=== PATIENT | female | born 1975 | race Two or more races ===

== ENCOUNTER 2021-06-20 15:06 | Inpatient (IN) ==
[2021-06-20] MEDS ORDERED: PANTOprazole 80 MG in DEXTROSE 5% 100 ML IV ONE (15:10)
[2021-06-20] MEDS ORDERED: ONDANSETRON INJ 2 MG/ML 2 ML VIAL IV STA (15:10)
[2021-06-20] MEDS ORDERED: PANTOPRAZOLE BOLUS/DRIP 1 EA IV STA (15:10)
[2021-06-20] MEDS ORDERED: SODIUM CHLORIDE 0.9% 1000ML 1,000 ML IV SCH (15:15)
[2021-06-20] MEDS: SODIUM CHLORIDE 0.9% 1000ML 1,000 ML IV ONE ×2 (15:23→15:55)
[2021-06-20 15:26] LABS: Hematocrit (blood only) 35.1 % (37-47); Hemoglobin 12.2 g/dL (12.0-16.0); Mean Corpuscular Hemoglobin 30.6 pg (25-34); Mean Corpuscular Hgb Conc 34.8 g/dL (32-36); RDW Coefficient of Variation 13.9 % (11.5-14.5); RDW Standard Deviation 44.9 fL (36.4-46.3); Red Blood Count 3.99 M/uL (4.2-5.4); White Blood Count 5.82 K/uL (4.8-10.8)
[2021-06-20 15:33] LABS: INR 1.1 (0.9-1.1); Partial Thromboplastin Time 26.1 Seconds (21.0-31.0); Prothrombin Time 11.4 Seconds (9.0-12.0)
--- NOTE | 2021-06-20 15:34 | XRay Report ---
XR chest 1V portable CLINICAL HISTORY: vomiting COMPARISON STUDY: Chest radiograph and chest CT March 31, 2021 FINDINGS: Lung volumes are normal. Mild right lower lung opacity has developed since prior CT and [address] radiograph March 31, 2021. There is no pneumothorax or pleural effusion. Cardiac size is normal. Me diastinal contours are normal. There is no evidence for pulmonary edema. IMPRESSION: Interval development of mild right lower lung airspace opacity. Although nonspecific, an infectious process is favored. ACT 112: Negative or not required by law. Electronically signed by: Robb Hurtado M.D. 06/20/2021 3:33 PM
[2021-06-20 15:41] LABS: Alanine Aminotransferase 62 U/L (12-78); Albumin Level 3.3 gm/dl (3.4-5.0); Aspartate Aminotransferase 42 U/L (15-37); BUN Creatinine Ratio 20.4 (10-20); Blood Urea Nitrogen 19 mg/dl (7-18); Calcium 8.1 mg/dl (8.5-10.1); Carbon Dioxide 24 mmol/L (21-32); Chloride 110 mmol/L (98-107); Est GFR (African American) 87.2 ml/min; Est GFR (Non-African American) 75.2 ml/min; Glucose 130 mg/dl (70-99); Potassium 4.1 mmol/L (3.5-5.1); Sodium 141 mmol/L (136-145)
[2021-06-20 15:44] LABS: Albumin Globulin Ratio 1.1 (0.9-2); Alkaline Phosphatase 91 U/L (45-117); Bilirubin,Total 1.6 mg/dl (0.2-1); Total Protein 6.3 gm/dl (6.4-8.2)
[2021-06-20] MEDS ORDERED: OPTIRAY 320 100ml IV ONE (15:44)
[2021-06-20 15:46] LABS: Basophils # (auto) 0.01 K/uL (0-0.2); Basophils % (auto) 0.2 %; Eosinophils # (auto) 0.07 K/uL (0-0.5); Eosinophils % (auto) 1.2 %; Immature Granulocytes # (auto) 0.01 K/uL (0.00-0.02); Immature Granulocytes % (auto) 0.2 %; Lymphocytes # (auto) 1.11 K/uL (1.2-3.4); Lymphocytes % (auto) 19.1 %; Mean Platelet Volume 10.9 fL (7.4-10.4); Monocytes # (auto) 0.58 K/uL (0.11-0.59); Neutrophils # (auto) 4.04 K/uL (1.4-6.5); Neutrophils % (auto) 69.3 %; Platelet Count 69 K/uL (130-400); Platelet Estimate Decreased (Normal)
[2021-06-20] MEDS: PANTOprazole 40 MG in DEXTROSE 5% 100 ML IV SCH ×2 (15:55→21:26)
--- NOTE | 2021-06-20 16:11 | CT Scan Report ---
CT OF THE CHEST WITH IV CONTRAST CLINICAL HISTORY: GIB, liver CA with mets COMPARISON STUDY: Chest CT March 31, 2021. TECHNIQUE: Following IV administration of 90 mL of Optiray, helical axial images of the chest were o btained. Sagittal and coronal reconstructions were viewed as well as maximal intensity projections o n an independent 3-D workstation. Automated exposure control was utilized for the study. A dose low ering technique was utilized adhering to the principles of ALARA. CT DOSE: 161.19 mGy.cm FINDINGS: No enlarged axillary, mediastinal or hilar lymph nodes are present. There is no pericardia l effusion. No pneumothorax or pleural fusion is present. There is no consolidation to suggest pneumo mitra. A few small pulmonary nodules are noted. The largest is a 4 mm subpleural nodule 198 of 241. The se are unchanged since PET/CT of March 31, 2020. There has been interval development of a 4.8 x 3.6 cm enhancing destructive lesion involving the anterior right fifth rib since prior CT. No additional os seous lesions are noted. The abdomen and pelvis will be reported separately. A small amount perihepat ic fluid is noted. IMPRESSION: 1. Interval development of a 4.8 x 3.6 cm enhancing destructive lesion of the anterior right fifth ri b since CT of March 31, 2021. This is highly suggestive of skeletal metastatic disease. 2. No thoracic lymphadenopathy. 3. No consolidation to suggest pneumonia. 4. No change in several small pulmonary nodules since chest CT of March 31, 2021. ACT 112: Negative or not required by law. Electronically signed by: Robb Hurtado M.D. 06/20/2021 4:10 PM
[2021-06-20] MEDS ORDERED: SODIUM CHLORIDE 0.9% 250 ML IV PRN (16:14)
--- NOTE | 2021-06-20 16:18 | CT Scan Report ---
ABDOMEN AND PELVIS CT WITH IV CONTRAST CT DOSE: 305.39 mGy.cm HISTORY: vomiting blood, liver CA TECHNIQUE: Multiaxial CT images of the abdomen and pelvis were performed following the use of intrave nous contrast. A dose lowering technique was utilized adhering to the principles of ALARA. COMPARISON STUDY: Abdomen and pelvis CT 03/31/2021. FINDINGS: There is a 4.6 cm metastatic focus within the right anterior fifth rib. No pneumoperitoneum . No pneumatosis. A 1.6 cm sclerotic focus within the right posterior iliac bone. This remains unchan ged. Embolization coil noted within the right hepatic lobe, unchanged. There is a 5 mm hypodense lesi on within the right hepatic dome on image 43. This is technically too small to characterize. Mild cir rhosis with portal hypertension demonstrated by splenomegaly and a dilated portal and splenic veins. The gallbladder, adrenal glands, kidneys, and pancreas are unremarkable. No retroperitoneal lymphaden opathy. Normal caliber abdominal aorta. There is suggestion of mild thickening of the distal gastric antrum/duodenal bulb. This raises the possibility of a gastritis/peptic ulcer disease. There is a mod erately distended and debris filled stomach. Therefore, this could represent a partial gastric outlet obstruction from the thickened gastric antrum/duodenal bulb. Persistent heterogeneity within the lef t side of the uterine fundus. The bladder is unremarkable. There is trace ascites. Colonic diverticul osis. No evidence for acute diverticulitis. Normal appendix. IMPRESSION: 1. A 4.6 cm destructive metastatic focus within the right anterior fifth rib. This is better apprecia andres on the same day chest CT. 2. A stable 1.6 cm sclerotic focus within the right posterior iliac bone. This is nonspecific but cou ld also represent metastatic disease. 3. There is suggestion of mild thickening of the distal gastric antrum/duodenal bulb. This raises the possibility of a gastritis/peptic ulcer disease. 4. There is a moderately distended and debris filled stomach. Therefore, this could represent a parti al gastric outlet obstruction from the thickened gastric antrum/duodenal bulb. 5. Persistent heterogeneity within the left side of the uterine fundus. This is indeterminate but cou ld represent a uterine fibroid. A follow-up pelvic ultrasound could be used for confirmation. ACT 112: Negative or not required by law. Electronically signed by: Ashkan Aldana M.D. 06/20/2021 4:17 PM
[2021-06-20] MEDS ORDERED: BENZOCAINE/TETRACAIN/BUTAM CAN 200 APPLN/20 GM CAN EXT STA (16:47)
[2021-06-20 16:50] LABS: iSTAT Creatinine 0.9 mg/dl (0.6-1.3); iSTAT Hemoglobin 11.2 g/dl (12.0-16.0); iSTAT Ionized Calcium 1.12 mmol/l (1.12-1.32); iSTAT Potassium 4.1 mmol/L (3.3-5.0)
[2021-06-20] MEDS ORDERED: BENZOCAIN/TETRACA/BUTAM SPRAY 200 APPLN/20 GM SPRY EXT STA (16:56)
--- NOTE | 2021-06-20 17:13 | History & Physical Report ---
Date of Service June 20, 2021 Assessment & Plan (1) Hematemesis: Plan: Will admit patient to a PCU bed. Currently hemodynamically stable with hemoglobin of 12.2 Was given Protonix in the ER, I can continue drip started in the emergency room Strict n.p.o. I did ask ER staff to place an NG tube considering CT results Consult GI stat for further acute management 2 units of packed red blood cells were ordered, transfusion held as patient's hemoglobin is stable. 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 Pablo bertrand who has since retired. ER physician did speak to GI. I did offer transfer to [facility], is comfortable keeping the patient here for now while we start work-up Will await GI evaluation and further recommendations I did also mention to the patient's that as she does have very advanced cancer with metastasis, not a transplant candidate. He does understand that she likely does not have time left. He may be interested in the near future and palliative care/hospice but not at the moment. I will need to follow-up on this. History of Present Illness Chief Complaint: Leland hematemesis Primary Care Provider: Jasmyne Diane This is a 45-year-old female with past medical history of hepatitis B, cirrhosis, hepatocellular carcinoma with bony metastasis that presents today with hematemesis. She is accompanied by her gives a good history. Patient has a recent diagnosis of hepatocellular carcinoma, was being evaluated by the transplant team at [facility]. Unfortunately, earlier this month, it was noted that the patient had a bony metastasis and therefore was not a candidate for transplant. She was following with the oncology team there and was recently started on a new chemotherapy agent. Per the , patient has been complaining of some abdominal pain throughout the course of last week into the weekend. Earlier today, he was out of the hospital contacted by the patient's daughter that the patient had a small amount of bloody vomit. He came home and with the patient in his car. In route to the hospital, she had a large volume bloody emesis. He describes as dark blood with clots. There was no coffee-ground element to it. Patient was evaluated emergency room. Per the ER physician, she has not had another episode of vomiting since being roomed. Allergies Allergy/AdvReac Type Severity Reaction Status Date / Time No Known Allergies Allergy Verified 06/20/21 15:45 Home Medications Medication Instructions Recorded Confirmed Type prochlorperazine maleate 5 mg 5 mg PO UD PRN 03/31/21 06/20/21 History tablet sumatriptan succinate 50 mg tablet 50 mg PO UD PRN 03/31/21 06/20/21 History lenvatinib 12 mg/day (4 mg x 3) 12 mg PO DAILY 06/20/21 06/20/21 History capsule (Lenvima) Past Med/Surg History Medical History (Updated 06/20/21 @ 17:10 by Homero Rios DO) Abdominal discomfort Fibroid uterus Hepatitis B chronic History of abnormal [facility] [place], bleeding was managed with Aygestin (recurrence when Aygestin discontinued). Per [facility] discharge summary, received 2U PRBC's 01/20. Received IR uterine artery embolization during admission. Liver cancer DX 12/2019 Surgical History History of arteriography History of History of endometrial ablation Family History Other No family history of adverse response to anesthesia No pertinent family history Social History Smoking Status: Never smoker Second Hand Exposure: No; Hx Alcohol Use: No Hx Substance Use: No Preferred Language: Mandarin Azeri Communication Ability: Effective Communication Tools: IPad Yolk Spray Drier Required: Yes Beliefs That Will Affect Care: None Current Living Situation: Spouse Feels Safe at Home: Yes Review of Systems Review of Systems: as noted above from . patient drowsy, poor understanding of taiwanese so this is otherwise deferred Physical Exam Constitutional: cooperative; no acute distress Neck: trachea midline, no thyromegaly Respiratory: normal respiratory effort Auscultation: lungs clear to auscultation bilaterally; no crackles, no rales, no rhonchi and no wheezes Cardiovascular: Rate/Rhythm: regular rate and regular rhythm Heart Sounds: normal S1 and normal S2 Gastrointestinal (Abdomen): Inspection/Auscultation: abdomen normal to inspection Percussion/Palpation: + abdomen firm; abdomen nontender, no guarding, abdomen not rigid and no hepatosplenomegaly Skin: no rashes, warm and dry Results & Data Results & Data ([facility]) Vital Signs (Past 12 Hours) Vital Signs Temp Pulse Resp BP Pulse Ox 06/20/21 16:07 77 18 127/77 99 06/20/21 15:08 36.9 C 93 H 20 118/87 98 Laboratory Results Laboratory Results WBC 5.82 K/uL (4.8-10.8) 06/20/21 15:15 RBC 3.99 M/uL (4.2-5.4) L 06/20/21 15:15 Hgb 12.2 g/dL (12.0-16.0) 06/20/21 15:15 POC Hgb 11.2 g/dl (12.0-16.0) L 06/20/21 15:25 Hct 35.1 % (37-47) L 06/20/21 15:15 POC Hct 33 % (37-47) L 06/20/21 15:25 MCV 88.0 fL (80-100) 06/20/21 15:15 MCH 30.6 pg (25-34) 06/20/21 15:15 MCHC 34.8 g/dL (32-36) 06/20/21 15:15 RDW Std Deviation 44.9 fL (36.4-46.3) 06/20/21 15:15 RDW Coeff of Domonique 13.9 % (11.5-14.5) 06/20/21 15:15 Plt Count 69 K/uL (130-400) L 06/20/21 15:15 MPV 10.9 fL (7.4-10.4) H 06/20/21 15:15 Immature Gran % (Auto) 0.2 % 06/20/21 15:15 Neut % (Auto) 69.3 % 06/20/21 15:15 Lymph % (Auto) 19.1 % 06/20/21 15:15 [place] % (Auto) 10.0 % 06/20/21 15:15 Eos % (Auto) 1.2 % 06/20/21 15:15 Baso % (Auto) 0.2 % 06/20/21 15:15 Neut # (Auto) 4.04 K/uL (1.4-6.5) 06/20/21 15:15 Lymph # (Auto) 1.11 K/uL (1.2-3.4) L 06/20/21 15:15 [place] # (Auto) 0.58 K/uL (0.11-0.59) 06/20/21 15:15 Eos # (Auto) 0.07 K/uL (0-0.5) 06/20/21 15:15 Baso # (Auto) 0.01 K/uL (0-0.2) 06/20/21 15:15 Immature Gran # (Auto) 0.01 K/uL (0.00-0.02) 06/20/21 15:15 Platelet Estimate Decreased (Normal) L 06/20/21 15:15 PT 11.4 Seconds (9.0-12.0) 06/20/21 15:15 INR 1.1 (0.9-1.1) 06/20/21 15:15 APTT 26.1 Seconds (21.0-31.0) 06/20/21 15:15 PTT Ratio 1.0 06/20/21 15:15 POC Sodium 140 mmol/L (135-144) 06/20/21 15:25 Sodium 141 mmol/L (136-145) 06/20/21 15:15 POC Potassium 4.1 mmol/L (3.3-5.0) 06/20/21 15:25 Potassium 4.1 mmol/L (3.5-5.1) 06/20/21 15:15 POC Chloride 104 mmol/L (101-112) 06/20/21 15:25 Chloride 110 mmol/L (98-107) H 06/20/21 15:15 Carbon Dioxide 24 mmol/L (21-32) 06/20/21 15:15 POC Total CO2 21 mmol/L (24-31) L 06/20/21 15:25 Anion Gap 7.0 (3-11) 06/20/21 15:15 POC Anion Gap 20.0 mmol/L (16-25) 06/20/21 15:25 POC BUN 20 mg/dl (7-18) H 06/20/21 15:25 BUN 19 mg/dl (7-18) H 06/20/21 15:15 Creatinine 0.92 mg/dl (0.6-1.2) 06/20/21 15:15 POC Creatinine 0.9 mg/dl (0.6-1.3) 06/20/21 15:25 Est Cr Clr Drug Dosing Not Reportable 06/20/21 15:15 Est GFR ( Amer) 87.2 ml/min 06/20/21 15:15 Est GFR (Non-Af Amer) 75.2 ml/min 06/20/21 15:15 BUN/Creatinine Ratio 20.4 (10-20) H 06/20/21 15:15 Glucose 130 mg/dl (70-99) H 06/20/21 15:15 POC Glucose (other) 135 mg/dl (70-99) H 06/20/21 15:25 Calcium 8.1 mg/dl (8.5-10.1) L 06/20/21 15:15 POC Ioniz Calcium Leena 1.12 mmol/l (1.12-1.32) 06/20/21 15:25 Total Bilirubin 1.6 mg/dl (0.2-1) H 06/20/21 15:15 AST 42 U/L (15-37) H 06/20/21 15:15 ALT 62 U/L (12-78) 06/20/21 15:15 Alkaline Phosphatase 91 U/L (45-117) 06/20/21 15:15 Total Protein 6.3 gm/dl (6.4-8.2) L 06/20/21 15:15 Albumin 3.3 gm/dl (3.4-5.0) L 06/20/21 15:15 Globulin 3.0 gm/dl (2.5-4.0) 06/20/21 15:15 Albumin/Globulin Ratio 1.1 (0.9-2) 06/20/21 15:15 COVID-19 Eval Order Covid19 at [facility] 06/20/21 15:58 SARS-CoV-2 (PCR) NEGATIVE (Negative) 06/20/21 15:58 Blood Type O Positive 06/20/21 15:15 Antibody Screen NEGATIVE 06/20/21 15:15 Crossmatch See Detail 06/20/21 15:15 Impressions Abdomen/Pelvis CT 06/20/21 15:[address] WITH IV CONTRAST CT DOSE: 305.39 mGy.cm HISTORY: vomiting blood, liver CA TECHNIQUE: Multiaxial CT images of the abdomen and pelvis were performed following the use of intravenous contrast. A dose lowering technique was utilized adhering to the principles of ALARA. COMPARISON STUDY: Abdomen and pelvis CT 03/31/2021. FINDINGS: There is a 4.6 cm metastatic focus within the right anterior fifth rib. No pneumoperitoneum. No pneumatosis. A 1.6 cm sclerotic focus within the right posterior iliac bone. This remains unchanged. Embolization coil noted within the right hepatic lobe, unchanged. There is a 5 mm hypodense lesion within the right hepatic dome on image 43. This is technically too small to characterize. Mild cirrhosis with portal hypertension demonstrated by splenomegaly and a dilated portal and splenic veins. The gallbladder, adrenal glands, kidneys, and pancreas are unremarkable. No retroperitoneal lymphadenopathy. Normal caliber abdominal aorta. There is suggestion of mild thickening of the distal gastric antrum/duodenal bulb. This raises the possibility of a gastritis/peptic ulcer disease. There is a moderately distended and debris filled stomach. Therefore, this could represent a partial gastric outlet obstruction from the thickened gastric antrum/duodenal bulb. Persistent heterogeneity within the left side of the uterine fundus. The bladder is unremarkable. There is trace ascites. Colonic diverticulosis. No evidence for acute diverticulitis. Normal appendix. IMPRESSION: 1. A 4.6 cm destructive metastatic focus within the right anterior fifth rib. This is better appreciated on the same day chest CT. 2. A stable 1.6 cm sclerotic focus within the right posterior iliac bone. This is nonspecific but could also represent metastatic disease. 3. There is suggestion of mild thickening of the distal gastric antrum/duodenal bulb. This raises the possibility of a gastritis/peptic ulcer disease. 4. There is a moderately distended and debris filled stomach. Therefore, this could represent a partial gastric outlet obstruction from the thickened gastric antrum/duodenal bulb. 5. Persistent heterogeneity within the left side of the uterine fundus. This is indeterminate but could represent a uterine fibroid. A follow-up pelvic ultrasound could be used for confirmation. ACT 112: Negative or not required by law. Electronically signed by: Ashkan Aldana M.D. 06/20/2021 4:17 PM Chest X-Ray 06/20/21 15:10 XR chest 1V portable CLINICAL HISTORY: vomiting COMPARISON STUDY: Chest radiograph and chest CT March 31, 2021 FINDINGS: Lung volumes are normal. Mild right lower lung opacity has developed since prior CT and chest radiograph March 31, 2021. There is no pneumothorax or pleural effusion. Cardiac size is normal. Mediastinal contours are normal. There is no evidence for pulmonary edema. IMPRESSION: Interval development of mild right lower lung airspace opacity. Although nonspecific, an infectious process is favored. ACT 112: Negative or not required by law. Electronically signed by: Robb Hurtado M.D. 06/20/2021 3:[address] 06/20/21 15:43 CT OF THE CHEST WITH IV CONTRAST CLINICAL HISTORY: GIB, liver CA with mets COMPARISON STUDY: Chest CT March 31, 2021. TECHNIQUE: Following IV administration of 90 mL of Optiray, helical axial images of the chest were obtained. Sagittal and coronal reconstructions were viewed as well as maximal intensity projections on an independent 3-D workstation. Automated exposure control was utilized for the study. A dose lowering technique was utilized adhering to the principles of ALARA. CT DOSE: 161.19 mGy.cm FINDINGS: No enlarged axillary, mediastinal or hilar lymph nodes are present. There is no pericardial effusion. No pneumothorax or pleural fusion is present. There is no consolidation to suggest pneumonia. A few small pulmonary nodules are noted. The largest is a 4 mm subpleural nodule 198 of 241. These are unchanged since PET/CT of March 31, 2020. There has been interval development of a 4.8 x 3.6 cm enhancing destructive lesion involving the anterior right fifth rib since prior CT. No additional osseous lesions are noted. The abdomen and pelvis will be reported separately. A small amount perihepatic fluid is noted. IMPRESSION: 1. Interval development of a 4.8 x 3.6 cm enhancing destructive lesion of the anterior right fifth rib since CT of March 31, 2021. This is highly suggestive of skeletal metastatic disease. 2. No thoracic lymphadenopathy. 3. No consolidation to suggest pneumonia. 4. No change in several small pulmonary nodules since chest CT of March 31, 2021. ACT 112: Negative or not required by law. Electronically signed by: Robb Hurtado M.D. 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
[2021-06-20] MEDS ORDERED: LORazepam 0.5 MG/1 ML VIAL IV STA (17:37)
[2021-06-20] MEDS ORDERED: PROPOFOL IV EMULSION 10 MG/ML 20 ML VIAL IV ONE (18:33)
[2021-06-20] MEDS ORDERED: SUCCINYLCHOLINE CHLORIDE 20 MG/ML 10 ML VIAL IV ONE (18:33)
--- NOTE | 2021-06-20 18:35 | Gastrointestinal Consultation ---
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 If the bleeding could be variceal, early endoscopy is indicated for application of bands. Resuscitation and general support, and empiric treatment with IV PPI infusion. The patient is currently hemodynamically stable for early endoscopy, This was discussed in detail with the patient and spouse, with the support of a mandarin health care technician. Indications for examination, and potential benefits, risks, and alternatives were discussed, all questions were answered, and verbal consent was obtained. Endoscopy for control of bleeding arranged. Further recommendations to follow the results of the endoscopy History of Present Illness Reason for Consultation: Hematemesis, upper GI bleeding Requesting Physician: Krishna History of Present Illness 45 yo green[place]ic woman with known chronic hepatitis B complicated by early hepatic cirrhosis with portal hypertension and metastatic stage 4 HCC with bone metastases, s/p embolization for small hepatic mass and 3 doses of oral chemotherapy. . She had an episode of hematemesis with fresh red blood and clots this afternoon. Denies any previous episodes of GI bleeding. In the ED, NG passed with dark red bloody drainage. Hemodynamically stable. CT in the ED revealed signs of portal hypertension with splenomegaly and dilated splenic and portal veins, thickening of the wall of the antrum and gastric debris, likely blood and clots. Her last solid food ingestion was breakfast early this morning, she had clear broth for lunch at noon.. Denied use of aspirin or NSAIDs. Allergies Allergy/AdvReac Type Severity Reaction Status Date / Time No Known Allergies Allergy Verified 06/20/21 15:45 Home Medications Medication Instructions Recorded Confirmed Type prochlorperazine maleate 5 mg 5 mg PO UD PRN 03/31/21 06/20/21 History tablet sumatriptan succinate 50 mg tablet 50 mg PO UD PRN 03/31/21 06/20/21 History lenvatinib 12 mg/day (4 mg x 3) 12 mg PO DAILY 06/20/21 06/20/21 History capsule (Lenvima) Patient History Medical History (Updated 06/20/21 @ 18:28 by Jose Enrique Shelton MD) Abdominal discomfort Fibroid uterus Hepatitis B chronic History of abnormal uterine hemorrhage [place]2019 [place] [facility] [place] managed with Aygestin (recurrence when Aygestin discontinued). Per [facility] [place] received 2U PRBC's 01/20. Received IR uterine artery embolization during admission. Liver cancer DX 12/2019 Surgical History History of arteriography History of History of endometrial ablation Family History Other No family history of adverse response to anesthesia No pertinent family history Social History Smoking Status: Never smoker Second Hand Exposure: No; Hx Alcohol Use: No Hx Substance Use: No Preferred Language: Mandarin Citizen Of [place] Communication Ability: Effective Communication Tools: IPad Assembler Final Required: Yes Beliefs That Will Affect Care: None Current Living Situation: Spouse Feels Safe at Home: Yes Review of Systems Review of Systems: Review of systems positive for nausea, vomiting, fatigue, malaise, negative for cough, shortness of breath, chest pain, abdominal pain, rectal bleeding, melena Physical Exam Physical Exam: At time of my exam, patient awake but sedated with ativan. Oriented and responding appropriately to questions Eyes: No scleral icterus ENMT: No oral or pharyngeal lesions, neck masses, normal neck ROM. Respiratory: Lungs clear to auscultation Cardiovascular: No carotid bruits, normal rate and rhythm without gallops or murmurs Gastrointestinal (Abdomen): Soft nontender abdomen without detectable organ omegaly or ascites Musculoskeletal: No deformity, cyanosis, edema Skin: Not jaundiced Neurologic: No focal neurologic signs Results & Data ([facility]) Vital Signs (Past 12 Hours) Vital Signs Temp Pulse Pulse Resp BP BP Pulse Ox 06/20/21 17:46 88 20 93/75 L 97 06/20/21 17:30 84 19 93/75 L 99 06/20/21 17:00 91 H 17 117/80 06/20/21 16:30 81 18 113/82 100 06/20/21 16:07 77 18 127/77 99 06/20/21 15:08 36.9 C 93 H 20 118/87 98 Laboratory Results 0806/20/21 06/20/21 15:15 15:15 15:15 WBC 5.82 RBC 3.99 L Hgb 12.2 POC Hgb Hct 35.1 L POC Hct MCV 88.0 MCH 30.6 MCHC 34.8 RDW Std Deviation 44.9 RDW Coeff of Domonique 13.9 Plt Count 69 L MPV 10.9 H Immature Gran % (Auto) 0.2 Neut % (Auto) 69.3 Lymph % (Auto) 19.1 [place] % (Auto) 10.0 Eos % (Auto) 1.2 Baso % (Auto) 0.2 Neut # (Auto) 4.04 Lymph # (Auto) 1.11 L [place] # (Auto) 0.58 Eos # (Auto) 0.07 Baso # (Auto) 0.01 Immature Gran # (Auto) 0.01 Platelet Estimate Decreased L PT 11.4 INR 1.1 APTT 26.1 PTT Ratio 1.0 POC Sodium Sodium POC Potassium Potassium POC Chloride Chloride Carbon Dioxide POC Total CO2 Anion Gap POC Anion Gap POC BUN BUN Creatinine POC Creatinine Est Cr Clr Drug Dosing Est GFR ( Amer) Est GFR (Non-Af Amer) BUN/Creatinine Ratio Glucose POC Glucose (other) Calcium POC Ioniz Calcium Elena Total Bilirubin AST ALT Alkaline Phosphatase Total Protein Albumin Globulin Albumin/Globulin Ratio COVID-19 Eval Order SARS-CoV-2 (PCR) Blood Type O Positive Antibody Screen NEGATIVE Crossmatch See Detail 06/20/21 06/20/21 06/20/21 15:15 15:25 15:58 WBC RBC Hgb POC Hgb 11.2 L Hct POC Hct 33 L MCV MCH MCHC RDW Std Deviation RDW Coeff of Domonique Plt Count MPV Immature Gran % (Auto) Neut % (Auto) Lymph % (Auto) [place] % (Auto) Eos % (Auto) Baso % (Auto) Neut # (Auto) Lymph # (Auto) [place] # (Auto) Eos # (Auto) Baso # (Auto) Immature Gran # (Auto) Platelet Estimate PT INR APTT PTT Ratio POC Sodium 140 Sodium 141 POC Potassium 4.1 Potassium 4.1 POC Chloride 104 Chloride 110 H Carbon Dioxide 24 POC Total CO2 21 L Anion Gap 7.0 POC Anion Gap 20.0 POC BUN 20 H BUN 19 H Creatinine 0.92 POC Creatinine 0.9 Est Cr Clr Drug Dosing Not Reportable Est GFR ( Amer) 87.2 Est GFR (Non-Af Amer) 75.2 BUN/Creatinine Ratio 20.4 H Glucose 130 H POC Glucose (other) 135 H Calcium 8.1 L POC Ioniz Calcium Elena 1.12 Total Bilirubin 1.6 H AST 42 H ALT 62 Alkaline Phosphatase 91 Total Protein 6.3 L Albumin 3.3 L Globulin 3.0 Albumin/Globulin Ratio 1.1 COVID-19 Eval Order Covid19 at [facility] SARS-CoV-2 (PCR) Blood Type Antibody Screen Crossmatch 06/20/21 15:58 WBC RBC Hgb POC Hgb Hct POC Hct MCV MCH MCHC RDW Std Deviation RDW Coeff of Domonique Plt Count MPV Immature Gran % (Auto) Neut % (Auto) Lymph % (Auto) [place] % (Auto) Eos % (Auto) Baso % (Auto) Neut # (Auto) Lymph # (Auto) [place] # (Auto) Eos # (Auto) Baso # (Auto) Immature Gran # (Auto) Platelet Estimate PT INR APTT PTT Ratio POC Sodium Sodium POC Potassium Potassium POC Chloride Chloride Carbon Dioxide POC Total CO2 Anion Gap POC Anion Gap POC BUN BUN Creatinine POC Creatinine Est Cr Clr Drug Dosing Est GFR ( Amer) Est GFR (Non-Af Amer) BUN/Creatinine Ratio Glucose POC Glucose (other) Calcium POC Ioniz Calcium Elena Total Bilirubin AST ALT Alkaline Phosphatase Total Protein Albumin Globulin Albumin/Globulin Ratio COVID-19 Eval Order SARS-CoV-2 (PCR) NEGATIVE Blood Type Antibody Screen Crossmatch Diagnostic Findings Laboratory Results WBC 5.82 K/uL (4.8-10.8) 06/20/21 15:15 RBC 3.99 M/uL (4.2-5.4) L 06/20/21 15:15 Hgb 12.2 g/dL (12.0-16.0) 06/20/21 15:15 POC Hgb 11.2 g/dl (12.0-16.0) L 06/20/21 15:25 Hct 35.1 % (37-47) L 06/20/21 15:15 POC Hct 33 % (37-47) L 06/20/21 15:25 MCV 88.0 fL (80-100) 06/20/21 15:15 MCH 30.6 pg (25-34) 06/20/21 15:15 MCHC 34.8 g/dL (32-36) 06/20/21 15:15 RDW Std Deviation 44.9 fL (36.4-46.3) 06/20/21 15:15 RDW Coeff of Domonique 13.9 % (11.5-14.5) 06/20/21 15:15 Plt Count 69 K/uL (130-400) L 06/20/21 15:15 MPV 10.9 fL (7.4-10.4) H 06/20/21 15:15 Immature Gran % (Auto) 0.2 % 06/20/21 15:15 Neut % (Auto) 69.3 % 06/20/21 15:15 Lymph % (Auto) 19.1 % 06/20/21 15:15 [place] % (Auto) 10.0 % 06/20/21 15:15 Eos % (Auto) 1.2 % 06/20/21 15:15 Baso % (Auto) 0.2 % 06/20/21 15:15 Neut # (Auto) 4.04 K/uL (1.4-6.5) 06/20/21 15:15 Lymph # (Auto) 1.11 K/uL (1.2-3.4) L 06/20/21 15:15 [place] # (Auto) 0.58 K/uL (0.11-0.59) 06/20/21 15:15 Eos # (Auto) 0.07 K/uL (0-0.5) 06/20/21 15:15 Baso # (Auto) 0.01 K/uL (0-0.2) 06/20/21 15:15 Immature Gran # (Auto) 0.01 K/uL (0.00-0.02) 06/20/21 15:15 Platelet Estimate Decreased (Normal) L 06/20/21 15:15 PT 11.4 Seconds (9.0-12.0) 06/20/21 15:15 INR 1.1 (0.9-1.1) 06/20/21 15:15 APTT 26.1 Seconds (21.0-31.0) 06/20/21 15:15 PTT Ratio 1.0 06/20/21 15:15 POC Sodium 140 mmol/L (135-144) 06/20/21 15:25 Sodium 141 mmol/L (136-145) 06/20/21 15:15 POC Potassium 4.1 mmol/L (3.3-5.0) 06/20/21 15:25 Potassium 4.1 mmol/L (3.5-5.1) 06/20/21 15:15 POC Chloride 104 mmol/L (101-112) 06/20/21 15:25 Chloride 110 mmol/L (98-107) H 06/20/21 15:15 Carbon Dioxide 24 mmol/L (21-32) 06/20/21 15:15 POC Total CO2 21 mmol/L (24-31) L 06/20/21 15:25 Anion Gap 7.0 (3-11) 06/20/21 15:15 POC Anion Gap 20.0 mmol/L (16-25) 06/20/21 15:25 POC BUN 20 mg/dl (7-18) H 06/20/21 15:25 BUN 19 mg/dl (7-18) H 06/20/21 15:15 Creatinine 0.92 mg/dl (0.6-1.2) 06/20/21 15:15 POC Creatinine 0.9 mg/dl (0.6-1.3) 06/20/21 15:25 Est Cr Clr Drug Dosing Not Reportable 06/20/21 15:15 Est GFR ( Amer) 87.2 ml/min 06/20/21 15:15 Est GFR (Non-Af Amer) 75.2 ml/min 06/20/21 15:15 BUN/Creatinine Ratio 20.4 (10-20) H 06/20/21 15:15 Glucose 130 mg/dl (70-99) H 06/20/21 15:15 POC Glucose (other) 135 mg/dl (70-99) H 06/20/21 15:25 Calcium 8.1 mg/dl (8.5-10.1) L 06/20/21 15:15 POC Ioniz Calcium Elena 1.12 mmol/l (1.12-1.32) 06/20/21 15:25 Total Bilirubin 1.6 mg/dl (0.2-1) H 06/20/21 15:15 AST 42 U/L (15-37) H 06/20/21 15:15 ALT 62 U/L (12-78) 06/20/21 15:15 Alkaline Phosphatase 91 U/L (45-117) 06/20/21 15:15 Total Protein 6.3 gm/dl (6.4-8.2) L 06/20/21 15:15 Albumin 3.3 gm/dl (3.4-5.0) L 06/20/21 15:15 Globulin 3.0 gm/dl (2.5-4.0) 06/20/21 15:15 Albumin/Globulin Ratio 1.1 (0.9-2) 06/20/21 15:15 COVID-19 Eval Order Covid19 at [facility] 06/20/21 15:58 SARS-CoV-2 (PCR) NEGATIVE (Negative) 06/20/21 15:58 Blood Type O Positive 06/20/21 15:15 Antibody Screen NEGATIVE 06/20/21 15:15 Crossmatch See Detail 06/20/21 15:15 Impressions Abdomen/Pelvis CT 06/20/21 15:[address] WITH IV CONTRAST CT DOSE: 305.39 mGy.cm HISTORY: vomiting blood, liver CA TECHNIQUE: Multiaxial CT images of the abdomen and pelvis were performed following the use of intravenous contrast. A dose lowering technique was utilized adhering to the principles of ALARA. COMPARISON STUDY: Abdomen and pelvis CT 03/31/2021. FINDINGS: There is a 4.6 cm metastatic focus within the right anterior fifth rib. No pneumoperitoneum. No pneumatosis. A 1.6 cm sclerotic focus within the right posterior iliac bone. This remains unchanged. Embolization coil noted within the right hepatic lobe, unchanged. There is a 5 mm hypodense lesion within the right hepatic dome on image 43. This is technically too small to characterize. Mild cirrhosis with portal hypertension demonstrated by splenomegaly and a dilated portal and splenic veins. The gallbladder, adrenal glands, kidneys, and pancreas are unremarkable. No retroperitoneal lymphadenopathy. Normal caliber abdominal aorta. There is suggestion of mild thickening of the distal gastric antrum/duodenal bulb. This raises the possibility of a gastritis/peptic ulcer disease. There is a moderately distended and debris filled stomach. Therefore, this could represent a partial gastric outlet obstruction from the thickened gastric antrum/duodenal bulb. Persistent heterogeneity within the left side of the uterine fundus. The bladder is unremarkable. There is trace ascites. Colonic diverticulosis. No evidence for acute diverticulitis. Normal appendix. IMPRESSION: 1. A 4.6 cm destructive metastatic focus within the right anterior fifth rib. This is better appreciated on the same day chest CT. 2. A stable 1.6 cm sclerotic focus within the right posterior iliac bone. This is nonspecific but could also represent metastatic disease. 3. There is suggestion of mild thickening of the distal gastric antrum/duodenal bulb. This raises the possibility of a gastritis/peptic ulcer disease. 4. There is a moderately distended and debris filled stomach. Therefore, this could represent a partial gastric outlet obstruction from the thickened gastric antrum/duodenal bulb. 5. Persistent heterogeneity within the left side of the uterine fundus. This is indeterminate but could represent a uterine fibroid. A follow-up pelvic ultrasound could be used for confirmation. ACT 112: Negative or not required by law. Electronically signed by: Ashkan Aldana M.D. 06/20/2021 4:17 PM Chest X-Ray 06/20/21 15:10 XR chest 1V portable CLINICAL HISTORY: vomiting COMPARISON STUDY: Chest radiograph and chest CT March 31, 2021 FINDINGS: Lung volumes are normal. Mild right lower lung opacity has developed since prior CT and chest radiograph March 31, 2021. There is no pneumothorax or pleural effusion. Cardiac size is normal. Mediastinal contours are normal. There is no evidence for pulmonary edema. IMPRESSION: Interval development of mild right lower lung airspace opacity. Although nonspecific, an infectious process is favored. ACT 112: Negative or not required by law. Electronically signed by: Robb Hurtado M.D. 06/20/2021 3:[address] 06/20/21 15:43 CT OF THE CHEST WITH IV CONTRAST CLINICAL HISTORY: GIB, liver CA with mets COMPARISON STUDY: Chest CT March 31, 2021. TECHNIQUE: Following IV administration of 90 mL of Optiray, helical axial images of the chest were obtained. Sagittal and coronal reconstructions were viewed as well as maximal intensity projections on an independent 3-D workstation. Automated exposure control was utilized for the study. A dose lowering technique was utilized adhering to the principles of ALARA. CT DOSE: 161.19 mGy.cm FINDINGS: No enlarged axillary, mediastinal or hilar lymph nodes are present. There is no pericardial effusion. No pneumothorax or pleural fusion is present. There is no consolidation to suggest pneumonia. A few small pulmonary nodules are noted. The largest is a 4 mm subpleural nodule 198 of 241. These are unchanged since PET/CT of March 31, 2020. There has been interval development of a 4.8 x 3.6 cm enhancing destructive lesion involving the anterior right fifth rib since prior CT. No additional osseous lesions are noted. The abdomen and pelvis will be reported separately. A small amount perihepatic fluid is noted. IMPRESSION: 1. Interval development of a 4.8 x 3.6 cm enhancing destructive lesion of the anterior right fifth rib since CT of March 31, 2021. This is highly suggestive of skeletal metastatic disease. 2. No thoracic lymphadenopathy. 3. No consolidation to suggest pneumonia. 4. No change in several small pulmonary nodules since chest CT of March 31, 2021. ACT 112: Negative or not required by law. Electronically signed by: Robb Hurtado M.D. 06/20/2021 4:10 PM Medications Administered Current Inpatient Medications Pantoprazole Sodium 40 mg/ (Dextrose) 100 mls @ 20 mls/hr IV Q5H MARKOS Stop: 07/20/21 15:29 Last Admin: 06/20/21 15:55 Dose: 8 mg/hr, 20 mls/hr Documented by: Sodium Chloride (Nss) 250 mls @ 15 mls/hr IV .[id number] PRN PRN Reason: For Transfusion Stop: 06/21/21 02:14 Home Medications Medication Instructions Recorded Confirmed Last Taken prochlorperazine maleate 5 mg 5 mg PO UD PRN 03/31/21 06/20/21 Unknown tablet sumatriptan succinate 50 mg tablet 50 mg PO UD PRN 03/31/21 06/20/21 Unknown lenvatinib 12 mg/day (4 mg x 3) 12 mg PO DAILY 06/20/21 06/20/21 Unknown capsule (Lenvima) Active Medications Generic Name Dose Route Start Last Admin Trade Name Freq PRN Reason Stop Dose Admin Pantoprazole Sodium 40 mg/ 100 mls @ 20 mls/hr 06/20/21 15:30 06/20/21 15:55 Dextrose IV 07/20/21 15:29 8 mg/hr Q5H MARKOS 20 mls/hr Administration 8 MG/HR
--- NOTE | 2021-06-20 18:58 | Anesthesiology Consultation ---
Date of Service June 20, 2021 Assessment & Plan ASA [id number] Proposed Anesthesia Anesthesia Type: General Risk / Benefits Reviewed With: PT / POA / Parent / Guardian, Accepts Plan and Informed Consent Obtained History Surgery Operation Date: 06/20/21 19:00 Proposed Procedures p Upper Esophagogastroduodenoscopy(Not Applicable) - Jose Enrique Shelton MD Height/Weight Height: 5 ft 2 in Weight: 54 kg Allergies Allergy/AdvReac Type Severity Reaction Status Date / Time No Known Allergies Allergy Verified 06/20/21 15:45 Medications Home Medications Medication Instructions Recorded Confirmed Last Taken prochlorperazine maleate 5 mg 5 mg PO UD PRN 03/31/21 06/20/21 Unknown tablet sumatriptan succinate 50 mg tablet 50 mg PO UD PRN 03/31/21 06/20/21 Unknown lenvatinib 12 mg/day (4 mg x 3) 12 mg PO DAILY 06/20/21 06/20/21 Unknown capsule (Lenvima) Active Medications Generic Name Dose Route Start Last Admin Trade Name Freq PRN Reason Stop Dose Admin Pantoprazole Sodium 40 mg/ 100 mls @ 20 mls/hr 06/20/21 15:30 06/20/21 15:55 Dextrose IV 07/20/21 15:29 8 mg/hr Q5H MARKOS 20 mls/hr Administration 8 MG/HR Past Medical History Medical History (Updated 06/20/21 @ 18:28 by Jose Enrique Shelton MD) Abdominal discomfort Fibroid uterus Hepatitis B chronic History of abnormal uterine hemorrhage 12[place]2019 [place] [facility] [place] was managed with Aygestin (recurrence when Aygestin discontinued). Per [facility] [place], received 2U PRBC's 01/20. Received IR uterine artery embolization during admission. Liver cancer DX 12/2019 Exercise / Class Metabolic Activity II 4-5 Yardwork/Stairs/Walk up hill Past Family History Family History Other No family history of adverse response to anesthesia No pertinent family history Past Surgical History Surgical History History of arteriography History of History of endometrial ablation Past Anesthesia History No Hx of Anesthesia Complications and No Family Hx of Anesthesia Complications History of PONV No Hx of PONV and No Hx of Motion Sickness Social History Smoking Status: Never smoker Hx Alcohol Use: No Hx Substance Use: No substance use type: does not use Review of Systems denies fever/cough/ colds/ chest pain/ SOB/ ULYSSES denies ULYSSES Physical Exam Vital Signs Last Vital Signs Temp 36.9 C 06/20/21 15:08 Pulse 88 06/20/21 17:46 Resp 20 06/20/21 17:46 BP 93/75 L 06/20/21 17:46 Pulse Ox 97 06/20/21 17:46 ENMT Mouth: no TMJ abnormality and no dentition abnormality Thyromental Distance: > or= 3.5 Finger Breadths Mallampati Class: IV ng tube Neck neck extension not limited Respiratory normal respiratory effort; no respiratory distress Auscultation: lungs clear to auscultation bilaterally Cardiovascular Rate/Rhythm: regular rate and regular rhythm Neurologic moves all extremities Psychiatric Orientation: alert and oriented x 3 Testing Laboratory Results 06/20/21 15:15 06/20/21 15:15 PT 11.4 Seconds (9.0-12.0) 06/20/21 15:15 INR 1.1 (0.9-1.1) 06/20/21 15:15 APTT 26.1 Seconds (21.0-31.0) 06/20/21 15:15 Blood Type O Positive 06/20/21 15:15 Antibody Screen NEGATIVE 06/20/21 15:15 06/20/21 15:25 POC Glucose (other) 135 H
[2021-06-20] MEDS ORDERED: HYDROmorphone INJ 2 MG/ML SYR/VIAL IV PRN (18:59)
[2021-06-20] MEDS ORDERED: ONDANSETRON INJ 2 MG/ML 2 ML VIAL IV PRN ×2 (18:59→20:53)
[2021-06-20] MEDS ORDERED: fentaNYL citrate 100 MCG/2 ML VIAL IV PRN (18:59)
[2021-06-20] MEDS ORDERED: ePHEDrine sulfate 50 MG/ML AMP IV PRN (18:59)
[2021-06-20] MEDS ORDERED: ATROPINE SULFATE 0.1 MG/ML 10ML SYR IV PRN (18:59)
[2021-06-20] MEDS ORDERED: ALBUMIN HUMAN 5% 12.5 GM/250 ML VIAL IV ONE (19:04)
[2021-06-20] MEDS ORDERED: ONDANSETRON INJ 2 MG/ML 2 ML VIAL ONE (19:23)
[2021-06-20] MEDS ORDERED: DEXAMETHASONE SOD INJ 4 MG/ML VIAL ONE (19:23)
--- NOTE | 2021-06-20 20:01 | Post Operative Brief Note ---
Immediate Post Op Note v1 Date of Surgery June 20, 2021 Pre & Post Diagnosis Operation Date: 06/20/21 19:00 Pre-Op Diagnosis: Hematemesis, Upper gastrointestinal bleeding Post-Op Diagnosis: Hematemesis, Upper gastrointestinal bleeding I identified the patient and participated in the time-out.: Yes Procedure Operation Date: 06/20/21 19:00 Actual Procedures p Esophagogastroduodenoscopy, Epinephrine Injection for Control of Bleeding(Not Applicable) - Jose Enrique Shelton MD Surgeon Jose Enrique Shelton MD Medical Writer none Estimated Blood Loss 0 Findings See Below Esophagus: 4 columns of small esophageal varices present in the distal esophagus, without distension or bulging into the lumen, and without visible active bleeding or stigmata of recent bleeding. No esophagitis. Z line identified Stomach: Just beyond the Z line in the cardia of the stomach, fresh red clot identified with oozing of fresh blood at the margins. Old clot also present, the mucosa could not be examined. Retroflexed view of this area was limited by clot. This was the only area where fresh blood and clot could be identified. No varices visible. 2 cc of 1/10,000 epinephrine injected under the fresh clot. There was old blood and two large bezoars of old blood and food debris present in the fundus and antrum of the stomach Duodenum: No abnormalities detected in the bulb and descending duodenum Impression: Bleeding from the cardia, just beyond the GE junction, etiology undetermined. Small esophageal varices without bleeding. Complications No immediate complications Disposition Disposition: Surgical ICU (I recommend transfer to the ICU for observation and management)
--- NOTE | 2021-06-20 20:08 | Anesthesiology Progress Note ---
Date of Service June 20, 2021 Anesthesia Post Procedure Vital Signs Vital Signs: Temp Pulse Pulse Pulse Resp BP BP 06/20/21 20:05 82 22 114/74 06/20/21 19:55 36.3 C L 87 19 123/71 06/20/21 19:03 36.7 C 2 L 16 98/64 L 06/20/21 17:46 88 20 93/75 L 06/20/21 17:30 84 19 93/75 L 06/20/21 17:00 91 H 17 117/80 06/20/21 16:30 81 18 113/82 06/20/21 16:07 77 18 127/77 06/20/21 15:08 36.9 C 93 H 20 118/87 Pulse Ox 06/20/21 20:05 100 06/20/21 19:55 100 06/20/21 19:03 93 06/20/21 17:46 97 06/20/21 17:30 99 06/20/21 17:00 06/20/21 16:30 100 06/20/21 16:07 99 06/20/21 15:08 98 Transfer of Care Handoff Completed per policy Notes Mental Status: alert / awake / arousable and participated in evaluation Patient Amnestic to Procedure: Yes Nausea / Vomiting: adequately controlled Pain: adequately controlled Airway Patency, RR, SpO2: stable & adequate BP & HR: stable & adequate Hydration State: stable & adequate Anesthetic Complications: no major complications apparent and Pt Satisfied with anesthetic care
--- NOTE | 2021-06-20 20:18 | Emergency Department Note ---
History of Present Illness General Chief complaint: Hematuria Stated complaint: THOWING UP BLOOD Time Seen by Provider: 06/20/21 15:10 Source: patient and RN notes reviewed Mode of arrival: ambulatory Limitations: no limitations History of Present Illness Provider complaint: Vomiting blood This patient is a 45-year-old female who presents to the emergency department by private vehicle after an episode of hematemesis that developed after eating at approximately 2 PM. 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 Per she began a new chemotherapy regimen with Lenvima and was told "this could put a hole in her stomach." Patient has not had any vomiting until this point. Per nursing staff the car had bright red blood with clots all through the front seat. They were called to the car to help assist in getting the patient out. Patient denies any significant pain at this time. Home Medications Medication Instructions Recorded Confirmed Type prochlorperazine maleate 5 mg 5 mg PO UD PRN 03/31/21 06/20/21 History tablet sumatriptan succinate 50 mg tablet 50 mg PO UD PRN 03/31/21 06/20/21 History lenvatinib 12 mg/day (4 mg x 3) 12 mg PO DAILY 06/20/21 06/20/21 History capsule (Lenvima) Allergies Allergy/AdvReac Type Severity Reaction Status Date / Time No Known Allergies Allergy Verified 06/20/21 15:45 Past Med/Surg History Medical History (Updated 06/21/21 @ 09:41 by Veronika Keller MD) Abdominal discomfort Fibroid uterus Hepatitis B chronic History of abnormal uterine hemorrhage 12/2019 - [place] --> [facility] [place], bleeding was managed with Aygestin (recurrence when Aygestin discontinued). Per [facility] [place] discharge summary, received 2U PRBC's 01/20. Received IR uterine artery embolization during admission. Liver cancer DX 12/2019 Surgical History History of arteriography History of History of endometrial ablation Family History Other No family history of adverse response to anesthesia No pertinent family history Social History Smoking Status: Never smoker Second Hand Exposure: No; Hx Alcohol Use: No Hx Substance Use: No Preferred Language: Mandarin Cymraes Communication Ability: Effective Communication Tools: IPad, Language Line City Director, Facial Expression and Physical Gestures City Director Required: Video Beliefs That Will Affect Care: None Current Living Situation: Spouse Other Information That Helps Us Care for You: No Feels Safe at Home: Yes Assistive Devices: None Review of Systems See HPI for pertinent positives & negatives. and A total of 10 systems reviewed and were otherwise negative Physical Exam Vital Signs Vital Signs - 24 hr 06/20/21 15:08 06/20/21 15:29 06/20/21 16:07 Temperature 36.9 C Temperature Source Temporal Artery Scan Pulse Rate 93 H 77 Pulse Rate from SpO2 Sensor 78 Respiratory Rate 20 18 Respiratory Effort / Characteristics Non-Labored Spontaneous Respiratory Depth Normal Blood Pressure 118/87 127/77 Blood Pressure Mean 97 93 Pulse Oximetry 98 99 Oxygen Delivery Method Room Air Room Air Sepsis Recent Fever Within 48 Hours No Sepsis New/Unexplained Change in Mental Status N/A Sepsis Action Taken by Nursing No Action Required 06/20/21 16:30 06/20/21 17:00 06/20/21 17:30 Temperature Temperature Source Pulse Rate 81 91 H 84 Pulse Rate from SpO2 Sensor 81 84 Respiratory Rate 18 17 19 Respiratory Effort / Characteristics Respiratory Depth Blood Pressure 113/82 117/80 93/75 L Blood Pressure Mean 92 92 81 Pulse Oximetry 100 99 Oxygen Delivery Method Sepsis Recent Fever Within 48 Hours Sepsis New/Unexplained Change in Mental Status Sepsis Action Taken by Nursing Vital signs reviewed and fairly stable. General: Well-appearing 45-year-old female, in no significant distress. Some dried blood to the face and clothing. HEENT: Mild scleral icterus, PERRLA, neck supple. Atraumatic. Cardiovascular: Regular rate and rhythm, no extra sounds. Pulmonary: Clear to auscultation bilaterally, normal work of breathing. Abdomen: Soft, mild epigastric discomfort to palpation, no rebound, no guarding, nondistended, positive bowel sounds. Musculoskeletal: Atraumatic, no peripheral edema. Neurologic: Patient awake alert and oriented x 3, mild language barrier however follows commands appropriately and answers questions Skin: Warm, dry, no rash Course Administered Medications Pantoprazole Sodium 40 mg/ (Dextrose) 100 mls @ 20 mls/hr IV Q5H MARKOS Stop: 07/20/21 15:29 Last Admin: 06/21/21 08:00 Dose: 8 mg/hr, 20 mls/hr Documented by: [id number] Infusion: 06/21/21 08:00 Dose: 8 mg/hr, 20 mls/hr Documented by: [id number] Admin: 06/21/21 03:13 Dose: 8 mg/hr, 20 mls/hr Documented by: [id number] Infusion: 06/21/21 02:26 Dose: 8 mg/hr, 20 mls/hr Documented by: [id number] Admin: 06/20/21 21:26 Dose: 8 mg/hr, 20 mls/hr Documented by: [id number] Infusion: 06/20/21 20:55 Dose: 8 mg/hr, 20 mls/hr Documented by: [id number] Admin: 06/20/21 15:55 Dose: 8 mg/hr, 20 mls/hr Documented by: [id number] Sodium Chloride (Nss 1000ml) 1,000 mls @ 100 mls/hr IV .Q10H MARKOS Stop: 07/20/21 20:52 Last Admin: 06/21/21 08:00 Dose: 100 mls/hr Documented by: [id number] Infusion: 06/21/21 07:26 Dose: 100 mls/hr Documented by: [id number] Admin: 06/20/21 21:26 Dose: 100 mls/hr Documented by: [id number] Ceftriaxone Sodium 1,000 mg/ (Dextrose) 50 mls @ 100 mls/hr IV Q24H MARKOS; Protocol Stop: 06/30/21 22:59 Last Infusion: 06/21/21 00:25 Dose: 0 mls/hr Documented by: [id number] Admin: 06/20/21 23:54 Dose: 100 mls/hr Documented by: [id number] Octreotide Acetate 500 mcg/ (Sodium Chloride) 105 mls @ 10.5 mls/hr IV .Q10H MARKOS Stop: 07/20/21 23:44 Last Admin: 06/21/21 08:00 Dose: 50 mcg/hr, 10.5 mls/hr Documented by: [id number] Infusion: 06/21/21 08:00 Dose: 50 mcg/hr, 10.5 mls/hr Documented by: [id number] Admin: 06/20/21 23:55 Dose: 50 mcg/hr, 10.5 mls/hr Documented by: [id number] Discontinued Medications Benzocaine/Butamben/Tetracaine HCl (Benzocain/Tetraca/Butam [place] 200 Appln/20 Gm [place]) 1 appln EXT NOW STA Stop: 06/20/21 16:57 Last Admin: 06/20/21 17:17 Dose: Not Given Documented by: [id number] Epinephrine HCl (Epinephrine 1.5" Ndl 0.1 Mg/Ml Syr) Confirm Administered Dose 1 mg IV .STK-MED ONE Stop: 06/20/21 20:25 Last Admin: 06/20/21 21:25 Dose: Not Given Documented by: [id number] Sodium Chloride (Nss 1000ml) 1,000 mls @ 999 mls/hr IV .Q1H1M MARKOS Stop: 06/20/21 16:15 Last Infusion: 06/20/21 21:27 Dose: 0 mls/hr Documented by: [id number] Admin: 06/20/21 16:03 Dose: 999 mls/hr Documented by: [id number] Pantoprazole Sodium (Protonix Bolus/Drip) 0 mls @ 1 mls/hr IV ONE STA Stop: 06/20/21 15:11 Last Admin: 06/20/21 16:26 Dose: Not Given Documented by: [id number] Pantoprazole Sodium 80 mg/ (Dextrose) 120 mls @ 400 mls/hr IV NOW ONE Stop: 06/20/21 15:27 Last Infusion: 06/20/21 16:15 Dose: 0 mls/hr Documented by: [id number] Admin: 06/20/21 15:55 Dose: 400 mls/hr Documented by: [id number] Sodium Chloride (Nss 1000ml) 1,000 mls @ 999 mls/hr IV .Q1H1M ONE Stop: 06/20/21 16:15 Last Infusion: 06/20/21 16:03 Dose: 0 mls/hr Documented by: [id number] Admin: 06/20/21 15:55 Dose: 999 mls/hr Documented by: [id number] Infusion: 06/20/21 15:55 Dose: 999 mls/hr Documented by: [id number] Admin: 06/20/21 15:23 Dose: 999 mls/hr Documented by: [id number] Lorazepam (Ativan) 0.5 mg in 1 mls @ 1 mls/min IV NOW STA Stop: 06/20/21 17:38 Last Admin: 06/20/21 17:45 Dose: 1 mls/min Documented by: [id number] Octreotide Acetate 50 mcg/ (Syringe) 10 mls @ 3 mls/min IV NOW STA Stop: 06/20/21 23:16 Last Admin: 06/20/21 23:55 Dose: 3 mls/min Documented by: [id number] Ioversol (Optiray 320 100ml) 90 ml IV ONCE ONE Stop: 06/20/21 15:45 Last Admin: 06/20/21 15:44 Dose: 90 ml Documented by: [id number] Ondansetron HCl (Ondansetron Inj 2 Mg/Ml 2 Ml Vial) 4 mg IV ONE STA Stop: 06/20/21 15:11 Last Admin: 06/20/21 15:25 Dose: 4 mg Documented by: [id number] Medical Decision Making Differential Diagnosis Diverticulosis, AVM, coagulopathy, colitis, inflammatory bowel disease, malignancy, Estelita-Lynn tear, esophagitis, peptic ulcer disease, variceal bleed, gastritis, epistaxis, fissure, hemorrhoids, as well as other pathologies. Medical Records Attestation: I reviewed the patient's medical records. Home Medications Current Medication List: was personally reviewed by me Laboratory Data Attestation: I reviewed the patient's lab results. Result diagrams: 06/21/21 04:16 06/21/21 04:16 Lab Results 06/20/21 06/20/21 06/20/21 Range/Units 15:15 15:15 15:15 WBC 5.82 (4.8-10.8) K/uL RBC 3.99 L (4.2-5.4) M/uL Hgb 12.2 (12.0-16.0) g/dL POC Hgb (12.0-16.0) g/dl Hct 35.1 L (37-47) % POC Hct (37-47) % MCV 88.0 (80-100) fL MCH 30.6 (25-34) pg MCHC 34.8 (32-36) g/dL RDW Std Deviation 44.9 (36.4-46.3) fL RDW Coeff of Domonique 13.9 (11.5-14.5) % Plt Count 69 L (130-400) K/uL MPV 10.9 H (7.4-10.4) fL Immature Gran % (Auto) 0.2 % Neut % (Auto) 69.3 % Lymph % (Auto) 19.1 % [place] % (Auto) 10.0 % Eos % (Auto) 1.2 % Baso % (Auto) 0.2 % Neut # (Auto) 4.04 (1.4-6.5) K/uL Lymph # (Auto) 1.11 L (1.2-3.4) K/uL [place] # (Auto) 0.58 (0.11-0.59) K/uL Eos # (Auto) 0.07 (0-0.5) K/uL Baso # (Auto) 0.01 (0-0.2) K/uL Immature Gran # (Auto) 0.01 (0.00-0.02) K/uL Platelet Estimate Decreased L (Normal) PT 11.4 (9.0-12.0) Seconds INR 1.1 (0.9-1.1) APTT 26.1 (21.0-31.0) Seconds PTT Ratio 1.0 POC Sodium (135-144) mmol/L Sodium (136-145) mmol/L POC Potassium (3.3-5.0) mmol/L Potassium (3.5-5.1) mmol/L POC Chloride (101-112) mmol/L Chloride (98-107) mmol/L Carbon Dioxide (21-32) mmol/L POC Total CO2 (24-31) mmol/L Anion Gap (3-11) POC Anion Gap (16-25) mmol/L POC BUN (7-18) mg/dl BUN (7-18) mg/dl Creatinine (0.6-1.2) mg/dl POC Creatinine (0.6-1.3) mg/dl Est Cr Clr Drug Dosing Est GFR ( Amer) ml/min Est GFR (Non-Af Amer) ml/min BUN/Creatinine Ratio (10-20) Glucose (70-99) mg/dl POC Glucose (other) (70-99) mg/dl Calcium (8.5-10.1) mg/dl POC Ioniz Calcium Elena (1.12-1.32) mmol/l Total Bilirubin (0.2-1) mg/dl AST (15-37) U/L ALT (12-78) U/L Alkaline Phosphatase (45-117) U/L Total Protein (6.4-8.2) gm/dl Albumin (3.4-5.0) gm/dl Globulin (2.5-4.0) gm/dl Albumin/Globulin Ratio (0.9-2) COVID-19 Eval Order SARS-CoV-2 (PCR) (Negative) Blood Type O Positive Antibody Screen NEGATIVE Crossmatch See Detail 06/20/21 06/20/21 06/20/21 Range/Units 15:15 15:25 15:58 WBC (4.8-10.8) K/uL RBC (4.2-5.4) M/uL Hgb (12.0-16.0) g/dL POC Hgb 11.2 L (12.0-16.0) g/dl Hct (37-47) % POC Hct 33 L (37-47) % MCV (80-100) fL MCH (25-34) pg MCHC (32-36) g/dL RDW Std Deviation (36.4-46.3) fL RDW Coeff of Domonique (11.5-14.5) % Plt Count (130-400) K/uL MPV (7.4-10.4) fL Immature Gran % (Auto) % Neut % (Auto) % Lymph % (Auto) % [place] % (Auto) % Eos % (Auto) % Baso % (Auto) % Neut # (Auto) (1.4-6.5) K/uL Lymph # (Auto) (1.2-3.4) K/uL [place] # (Auto) (0.11-0.59) K/uL Eos # (Auto) (0-0.5) K/uL Baso # (Auto) (0-0.2) K/uL Immature Gran # (Auto) (0.00-0.02) K/uL Platelet Estimate (Normal) PT (9.0-12.0) Seconds INR (0.9-1.1) APTT (21.0-31.0) Seconds PTT Ratio POC Sodium 140 (135-144) mmol/L Sodium 141 (136-145) mmol/L POC Potassium 4.1 (3.3-5.0) mmol/L Potassium 4.1 (3.5-5.1) mmol/L POC Chloride 104 (101-112) mmol/L Chloride 110 H (98-107) mmol/L Carbon Dioxide 24 (21-32) mmol/L POC Total CO2 21 L (24-31) mmol/L Anion Gap 7.0 (3-11) POC Anion Gap 20.0 (16-25) mmol/L POC BUN 20 H (7-18) mg/dl BUN 19 H (7-18) mg/dl Creatinine 0.92 (0.6-1.2) mg/dl POC Creatinine 0.9 (0.6-1.3) mg/dl Est Cr Clr Drug Dosing Not Reportable Est GFR ( Amer) 87.2 ml/min Est GFR (Non-Af Amer) 75.2 ml/min BUN/Creatinine Ratio 20.4 H (10-20) Glucose 130 H (70-99) mg/dl POC Glucose (other) 135 H (70-99) mg/dl Calcium 8.1 L (8.5-10.1) mg/dl POC Ioniz Calcium Elena 1.12 (1.12-1.32) mmol/l Total Bilirubin 1.6 H (0.2-1) mg/dl AST 42 H (15-37) U/L ALT 62 (12-78) U/L Alkaline Phosphatase 91 (45-117) U/L Total Protein 6.3 L (6.4-8.2) gm/dl Albumin 3.3 L (3.4-5.0) gm/dl Globulin 3.0 (2.5-4.0) gm/dl Albumin/Globulin Ratio 1.1 (0.9-2) COVID-19 Eval Order Covid19 at [facility] SARS-CoV-2 (PCR) (Negative) Blood Type Antibody Screen Crossmatch 06/20/21 Range/Units 15:58 WBC (4.8-10.8) K/uL RBC (4.2-5.4) M/uL Hgb (12.0-16.0) g/dL POC Hgb (12.0-16.0) g/dl Hct (37-47) % POC Hct (37-47) % MCV (80-100) fL MCH (25-34) pg MCHC (32-36) g/dL RDW Std Deviation (36.4-46.3) fL RDW Coeff of Domonique (11.5-14.5) % Plt Count (130-400) K/uL MPV (7.4-10.4) fL Immature Gran % (Auto) % Neut % (Auto) % Lymph % (Auto) % [place] % (Auto) % Eos % (Auto) % Baso % (Auto) % Neut # (Auto) (1.4-6.5) K/uL Lymph # (Auto) (1.2-3.4) K/uL [place] # (Auto) (0.11-0.59) K/uL Eos # (Auto) (0-0.5) K/uL Baso # (Auto) (0-0.2) K/uL Immature Gran # (Auto) (0.00-0.02) K/uL Platelet Estimate (Normal) PT (9.0-12.0) Seconds INR (0.9-1.1) APTT (21.0-31.0) Seconds PTT Ratio POC Sodium (135-144) mmol/L Sodium (136-145) mmol/L POC Potassium (3.3-5.0) mmol/L Potassium (3.5-5.1) mmol/L POC Chloride (101-112) mmol/L Chloride (98-107) mmol/L Carbon Dioxide (21-32) mmol/L POC Total CO2 (24-31) mmol/L Anion Gap (3-11) POC Anion Gap (16-25) mmol/L POC BUN (7-18) mg/dl BUN (7-18) mg/dl Creatinine (0.6-1.2) mg/dl POC Creatinine (0.6-1.3) mg/dl Est Cr Clr Drug Dosing Est GFR ( Amer) ml/min Est GFR (Non-Af Amer) ml/min BUN/Creatinine Ratio (10-20) Glucose (70-99) mg/dl POC Glucose (other) (70-99) mg/dl Calcium (8.5-10.1) mg/dl POC Ioniz Calcium Elena (1.12-1.32) mmol/l Total Bilirubin (0.2-1) mg/dl AST (15-37) U/L ALT (12-78) U/L Alkaline Phosphatase (45-117) U/L Total Protein (6.4-8.2) gm/dl Albumin (3.4-5.0) gm/dl Globulin (2.5-4.0) gm/dl Albumin/Globulin Ratio (0.9-2) COVID-19 Eval Order SARS-CoV-2 (PCR) NEGATIVE (Negative) Blood Type Antibody Screen Crossmatch Imaging Data Radiologist's Impression: Abdomen/Pelvis CT 06/20/21 15:[address] WITH IV CONTRAST CT DOSE: 305.39 mGy.cm HISTORY: vomiting blood, liver CA TECHNIQUE: Multiaxial CT images of the abdomen and pelvis were performed following the use of intravenous contrast. A dose lowering technique was utilized adhering to the principles of ALARA. COMPARISON STUDY: Abdomen and pelvis CT 03/31/2021. FINDINGS: There is a 4.6 cm metastatic focus within the right anterior fifth rib. No pneumoperitoneum. No pneumatosis. A 1.6 cm sclerotic focus within the right posterior iliac bone. This remains unchanged. Embolization coil noted within the right hepatic lobe, unchanged. There is a 5 mm hypodense lesion within the right hepatic dome on image 43. This is technically too small to characterize. Mild cirrhosis with portal hypertension demonstrated by splenomegaly and a dilated portal and splenic veins. The gallbladder, adrenal glands, kidneys, and pancreas are unremarkable. No retroperitoneal lymphaden opathy. Normal caliber abdominal aorta. There is suggestion of mild thickening of the distal gastric antrum/duodenal bulb. This raises the possibility of a gastritis/peptic ulcer disease. There is a moderately distended and debris filled stomach. Therefore, this could represent a partial gastric outlet obstruction from the thickened gastric antrum/duodenal bulb. Persistent heterogeneity within the left side of the uterine fundus. The bladder is unremarkable. There is trace ascites. Colonic diverticulosis. No evidence for acute diverticulitis. Normal appendix. IMPRESSION: 1. A 4.6 cm destructive metastatic focus within the right anterior fifth rib. This is better appreciated on the same day chest CT. 2. A stable 1.6 cm sclerotic focus within the right posterior iliac bone. This is nonspecific but could also represent metastatic disease. 3. There is suggestion of mild thickening of the distal gastric antrum/duodenal bulb. This raises the possibility of a gastritis/peptic ulcer disease. 4. There is a moderately distended and debris filled stomach. Therefore, this could represent a partial gastric outlet obstruction from the thickened gastric antrum/duodenal bulb. 5. Persistent heterogeneity within the left side of the uterine fundus. This is indeterminate but could represent a uterine fibroid. A follow-up pelvic ultrasound could be used for confirmation. ACT 112: Negative or not required by law. Electronically signed by: Ashkan Aldana M.D. 06/20/2021 4:17 PM Chest X-Ray 06/20/21 15:10 XR chest 1V portable CLINICAL HISTORY: vomiting COMPARISON STUDY: Chest radiograph and chest CT March 31, 2021 FINDINGS: Lung volumes are normal. Mild right lower lung opacity has developed since prior CT and chest radiograph March 31, 2021. There is no pneumothorax or pleural effusion. Cardiac size is normal. Mediastinal contours are normal. There is no evidence for pulmonary edema. IMPRESSION: Interval development of mild right lower lung airspace opacity. Although nonspecific, an infectious process is favored. ACT 112: Negative or not required by law. Electronically signed by: Robb Hurtado M.D. 06/20/2021 3:[address] 06/20/21 15:43 CT OF THE CHEST WITH IV CONTRAST CLINICAL HISTORY: GIB, liver CA with mets COMPARISON STUDY: Chest CT March 31, 2021. TECHNIQUE: Following IV administration of 90 mL of Optiray, helical axial images of the chest were obtained. Sagittal and coronal reconstructions were viewed as well as maximal intensity projections on an independent 3-D workstation. Automated exposure control was utilized for the study. A dose lowering technique was utilized adhering to the principles of ALARA. CT DOSE: 161.19 mGy.cm FINDINGS: No enlarged axillary, mediastinal or hilar lymph nodes are present. There is no pericardial effusion. No pneumothorax or pleural fusion is present. There is no consolidation to suggest pneumonia. A few small pulmonary nodules are noted. The largest is a 4 mm subpleural nodule 198 of 241. These are unchanged since PET/CT of March 31, 2020. There has been interval development of a 4.8 x 3.6 cm enhancing destructive lesion involving the anterior right fifth rib since prior CT. No additional osseous lesions are noted. The abdomen and pelvis will be reported separately. A small amount perihepatic fluid is noted. IMPRESSION: 1. Interval development of a 4.8 x 3.6 cm enhancing destructive lesion of the anterior right fifth rib since CT of March 31, 2021. This is highly suggestive of skeletal metastatic disease. 2. No thoracic lymphadenopathy. 3. No consolidation to suggest pneumonia. 4. No change in several small pulmonary nodules since chest CT of March 31, 2021. ACT 112: Negative or not required by law. Electronically signed by: Robb Hurtado M.D. 06/20/2021 4:10 PM ECG Data Indication: + other (Hematemesis) Rate (beats per minute): 75 Rhythm: + normal sinus ECG Intervals/blocks: + Incomplete right bundle branch block and + Normal QT-c ECG [place]: + Normal ECG ST segments: + Normal ST segments ECG Findings: no PACs or no PVCs Blood Pressure Blood Pressure Findings: Normal blood pressure Blood Pressure Disposition: further management by hospitalist MDM Narrative This patient was evaluated and appeared to be in no significant distress. The gross hematemesis was not witnessed by myself however nursing staff reported cl ots and bright red blood "all over." IV access was obtained with 2 large-bore peripheral catheters. An order for cardiac monitoring was placed and IV normal saline solution was initiated. Patient was placed on a Protonix bolus with drip. Hemoglobin is noted to be 12. Blood pressure and heart rate are stable. Given the patient's history of HCC with metastasis, CT imaging of the chest and abdomen was performed and is read as above. The patient and were informed of the findings. This is likely bleeding peptic ulcer or malignant focus. Gastroenterology, Dr. Perez of the [facility] service was consulted. Case was discussed with Dr. Rios of the hospitalist service. He has requested an NG tube which was placed. Patient and were updated to the findings and the patient was consented for transfusion which was on hold at this time. She has been typed and crossed for 2 units of PRBCs. Patient will be evaluated for admission and further management. 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
--- NOTE | 2021-06-20 20:19 | GI REPORT ---
Patient Name: Rad Leroy Procedure Date: 06/20/2021 7:06 PM Date of : 1975 Admit Type: Emergency Department Age: 45 Gender: Female Attending MD: Jose Enrique Shelton MD Procedure: Upper GI endoscopy Providers: Jose Enrique Shelton MD Referring MD: Homero Rios Do Indications: Hematemesis, Active gastrointestinal bleeding Medicines: Monitored Anesthesia Care Complications: No immediate complications. Estimated Blood Loss: Estimated blood loss: none. Procedure: Pre-Anesthesia Assessment: - Prior to the procedure, a History and Physical was performed, and patient medications and allergies were reviewed. The patient is competent. The risks and benefits of the procedure and the sedation options and risks were discussed with the patient. All questions were answered and informed consent was obtained. Patient identification and proposed procedure were verified by the physician, the nurse and the anesthesiologist in the pre-procedure area. Mental Status Examination: sedated. Airway Examination: normal oropharyngeal airway and neck mobility. Respiratory Examination: clear to auscultation. CV Examination: normal. ASA Grade Assessment: IV - A patient with severe systemic disease that is a constant threat to life. After reviewing the risks and benefits, the patient was deemed in satisfactory condition to undergo the procedure. The anesthesia plan was to use monitored anesthesia care (MAC). Immediately prior to administration of medications, the patient was re-assessed for adequacy to receive sedatives. The heart rate, respiratory rate, oxygen saturations, blood pressure, adequacy of pulmonary ventilation, and response to care were monitored throughout the procedure. The physical status of the patient was re-assessed after the procedure. After obtaining informed consent, the endoscope was passed under direct vision. Throughout the procedure, the patient's blood pressure, pulse, and oxygen saturations were monitored continuously. The Endoscope was introduced through the mouth, and advanced to the second part of duodenum. The upper GI endoscopy was accomplished without difficulty. The patient tolerated the procedure well. Findings: Grade I varices were found in the lower third of the esophagus. They were small in size. The Z-line was regular. Clotted blood was found at the gastroesophageal junction. Area was unsuccessfully injected with 2 mL of a 1:10,000 solution of epinephrine for hemostasis. A large amount of a phytobezoar was found in the gastric fundus. A large amount of a phytobezoar was found in the gastric antrum. Clotted blood was found in the gastric fundus. Clotted blood was found in the gastric antrum. No gross lesions were noted in the entire examined duodenum. Impression: - Grade I esophageal varices. - Z-line regular. - Clotted blood in the gastroesophageal junction. Treatment not successful. - A large amount of a phytobezoar in the stomach. - A large amount of a phytobezoar in the stomach. - Clotted blood in the gastric fundus. - Clotted blood in the gastric antrum. - No gross lesions in the entire examined duodenum. - No specimens collected. Recommendation: - Return patient to ICU for ongoing care. - NPO. - Continue present medications. MD Jose Enrique Cifuentes MD 06/20/2021 8:19:18 PM This report has been signed electronically. Note Initiated On: 06/20/2021 7:06 PM Number of Addenda: 0 I attest to the content of the Intraoperative Record and orders documented therein, exceptions below {[id number]}
[2021-06-20] MEDS ORDERED: LORazepam 0.25 MG/0.5 ML VIAL IV PRN (20:53)
[2021-06-20] MEDS: SODIUM CHLORIDE 0.9% 1000ML 1,000 ML IV SCH (21:26)
[2021-06-20 22:00] LABS: Hematocrit (blood only) 23.4 % (37-47)
--- NOTE | 2021-06-20 23:11 | Communication Note ---
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 In addition large amounts of phytobezoar were noted in the gastric fundus and antrum. GI recommended transfer to ICU for closer monitoring. S/P Suspected esophageal variceal bleeding with cirrhosis and hepatocellular carcinoma -Patient transferred to ICU for closer monitoring -Started on CTX for prophylaxis with GI bleed and cirrhosis -Octreotide bolus followed by gtt started -Continued Protonix gtt -Repeat H/H now Resident Activity Tracking Resident Involvement: Resident Care Provided and Air Boatswain Coverage Note Care Provided: Adult Hospital Medicine
[2021-06-20] MEDS ORDERED: OCTREOTIDE ACETATE 50 MCG in SYRINGE 9.5 ML IV STA (23:13)
[2021-06-20 23:21] LABS: Hematocrit (blood only) 22.5 % (37-47); Mean Corpuscular Hemoglobin 31.5 pg (25-34); Mean Corpuscular Volume 88.6 fL (80-100); RDW Standard Deviation 45.1 fL (36.4-46.3); Red Blood Count 2.54 M/uL (4.2-5.4); White Blood Count 4.29 K/uL (4.8-10.8)
[2021-06-20 23:25] LABS: Mean Corpuscular Hgb Conc 35.6 g/dL (32-36); Platelet Count 43 K/uL (130-400)
--- NOTE | 2021-06-20 23:49 | Critical Care Consultation ---
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 Hemoglobin decreased from 12-8.0. She was transferred to ICU for closer monitoring. She is currently on Protonix and octreotide drips. Neuro - [facility] ICU: Negative Cardiac - Currently hemodynamically stable and NSR on monitor Monitor vitals every hour in ICU Continuous monitor on telemetry Respiratory - Currently maintaining oxygen saturation on room air, no history of pulmonary disease Continuous monitoring on pulse ox GI - Upper GI bleedunderwent EGD where she was found to have grade 1 varices, unsuccessful attempt to inject epinephrine -GI following, will follow recommendations -Continue Protonix drip -Continue octreotide drip -Ceftriaxone -Trend H&H and transfuse as indicated Cirrhosis/hepatocellular carcinomapatient has history of chronic hepatitis B with cirrhosis and was diagnosed with hepatocellular carcinoma with metastasis to the bones in December 2019 -She underwent evaluation for liver transplant at [facility], but was not a candidate -She is concurrently undergoing treatment with lenvatinib 12 mg p.o. daily -Bilirubin 1.6, mild elevation of AST with other liver enzymes unremarkable RENAL/LYTES - Creatinine within normal limits NSS at 100 mL/h Monitor routine BMPs and replete electrolytes as necessary - Strict I's and O's ENDO - No history of diabetes or thyroid disease ICU hyperglycemic protocol HEME - Acute blood loss anemiainitial hemoglobin of 12 in the emergency department dropped to 8.0 and she was transferred to ICU for further monitoring -Repeat hemoglobin 8.0 after 2 hours, patient currently hemodynamically stable. No coagulation abnormality. Will hold on transfusion at this time -Trend H&H every 4 hours, repeat coags in a.m. -Type and screen performed, 2 units RBCs on hold if needed -Platelets 43,000, will transfuse 1 unit platelets to keep above 50,000 - No indication for FFP at this time. -Follow-up fibrinogen ID - Continue ceftriaxone LINES/IV ACCESS - Peripheral IVs DVT PROPHYLAXIS - SCDs, hold anticoagulation in the setting of acute bleed I have personally spent 40 minutes of critical care time in the direct management of this patient. This is a life/limb threatening event. This includes time spent evaluating patient, direct bedside care, chart review, placing orders, interpretation of diagnostic studies, discussion with consultants, patient, and family members, as well as other required patient management activities. This time is exclusive of all separately billable procedures, and teaching time and separate from and in addition to any other critical care service time. Thank you for allowing us to participate in the care of this patient. Please refer to my attending physician's documentation for any further recommendations. 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 She was diagnosed and December 2019, not candidate for liver transplant, on levatinib.she presented to the emergency department earlier this evening with co mplaints of hematemesis x1 day. She underwent emergent EGD where she was found to have grade 1 varices and epinephrine injection was unsuccessful per GI note. Patient was admitted to PCU initially and was hemodynamically stable, however her hemoglobin dropped from 12 in the ER to 8.0 post EGD. Patient transferred to ICU for closer monitoring. She is currently on Protonix and octreotide drips and was started on ceftriaxone. In electronic headwaiter/headwaitress was used to translate during interview. Patient states that she was currently in her usual state of health prior to this event. Starting earlier today she began to vomit large amounts of hematemesis. She states that she currently feels generalized weakness which is new as of today. She has been taking her lenvatib as prescribed. She denies recent illness, headaches, dizziness, fevers, chest pain, shortness of breath, abdominal pain. Patient to remain in ICU for further monitoring at this time and frequent labs. Allergies Allergy/AdvReac Type Severity Reaction Status Date / Time No Known Allergies Allergy Verified 06/20/21 15:45 Home Medications Medication Instructions Recorded Confirmed Type prochlorperazine maleate 5 mg 5 mg PO UD PRN 03/31/21 06/20/21 History tablet sumatriptan succinate 50 mg tablet 50 mg PO UD PRN 03/31/21 06/20/21 History lenvatinib 12 mg/day (4 mg x 3) 12 mg PO DAILY 06/20/21 06/20/21 History capsule (Lenvima) Patient History Medical History (Updated 06/21/21 @ 00:24 by CHRISTY Smith) Abdominal discomfort Fibroid uterus Hepatitis B chronic History of abnormal [place] [facility] [place] managed with Aygest[place] (recurrence when Aygestin discontinued). [place] [facility] [place] received 2U PRBC's 01/20. Received IR uterine artery embolization during admission. Liver cancer DX 12/2019 Surgical History History of arteriography History of History of endometrial ablation Family History Other No family history of adverse response to anesthesia No pertinent family history Social History Smoking Status: Never smoker Second Hand Exposure: No; Hx Alcohol Use: No Hx Substance Use: No Preferred Language: Mandarin Vietnamese Communication Ability: Effective Communication Tools: IPad, Language Line Automotive Instructor, Facial Expression and Physical Gestures Automotive Instructor Required: Video Beliefs That Will Affect Care: None Current Living Situation: Spouse Other Information That Helps Us Care for You: No Feels Safe at Home: Yes Assistive Devices: None Review of Systems Review of Systems: All systems reviewed & are unremarkable except as noted in HPI & below Physical Exam Constitutional: WD/WN, vitals as above Eyes: PERRL, conjunctivae normal, anicteric sclerae ENMT: external ear and nose normal, oropharynx normal Neck: trachea midline, no thyromegaly Respiratory: normal respiratory effort, lungs clear to auscultation Cardiovascular: RRR, no murmur, no edema Heart Sounds: normal S1 and normal S2 Gastrointestinal (Abdomen): normal bowel sounds, soft, nontender, no hepatosplenomegaly Musculoskeletal: no cyanosis or clubbing, extremities motor strength 5/5 Skin: no rashes, warm and dry Neurologic: PERRL, EOMI, accommodation nl, no face palsy, no dysarthria Psychiatric: A+Ox3, euthymic affect Results & Data Results & Data ([facility]) Vital Signs (Past 12 Hours) Vital Signs Temp Pulse Pulse Pulse Resp BP BP 06/20/21 21:00 36.2 C L 81 79 13 102/69 06/20/21 20:25 36.1 C L 89 18 100/67 06/20/21 20:15 80 19 97/64 L 06/20/21 20:05 82 22 114/74 06/20/21 19:55 36.3 C L 87 19 123/71 06/20/21 19:03 36.7 C 2 L 16 98/64 L 06/20/21 18:59 36.2 C L 78 13 102/69 06/20/21 17:46 88 20 93/75 L 06/20/21 17:30 84 19 93/75 L 06/20/21 17:00 91 H 17 117/80 06/20/21 16:30 81 18 113/82 06/20/21 16:07 77 18 127/77 06/20/21 15:08 36.9 C 93 H 20 118/87 Pulse Ox 06/20/21 21:00 99 06/20/21 20:25 98 06/20/21 20:15 96 06/20/21 20:05 100 06/20/21 19:55 100 06/20/21 19:03 93 06/20/21 18:59 99 06/20/21 17:46 97 06/20/21 17:30 99 06/20/21 17:00 06/20/21 16:30 100 06/20/21 16:07 99 06/20/21 15:08 98 Coding Level of Care Code Critical Care 1st 30-74 mins Diagnoses Upper gastrointestinal bleeding K92.2 Hematemesis K92.0 Chronic hepatitis B with cirrhosis B18.1; K74.60 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
[2021-06-20] MEDS: cefTRIAXone SODIUM 1,000 MG in DEXTROSE 5% 50 ML IV SCH (23:54)
[2021-06-20] MEDS: OCTREOTIDE ACETATE 500 MCG in 0.9 % SODIUM CHLORIDE 100 ML IV SCH (23:55)
[2021-06-21 00:04] LABS: Immature Granulocytes # (auto) 0.02 K/uL (0.00-0.02); Immature Granulocytes % (auto) 0.5 %; Lymphocytes # (auto) 0.29 K/uL (1.2-3.4); Lymphocytes % (auto) 6.8 %; Monocytes # (auto) 0.12 K/uL (0.11-0.59); Monocytes % (auto) 2.8 %; Neutrophils # (auto) 3.86 K/uL (1.4-6.5); Neutrophils % (auto) 89.9 %
[2021-06-21] MEDS: PANTOprazole 40 MG in DEXTROSE 5% 100 ML IV SCH ×4 (03:13→18:12)
[2021-06-21 04:44] LABS: Hemoglobin 7.6 g/dL (12.0-16.0)
[2021-06-21 04:51] LABS: Immature Granulocytes # (auto) 0.01 K/uL (0.00-0.02); Immature Granulocytes % (auto) 0.2 %; Lymphocytes # (auto) 0.35 K/uL (1.2-3.4); Lymphocytes % (auto) 7.7 %; Mean Platelet Volume 9.7 fL (7.4-10.4); Monocytes # (auto) 0.12 K/uL (0.11-0.59); Monocytes % (auto) 2.6 %; Neutrophils # (auto) 4.07 K/uL (1.4-6.5); Neutrophils % (auto) 89.5 %; Platelet Count 52 K/uL (130-400); RDW Coefficient of Variation 14.2 % (11.5-14.5); RDW Standard Deviation 45.2 fL (36.4-46.3); Red Blood Count 2.45 M/uL (4.2-5.4); White Blood Count 4.55 K/uL (4.8-10.8)
[2021-06-21 05:03] LABS: Albumin Globulin Ratio 1.2 (0.9-2); BUN Creatinine Ratio 36.4 (10-20); Bilirubin,Total 0.5 mg/dl (0.2-1); Calcium 7.3 mg/dl (8.5-10.1); Creatinine Clr Calc Pharmacy 108.2 ml/min; Est GFR (African American) 129.8 ml/min; Globulin 2.4 gm/dl (2.5-4.0); Magnesium 1.9 mg/dl (1.8-2.4); Potassium 4.1 mmol/L (3.5-5.1); Total Protein 5.4 gm/dl (6.4-8.2)
[2021-06-21 05:27] LABS: Basophilic Stippling Occasional; Polychromasia 1+
[2021-06-21 05:28] LABS: Fibrinogen 172 mg/dl (184-400); INR 1.1 (0.9-1.1); Partial Thromboplastin Ratio 0.9; Partial Thromboplastin Time 23.6 Seconds (21.0-31.0); Prothrombin Time 11.5 Seconds (9.0-12.0)
[2021-06-21 06:09] LABS: Mean Corpuscular Hgb Conc 34.5 g/dL (32-36); Mean Corpuscular Volume 90.2 fL (80-100)
[2021-06-21] MEDS: OCTREOTIDE ACETATE 500 MCG in 0.9 % SODIUM CHLORIDE 100 ML IV SCH ×2 (08:00→18:12)
[2021-06-21] MEDS: SODIUM CHLORIDE 0.9% 1000ML 1,000 ML IV SCH ×3 (08:00→18:13)
--- NOTE | 2021-06-21 08:03 | Critical Care Progress Note ---
Date of Service June 21, 2021 Assessment & Plan (1) Upper gastrointestinal bleeding: Plan: Impression: Mrs. 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 She is currently on Protonix and octreotide drips. Undergoing close hemodynamic monitoring in ICU Neuro - CAM ICU: Negative Cardiac - Currently hemodynamically stable and NSR on monitor Continuous monitor on telemetry Respiratory - No acute issues. Maintaining O2 saturation on room air. Continue with continuous monitoring on pulse ox. GI - Upper GI bleedunderwent EGD on 06/20 where she was found to have grade 1 varices, unsuccessful attempt to inject epinephrine - Continue Protonix drip and Octreotide drip - Continue ceftriaxone - Will await further GI recommendation - Continue to trend H&H q4h and transfuse if Hgb < 7 Cirrhosis/hepatocellular carcinomapatient has history of chronic hepatitis B with cirrhosis and was diagnosed with hepatocellular carcinoma with metastasis to the bones in December 2019; patient aware of diagnosis - Has previously undergone evaluation for liver transplant at [facility], but was not a candidate - Concurrently undergoing treatment with lenvatinib 12 mg p.o. daily; states that she has been compliant with this medication; continue as ordered - Ammonia elevated today at 131. Will hold on lactulose pending intervention plans with GI/repeat EGD? RENAL/LYTES - Creatinine within normal limits NSS at 100 mL/h Monitor routine BMPs and replete electrolytes as necessary - No acute issues. Continue to monitor strict I's and O's ENDO - No history of diabetes or thyroid disease ICU hyperglycemic protocol HEME - Acute blood loss anemiainitial hemoglobin of 12 in the emergency department dropped to 8.0 and she was transferred to ICU for further monitoring on 06/20. - Remains hemodynamically stable. - Repeat Hgb this AM was 7.6. Will continue to trend H&H q4h. Will hold on transfusion at this time. - Type and screen has been performed with 2 units of PRBCs on hold if needed - S/p 1 unit platelets. Platelets increased from 43,000 to 52,000 - S/p cryoprecipitate for fibrinogen of 172. Will f/u on repeat fibrinogen. ID - Continue ceftriaxone LINES/IV ACCESS - Peripheral IVs DVT PROPHYLAXIS - SCDs, hold anticoagulation in the setting of acute bleed I/O Summary: I: 4475.47 mL O: 502 mL Net: +3973.47 mL (2) Acute blood loss anemia: (3) Hepatocellular carcinoma metastatic to bone: (4) Chronic hepatitis B with cirrhosis: Admission and Anticipated Discharge Date Admission Date: June 20, 2021 Supervising Physician Co-Signing Physician Notes Dr Uribe was the resident-physician during care of patient. I separately evaluated patient for vaughn portions of the history and the exam. I was present during the critical portion of medical decision making, and I discussed the case with the resident. I generally agree with the findings and plan except for any additions/exceptions noted. Patient seen and examined at bedside. No acute distress, no adverse events overnight. Patient denies any chest pain, no shortness of breath, no headache, no nausea, no vomiting. Patient came in with hematemesis was found to have low hemoglobin. She had an EGD done yesterday which showed grade 1 variceal bleed. She is currently on Protonix drip as well as octreotide. She got total of 1 unit of cryo, [address] chest also showed metastasis to the right lower part of the chest. Constitutional: No acute distress HEENT: EOMI, PERRLA Respiratory system: Good air entry bilaterally, no wheeze, rhonchi, no crackles CVS: S1-S2 positive, no murmurs or gallops Abdomen: Soft, nontender, nondistended, positive bowel sounds x4 Extremities: +2 pulses bilaterally radialis/ dorsalis pedis, no cyanosis, no edema Neuro: Awake alert oriented x3 Psych: Normal mood and affect G/U: No Norman --Prophylaxis VTE: IPC GI: Protonix drip Lines: Peripheral Diet: N.p.o. Plan: In/out: +[id number]. Urine output 502 Plan discussed with CHRISTY GUSMAN. Plan will be to repeat EGD today. GI recommends patient to be transferred to [facility] given that she has been fol lowing up there Monitor H&H if it is trending down transfuse PRBC. Continue with Protonix and octreotide. Continue with Rocephin for prophylaxis Patient does have elevated ammonia level. This could be secondary to liver cirrhosis as well as upper GI bleed. We will start lactulose once the patient has EGD completed. Patient does not seem to be encephalopathic. Please note the above document was generated using voice recognition software. It may contain grammatical, syntax or spelling errors.Any formal questions or concerns about the content, text or information contained within the body of this dictation should be directly addressed to the provider for clarification. Subjective Patient seen and evaluated at bedside in room 107 with railroad wheels and axle inspector, Dr. Kenney. Patient able to communicate short phrases in Congolese. States that she "is good." Denies abdominal pain, nausea, vomiting, hematemesis, headache, or dizziness. Notes that she is aware of cancer diagnosis with metastasis to bone. Review of Systems Constitutional: no fever Respiratory: no cough and no dyspnea Cardiovascular: no chest pain Gastrointestinal: no abdominal pain, no nausea and no vomiting Neurologic: no headache(s) Physical Exam Constitutional: WD/WN, vitals as above no acute distress Eyes: EOM intact bilaterally ENMT: Ears: no hearing impairment Nose: no external nose abnormality Mouth: no lip abnormality Respiratory: normal respiratory effort, lungs clear to auscultation Auscultation: no wheezes good air entry bilaterally Cardiovascular: RRR, no murmur, no edema Heart Sounds: normal S1 and normal S2 Chest (Breasts): Additional Comments: no palpable masses on right lateral chest wall Gastrointestinal (Abdomen): normal bowel sounds, soft, nontender, no hepatosplenomegaly No icterus Skin: no rashes, warm and dry Psychiatric: Orientation: alert Apperance: appropriately groomed and appeared stated age Eye Contact: good eye contact Speech: normal rate/rhythm/volume of speech Affect: euthymic affect Results & Data Results & Data ([facility]) Vital Signs (Past 12 Hours) Vital Signs Temp Pulse Pulse Resp BP BP Pulse Ox 06/21/21 07:17 37.0 C 74 16 106/67 100 06/21/21 07:12 36.6 C 75 17 108/67 99 06/21/21 06:57 36.6 C 80 14 114/73 99 06/21/21 06:47 100 06/21/21 06:28 36.6 C 70 17 106/70 97 06/21/21 06:27 67 106/70 97 06/21/21 06:12 68 104/64 97 06/21/21 05:57 72 111/72 97 06/21/21 05:42 69 112/73 97 06/21/21 05:27 68 100/68 97 06/21/21 05:12 70 107/68 98 06/21/21 04:57 67 107/69 98 06/21/21 04:42 68 110/69 97 06/21/21 04:27 69 107/67 97 06/21/21 04:12 70 108/70 97 06/21/21 03:57 67 110/69 96 06/21/21 03:42 68 112/75 97 06/21/21 03:18 85 06/21/21 02:57 79 119/69 98 06/21/21 02:42 76 102/69 97 06/21/21 02:17 79 111/75 98 06/21/21 02:16 37.0 C 81 21 111/75 97 06/21/21 02:09 72 116/74 97 06/21/21 02:08 36.9 C 75 17 116/74 97 06/21/21 01:53 75 114/71 95 06/21/21 01:52 37.1 C 72 18 114/71 96 06/21/21 01:42 72 111/71 97 06/21/21 01:36 37.0 C 06/21/21 01:27 72 17 109/68 95 06/21/21 01:12 77 19 112/73 96 06/21/21 00:57 74 20 111/70 97 06/21/21 00:42 74 16 114/69 97 06/21/21 00:27 75 18 113/74 95 06/21/21 00:12 77 19 122/69 95 06/20/21 23:34 84 20 98 06/20/21 21:00 36.2 C L 81 79 13 102/69 99 06/20/21 20:25 36.1 C L 89 18 100/67 98 06/20/21 20:15 80 19 97/64 L 96 06/20/21 20:05 82 22 114/74 100 Laboratory Results 06/21/21 06/21/21 06/21/21 Range/Units Unknown 04:29 04:16 WBC (4.8-10.8) K/uL RBC (4.2-5.4) M/uL Hgb (12.0-16.0) g/dL POC Hgb (12.0-16.0) g/dl Hct (37-47) % POC Hct (37-47) % MCV (80-100) fL MCH (25-34) pg MCHC (32-36) g/dL RDW Std Deviation (36.4-46.3) fL RDW Coeff of Domonique (11.5-14.5) % Plt Count (130-400) K/uL MPV (7.4-10.4) fL Immature Gran % (Auto) % Neut % (Auto) % Lymph % (Auto) % Sawyer % (Auto) % Eos % (Auto) % Baso % (Auto) % Neut # (Auto) (1.4-6.5) K/uL Lymph # (Auto) (1.2-3.4) K/uL Sawyer # (Auto) (0.11-0.59) K/uL Eos # (Auto) (0-0.5) K/uL Baso # (Auto) (0-0.2) K/uL Immature Gran # (Auto) (0.00-0.02) K/uL Absolute Nucleated RBC Nucleated RBC % (auto) Neutrophils % (Manual) Band Neutrophils % Lymphocytes % (Manual) Prolymphocyte % Reactive Lymphs % (Man) Monocytes % (Manual) Eosinophils % (Manual) Basophils % (Manual) Metamyelocytes % (Man) Myelocytes % (Man) Promyelocytes % (Man) Blast Cells % (Manual) Plasma Cell % (Manual) Other Cells % Nucleated RBC % Neutrophils # (Manual) Band Neutrophils # Total Absolute Neuts Lymphocytes # (Manual) Prolymphocyte # Reactive Lymphs # Total Abs Lymphocytes Monocytes # (Manual) Eosinophils # (Manual) Basophils # (Manual) Metamyelocytes # (Man) Myelocytes # (Manual) Promyelocytes # (Man) Blast Cells # (Man) Plasma Cell # (Manual) Other Cells # Nucleated RBCs # (Man) Hypersegmented Neuts Hyposegmented Neuts Hypogranular Neuts Large Granular Lymphs # Lrg Granular Lymphs Hairy Cells Smudge Cells Toxic Granulation Toxic Vacuolation Dohle Bodies Radha Rods Platelet Estimate (Normal) Hypogranular Platelets Clumped Platelets Giant Platelets Platelet Satelliting RBC Morphology Polychromasia Hypochromasia Poikilocytosis Basophilic Stippling Anisocytosis Microcytosis Macrocytosis Spherocytes Pappenheimer Bodies Sickle Cells Target Cells Tear Drop Cells Ovalocytes Stomatocytes Akers-Peggs Bodies Echinocytes Acanthocytes (Spur) Rouleaux RBC Agglutinates Schistocytes RBC Morph Comment Sezary Cell PT (9.0-12.0) Seconds INR (0.9-1.1) APTT (21.0-31.0) Seconds PTT Ratio Fibrinogen (184-400) mg/dl POC Sodium (135-144) mmol/L Sodium (136-145) mmol/L POC Potassium (3.3-5.0) mmol/L Potassium (3.5-5.1) mmol/L POC Chloride (101-112) mmol/L Chloride (98-107) mmol/L Carbon Dioxide (21-32) mmol/L POC Total CO2 (24-31) mmol/L Anion Gap (3-11) POC Anion Gap (16-25) mmol/L POC BUN (7-18) mg/dl BUN (7-18) mg/dl Creatinine (0.6-1.2) mg/dl POC Creatinine (0.6-1.3) mg/dl Est Cr Clr Drug Dosing Est GFR ( Amer) ml/min Est GFR (Non-Af Amer) ml/min BUN/Creatinine Ratio (10-20) Glucose (70-99) mg/dl POC Glucose (70-99) mg/dl POC Glucose (other) (70-99) mg/dl Calcium (8.5-10.1) mg/dl POC Ioniz Calcium Elena (1.12-1.32) mmol/l Phosphorus 2.9 (2.5-4.9) mg/dl Magnesium (1.8-2.4) mg/dl Total Bilirubin (0.2-1) mg/dl AST (15-37) U/L ALT (12-78) U/L Alkaline Phosphatase (45-117) U/L Ammonia 131.0 H (11-32) umol/L Total Protein (6.4-8.2) gm/dl Albumin (3.4-5.0) gm/dl Globulin (2.5-4.0) gm/dl Albumin/Globulin Ratio (0.9-2) Nasal Screen MRSA (PCR) Negative (Negative) COVID-19 Eval Order SARS-CoV-2 (PCR) (Negative) Blood Type Antibody Screen Crossmatch 06/21/21 06/21/21 06/21/21 Range/Units 04:16 04:16 04:16 WBC Cancelled 4.55 L (4.8-10.8) K/uL RBC Cancelled 2.45 L (4.2-5.4) M/uL Hgb Cancelled 7.6 L (12.0-16.0) g/dL POC Hgb (12.0-16.0) g/dl Hct Cancelled 22.0 L (37-47) % POC Hct (37-47) % MCV Cancelled 90.2 (80-100) fL MCH Cancelled 31.0 (25-34) pg MCHC Cancelled 34.5 (32-36) g/dL RDW Std Deviation Cancelled 45.2 (36.4-46.3) fL RDW Coeff of Domonique Cancelled 14.2 (11.5-14.5) % Plt Count Cancelled 52 L (130-400) K/uL MPV Cancelled 9.7 (7.4-10.4) fL Immature Gran % (Auto) Cancelled 0.2 % Neut % (Auto) Cancelled 89.5 % Lymph % (Auto) Cancelled 7.7 % Sawyer % (Auto) Cancelled 2.6 % Eos % (Auto) Cancelled 0.0 % Baso % (Auto) Cancelled 0.0 % Neut # (Auto) Cancelled 4.07 (1.4-6.5) K/uL Lymph # (Auto) Cancelled 0.35 L (1.2-3.4) K/uL Sawyer # (Auto) Cancelled 0.12 (0.11-0.59) K/uL Eos # (Auto) Cancelled 0.00 (0-0.5) K/uL Baso # (Auto) Cancelled 0.00 (0-0.2) K/uL Immature Gran # (Auto) Cancelled 0.01 (0.00-0.02) K/uL Absolute Nucleated RBC Cancelled Nucleated RBC % (auto) Cancelled Neutrophils % (Manual) Cancelled Band Neutrophils % Cancelled Lymphocytes % (Manual) Cancelled Prolymphocyte % Cancelled Reactive Lymphs % (Man) Cancelled Monocytes % (Manual) Cancelled Eosinophils % (Manual) Cancelled Basophils % (Manual) Cancelled Metamyelocytes % (Man) Cancelled Myelocytes % (Man) Cancelled Promyelocytes % (Man) Cancelled Blast Cells % (Manual) Cancelled Plasma Cell % (Manual) Cancelled Other Cells % Cancelled Nucleated RBC % Cancelled Neutrophils # (Manual) Cancelled Band Neutrophils # Cancelled Total Absolute Neuts Cancelled Lymphocytes # (Manual) Cancelled Prolymphocyte # Cancelled Reactive Lymphs # Cancelled Total Abs Lymphocytes Cancelled Monocytes # (Manual) Cancelled Eosinophils # (Manual) Cancelled Basophils # (Manual) Cancelled Metamyelocytes # (Man) Cancelled Myelocytes # (Manual) Cancelled Promyelocytes # (Man) Cancelled Blast Cells # (Man) Cancelled Plasma Cell # (Manual) Cancelled Other Cells # Cancelled Nucleated RBCs # (Man) Cancelled Hypersegmented Neuts Cancelled Hyposegmented Neuts Cancelled Hypogranular Neuts Cancelled Large Granular Lymphs Cancelled # Lrg Granular Lymphs Cancelled Hairy Cells Cancelled Smudge Cells Cancelled Toxic Granulation Cancelled Toxic Vacuolation Cancelled Dohle Bodies Cancelled Radha Rods Cancelled Platelet Estimate Cancelled (Normal) Hypogranular Platelets Cancelled Clumped Platelets Cancelled Giant Platelets Cancelled Platelet Satelliting Cancelled RBC Morphology Cancelled Polychromasia Cancelled 1+ Hypochromasia Cancelled Poikilocytosis Cancelled Basophilic Stippling Cancelled Occasional Anisocytosis Cancelled Microcytosis Cancelled Macrocytosis Cancelled Spherocytes Cancelled Pappenheimer Bodies Cancelled Sickle Cells Cancelled Target Cells Cancelled Tear Drop Cells Cancelled Ovalocytes Cancelled Stomatocytes Cancelled Akers-Peggs Bodies Cancelled Echinocytes Cancelled Acanthocytes (Spur) Cancelled Rouleaux Cancelled RBC Agglutinates Cancelled Schistocytes Cancelled RBC Morph Comment Cancelled Sezary Cell Cancelled PT Cancelled (9.0-12.0) Seconds INR Cancelled (0.9-1.1) APTT Cancelled (21.0-31.0) Seconds PTT Ratio Cancelled Fibrinogen (184-400) mg/dl POC Sodium (135-144) mmol/L Sodium (136-145) mmol/L POC Potassium (3.3-5.0) mmol/L Potassium (3.5-5.1) mmol/L POC Chloride (101-112) mmol/L Chloride (98-107) mmol/L Carbon Dioxide (21-32) mmol/L POC Total CO2 (24-31) mmol/L Anion Gap (3-11) POC Anion Gap (16-25) mmol/L POC BUN (7-18) mg/dl BUN (7-18) mg/dl Creatinine (0.6-1.2) mg/dl POC Creatinine (0.6-1.3) mg/dl Est Cr Clr Drug Dosing Est GFR ( Amer) ml/min Est GFR (Non-Af Amer) ml/min BUN/Creatinine Ratio (10-20) Glucose (70-99) mg/dl POC Glucose (70-99) mg/dl POC Glucose (other) (70-99) mg/dl Calcium (8.5-10.1) mg/dl POC Ioniz Calcium Elena (1.12-1.32) mmol/l Phosphorus (2.5-4.9) mg/dl Magnesium (1.8-2.4) mg/dl Total Bilirubin (0.2-1) mg/dl AST (15-37) U/L ALT (12-78) U/L Alkaline Phosphatase (45-117) U/L Ammonia (11-32) umol/L Total Protein (6.4-8.2) gm/dl Albumin (3.4-5.0) gm/dl Globulin (2.5-4.0) gm/dl Albumin/Globulin Ratio (0.9-2) Nasal Screen MRSA (PCR) (Negative) COVID-19 Eval Order SARS-CoV-2 (PCR) (Negative) Blood Type Antibody Screen Crossmatch 06/21/21 06/21/21 06/21/21 Range/Units 04:16 04:16 01:33 WBC (4.8-10.8) K/uL RBC (4.2-5.4) M/uL Hgb (12.0-16.0) g/dL POC Hgb (12.0-16.0) g/dl Hct (37-47) % POC Hct (37-47) % MCV (80-100) fL MCH (25-34) pg MCHC (32-36) g/dL RDW Std Deviation (36.4-46.3) fL RDW Coeff of Domonique (11.5-14.5) % Plt Count (130-400) K/uL MPV (7.4-10.4) fL Immature Gran % (Auto) % Neut % (Auto) % Lymph % (Auto) % Sawyer % (Auto) % Eos % (Auto) % Baso % (Auto) % Neut # (Auto) (1.4-6.5) K/uL Lymph # (Auto) (1.2-3.4) K/uL Sawyer # (Auto) (0.11-0.59) K/uL Eos # (Auto) (0-0.5) K/uL Baso # (Auto) (0-0.2) K/uL Immature Gran # (Auto) (0.00-0.02) K/uL Absolute Nucleated RBC Nucleated RBC % (auto) Neutrophils % (Manual) Band Neutrophils % Lymphocytes % (Manual) Prolymphocyte % Reactive Lymphs % (Man) Monocytes % (Manual) Eosinophils % (Manual) Basophils % (Manual) Metamyelocytes % (Man) Myelocytes % (Man) Promyelocytes % (Man) Blast Cells % (Manual) Plasma Cell % (Manual) Other Cells % Nucleated RBC % Neutrophils # (Manual) Band Neutrophils # Total Absolute Neuts Lymphocytes # (Manual) Prolymphocyte # Reactive Lymphs # Total Abs Lymphocytes Monocytes # (Manual) Eosinophils # (Manual) Basophils # (Manual) Metamyelocytes # (Man) Myelocytes # (Manual) Promyelocytes # (Man) Blast Cells # (Man) Plasma Cell # (Manual) Other Cells # Nucleated RBCs # (Man) Hypersegmented Neuts Hyposegmented Neuts Hypogranular Neuts Large Granular Lymphs # Lrg Granular Lymphs Hairy Cells Smudge Cells Toxic Granulation Toxic Vacuolation Dohle Bodies Radha Rods Platelet Estimate (Normal) Hypogranular Platelets Clumped Platelets Giant Platelets Platelet Satelliting RBC Morphology Polychromasia Hypochromasia Poikilocytosis Basophilic Stippling Anisocytosis Microcytosis Macrocytosis Spherocytes Pappenheimer Bodies Sickle Cells Target Cells Tear Drop Cells Ovalocytes Stomatocytes Akers-Peggs Bodies Echinocytes Acanthocytes (Spur) Rouleaux RBC Agglutinates Schistocytes RBC Morph Comment Sezary Cell PT 11.5 (9.0-12.0) Seconds INR 1.1 (0.9-1.1) APTT 23.6 (21.0-31.0) Seconds PTT Ratio 0.9 Fibrinogen 172 L (184-400) mg/dl POC Sodium (135-144) mmol/L Sodium 142 (136-145) mmol/L POC Potassium (3.3-5.0) mmol/L Potassium 4.1 (3.5-5.1) mmol/L POC Chloride (101-112) mmol/L Chloride 115 H (98-107) mmol/L Carbon Dioxide 24 (21-32) mmol/L POC Total CO2 (24-31) mmol/L Anion Gap 3.0 (3-11) POC Anion Gap (16-25) mmol/L POC BUN (7-18) mg/dl BUN 21 H (7-18) mg/dl Creatinine 0.57 L D (0.6-1.2) mg/dl POC Creatinine (0.6-1.3) mg/dl Est Cr Clr Drug Dosing 108.2 Est GFR ( Amer) 129.8 ml/min Est GFR (Non-Af Amer) 112.0 ml/min BUN/Creatinine Ratio 36.4 H (10-20) Glucose 139 H (70-99) mg/dl POC Glucose 156 H (70-99) mg/dl POC Glucose (other) (70-99) mg/dl Calcium 7.3 L (8.5-10.1) mg/dl POC Ioniz Calcium Elena (1.12-1.32) mmol/l Phosphorus (2.5-4.9) mg/dl Magnesium 1.9 (1.8-2.4) mg/dl Total Bilirubin 0.5 D (0.2-1) mg/dl AST 54 H (15-37) U/L ALT 52 (12-78) U/L Alkaline Phosphatase 62 (45-117) U/L Ammonia (11-32) umol/L Total Protein 5.4 L (6.4-8.2) gm/dl Albumin 3.0 L (3.4-5.0) gm/dl Globulin 2.4 L (2.5-4.0) gm/dl Albumin/Globulin Ratio 1.2 (0.9-2) Nasal Screen MRSA (PCR) (Negative) COVID-19 Eval Order SARS-CoV-2 (PCR) (Negative) Blood Type Antibody Screen Crossmatch 06/20/21 06/20/21 06/20/21 Range/Units 23:12 21:14 15:58 WBC 4.29 L (4.8-10.8) K/uL RBC 2.54 L (4.2-5.4) M/uL Hgb 8.0 L 8.0 L D (12.0-16.0) g/dL POC Hgb (12.0-16.0) g/dl Hct 22.5 L 23.4 L (37-47) % POC Hct (37-47) % MCV 88.6 (80-100) fL MCH 31.5 (25-34) pg MCHC 35.6 (32-36) g/dL RDW Std Deviation 45.1 (36.4-46.3) fL RDW Coeff of Domonique 14.0 (11.5-14.5) % Plt Count 43 L (130-400) K/uL MPV 9.0 (7.4-10.4) fL Immature Gran % (Auto) 0.5 % Neut % (Auto) 89.9 % Lymph % (Auto) 6.8 % Sawyer % (Auto) 2.8 % Eos % (Auto) 0.0 % Baso % (Auto) 0.0 % Neut # (Auto) 3.86 (1.4-6.5) K/uL Lymph # (Auto) 0.29 L (1.2-3.4) K/uL Sawyer # (Auto) 0.12 (0.11-0.59) K/uL Eos # (Auto) 0.00 (0-0.5) K/uL Baso # (Auto) 0.00 (0-0.2) K/uL Immature Gran # (Auto) 0.02 (0.00-0.02) K/uL Absolute Nucleated RBC Nucleated RBC % (auto) Neutrophils % (Manual) Band Neutrophils % Lymphocytes % (Manual) Prolymphocyte % Reactive Lymphs % (Man) Monocytes % (Manual) Eosinophils % (Manual) Basophils % (Manual) Metamyelocytes % (Man) Myelocytes % (Man) Promyelocytes % (Man) Blast Cells % (Manual) Plasma Cell % (Manual) Other Cells % Nucleated RBC % Neutrophils # (Manual) Band Neutrophils # Total Absolute Neuts Lymphocytes # (Manual) Prolymphocyte # Reactive Lymphs # Total Abs Lymphocytes Monocytes # (Manual) Eosinophils # (Manual) Basophils # (Manual) Metamyelocytes # (Man) Myelocytes # (Manual) Promyelocytes # (Man) Blast Cells # (Man) Plasma Cell # (Manual) Other Cells # Nucleated RBCs # (Man) Hypersegmented Neuts Hyposegmented Neuts Hypogranular Neuts Large Granular Lymphs # Lrg Granular Lymphs Hairy Cells Smudge Cells Toxic Granulation Toxic Vacuolation Dohle Bodies Radha Rods Platelet Estimate (Normal) Hypogranular Platelets Clumped Platelets Giant Platelets Platelet Satelliting RBC Morphology Polychromasia Hypochromasia Poikilocytosis Basophilic Stippling Anisocytosis Microcytosis Macrocytosis Spherocytes Pappenheimer Bodies Sickle Cells Target Cells Tear Drop Cells Ovalocytes Stomatocytes Akers-Peggs Bodies Echinocytes Acanthocytes (Spur) Rouleaux RBC Agglutinates Schistocytes RBC Morph Comment Sezary Cell PT (9.0-12.0) Seconds INR (0.9-1.1) APTT (21.0-31.0) Seconds PTT Ratio Fibrinogen (184-400) mg/dl POC Sodium (135-144) mmol/L Sodium (136-145) mmol/L POC Potassium (3.3-5.0) mmol/L Potassium (3.5-5.1) mmol/L POC Chloride (101-112) mmol/L Chloride (98-107) mmol/L Carbon Dioxide (21-32) mmol/L POC Total CO2 (24-31) mmol/L Anion Gap (3-11) POC Anion Gap (16-25) mmol/L POC BUN (7-18) mg/dl BUN (7-18) mg/dl Creatinine (0.6-1.2) mg/dl POC Creatinine (0.6-1.3) mg/dl Est Cr Clr Drug Dosing Est GFR ( Amer) ml/min Est GFR (Non-Af Amer) ml/min BUN/Creatinine Ratio (10-20) Glucose (70-99) mg/dl POC Glucose (70-99) mg/dl POC Glucose (other) (70-99) mg/dl Calcium (8.5-10.1) mg/dl POC Ioniz Calcium Elena (1.12-1.32) mmol/l Phosphorus (2.5-4.9) mg/dl Magnesium (1.8-2.4) mg/dl Total Bilirubin (0.2-1) mg/dl AST (15-37) U/L ALT (12-78) U/L Alkaline Phosphatase (45-117) U/L Ammonia (11-32) umol/L Total Protein (6.4-8.2) gm/dl Albumin (3.4-5.0) gm/dl Globulin (2.5-4.0) gm/dl Albumin/Globulin Ratio (0.9-2) Nasal Screen MRSA (PCR) (Negative) COVID-19 Eval Order SARS-CoV-2 (PCR) NEGATIVE (Negative) Blood Type Antibody Screen Crossmatch 06/20/21 06/20/21 06/20/21 Range/Units 15:58 15:25 15:15 WBC (4.8-10.8) K/uL RBC (4.2-5.4) M/uL Hgb (12.0-16.0) g/dL POC Hgb 11.2 L (12.0-16.0) g/dl Hct (37-47) % POC Hct 33 L (37-47) % MCV (80-100) fL MCH (25-34) pg MCHC (32-36) g/dL RDW Std Deviation (36.4-46.3) fL RDW Coeff of Domonique (11.5-14.5) % Plt Count (130-400) K/uL MPV (7.4-10.4) fL Immature Gran % (Auto) % Neut % (Auto) % Lymph % (Auto) % Sawyer % (Auto) % Eos % (Auto) % Baso % (Auto) % Neut # (Auto) (1.4-6.5) K/uL Lymph # (Auto) (1.2-3.4) K/uL Sawyer # (Auto) (0.11-0.59) K/uL Eos # (Auto) (0-0.5) K/uL Baso # (Auto) (0-0.2) K/uL Immature Gran # (Auto) (0.00-0.02) K/uL Absolute Nucleated RBC Nucleated RBC % (auto) Neutrophils % (Manual) Band Neutrophils % Lymphocytes % (Manual) Prolymphocyte % Reactive Lymphs % (Man) Monocytes % (Manual) Eosinophils % (Manual) Basophils % (Manual) Metamyelocytes % (Man) Myelocytes % (Man) Promyelocytes % (Man) Blast Cells % (Manual) Plasma Cell % (Manual) Other Cells % Nucleated RBC % Neutrophils # (Manual) Band Neutrophils # Total Absolute Neuts Lymphocytes # (Manual) Prolymphocyte # Reactive Lymphs # Total Abs Lymphocytes Monocytes # (Manual) Eosinophils # (Manual) Basophils # (Manual) Metamyelocytes # (Man) Myelocytes # (Manual) Promyelocytes # (Man) Blast Cells # (Man) Plasma Cell # (Manual) Other Cells # Nucleated RBCs # (Man) Hypersegmented Neuts Hyposegmented Neuts Hypogranular Neuts Large Granular Lymphs # Lrg Granular Lymphs Hairy Cells Smudge Cells Toxic Granulation Toxic Vacuolation Dohle Bodies Radha Rods Platelet Estimate (Normal) Hypogranular Platelets Clumped Platelets Giant Platelets Platelet Satelliting RBC Morphology Polychromasia Hypochromasia Poikilocytosis Basophilic Stippling Anisocytosis Microcytosis Macrocytosis Spherocytes Pappenheimer Bodies Sickle Cells Target Cells Tear Drop Cells Ovalocytes Stomatocytes Akers-Peggs Bodies Echinocytes Acanthocytes (Spur) Rouleaux RBC Agglutinates Schistocytes RBC Morph Comment Sezary Cell PT (9.0-12.0) Seconds INR (0.9-1.1) APTT (21.0-31.0) Seconds PTT Ratio Fibrinogen (184-400) mg/dl POC Sodium 140 (135-144) mmol/L Sodium 141 (136-145) mmol/L POC Potassium 4.1 (3.3-5.0) mmol/L Potassium 4.1 (3.5-5.1) mmol/L POC Chloride 104 (101-112) mmol/L Chloride 110 H (98-107) mmol/L Carbon Dioxide 24 (21-32) mmol/L POC Total CO2 21 L (24-31) mmol/L Anion Gap 7.0 (3-11) POC Anion Gap 20.0 (16-25) mmol/L POC BUN 20 H (7-18) mg/dl BUN 19 H (7-18) mg/dl Creatinine 0.92 (0.6-1.2) mg/dl POC Creatinine 0.9 (0.6-1.3) mg/dl Est Cr Clr Drug Dosing Not Reportable Est GFR ( Amer) 87.2 ml/min Est GFR (Non-Af Amer) 75.2 ml/min BUN/Creatinine Ratio 20.4 H (10-20) Glucose 130 H (70-99) mg/dl POC Glucose (70-99) mg/dl POC Glucose (other) 135 H (70-99) mg/dl Calcium 8.1 L (8.5-10.1) mg/dl POC Ioniz Calcium Elena 1.12 (1.12-1.32) mmol/l Phosphorus (2.5-4.9) mg/dl Magnesium (1.8-2.4) mg/dl Total Bilirubin 1.6 H (0.2-1) mg/dl AST 42 H (15-37) U/L ALT 62 (12-78) U/L Alkaline Phosphatase 91 (45-117) U/L Ammonia (11-32) umol/L Total Protein 6.3 L (6.4-8.2) gm/dl Albumin 3.3 L (3.4-5.0) gm/dl Globulin 3.0 (2.5-4.0) gm/dl Albumin/Globulin Ratio 1.1 (0.9-2) Nasal Screen MRSA (PCR) (Negative) COVID-19 Eval Order Covid19 at [facility] SARS-CoV-2 (PCR) (Negative) Blood Type Antibody Screen Crossmatch 06/20/21 06/20/21 06/20/21 Range/Units 15:15 15:15 15:15 WBC 5.82 (4.8-10.8) K/uL RBC 3.99 L (4.2-5.4) M/uL Hgb 12.2 (12.0-16.0) g/dL POC Hgb (12.0-16.0) g/dl Hct 35.1 L (37-47) % POC Hct (37-47) % MCV 88.0 (80-100) fL MCH 30.6 (25-34) pg MCHC 34.8 (32-36) g/dL RDW Std Deviation 44.9 (36.4-46.3) fL RDW Coeff of Domonique 13.9 (11.5-14.5) % Plt Count 69 L (130-400) K/uL MPV 10.9 H (7.4-10.4) fL Immature Gran % (Auto) 0.2 % Neut % (Auto) 69.3 % Lymph % (Auto) 19.1 % Sawyer % (Auto) 10.0 % Eos % (Auto) 1.2 % Baso % (Auto) 0.2 % Neut # (Auto) 4.04 (1.4-6.5) K/uL Lymph # (Auto) 1.11 L (1.2-3.4) K/uL Sawyer # (Auto) 0.58 (0.11-0.59) K/uL Eos # (Auto) 0.07 (0-0.5) K/uL Baso # (Auto) 0.01 (0-0.2) K/uL Immature Gran # (Auto) 0.01 (0.00-0.02) K/uL Absolute Nucleated RBC Nucleated RBC % (auto) Neutrophils % (Manual) Band Neutrophils % Lymphocytes % (Manual) Prolymphocyte % Reactive Lymphs % (Man) Monocytes % (Manual) Eosinophils % (Manual) Basophils % (Manual) Metamyelocytes % (Man) Myelocytes % (Man) Promyelocytes % (Man) Blast Cells % (Manual) Plasma Cell % (Manual) Other Cells % Nucleated RBC % Neutrophils # (Manual) Band Neutrophils # Total Absolute Neuts Lymphocytes # (Manual) Prolymphocyte # Reactive Lymphs # Total Abs Lymphocytes Monocytes # (Manual) Eosinophils # (Manual) Basophils # (Manual) Metamyelocytes # (Man) Myelocytes # (Manual) Promyelocytes # (Man) Blast Cells # (Man) Plasma Cell # (Manual) Other Cells # Nucleated RBCs # (Man) Hypersegmented Neuts Hyposegmented Neuts Hypogranular Neuts Large Granular Lymphs # Lrg Granular Lymphs Hairy Cells Smudge Cells Toxic Granulation Toxic Vacuolation Dohle Bodies Radha Rods Platelet Estimate Decreased L (Normal) Hypogranular Platelets Clumped Platelets Giant Platelets Platelet Satelliting RBC Morphology Polychromasia Hypochromasia Poikilocytosis Basophilic Stippling Anisocytosis Microcytosis Macrocytosis Spherocytes Pappenheimer Bodies Sickle Cells Target Cells Tear Drop Cells Ovalocytes Stomatocytes Akers-Peggs Bodies Echinocytes Acanthocytes (Spur) Rouleaux RBC Agglutinates Schistocytes RBC Morph Comment Sezary Cell PT 11.4 (9.0-12.0) Seconds INR 1.1 (0.9-1.1) APTT 26.1 (21.0-31.0) Seconds PTT Ratio 1.0 Fibrinogen (184-400) mg/dl POC Sodium (135-144) mmol/L Sodium (136-145) mmol/L POC Potassium (3.3-5.0) mmol/L Potassium (3.5-5.1) mmol/L POC Chloride (101-112) mmol/L Chloride (98-107) mmol/L Carbon Dioxide (21-32) mmol/L POC Total CO2 (24-31) mmol/L Anion Gap (3-11) POC Anion Gap (16-25) mmol/L POC BUN (7-18) mg/dl BUN (7-18) mg/dl Creatinine (0.6-1.2) mg/dl POC Creatinine (0.6-1.3) mg/dl Est Cr Clr Drug Dosing Est GFR ( Amer) ml/min Est GFR (Non-Af Amer) ml/min BUN/Creatinine Ratio (10-20) Glucose (70-99) mg/dl POC Glucose (70-99) mg/dl POC Glucose (other) (70-99) mg/dl Calcium (8.5-10.1) mg/dl POC Ioniz Calcium Elena (1.12-1.32) mmol/l Phosphorus (2.5-4.9) mg/dl Magnesium (1.8-2.4) mg/dl Total Bilirubin (0.2-1) mg/dl AST (15-37) U/L ALT (12-78) U/L Alkaline Phosphatase (45-117) U/L Ammonia (11-32) umol/L Total Protein (6.4-8.2) gm/dl Albumin (3.4-5.0) gm/dl Globulin (2.5-4.0) gm/dl Albumin/Globulin Ratio (0.9-2) Nasal Screen MRSA (PCR) (Negative) COVID-19 Eval Order SARS-CoV-2 (PCR) (Negative) Blood Type O Positive Antibody Screen NEGATIVE Crossmatch See Detail Resident Activity Tracking Resident Involvement: Resident Care Provided Care Provided: Adult [facility]
--- NOTE | 2021-06-21 08:27 | Gastroenterology Progress Note ---
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 EGD 06/20/2021 demonstrated grade 1 esophageal varices and bleeding at the gastroesophageal junction with large amounts of phytobezoar noted at the gastric fundus and antrum. Patient is currently in ICU with Protonix and octreotide drips. N.p.o. Hemoglobin 7.6/hematocrit 22.0 this morning. Ammonia level is 131 although patient is currently completely alert and oriented this morning. She has received a unit of platelets and a unit of cryoprecipitate. Plan this today is to continue current plan of care. Repeat EGD this afternoon by Dr. Shelton. He recommends transfer to [facility] after endoscopy as all of patient's care team is located in [facility]. Please refer to supervising physician addendum for further recommendations. Admission and Anticipated Discharge Date Admission Date: June 20, 2021 Supervising Physician Co-Signing Physician Notes I interviewed and examined the patient and reviewed the medical record, with the following observations: Subjective: Significant improvement, with no further vomiting, hematemesis, abdominal pain since endoscopy yesterday Physical Examination: Awake and alert, clear lungs, normal heart tones and rhythm, benign abdominal examination Chart Review: Significant blood loss with drop in H/H This case was reviewed with the advanced practice provider I agree with the assessment as outlined in this consultation, with the following observations: I agree with the plan of care as outlined in this consultation, with the following changes and/or additions: Recommend second look endoscopy today to try to identify a bleeding site and provide therapy if needed. Discussed with the patient, all questions answered, and consent obtained. Subjective The patient is a pleasant 45-year-old [place] female who is lying in bed and position of comfort awake alert and oriented this morning. We did use the line controller language device this morning to assist with our conversation. She reports this morning she is feeling good. She reports she was able to get some sleep last night. She denies any further bleeding specifically hematemesis. She does note some continued blood in stool with bowel movements through the night. Denies any abdominal pain. Denies nausea or vomiting. She is thirsty this morning and would like something to drink. Nursing supports the patient has had a good night. No further hematemesis per the report. There was black stools with blood streaking in bowel movements through the night. Patient denies pain or nausea per nursing. EGD was performed yesterday by Dr. Shelton which demonstrated grade 1 varices in the lower third of the esophagus which were small in size, regular Z-line, clotted blood at the gastroesophageal junction. Unhooked successfully injected with epinephrine for hemostasis. Large amount of phytobezoar in the gastric fundus and antrum with clotted blood found in the gastric fundus and antrum. No gross lesions were identified in the entire examined duodenum. Review of Systems Review of Systems: All systems reviewed & are unremarkable except as noted in HPI & below Physical Exam Physical Exam: awake, alert, and oriented Eyes: No scleral icterus Respiratory: Lungs clear to auscultation Cardiovascular: No carotid bruits, normal rate and rhythm without gallops or murmurs Gastrointestinal (Abdomen): Soft nontender abdomen without detectable organomegaly or ascites Musculoskeletal: No deformity, cyanosis, edema Skin: Not jaundiced Neurologic: No focal neurologic signs Results & Data ([facility]) Vital Signs (Past 12 Hours) Vital Signs Temp Pulse Pulse Resp BP BP Pulse Ox 06/21/21 07:17 37.0 C 74 16 106/67 100 06/21/21 07:12 36.6 C 75 17 108/67 99 06/21/21 06:57 36.6 C 80 14 114/73 99 06/21/21 06:47 100 06/21/21 06:28 36.6 C 70 17 106/70 97 06/21/21 06:27 67 106/70 97 06/21/21 06:12 68 104/64 97 06/21/21 05:57 72 111/72 97 06/21/21 05:42 69 112/73 97 06/21/21 05:27 68 100/68 97 06/21/21 05:12 70 107/68 98 06/21/21 04:57 67 107/69 98 06/21/21 04:42 68 110/69 97 06/21/21 04:27 69 107/67 97 06/21/21 04:12 70 108/70 97 06/21/21 03:57 67 110/69 96 06/21/21 03:42 68 112/75 97 06/21/21 03:18 85 06/21/21 02:57 79 119/69 98 06/21/21 02:42 76 102/69 97 06/21/21 02:17 79 111/75 98 06/21/21 02:16 37.0 C 81 21 111/75 97 06/21/21 02:09 72 116/74 97 06/21/21 02:08 36.9 C 75 17 116/74 97 06/21/21 01:53 75 114/71 95 06/21/21 01:52 37.1 C 72 18 114/71 96 06/21/21 01:42 72 111/71 97 06/21/21 01:36 37.0 C 06/21/21 01:27 72 17 109/68 95 06/21/21 01:12 77 19 112/73 96 06/21/21 00:57 74 20 111/70 97 06/21/21 00:42 74 16 114/69 97 06/21/21 00:27 75 18 113/74 95 06/21/21 00:12 77 19 122/69 95 06/20/21 23:34 84 20 98 06/20/21 21:00 36.2 C L 81 79 13 102/69 99 Laboratory Results Laboratory Results - last 24 hr 06/20/21 06/20/21 06/20/21 15:15 15:15 15:15 WBC 5.82 RBC 3.99 L Hgb 12.2 POC Hgb Hct 35.1 L POC Hct MCV 88.0 MCH 30.6 MCHC 34.8 RDW Std Deviation 44.9 RDW Coeff of Domonique 13.9 Plt Count 69 L MPV 10.9 H Immature Gran % (Auto) 0.2 Neut % (Auto) 69.3 Lymph % (Auto) 19.1 [place] % (Auto) 10.0 Eos % (Auto) 1.2 Baso % (Auto) 0.2 Neut # (Auto) 4.04 Lymph # (Auto) 1.11 L [place] # (Auto) 0.58 Eos # (Auto) 0.07 Baso # (Auto) 0.01 Immature Gran # (Auto) 0.01 Absolute Nucleated RBC Nucleated RBC % (auto) Neutrophils % (Manual) Band Neutrophils % Lymphocytes % (Manual) Prolymphocyte % Reactive Lymphs % (Man) Monocytes % (Manual) Eosinophils % (Manual) Basophils % (Manual) Metamyelocytes % (Man) Myelocytes % (Man) Promyelocytes % (Man) Blast Cells % (Manual) Plasma Cell % (Manual) Other Cells % Nucleated RBC % Neutrophils # (Manual) Band Neutrophils # Total Absolute Neuts Lymphocytes # (Manual) Prolymphocyte # Reactive Lymphs # Total Abs Lymphocytes Monocytes # (Manual) Eosinophils # (Manual) Basophils # (Manual) Metamyelocytes # (Man) Myelocytes # (Manual) Promyelocytes # (Man) Blast Cells # (Man) Plasma Cell # (Manual) Other Cells # Nucleated RBCs # (Man) Hypersegmented Neuts Hyposegmented Neuts Hypogranular Neuts Large Granular Lymphs # Lrg Granular Lymphs Hairy Cells Smudge Cells Toxic Granulation Toxic Vacuolation Dohle Bodies Radha Rods Platelet Estimate Decreased L Hypogranular Platelets Clumped Platelets Giant Platelets Platelet Satelliting RBC Morphology Polychromasia Hypochromasia Poikilocytosis Basophilic Stippling Anisocytosis Microcytosis Macrocytosis Spherocytes Pappenheimer Bodies Sickle Cells Target Cells Tear Drop Cells Ovalocytes Stomatocytes [place] Bodies Echinocytes Acanthocytes (Spur) Rouleaux RBC Agglutinates Schistocytes RBC Morph Comment Sezary Cell PT 11.4 INR 1.1 APTT 26.1 PTT Ratio 1.0 Fibrinogen POC Sodium Sodium POC Potassium Potassium POC Chloride Chloride Carbon Dioxide POC Total CO2 Anion Gap POC Anion Gap POC BUN BUN Creatinine POC Creatinine Est Cr Clr Drug Dosing Est GFR ( Amer) Est GFR (Non-Af Amer) BUN/Creatinine Ratio Glucose POC Glucose POC Glucose (other) Calcium POC Ioniz Calcium Elena Phosphorus Magnesium Total Bilirubin AST ALT Alkaline Phosphatase Ammonia Total Protein Albumin Globulin Albumin/Globulin Ratio Nasal Screen MRSA (PCR) COVID-19 Eval Order SARS-CoV-2 (PCR) Blood Type O Positive Antibody Screen NEGATIVE Crossmatch See Detail 06/20/21 06/20/21 06/20/21 15:15 15:25 15:58 WBC RBC Hgb POC Hgb 11.2 L Hct POC Hct 33 L MCV MCH MCHC RDW Std Deviation RDW Coeff of Domonique Plt Count MPV Immature Gran % (Auto) Neut % (Auto) Lymph % (Auto) [place] % (Auto) Eos % (Auto) Baso % (Auto) Neut # (Auto) Lymph # (Auto) [place] # (Auto) Eos # (Auto) Baso # (Auto) Immature Gran # (Auto) Absolute Nucleated RBC Nucleated RBC % (auto) Neutrophils % (Manual) Band Neutrophils % Lymphocytes % (Manual) Prolymphocyte % Reactive Lymphs % (Man) Monocytes % (Manual) Eosinophils % (Manual) Basophils % (Manual) Metamyelocytes % (Man) Myelocytes % (Man) Promyelocytes % (Man) Blast Cells % (Manual) Plasma Cell % (Manual) Other Cells % Nucleated RBC % Neutrophils # (Manual) Band Neutrophils # Total Absolute Neuts Lymphocytes # (Manual) Prolymphocyte # Reactive Lymphs # Total Abs Lymphocytes Monocytes # (Manual) Eosinophils # (Manual) Basophils # (Manual) Metamyelocytes # (Man) Myelocytes # (Manual) Promyelocytes # (Man) Blast Cells # (Man) Plasma Cell # (Manual) Other Cells # Nucleated RBCs # (Man) Hypersegmented Neuts Hyposegmented Neuts Hypogranular Neuts Large Granular Lymphs # Lrg Granular Lymphs Hairy Cells Smudge Cells Toxic Granulation Toxic Vacuolation Dohle Bodies Radha Rods Platelet Estimate Hypogranular Platelets Clumped Platelets Giant Platelets Platelet Satelliting RBC Morphology Polychromasia Hypochromasia Poikilocytosis Basophilic Stippling Anisocytosis Microcytosis Macrocytosis Spherocytes Pappenheimer Bodies Sickle Cells Target Cells Tear Drop Cells Ovalocytes Stomatocytes [place] Bodies Echinocytes Acanthocytes (Spur) Rouleaux RBC Agglutinates Schistocytes RBC Morph Comment Sezary Cell PT INR APTT PTT Ratio Fibrinogen POC Sodium 140 Sodium 141 POC Potassium 4.1 Potassium 4.1 POC Chloride 104 Chloride 110 H Carbon Dioxide 24 POC Total CO2 21 L Anion Gap 7.0 POC Anion Gap 20.0 POC BUN 20 H BUN 19 H Creatinine 0.92 POC Creatinine 0.9 Est Cr Clr Drug Dosing Not Reportable Est GFR ( Amer) 87.2 Est GFR (Non-Af Amer) 75.2 BUN/Creatinine Ratio 20.4 H Glucose 130 H POC Glucose POC Glucose (other) 135 H Calcium 8.1 L POC Ioniz Calcium Elena 1.12 Phosphorus Magnesium Total Bilirubin 1.6 H AST 42 H ALT 62 Alkaline Phosphatase 91 Ammonia Total Protein 6.3 L Albumin 3.3 L Globulin 3.0 Albumin/Globulin Ratio 1.1 Nasal Screen MRSA (PCR) COVID-19 Eval Order Covid19 at [facility] SARS-CoV-2 (PCR) Blood Type Antibody Screen Crossmatch 06/20/21 06/20/21 06/20/21 15:58 21:14 23:12 WBC 4.29 L RBC 2.54 L Hgb 8.0 L D 8.0 L POC Hgb Hct 23.4 L 22.5 L POC Hct MCV 88.6 MCH 31.5 MCHC 35.6 RDW Std Deviation 45.1 RDW Coeff of Domonique 14.0 Plt Count 43 L MPV 9.0 Immature Gran % (Auto) 0.5 Neut % (Auto) 89.9 Lymph % (Auto) 6.8 [place] % (Auto) 2.8 Eos % (Auto) 0.0 Baso % (Auto) 0.0 Neut # (Auto) 3.86 Lymph # (Auto) 0.29 L [place] # (Auto) 0.12 Eos # (Auto) 0.00 Baso # (Auto) 0.00 Immature Gran # (Auto) 0.02 Absolute Nucleated RBC Nucleated RBC % (auto) Neutrophils % (Manual) Band Neutrophils % Lymphocytes % (Manual) Prolymphocyte % Reactive Lymphs % (Man) Monocytes % (Manual) Eosinophils % (Manual) Basophils % (Manual) Metamyelocytes % (Man) Myelocytes % (Man) Promyelocytes % (Man) Blast Cells % (Manual) Plasma Cell % (Manual) Other Cells % Nucleated RBC % Neutrophils # (Manual) Band Neutrophils # Total Absolute Neuts Lymphocytes # (Manual) Prolymphocyte # Reactive Lymphs # Total Abs Lymphocytes Monocytes # (Manual) Eosinophils # (Manual) Basophils # (Manual) Metamyelocytes # (Man) Myelocytes # (Manual) Promyelocytes # (Man) Blast Cells # (Man) Plasma Cell # (Manual) Other Cells # Nucleated RBCs # (Man) Hypersegmented Neuts Hyposegmented Neuts Hypogranular Neuts Large Granular Lymphs # Lrg Granular Lymphs Hairy Cells Smudge Cells Toxic Granulation Toxic Vacuolation Dohle Bodies Radha Rods Platelet Estimate Hypogranular Platelets Clumped Platelets Giant Platelets Platelet Satelliting RBC Morphology Polychromasia Hypochromasia Poikilocytosis Basophilic Stippling Anisocytosis Microcytosis Macrocytosis Spherocytes Pappenheimer Bodies Sickle Cells Target Cells Tear Drop Cells Ovalocytes Stomatocytes [place] Bodies Echinocytes Acanthocytes (Spur) Rouleaux RBC Agglutinates Schistocytes RBC Morph Comment Sezary Cell PT INR APTT PTT Ratio Fibrinogen POC Sodium Sodium POC Potassium Potassium POC Chloride Chloride Carbon Dioxide POC Total CO2 Anion Gap POC Anion Gap POC BUN BUN Creatinine POC Creatinine Est Cr Clr Drug Dosing Est GFR ( Amer) Est GFR (Non-Af Amer) BUN/Creatinine Ratio Glucose POC Glucose POC Glucose (other) Calcium POC Ioniz Calcium Elena Phosphorus Magnesium Total Bilirubin AST ALT Alkaline Phosphatase Ammonia Total Protein Albumin Globulin Albumin/Globulin Ratio Nasal Screen MRSA (PCR) COVID-19 Eval Order SARS-CoV-2 (PCR) NEGATIVE Blood Type Antibody Screen Crossmatch 06/21/21 06/21/21 06/21/21 01:33 04:16 04:16 WBC RBC Hgb POC Hgb Hct POC Hct MCV MCH MCHC RDW Std Deviation RDW Coeff of Domonique Plt Count MPV Immature Gran % (Auto) Neut % (Auto) Lymph % (Auto) [place] % (Auto) Eos % (Auto) Baso % (Auto) Neut # (Auto) Lymph # (Auto) [place] # (Auto) Eos # (Auto) Baso # (Auto) Immature Gran # (Auto) Absolute Nucleated RBC Nucleated RBC % (auto) Neutrophils % (Manual) Band Neutrophils % Lymphocytes % (Manual) Prolymphocyte % Reactive Lymphs % (Man) Monocytes % (Manual) Eosinophils % (Manual) Basophils % (Manual) Metamyelocytes % (Man) Myelocytes % (Man) Promyelocytes % (Man) Blast Cells % (Manual) Plasma Cell % (Manual) Other Cells % Nucleated RBC % Neutrophils # (Manual) Band Neutrophils # Total Absolute Neuts Lymphocytes # (Manual) Prolymphocyte # Reactive Lymphs # Total Abs Lymphocytes Monocytes # (Manual) Eosinophils # (Manual) Basophils # (Manual) Metamyelocytes # (Man) Myelocytes # (Manual) Promyelocytes # (Man) Blast Cells # (Man) Plasma Cell # (Manual) Other Cells # Nucleated RBCs # (Man) Hypersegmented Neuts Hyposegmented Neuts Hypogranular Neuts Large Granular Lymphs # Lrg Granular Lymphs Hairy Cells Smudge Cells Toxic Granulation Toxic Vacuolation Dohle Bodies Radha Rods Platelet Estimate Hypogranular Platelets Clumped Platelets Giant Platelets Platelet Satelliting RBC Morphology Polychromasia Hypochromasia Poikilocytosis Basophilic Stippling Anisocytosis Microcytosis Macrocytosis Spherocytes Pappenheimer Bodies Sickle Cells Target Cells Tear Drop Cells Ovalocytes Stomatocytes [place] Bodies Echinocytes Acanthocytes (Spur) Rouleaux RBC Agglutinates Schistocytes RBC Morph Comment Sezary Cell PT 11.5 INR 1.1 APTT 23.6 PTT Ratio 0.9 Fibrinogen 172 L POC Sodium Sodium 142 POC Potassium Potassium 4.1 POC Chloride Chloride 115 H Carbon Dioxide 24 POC Total CO2 Anion Gap 3.0 POC Anion Gap POC BUN BUN 21 H Creatinine 0.57 L D POC Creatinine Est Cr Clr Drug Dosing 108.2 Est GFR ( Amer) 129.8 Est GFR (Non-Af Amer) 112.0 BUN/Creatinine Ratio 36.4 H Glucose 139 H POC Glucose 156 H POC Glucose (other) Calcium 7.3 L POC Ioniz Calcium Elena Phosphorus Magnesium 1.9 Total Bilirubin 0.5 D AST 54 H ALT 52 Alkaline Phosphatase 62 Ammonia Total Protein 5.4 L Albumin 3.0 L Globulin 2.4 L Albumin/Globulin Ratio 1.2 Nasal Screen MRSA (PCR) COVID-19 Eval Order SARS-CoV-2 (PCR) Blood Type Antibody Screen Crossmatch 06/21/21 06/21/21 06/21/21 04:16 04:16 04:16 WBC 4.55 L Cancelled RBC 2.45 L Cancelled Hgb 7.6 L Cancelled POC Hgb Hct 22.0 L Cancelled POC Hct MCV 90.2 Cancelled MCH 31.0 Cancelled MCHC 34.5 Cancelled RDW Std Deviation 45.2 Cancelled RDW Coeff of Domonique 14.2 Cancelled Plt Count 52 L Cancelled MPV 9.7 Cancelled Immature Gran % (Auto) 0.2 Cancelled Neut % (Auto) 89.5 Cancelled Lymph % (Auto) 7.7 Cancelled [place] % (Auto) 2.6 Cancelled Eos % (Auto) 0.0 Cancelled Baso % (Auto) 0.0 Cancelled Neut # (Auto) 4.07 Cancelled Lymph # (Auto) 0.35 L Cancelled [place] # (Auto) 0.12 Cancelled Eos # (Auto) 0.00 Cancelled Baso # (Auto) 0.00 Cancelled Immature Gran # (Auto) 0.01 Cancelled Absolute Nucleated RBC Cancelled Nucleated RBC % (auto) Cancelled Neutrophils % (Manual) Cancelled Band Neutrophils % Cancelled Lymphocytes % (Manual) Cancelled Prolymphocyte % Cancelled Reactive Lymphs % (Man) Cancelled Monocytes % (Manual) Cancelled Eosinophils % (Manual) Cancelled Basophils % (Manual) Cancelled Metamyelocytes % (Man) Cancelled Myelocytes % (Man) Cancelled Promyelocytes % (Man) Cancelled Blast Cells % (Manual) Cancelled Plasma Cell % (Manual) Cancelled Other Cells % Cancelled Nucleated RBC % Cancelled Neutrophils # (Manual) Cancelled Band Neutrophils # Cancelled Total Absolute Neuts Cancelled Lymphocytes # (Manual) Cancelled Prolymphocyte # Cancelled Reactive Lymphs # Cancelled Total Abs Lymphocytes Cancelled Monocytes # (Manual) Cancelled Eosinophils # (Manual) Cancelled Basophils # (Manual) Cancelled Metamyelocytes # (Man) Cancelled Myelocytes # (Manual) Cancelled Promyelocytes # (Man) Cancelled Blast Cells # (Man) Cancelled Plasma Cell # (Manual) Cancelled Other Cells # Cancelled Nucleated RBCs # (Man) Cancelled Hypersegmented Neuts Cancelled Hyposegmented Neuts Cancelled Hypogranular Neuts Cancelled Large Granular Lymphs Cancelled # Lrg Granular Lymphs Cancelled Hairy Cells Cancelled Smudge Cells Cancelled Toxic Granulation Cancelled Toxic Vacuolation Cancelled Dohle Bodies Cancelled Radha Rods Cancelled Platelet Estimate Cancelled Hypogranular Platelets Cancelled Clumped Platelets Cancelled Giant Platelets Cancelled Platelet Satelliting Cancelled RBC Morphology Cancelled Polychromasia 1+ Cancelled Hypochromasia Cancelled Poikilocytosis Cancelled Basophilic Stippling Occasional Cancelled Anisocytosis Cancelled Microcytosis Cancelled Macrocytosis Cancelled Spherocytes Cancelled Pappenheimer Bodies Cancelled Sickle Cells Cancelled Target Cells Cancelled Tear Drop Cells Cancelled Ovalocytes Cancelled Stomatocytes Cancelled [place] Bodies Cancelled Echinocytes Cancelled Acanthocytes (Spur) Cancelled Rouleaux Cancelled RBC Agglutinates Cancelled Schistocytes Cancelled RBC Morph Comment Cancelled Sezary Cell Cancelled PT Cancelled INR Cancelled APTT Cancelled PTT Ratio Cancelled Fibrinogen POC Sodium Sodium POC Potassium Potassium POC Chloride Chloride Carbon Dioxide POC Total CO2 Anion Gap POC Anion Gap POC BUN BUN Creatinine POC Creatinine Est Cr Clr Drug Dosing Est GFR ( Amer) Est GFR (Non-Af Amer) BUN/Creatinine Ratio Glucose POC Glucose POC Glucose (other) Calcium POC Ioniz Calcium Elena Phosphorus Magnesium Total Bilirubin AST ALT Alkaline Phosphatase Ammonia Total Protein Albumin Globulin Albumin/Globulin Ratio Nasal Screen MRSA (PCR) COVID-19 Eval Order SARS-CoV-2 (PCR) Blood Type Antibody Screen Crossmatch 06/21/21 06/21/21 06/21/21 04:16 04:29 Unknown WBC RBC Hgb POC Hgb Hct POC Hct MCV MCH MCHC RDW Std Deviation RDW Coeff of Domonique Plt Count MPV Immature Gran % (Auto) Neut % (Auto) Lymph % (Auto) [place] % (Auto) Eos % (Auto) Baso % (Auto) Neut # (Auto) Lymph # (Auto) [place] # (Auto) Eos # (Auto) Baso # (Auto) Immature Gran # (Auto) Absolute Nucleated RBC Nucleated RBC % (auto) Neutrophils % (Manual) Band Neutrophils % Lymphocytes % (Manual) Prolymphocyte % Reactive Lymphs % (Man) Monocytes % (Manual) Eosinophils % (Manual) Basophils % (Manual) Metamyelocytes % (Man) Myelocytes % (Man) Promyelocytes % (Man) Blast Cells % (Manual) Plasma Cell % (Manual) Other Cells % Nucleated RBC % Neutrophils # (Manual) Band Neutrophils # Total Absolute Neuts Lymphocytes # (Manual) Prolymphocyte # Reactive Lymphs # Total Abs Lymphocytes Monocytes # (Manual) Eosinophils # (Manual) Basophils # (Manual) Metamyelocytes # (Man) Myelocytes # (Manual) Promyelocytes # (Man) Blast Cells # (Man) Plasma Cell # (Manual) Other Cells # Nucleated RBCs # (Man) Hypersegmented Neuts Hyposegmented Neuts Hypogranular Neuts Large Granular Lymphs # Lrg Granular Lymphs Hairy Cells Smudge Cells Toxic Granulation Toxic Vacuolation Dohle Bodies Radha Rods Platelet Estimate Hypogranular Platelets Clumped Platelets Giant Platelets Platelet Satelliting RBC Morphology Polychromasia Hypochromasia Poikilocytosis Basophilic Stippling Anisocytosis Microcytosis Macrocytosis Spherocytes Pappenheimer Bodies Sickle Cells Target Cells Tear Drop Cells Ovalocytes Stomatocytes [place] Bodies Echinocytes Acanthocytes (Spur) Rouleaux RBC Agglutinates Schistocytes RBC Morph Comment Sezary Cell PT INR APTT PTT Ratio Fibrinogen POC Sodium Sodium POC Potassium Potassium POC Chloride Chloride Carbon Dioxide POC Total CO2 Anion Gap POC Anion Gap POC BUN BUN Creatinine POC Creatinine Est Cr Clr Drug Dosing Est GFR ( Amer) Est GFR (Non-Af Amer) BUN/Creatinine Ratio Glucose POC Glucose POC Glucose (other) Calcium POC Ioniz Calcium Elena Phosphorus 2.9 Magnesium Total Bilirubin AST ALT Alkaline Phosphatase Ammonia 131.0 H Total Protein Albumin Globulin Albumin/Globulin Ratio Nasal Screen MRSA (PCR) Negative COVID-19 Eval Order SARS-CoV-2 (PCR) Blood Type Antibody Screen Crossmatch
[2021-06-21 10:28] LABS: Hematocrit (blood only) 20.5 % (37-47); Hemoglobin 7.1 g/dL (12.0-16.0)
[2021-06-21] MEDS ORDERED: ACETAMINOPHEN 1,000 MG/100 ML VIAL IV STA (10:57)
[2021-06-21] MEDS ORDERED: SODIUM CHLORIDE 0.9% 250 ML IV PRN (10:57)
--- NOTE | 2021-06-21 14:10 | Anesthesiology Consultation ---
Date of Service June 21, 2021 Assessment & Plan (1) Encounter for pre-operative examination: Chart Review Chart Review: Acceptable Risk for Surgery and Patient NOT seen in Pre Admission Testing Consults Requested none History Surgery Operation Date: 06/20/21 19:00 Proposed Procedures p Upper Esophagogastroduodenoscopy(Not Applicable) - Jose Enrique Shelton MD Operation Date: 06/21/21 16:30 Proposed Procedures p Esophagogastroduodenoscopy Dr Shelton - Jose Enrique Shelton MD Height/Weight Height: 5 ft 2 in Weight: 60.8 kg Allergies Allergy/AdvReac Type Severity Reaction Status Date / Time No Known Allergies Allergy Verified 06/20/21 15:45 Medications Home Medications Medication Instructions Recorded Confirmed Last Taken prochlorperazine maleate 5 mg 5 mg PO UD PRN 03/31/21 06/20/21 Unknown tablet sumatriptan succinate 50 mg tablet 50 mg PO UD PRN 03/31/21 06/20/21 Unknown lenvatinib 12 mg/day (4 mg x 3) 12 mg PO DAILY 06/20/21 06/20/21 Unknown capsule (Lenvima) Active Medications Generic Name Dose Route Start Last Admin Trade Name Freq PRN Reason Stop Dose Admin Pantoprazole Sodium 40 mg/ 100 mls @ 20 mls/hr 06/20/21 15:30 06/21/21 13:27 Dextrose IV 07/20/21 15:29 8 mg/hr Q5H MARKOS 20 mls/hr Administration 8 MG/HR Sodium Chloride 1,000 mls @ 100 mls/hr 06/20/21 20:53 06/21/21 13:40 Nss 1000ml IV 07/20/21 20:52 Not Given .Q10H MARKOS Ceftriaxone Sodium 1,000 mg/ 50 mls @ 100 mls/hr 06/20/21 23:00 06/21/21 00:25 Dextrose IV 06/30/21 22:59 Infused Q24H MARKOS Infusion Protocol Octreotide Acetate 500 mcg/ 105 mls @ 10.5 mls/hr 06/20/21 23:45 06/21/21 08:00 Sodium Chloride IV 07/20/21 23:44 50 mcg/hr .Q10H MARKOS 10.5 mls/hr Administration 50 MCG/HR NPO Date Last Intake of Fluids: 06/19/21 Time Last Intake of Fluids: 23:55 Last Intake of Fluids Comment: swabbing mouth with water today (06/21/21) but no PO intake. 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 Per [facility] [place] discharge summary, received 2U PRBC's 01/20. Received IR uterine artery embolization during admission. Liver cancer DX 12/2019 Upper gastrointestinal bleeding Past Family History Family History Other No family history of adverse response to anesthesia No pertinent family history Past Surgical History Surgical History History of arteriography History of History of endometrial ablation Social History Smoking Status: Never smoker Do You Dip or Chew Tobacco: No Hx Alcohol Use: No Hx Substance Use: No substance use type: does not use Physical Exam Vital Signs Last Vital Signs Temp 36.8 C 06/21/21 13:38 Pulse 64 06/21/21 13:38 Resp 15 06/21/21 13:38 BP 108/69 06/21/21 13:38 Pulse Ox 100 06/21/21 13:38 Testing Laboratory Results 06/21/21 10:04 06/21/21 04:16 PT 11.5 Seconds (9.0-12.0) 06/21/21 04:16 PT Cancelled 06/21/21 04:16 INR 1.1 (0.9-1.1) 06/21/21 04:16 INR Cancelled 06/21/21 04:16 APTT 23.6 Seconds (21.0-31.0) 06/21/21 04:16 APTT Cancelled 06/21/21 04:16 Blood Type O Positive 06/20/21 15:15 Antibody Screen NEGATIVE 06/20/21 15:15 Laboratory Tests 06/21/21 04:16 Sodium 142 Potassium 4.1 Chloride 115 H Carbon Dioxide 24 BUN 21 H Creatinine 0.57 L D Glucose 139 H Electrocardiogram Date: 06/20/21 Findings: + NSR @ (75) 20-JUN-2021 16:00:31 [facility]-EDSTAT ROUTINE RETRIEVAL Normal sinus rhythm Incomplete right bundle branch block Borderline ECG When compared with ECG of 31-MAR-2021 18:06, No significant change was found Chest X-Ray Date: 06/20/21 XR chest 1V portable CLINICAL HISTORY: vomiting COMPARISON STUDY: Chest radiograph and chest CT March 31, 2021 FINDINGS: Lung volumes are normal. Mild right lower lung opacity has developed since prior CT and chest radiograph March 31, 2021. There is no pneumothorax or pleural effusion. Cardiac size is normal. Mediastinal contours are normal. There is no evidence for pulmonary edema. IMPRESSION: Interval development of mild right lower lung airspace opacity. Although nonspecific, an infectious process is favored.
[2021-06-21] MEDS ORDERED: MIDAZOLAM HCL 1 MG/ML 2ML VIAL ONE (16:01)
[2021-06-21] MEDS ORDERED: fentaNYL citrate 100 MCG/2 ML VIAL ONE (16:01)
[2021-06-21 16:31] LABS: Pregnancy Test, Serum Negative (Negative)
--- NOTE | 2021-06-21 16:41 | History & Physical Report ---
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 EGD 06/20/2021 demonstrated grade 1 esophageal varices and bleeding at the gastroesophageal junction with large amounts of phytobezoar noted at the gastric fundus and antrum. Patient is currently in ICU with Protonix and octreotide drips. N.p.o. Hemoglobin 7.6/hematocrit 22.0 this morning. Ammonia level is 131 although patient is currently completely alert and oriented this morning. She has received a unit of platelets and a unit of cryoprecipitate. Plan this today is to continue current plan of care. Repeat EGD this afternoon by Dr. Shelton. He recommends transfer to [facility] after endoscopy as all of patient's care team is located in [facility]. Please refer to supervising physician addendum for further recommendations. Admission and Anticipated Discharge Date Admission Date: June 20, 2021 History of Present Illness Chief Complaint: Hematemesis Primary Care Provider: Jasmyne Diane Hematemesis yesterday, stable today without vomiting. Significant blood loss. EGD yesterday was inconclusive for bleeding site. Stomach obscured by retained blood, clot, and food debris. Allergies Allergy/AdvReac Type Severity Reaction Status Date / Time No Known Allergies Allergy Verified 06/20/21 15:45 Home Medications Medication Instructions Recorded Confirmed Type prochlorperazine maleate 5 mg 5 mg PO UD PRN 03/31/21 06/20/21 History tablet sumatriptan succinate 50 mg tablet 50 mg PO UD PRN 03/31/21 06/20/21 History lenvatinib 12 mg/day (4 mg x 3) 12 mg PO DAILY 06/20/21 06/20/21 History capsule (Lenvima) Past Med/Surg History Medical History (Updated 06/21/21 @ 14:09 by Gold Harrison MD) Abdominal discomfort Acute blood loss anemia Chronic hepatitis B with cirrhosis Fibroid uterus Hematemesis Hepatitis B chronic 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 Per [facility] discharge summary, received 2U PRBC's 01/20. Received IR uterine artery embolization during admission. Liver cancer DX 12/2019 Upper gastrointestinal bleeding Surgical History History of arteriography History of History of endometrial ablation Family History Other No family history of adverse response to anesthesia No pertinent family history Social History Smoking Status: Never smoker Second Hand Exposure: No; Do You Dip or Chew Tobacco: No; Hx Alcohol Use: No Hx Substance Use: No Preferred Language: Mandarin Amharic Communication Ability: Effective Communication Tools: IPad and Language Line Tack Maker Tack Maker Required: Video Beliefs That Will Affect Care: None Current Living Situation: Spouse Other Information That Helps Us Care for You: No Feels Safe at Home: Yes Assistive Devices: None Review of Systems Review of systems positive for nausea, vomiting, fatigue, malaise, negative for cough, shortness of breath, chest pain, abdominal pain, rectal bleeding, melena Physical Exam Constitutional: Without fever chills Eyes: No scleral icterus Respiratory: normal respiratory effort, lungs clear to auscultation Gastrointestinal (Abdomen): No masses or tenderness, no distension or guarding Neurologic: No focal neurologic signs ASA Classification ASA ASA3 Results & Data ([facility]) Vital Signs (Past 12 Hours) Vital Signs Temp Pulse Pulse Resp BP BP Pulse Ox 06/21/21 16:04 36.7 C 79 23 110/70 100 06/21/21 15:05 36.8 C 63 14 109/69 100 06/21/21 14:05 63 16 104/65 100 06/21/21 13:38 36.8 C 64 15 108/69 100 06/21/21 12:40 36.9 C 68 17 106/68 98 06/21/21 12:10 36.8 C 71 16 98/64 L 99 06/21/21 11:55 36.9 C 71 17 99/59 L 100 06/21/21 11:32 37.0 C 75 16 112/71 100 06/21/21 10:12 75 17 105/65 99 06/21/21 09:12 73 16 107/66 98 06/21/21 08:12 77 17 112/73 97 06/21/21 07:17 37.0 C 74 16 106/67 100 06/21/21 07:12 36.6 C 75 17 108/67 99 06/21/21 06:57 36.6 C 80 14 114/73 99 06/21/21 06:47 100 06/21/21 06:28 36.6 C 70 17 106/70 97 06/21/21 06:27 67 106/70 97 06/21/21 06:12 68 104/64 97 06/21/21 05:57 72 111/72 97 06/21/21 05:42 69 112/73 97 06/21/21 05:27 68 100/68 97 06/21/21 05:12 70 107/68 98 06/21/21 04:57 67 107/69 98 06/21/21 04:42 68 110/69 97 Code Status & VTE Plan VTE Prophylaxis Plan VTE Prophylaxis will be ordered: Yes
--- NOTE | 2021-06-21 17:38 | Post Operative Brief Note ---
Immediate Post Op Note v1 Date of Surgery June 21, 2021 Pre & Post Diagnosis Operation Date: 06/20/21 19:00 Pre-Op Diagnosis: Hematemesis, Upper gastrointestinal bleeding Post-Op Diagnosis: Hematemesis, Upper gastrointestinal bleeding Operation Date: 06/21/21 07:55 Pre-Op Diagnosis: Upper gastrointestinal bleeding Post-Op Diagnosis: Upper gastrointestinal bleeding, gastritis with gastric antral ulcers Operation Date: 06/21/21 16:30 <No data on this case meets the specified criteria> I identified the patient and participated in the time-out.: Yes Procedure Operation Date: 06/20/21 19:00 Actual Procedures p Esophagogastroduodenoscopy, Epinephrine Injection for Control of Bleeding(Not Applicable) - Jose Enrique Shelton MD Operation Date: 06/21/21 07:55 Actual Procedures p Esophagogastroduodenoscopy(Not Applicable) - Jose Enrique Shelton MD Operation Date: 06/21/21 16:30 <No data on this case meets the specified criteria> Surgeon Jose Enrique Shelton MD Special Agent none Estimated Blood Loss 0 Findings Consistent with Post-Op Diagnosis No fresh blood or active bleeding identified in the upper GI tract through the descending duodenum. 4 columns of small grade 1 esophageal varices again identified in the distal esohagus, without any evidence of stigmata of recent bleeding. The stomach was clear, no fresh blood and scant old blood stained mucus present, no clot or food debris. No detectable gastric varices at the cardia, no lesions at the cardia. There was antral gastritis with a few superficial ulcers with no stigmata of recent bleeding, probably related to recent chemotherapy. Normal duodenum. Complications No immediate complications Disposition Disposition: Recovery Room
--- NOTE | 2021-06-21 17:55 | Anesthesiology Progress Note ---
Date of Service June 21, 2021 Anesthesia Post Procedure Vital Signs Vital Signs: Temp Pulse Pulse Pulse Resp BP BP 06/21/21 16:04 36.7 C 79 23 110/70 06/21/21 15:05 36.8 C 63 14 109/69 06/21/21 14:05 63 16 104/65 06/21/21 13:38 36.8 C 64 15 108/69 06/21/21 12:40 36.9 C 68 17 106/68 06/21/21 12:10 36.8 C 71 16 98/64 L 06/21/21 11:55 36.9 C 71 17 99/59 L 06/21/21 11:32 37.0 C 75 16 112/71 06/21/21 10:12 75 17 105/65 06/21/21 09:12 73 16 107/66 06/21/21 08:12 77 17 112/73 06/21/21 07:17 37.0 C 74 16 106/67 06/21/21 07:12 36.6 C 75 17 108/67 06/21/21 06:57 36.6 C 80 14 114/73 06/21/21 06:47 06/21/21 06:28 36.6 C 70 17 106/70 06/21/21 06:27 67 106/70 06/21/21 06:12 68 104/64 06/21/21 05:57 72 111/72 06/21/21 05:42 69 112/73 06/21/21 05:27 68 100/68 06/21/21 05:12 70 107/68 06/21/21 04:57 67 107/69 06/21/21 04:42 68 110/69 06/21/21 04:27 69 107/67 06/21/21 04:12 70 108/70 06/21/21 03:57 67 110/69 06/21/21 03:42 68 112/75 06/21/21 03:18 85 06/21/21 02:57 79 119/69 06/21/21 02:42 76 102/69 06/21/21 02:17 79 111/75 06/21/21 02:16 37.0 C 81 21 111/75 06/21/21 02:09 72 116/74 06/21/21 02:08 36.9 C 75 17 116/74 06/21/21 01:53 75 114/71 06/21/21 01:52 37.1 C 72 18 114/71 06/21/21 01:42 72 111/71 06/21/21 01:36 37.0 C 06/21/21 01:27 72 17 109/68 06/21/21 01:12 77 19 112/73 06/21/21 00:57 74 20 111/70 06/21/21 00:42 74 16 114/69 06/21/21 00:27 75 18 113/74 06/21/21 00:12 77 19 122/69 06/20/21 23:34 84 20 06/20/21 21:00 36.2 C L 81 79 13 102/69 06/20/21 20:25 36.1 C L 89 18 100/67 06/20/21 20:15 80 19 97/64 L 06/20/21 20:05 82 22 114/74 06/20/21 19:55 36.3 C L 87 19 123/71 06/20/21 19:03 36.7 C 2 L 16 98/64 L 06/20/21 18:59 36.2 C L 78 13 102/69 Pulse Ox 06/21/21 16:04 100 06/21/21 15:05 100 06/21/21 14:05 100 06/21/21 13:38 100 06/21/21 12:40 98 06/21/21 12:10 99 06/21/21 11:55 100 06/21/21 11:32 100 06/21/21 10:12 99 06/21/21 09:12 98 06/21/21 08:12 97 06/21/21 07:17 100 06/21/21 07:12 99 06/21/21 06:57 99 06/21/21 06:47 100 06/21/21 06:28 97 06/21/21 06:27 97 06/21/21 06:12 97 06/21/21 05:57 97 06/21/21 05:42 97 06/21/21 05:27 97 06/21/21 05:12 98 06/21/21 04:57 98 06/21/21 04:42 97 06/21/21 04:27 97 06/21/21 04:12 97 06/21/21 03:57 96 06/21/21 03:42 97 06/21/21 03:18 06/21/21 02:57 98 06/21/21 02:42 97 06/21/21 02:17 98 06/21/21 02:16 97 06/21/21 02:09 97 06/21/21 02:08 97 06/21/21 01:53 95 06/21/21 01:52 96 06/21/21 01:42 97 06/21/21 01:36 06/21/21 01:27 95 06/21/21 01:12 96 06/21/21 00:57 97 06/21/21 00:42 97 06/21/21 00:27 95 06/21/21 00:12 95 06/20/21 23:34 98 06/20/21 21:00 99 06/20/21 20:25 98 06/20/21 20:15 96 06/20/21 20:05 100 06/20/21 19:55 100 06/20/21 19:03 93 06/20/21 18:59 99 Transfer of Care Handoff Completed per policy Notes Mental Status: alert / awake / arousable Patient Amnestic to Procedure: Yes Nausea / Vomiting: adequately controlled Pain: adequately controlled Airway Patency, RR, SpO2: stable & adequate BP & HR: stable & adequate Hydration State: stable & adequate Anesthetic Complications: no major complications apparent and Pt Satisfied with anesthetic care Notes: The patient is awake and comfortable. Her vital signs are stable. She is back in her ICU room.
--- NOTE | 2021-06-21 17:57 | GI REPORT ---
Patient Name: Rad Leroy Procedure Date: 06/21/2021 3:35 PM Date of : 1975 Admit Type: Inpatient Age: 45 Gender: Female Attending MD: Jose Enrique Shelton MD Procedure: Upper GI endoscopy Providers: Jose Enrique Shelton MD Referring MD: Zeferino Kennedy Md Indications: Hematemesis, Melena, Recent gastrointestinal bleeding, Gastrointestinal bleeding of unknown origin Medicines: Monitored Anesthesia Care Complications: No immediate complications. Estimated Blood Loss: Estimated blood loss: none. Procedure: Pre-Anesthesia Assessment: - Prior to the procedure, a History and Physical was performed, and patient medications and allergies were reviewed. The patient is competent. The risks and benefits of the procedure and the sedation options and risks were discussed with the patient. All questions were answered and informed consent was obtained. Patient identification and proposed procedure were verified by the physician and the nurse in the pre-procedure area. Mental Status Examination: alert and oriented. Airway Examination: normal oropharyngeal airway and neck mobility. Respiratory Examination: clear to auscultation. CV Examination: normal. ASA Grade Assessment: IV - A patient with severe systemic disease that is a constant threat to life. After reviewing the risks and benefits, the patient was deemed in satisfactory condition to undergo the procedure. The anesthesia plan was to use monitored anesthesia care (MAC). Immediately prior to administration of medications, the patient was re-assessed for adequacy to receive sedatives. The heart rate, respiratory rate, oxygen saturations, blood pressure, adequacy of pulmonary ventilation, and response to care were monitored throughout the procedure. The physical status of the patient was re-assessed after the procedure. After obtaining informed consent, the endoscope was passed under direct vision. Throughout the procedure, the patient's blood pressure, pulse, and oxygen saturations were monitored continuously. The Endoscope was introduced through the mouth, and advanced to the second part of duodenum. The upper GI endoscopy was accomplished without difficulty. The patient tolerated the procedure well. Findings: Grade I varices were found in the lower third of the esophagus. No active bleeding and no stigmata of recent bleeding noted The Z-line was regular and was found 40 cm from the incisors. Localized moderate inflammation no hemorrhage or stigmata of hemorrhage noted, characterized by congestion (edema), erosions, erythema and shallow ulcerations was found in the gastric antrum. There is no endoscopic evidence of varices, angioectasia or Dieulafoy lesions in the gastroesophageal junction. Scant dark brown blood stained mucus was found in the entire examined stomach. The examined duodenum was normal. Impression: - Grade I esophageal varices. - Z-line regular, 40 cm from the incisors. - Gastritis no hemorrhage or stigmata of hemorrhage noted,. - Scant dark brown blood stained mucus in the entire stomach. - Normal examined duodenum. - No specimens collected. Recommendation: - Return patient to [facility] for ongoing care. - Clear liquid diet. - Continue present medications. MD Jose Enrique Cifuentes MD 06/21/2021 5:56:38 PM This report has been signed electronically. Note Initiated On: 06/21/2021 3:35 PM Number of Addenda: 0 I attest to the content of the Intraoperative Record and orders documented therein, exceptions below {[id number]}
--- NOTE | 2021-06-21 19:17 | Communication Note ---
Date of Service: June 21, 2021 Case reviewed and discussed with Dr. Shelton, GI, after patient returned to ICU from EGD procedure. Patient hemodynamically stable. No bleeding identified on EGD. Per recommendations from Dr. Shelton, orders placed as follows: 1. Start clear liquid diet. 2. Discontinue octreotide. 3. Discontinue protonix drip. 4. Order protonix bolus. Convert to po protonix 40mg BID starting tomorrow morning/ once she is tolerating po intake.
[2021-06-21] MEDS ORDERED: PANTOprazole 80 MG in DEXTROSE 5% 100 ML IV ONE (19:30)
[2021-06-21 19:50] LABS: Hematocrit (blood only) 24.1 % (37-47); Hemoglobin 8.3 g/dL (12.0-16.0)
--- NOTE | 2021-06-21 20:39 | Hospitalist Progress Note ---
Date of Service June 21, 2021 Assessment & Plan (1) Hematemesis: Plan: Continue in ICU (transferred after EGD yesterday). Currently hemodynamically stable with hemoglobin of 9.0 after blood transfusion. Continue pantoprazole IV drip. Ceftriaxone 1g IV daily for prophylaxis. Diet per GI and ICU team s/p cryoprecipitate, platelet and 1 unit packed RBC transfusion. Appreciate GI management. 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 (3) Chronic hepatitis B with cirrhosis: Admission and Anticipated Discharge Date Admission Date: June 20, 2021 Subjective Patient seen without translator interpreter. She denies any chest pain, shortness of breath or dizziness. No further hematemesis after EGD. Review of Systems Review of Systems: All systems reviewed & are unremarkable except as noted in HPI & below Physical Exam Constitutional: WD/WN, vitals as above Eyes: + anicteric sclerae; normal pupil size Respiratory: normal respiratory effort, lungs clear to auscultation Cardiovascular: RRR, no murmur, no edema Gastrointestinal (Abdomen): Inspection/Auscultation: normal bowel sounds Percussion/Palpation: abdomen soft; abdomen nontender Psychiatric: A+Ox3, euthymic affect Results & Data Results & Data ([facility]) Vital Signs (Past 12 Hours) Vital Signs Temp Pulse Pulse Resp BP BP Pulse Ox 06/21/21 18:05 61 14 98/57 L 100 06/21/21 17:59 61 14 101/61 100 06/21/21 17:54 63 12 98/63 L 100 06/21/21 17:49 65 14 105/64 100 06/21/21 17:42 68 16 90/57 L 100 06/21/21 16:04 36.7 C 79 23 110/70 100 06/21/21 15:05 36.8 C 63 14 109/69 100 06/21/21 14:05 63 16 104/65 100 06/21/21 13:38 36.8 C 64 15 108/69 100 06/21/21 12:40 36.9 C 68 17 106/68 98 06/21/21 12:10 36.8 C 71 16 98/64 L 99 06/21/21 11:55 36.9 C 71 17 99/59 L 100 06/21/21 11:32 37.0 C 75 16 112/71 100 06/21/21 10:12 75 17 105/65 99 06/21/21 09:12 73 16 107/66 98 PG Care Time/CCT Total # of Minutes Spent Total Time Spent with Patient: Total time spent is greater than 50% in coordination of care (as documented) at patient's floor/unit and/or counseling patient: Coding Level of Care Code 94276 Subseq Hosp Care Lvl 2 Diagnoses Hematemesis K92.0 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
[2021-06-21] MEDS ORDERED: LACTULOSE SYRUP 30 GM/45 ML UDP PO SCH ×2 (21:00)
--- NOTE | 2021-06-21 23:17 | Electrocardiogram Report ---
Test Reason : Blood Pressure : / mmHG Vent. Rate : 075 BPM Atrial Rate : 075 BPM P-R Int : 178 ms QRS Dur : 092 ms QT Int : 422 ms P-R-T Axes : 000 074 037 degrees QTc Int : 471 ms Normal sinus rhythm Incomplete right bundle branch block Borderline ECG When compared with ECG of 31-MAR-2021 18:06, No significant change was found Confirmed by Bryant Galeano ([id number]) on 06/21/2021 11:16:54 PM Referred By: REFERRED SELF Confirmed By:Bryant Galeano
[2021-06-21] MEDS: cefTRIAXone SODIUM 1,000 MG in DEXTROSE 5% 50 ML IV SCH (23:19)
[2021-06-22] MEDS: SODIUM CHLORIDE 0.9% 1000ML 1,000 ML IV SCH (02:01)
[2021-06-22 05:20] LABS: Hematocrit (blood only) 22.8 % (37-47); Hemoglobin 7.9 g/dL (12.0-16.0); Mean Corpuscular Hemoglobin 31.3 pg (25-34); Mean Corpuscular Hgb Conc 34.6 g/dL (32-36); Mean Corpuscular Volume 90.5 fL (80-100); RDW Coefficient of Variation 14.8 % (11.5-14.5); RDW Standard Deviation 47.9 fL (36.4-46.3); Red Blood Count 2.52 M/uL (4.2-5.4); White Blood Count 2.64 K/uL (4.8-10.8)
[2021-06-22 05:37] LABS: INR 1.1 (0.9-1.1); Partial Thromboplastin Ratio 0.9; Partial Thromboplastin Time 24.3 Seconds (21.0-31.0); Prothrombin Time 11.2 Seconds (9.0-12.0)
[2021-06-22 05:38] LABS: Albumin Level 2.8 gm/dl (3.4-5.0); BUN Creatinine Ratio 30.5 (10-20); Calcium 7.2 mg/dl (8.5-10.1); Creatinine Clr Calc Pharmacy 101.6 ml/min; Est GFR (African American) 127.6 ml/min; Est GFR (Non-African American) 110.1 ml/min; Potassium 3.9 mmol/L (3.5-5.1)
[2021-06-22 05:40] LABS: Albumin Globulin Ratio 1.1 (0.9-2); Bilirubin,Total 0.5 mg/dl (0.2-1); Globulin 2.5 gm/dl (2.5-4.0); Total Protein 5.3 gm/dl (6.4-8.2)
[2021-06-22 06:25] LABS: Mean Platelet Volume 9.4 fL (7.4-10.4); Platelet Count 54 K/uL (130-400)
[2021-06-22 06:26] LABS: Giant Platelets 1+; Lymphocytes % (auto) 18.9 %; Monocytes % (auto) 3.8 %; Neutrophils # (auto) 2.04 K/uL (1.4-6.5); Neutrophils % (auto) 77.3 %
[2021-06-22] MEDS: LACTULOSE SYRUP 10 GM/15 ML BTL 960 ML PO SCH ×3 (08:10→20:06)
[2021-06-22] MEDS: PANTOprazole 40 MG TAB PO SCH ×2 (08:10→20:06)
--- NOTE | 2021-06-22 09:31 | Gastroenterology Progress Note ---
Date of Service June 22, 2021 Assessment & Plan (1) Anemia: Plan: Patient is doing well today. Hgb 7.9/Hct 22.8. Received 1 unit PRBC yesterday evening. Continue current plan of care including IVFs, clear liquids, transfuse prn. Please refer to supervising physician addendum for further recommendations. Admission and Anticipated Discharge Date Admission Date: June 20, 2021 Supervising Physician Co-Signing Physician Notes I interviewed and examined the patient and reviewed the medical record, with the following observations: Subjective: Denies nausea, vomiting, abdominal pain. She is hungry and wants solid food Physical Examination: Awake, alert, oriented, no scleral icterus, clear lungs, normal cardiac tones, the abdomen is not distended, it is soft without tenderness, guarding, massesm rebound Chart Review: appropriate increase in H/H after 1 unit of packed RBCs This case was reviewed with the advanced practice provider I agree with the assessment as outlined in this consultation, with the following observations: No evidence of any active bleeding over past 36 hours I agree with the plan of care as outlined in this consultation, with the following changes and/or additions: Recommend advance to full liquid diet this evening, and if tolerated, mechanical soft diet tomorrow morning, then consider hospital discharge with outpatient follow up with her oncologist and compliance tester for management of cirrhosis with portal hypertension and consideration of further treatment of metastatic hepatocellular carcinoma. Subjective Patient reports she is doing well this morning. Food Scientist service used at patient request for translation. She reports she is doing well this morning. Denies abdominal pain, nausea, and vomiting. No hematemesis. Reports blood continues in bowel movements. Wondering how long the blood in stools will last. Tolerating clear liquids. Received 1 unit PRBC yesterday evening. Review of Systems Review of Systems: All systems reviewed & are unremarkable except as noted in Subjective Physical Exam Constitutional: Without fever chills Eyes: No scleral icterus Respiratory: normal respiratory effort, lungs clear to auscultation Gastrointestinal (Abdomen): No masses or tenderness, no distension or guarding Neurologic: No focal neurologic signs Results & Data ([facility]) Vital Signs (Past 12 Hours) Vital Signs Temp Pulse Resp BP Pulse Ox 06/22/21 07:46 65 15 122/67 98 06/22/21 07:15 36.8 C 60 18 97/67 L 98 06/22/21 04:15 55 L 15 97/61 L 98 06/22/21 03:45 55 L 15 98/62 L 98 06/22/21 03:15 54 L 14 101/62 98 06/22/21 02:45 53 L 13 92/61 L 98 06/22/21 02:15 54 L 14 100/60 97 06/22/21 02:02 36.6 C 06/22/21 01:45 56 L 15 98/65 L 97 06/22/21 01:15 59 L 14 93/63 L 97 06/22/21 00:45 57 L 14 99/61 L 96 06/22/21 00:15 57 L 14 87/58 L 97 06/21/21 23:45 63 16 90/58 L 91 06/21/21 23:21 36.8 C 06/21/21 23:15 60 16 94/56 L 93 06/21/21 22:45 59 L 16 104/64 97 06/21/21 22:15 62 15 110/81 99 06/21/21 21:45 58 L 14 101/73 97 Laboratory Results Laboratory Results - last 24 hr 06/20/21 06/21/21 06/21/21 15:15 10:04 15:56 WBC RBC Hgb 7.1 L 9.0 L Hct 20.5 L* 26.0 L MCV MCH MCHC RDW Std Deviation RDW Coeff of Domonique Plt Count MPV Immature Gran % (Auto) Neut % (Auto) Lymph % (Auto) [place] % (Auto) Eos % (Auto) Baso % (Auto) Neut # (Auto) Lymph # (Auto) [place] # (Auto) Eos # (Auto) Baso # (Auto) Immature Gran # (Auto) Giant Platelets PT INR APTT PTT Ratio Sodium Potassium Chloride Carbon Dioxide Anion Gap BUN Creatinine Est Cr Clr Drug Dosing Est GFR ( Amer) Est GFR (Non-Af Amer) BUN/Creatinine Ratio Glucose POC Glucose Calcium Total Bilirubin AST ALT Alkaline Phosphatase Ammonia Total Protein Albumin Globulin Albumin/Globulin Ratio HCG, Qual Blood Type O Positive Antibody Screen NEGATIVE Crossmatch See Detail 06/21/21 06/21/21 06/21/21 15:56 19:27 19:32 WBC RBC Hgb 8.3 L Hct 24.1 L MCV MCH MCHC RDW Std Deviation RDW Coeff of Domonique Plt Count MPV Immature Gran % (Auto) Neut % (Auto) Lymph % (Auto) [place] % (Auto) Eos % (Auto) Baso % (Auto) Neut # (Auto) Lymph # (Auto) [place] # (Auto) Eos # (Auto) Baso # (Auto) Immature Gran # (Auto) Giant Platelets PT INR APTT PTT Ratio Sodium Potassium Chloride Carbon Dioxide Anion Gap BUN Creatinine Est Cr Clr Drug Dosing Est GFR ( Amer) Est GFR (Non-Af Amer) BUN/Creatinine Ratio Glucose POC Glucose 135 H Calcium Total Bilirubin AST ALT Alkaline Phosphatase Ammonia Total Protein Albumin Globulin Albumin/Globulin Ratio HCG, Qual Negative Blood Type Antibody Screen Crossmatch 06/22/21 06/22/21 06/22/21 05:05 05:05 05:05 WBC 2.64 L RBC 2.52 L Hgb 7.9 L Hct 22.8 L MCV 90.5 MCH 31.3 MCHC 34.6 RDW Std Deviation 47.9 H RDW Coeff of Domonique 14.8 H Plt Count 54 L MPV 9.4 Immature Gran % (Auto) 0.0 Neut % (Auto) 77.3 Lymph % (Auto) 18.9 [place] % (Auto) 3.8 Eos % (Auto) 0.0 Baso % (Auto) 0.0 Neut # (Auto) 2.04 Lymph # (Auto) 0.50 L [place] # (Auto) 0.10 L Eos # (Auto) 0.00 Baso # (Auto) 0.00 Immature Gran # (Auto) 0.00 Giant Platelets 1+ PT 11.2 INR 1.1 APTT 24.3 PTT Ratio 0.9 Sodium 144 Potassium 3.9 Chloride 118 H Carbon Dioxide 23 Anion Gap 3.0 BUN 18 Creatinine 0.60 Est Cr Clr Drug Dosing 101.6 Est GFR ( Amer) 127.6 Est GFR (Non-Af Amer) 110.1 BUN/Creatinine Ratio 30.5 H Glucose 110 H POC Glucose Calcium 7.2 L Total Bilirubin 0.5 AST 60 H ALT 48 Alkaline Phosphatase 54 Ammonia Total Protein 5.3 L Albumin 2.8 L Globulin 2.5 Albumin/Globulin Ratio 1.1 HCG, Qual Blood Type Antibody Screen Crossmatch 06/22/21 05:05 WBC RBC Hgb Hct MCV MCH MCHC RDW Std Deviation RDW Coeff of Domonique Plt Count MPV Immature Gran % (Auto) Neut % (Auto) Lymph % (Auto) [place] % (Auto) Eos % (Auto) Baso % (Auto) Neut # (Auto) Lymph # (Auto) [place] # (Auto) Eos # (Auto) Baso # (Auto) Immature Gran # (Auto) Giant Platelets PT INR APTT PTT Ratio Sodium Potassium Chloride Carbon Dioxide Anion Gap BUN Creatinine Est Cr Clr Drug Dosing Est GFR ( Amer) Est GFR (Non-Af Amer) BUN/Creatinine Ratio Glucose POC Glucose Calcium Total Bilirubin AST ALT Alkaline Phosphatase Ammonia 91.0 H Total Protein Albumin Globulin Albumin/Globulin Ratio HCG, Qual Blood Type Antibody Screen Crossmatch
[2021-06-22] MEDS: D5W AND 1/2NSS + 20MEQ KCL 20 MEQ/1,000 ML BAG IV SCH ×2 (11:03→21:07)
--- NOTE | 2021-06-22 13:53 | Palliative Care Consultation ---
Date of Consultation June 22, 2021 Assessment & Plan (1) Palliative care encounter: In discussion with Rad, via flight test mechanic, she tells me that both her mother and brother of gastric cancer. Her also told me that both of GI bleeding which was very traumatic for her. When I asked her how she was coping with her illness she told me that she was doing well. She denies any fears or worries. I asked her how she felt when she was diagnosed with cancer and she told me that she doesn't let herself think about the bad things, "only happy". She denies any difficulties with her care at home and feels that she has good support. When I spoke with her on the phone, he was initially very concerned about palliative care being involved in her care "do you know something that I don't know". I explained the role of palliative care to provide support and symptom management and help Rad and her family navigate her illness. Her confirms that she does not talk about the possibility of not getting better and doesn't think that she understands that her prognosis is poor. He asked me how much time she had and we discussed that with stage IV HCC, her prognosis is likely months. While she has not talked about end of life wishes, he believes that she would want to consider palliative cancer treatment but would likely not want CPR if indicated. We discussed the statistical likelihood of successful resuscitation for her being very low. He would like to talk with her about this some more and is agreeable to palliative care following during her hospital stay. He expressed concern that Rad's 20 yo daughter and other family members have been encouraging her to seek a second opinion and pursue any available therapy at other medical centers. She has submitted her chart to [facility] for evaluation. He is less enthusiastic about this and tells me that Rad does not want to have a second opinion. Palliative care will follow to build relationship and continue goals of care discussion. 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 Kennedy Attending Physician: Zeferino Kennedy MD History of Present Illness 45 yo lady who has a history of hepatitis B and was diagnosed with hepatocellular carcinoma in December of 2019. She has been receiving care at [facility] under Dr. Mcgraw. She had initial treatment and was being considered for liver transplant but unfortunately, bone scan in May showed a lytic lesion of the right 5th rib that with malignant pathology. Given metastatic disease, she is not a candidate for transplant. She also has a history of uterine fibroids and has been referred to [facility] in [place] to evaluate for possible leiomyosarcoma. She was admitted to the hospital after complaining of abdominal pain. On the way to the hospital she had large volume bloody emesis. Emergent EGD showed varices in the distal esophagus with clotted blood in the GE junction, antrum and fundus. She did have a 4g drop in her hemoglobin and was transfused. Subsequent EGD did not show any active bleeding. I talked with her via flight test mechanic and she denies abdominal pain, nausea, dyspnea or any discomfort at this time. Allergies Allergy/AdvReac Type Severity Reaction Status Date / Time No Known Allergies Allergy Verified 06/20/21 15:45 Home Medications Medication Instructions Recorded Confirmed Type prochlorperazine maleate 5 mg 5 mg PO UD PRN 03/31/21 06/20/21 History tablet sumatriptan succinate 50 mg tablet 50 mg PO UD PRN 03/31/21 06/20/21 History lenvatinib 12 mg/day (4 mg x 3) 12 mg PO DAILY 06/20/21 06/20/21 History capsule (Lenvima) Patient History Medical History (Updated 06/22/21 @ 13:54 by Jillian Medel MD) Abdominal discomfort Acute blood loss anemia Chronic hepatitis B with cirrhosis Fibroid uterus Hematemesis Hepatitis B chronic 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 Per [facility] discharge summary, received 2U PRBC's 01/20. Received IR uterine artery embolization during admission. Liver cancer DX 12/2019 Upper gastrointestinal bleeding Surgical History History of arteriography History of History of endometrial ablation Family History Other No family history of adverse response to anesthesia No pertinent family history Social History Smoking Status: Never smoker Second Hand Exposure: No; Do You Dip or Chew Tobacco: No; Hx Alcohol Use: No Hx Substance Use: No Preferred Language: Mandarin Nauruan Communication Ability: Effective Communication Tools: IPad, Language Line [employer] Combat Skills and Physical Gestures [employer] Skills Required: Video Beliefs That Will Affect Care: None Current Living Situation: Spouse Other Information That Helps Us Care for You: No Feels Safe at Home: Yes Assistive Devices: None Review of Systems Review of Systems: [place] Symptom Assessment Scale Pain 0/3 Dyspnea 0/3 Nausea 0/3 Anxiety 0/3 Palliative Performance Score 50% Physical Exam Constitutional: well groomed; no acute distress Respiratory: normal respiratory effort; no labored breathing Cardiovascular: Rate/Rhythm: regular rate and regular rhythm Musculoskeletal: Extremities: extremities normal to inspection Neurologic: awake; not confused Psychiatric: Affect: euthymic affect Results & Data ([facility]) Vital Signs (Past 12 Hours) Vital Signs Temp Pulse Resp BP Pulse Ox 06/22/21 11:05 98.1 F 66 14 111/75 99 06/22/21 07:46 65 15 122/67 98 06/22/21 07:15 98.2 F 60 18 97/67 L 98 06/22/21 04:15 55 L 15 97/61 L 98 06/22/21 03:45 55 L 15 98/62 L 98 06/22/21 03:15 54 L 14 101/62 98 06/22/21 02:45 53 L 13 92/61 L 98 06/22/21 02:15 54 L 14 100/60 97 06/22/21 02:02 97.9 F 06/22/21 01:45 56 L 15 98/65 L 97 PG Care Time/CCT Total # of Minutes Spent Total Time Spent: 75 Total Time Spent with Patient: Total time spent is greater than 50% in coordination of care (as documented) at patient's floor/unit and/or counseling patient: goals of care, family education and support, code status Coding Level of Care Code 93521 Initial Inpt Care Lvl 3 Diagnoses Palliative care encounter Z51.5 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
--- NOTE | 2021-06-22 15:27 | Hospitalist Progress Note ---
Date of Service June 22, 2021 Assessment & Plan (1) Hematemesis: Plan: Continue on PCU Currently hemodynamically stable with hemoglobin of 7.9 after blood transfusion. Continue pantoprazole 40mg PO BID per GI recommendations Discontinue ceftriaxone as bleeding not from esophageal varices. Diet per GI - clear liquids for now, will continue on IV fluids. s/p cryoprecipitate, platelet and 1 unit packed RBC transfusion. Appreciate GI management. 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 (3) Chronic hepatitis B with cirrhosis: Admission and Anticipated Discharge Date Admission Date: June 20, 2021 Subjective Assistant Director service used for translation. No chest pain, shortness of breath, dizziness with current anemia. Melena vastly improved, no hematemesis, nausea or vomiting. Tolerating clear liquid diet. Review of Systems Review of Systems: All systems reviewed & are unremarkable except as noted in HPI & below Physical Exam Constitutional: WD/WN, vitals as above Eyes: + anicteric sclerae; normal pupil size Respiratory: normal respiratory effort, lungs clear to auscultation Cardiovascular: RRR, no murmur, no edema Gastrointestinal (Abdomen): Inspection/Auscultation: normal bowel sounds Percussion/Palpation: abdomen soft; abdomen nontender Psychiatric: A+Ox3, euthymic affect Results & Data Results & Data ([facility]) Vital Signs (Past 12 Hours) Vital Signs Temp Pulse Resp BP Pulse Ox 06/22/21 11:05 36.7 C 66 14 111/75 99 06/22/21 07:46 65 15 122/67 98 06/22/21 07:15 36.8 C 60 18 97/67 L 98 06/22/21 04:15 55 L 15 97/61 L 98 06/22/21 03:45 55 L 15 98/62 L 98 PG Care Time/CCT Total # of Minutes Spent Total Time Spent with Patient: Total time spent is greater than 50% in coordination of care (as documented) at patient's floor/unit and/or counseling patient: Coding Level of Care Code 63651 Subseq Hosp Care Lvl 2 Diagnoses Hematemesis K92.0 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
[2021-06-22 17:15] LABS: Hematocrit (blood only) 25.1 % (37-47); Hemoglobin 8.4 g/dL (12.0-16.0)
[2021-06-23 05:21] LABS: Hematocrit (blood only) 22.2 % (37-47); Hemoglobin 7.6 g/dL (12.0-16.0); Mean Corpuscular Hemoglobin 31.1 pg (25-34); Mean Corpuscular Hgb Conc 34.2 g/dL (32-36); Mean Platelet Volume 8.9 fL (7.4-10.4); Platelet Count 54 K/uL (130-400); RDW Coefficient of Variation 15.4 % (11.5-14.5); RDW Standard Deviation 49.5 fL (36.4-46.3); Red Blood Count 2.44 M/uL (4.2-5.4); White Blood Count 2.69 K/uL (4.8-10.8)
[2021-06-23 05:33] LABS: INR 1.1 (0.9-1.1); Partial Thromboplastin Ratio 0.9; Partial Thromboplastin Time 24.8 Seconds (21.0-31.0); Prothrombin Time 11.3 Seconds (9.0-12.0)
[2021-06-23 05:41] LABS: Eosinophils # (auto) 0.03 K/uL (0-0.5); Eosinophils % (auto) 1.1 %; Lymphocytes # (auto) 0.88 K/uL (1.2-3.4); Lymphocytes % (auto) 32.7 %; Monocytes # (auto) 0.22 K/uL (0.11-0.59); Monocytes % (auto) 8.2 %; Neutrophils # (auto) 1.56 K/uL (1.4-6.5); RBC Morphology Unremarkable
[2021-06-23] MEDS: D5W AND 1/2NSS + 20MEQ KCL 20 MEQ/1,000 ML BAG IV SCH (07:02)
[2021-06-23] MEDS: LACTULOSE SYRUP 10 GM/15 ML BTL 960 ML PO SCH (08:45)
[2021-06-23] MEDS: PANTOprazole 40 MG TAB PO SCH (08:45)
--- NOTE | 2021-06-23 08:59 | Gastroenterology Progress Note ---
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 Hgb 7.6/Hct 22.2. Tolerating clear liquids, hospitalist plans to advance diet. Would recommend soft foods initially. Patient would like to go home today. Agree with plan to discharge today. Will ensure patient has appropriate follow-up with oncology and hepatology at [facility]. Please refer to supervising physician addendum for further recommendations. (2) Anemia: Admission and Anticipated Discharge Date Admission Date: June 20, 2021 Supervising Physician Co-Signing Physician Notes Pt discharged prior to my rounding at the hospital. Subjective Patient reports she is doing well this morning. Building Performance Consultant service used at patient request for translation. She reports she is doing well this morning. Denies abdominal pain, nausea, and vomiting. No hematemesis. Reports blood continues in bowel movements. Would like to go home today. Tolerating clear liquids. Review of Systems Review of Systems: All systems reviewed & are unremarkable except as noted in Subjective Physical Exam Physical Exam: awake, alert, and oriented Respiratory: normal respiratory effort, lungs clear to auscultation Gastrointestinal (Abdomen): normal bowel sounds, soft, nontender, no hepatosplenomegaly Results & Data ([facility]) Vital Signs (Past 12 Hours) Vital Signs Temp Pulse Resp BP Pulse Ox 06/23/21 08:00 36.8 C 54 L 06/23/21 07:53 66 40 H 109/71 98 06/23/21 04:04 36.6 C 60 12 92/60 L 97 06/23/21 00:04 36.6 C 70 18 92/57 L 06/23/21 00:00 61 Laboratory Results Laboratory Results - last 24 hr 06/22/21 06/23/21 06/23/21 17:09 04:49 04:49 WBC 2.69 L RBC 2.44 L Hgb 8.4 L 7.6 L Hct 25.1 L 22.2 L MCV 91.0 MCH 31.1 MCHC 34.2 RDW Std Deviation 49.5 H RDW Coeff of Domonique 15.4 H Plt Count 54 L MPV 8.9 Immature Gran % (Auto) 0.0 Neut % (Auto) 58.0 Lymph % (Auto) 32.7 [place] % (Auto) 8.2 Eos % (Auto) 1.1 Baso % (Auto) 0.0 Neut # (Auto) 1.56 Lymph # (Auto) 0.88 L [place] # (Auto) 0.22 Eos # (Auto) 0.03 Baso # (Auto) 0.00 Immature Gran # (Auto) 0.00 RBC Morphology Unremarkable PT 11.3 INR 1.1 APTT 24.8 PTT Ratio 0.9
[2021-06-23] MEDS ORDERED: IRON SUCROSE 300 MG in SODIUM CHLORIDE 0.9% 250 ML IV ONE (09:45)
--- NOTE | 2021-06-23 09:54 | Palliative Care Progress Note ---
Date of Service June 23, 2021 Assessment & Plan (1) Palliative care encounter: Plan: She is doing well from a symptom management standpoint and is anxious to go home later today. We discussed role of palliative care for support and help with decision making moving forward with her illness. She is agreeable to ongoing outpatient palliative care. I spoke with her by phone and he would also be interested in outpatient f/u. She is scheduled for f/u in my office on 06/30 at 1400. 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 Reports feeling good. Denies pain or nausea. Tolerating yogurt and orange juice this morning. Hemoglobin stable. No emesis. Review of Systems Review of Systems: [place] Symptom Assessment Scale Pain 0/3 Nausea 0/3 Anxiety 0/3 Drowsiness 0/3 Palliative Performance Score 50% Physical Exam Constitutional: no acute distress Respiratory: normal respiratory effort; no labored breathing Cardiovascular: Rate/Rhythm: regular rate and regular rhythm Musculoskeletal: Extremities: extremities normal to inspection Neurologic: awake; not confused Psychiatric: Orientation: oriented x 3 Affect: euthymic affect Results & Data ([facility]) Vital Signs (Past 12 Hours) Vital Signs Temp Pulse Resp BP Pulse Ox 06/23/21 08:00 98.2 F 54 L 06/23/21 07:53 66 40 H 109/71 98 06/23/21 04:04 97.9 F 60 12 92/60 L 97 06/23/21 00:04 97.9 F 70 18 92/57 L 06/23/21 00:00 61 PG Care Time/CCT Total # of Minutes Spent Total Time Spent with Patient: Total time spent is greater than 50% in coordination of care (as documented) at patient's floor/unit and/or counseling patient: Coding Level of Care Code 55365 Subseq Hosp Care Lvl 2 Diagnoses Palliative care encounter Z51.5 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
--- NOTE | 2021-06-23 16:26 | Discharge Summary ---
Date of Service June 23, 2021 Admission HPI Per Admitting Provider Hematemesis yesterday, stable today without vomiting. Significant blood loss. EGD yesterday was inconclusive for bleeding site. Stomach obscured by retained blood, clot, and food debris. Principal Diagnosis Hematemesis Discharge Exam Constitutional WD/WN, vitals as above Eyes EOM intact bilaterally; no conjunctival abnormality ENMT external ear and nose normal, oropharynx normal Neck trachea midline, no thyromegaly normal visual inspection Respiratory normal respiratory effort, lungs clear to auscultation no respiratory distress Cardiovascular RRR, no murmur, no edema Gastrointestinal (Abdomen) Inspection/Auscultation: abdomen normal to inspection; abdomen not distended Musculoskeletal no cyanosis or clubbing, extremities motor strength 5/5 Skin no rashes, warm and dry Neurologic moves all extremities and awake Psychiatric Orientation: alert, oriented to person and cooperative Discharge Data Allergies Allergy/AdvReac Type Severity Reaction Status Date / Time No Known Allergies Allergy Verified 06/20/21 15:45 Consultations 06/20/21 15:58 Consult Gastroenterology Stat 06/20/21 16:12 ED Decision to Admit Stat 06/21/21 01:46 Consult Fashion Director Party Plan Sales Routine 06/21/21 20:46 Consult Palliative Care Routine Procedures Performed Operation Date: 06/20/21 19:00 Actual Procedures p Esophagogastroduodenoscopy, Epinephrine Injection for Control of Bleeding(Not Applicable) - Jose Enrique Shelton MD Operation Date: 06/21/21 07:55 Actual Procedures p Esophagogastroduodenoscopy(Not Applicable) - Jose Enrique Shelton MD Operation Date: 06/21/21 16:30 <No data on this case meets the specified criteria> Ordered Studies 06/20/21 15:10 CT abd pelvis IV con only Stat 06/20/21 15:43 CT chest diagnostic w con Stat Hospital Course (1) Hematemesis: EGD on 06/21 showed Grade 1 varices, gastritis without notable hemorrhage. Scant dark brown blood. S/p cryoprecipitate, platelet, and 1 unit packed RBC transfusion. - Hgb stable at 7.6 on discharge. - Continue pantoprazole 40mg PO BID per GI recommendations - Follow up with her [facility] oncology and hepatology teams. - Tolerated diet. Cleared for d/c by GI. 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 Will follow up with them outpatient. (3) Chronic hepatitis B with cirrhosis: Total Time Total Time Spent Total Time Spent (In Minutes): 35 Discharge Plan Discharge Items Patient Disposition: Home - Self-Care Reason For Visit: HEMETEMESIS Discharge Diagnosis: Hematemesis (throwing up blood) Activity: Resume your previous activity Non-emergency contact: Primary Care Provider Call non-emergency contact if: your symptoms worsen Follow-up/Referrals: Jillian Medel MD [Physician] - 06/30/21 2:00 pm (Scheduled for 06/30 at 1400 as outpatient.) Jasmyne Diane [Primary Care Provider] - 06/24/21 1:30 pm Diet: Regular and Other - See Diet Comment Diet Texture: Mechanical soft (ground) Diet Comment: Moderate/low protein to avoid liver issues Addtl Attending Provider Instructions: Ms Leroy, You were admitted with GI bleeding. Your stomach had some old blood in it, but the GI team did not see any active source of bleeding. You have some small varices (dilated blood vessels) in the esophagus as a result of your liver cancer. Please return to eating by starting with soft, easily chewable foods. Please follow up with your liver and cancer doctors at [facility]. Please take a small dose (1/3 cap) of the lactulose. This medication helps keep your ammonia down to avoid confusion. It does cause diarrhea, so you may have to adjust the amount you take. Please take the pantoprazole two times per day for at least one month. This helps heal your stomach and prevent further bleeding. Pending Studies at Discharge: No Stand-Alone Forms: My [facility], Smoking Cessation Medications and DC Order Prescriptions: New lactulose 20 gram/30 mL Solution 10 ml PO TID Qty: 1200 RF: 0 pantoprazole 40 mg Tablet,Delayed Release (Dr/Ec) 40 mg PO BID Qty: 60 RF: 0 ondansetron 4 mg tablet,disintegrating 4 mg PO Q6H PRN (Reason: nausea and vomiting) Qty: 30 RF: 0 Continued sumatriptan succinate 50 mg tablet 50 mg PO UD PRN (Reason: Migraine Headache) RF: 0 prochlorperazine maleate 5 mg tablet 5 mg PO UD PRN (Reason: Nausea) RF: 0 Lenvima 12 mg/day (4 mg x 3) capsule 12 mg PO DAILY RF: 0 Discharge Orders: Discharge Order (Routine); Ordered 06/23/21 Ordered By: Greyson Cristobal Admission Data Admit Date/Time: 06/20/21 17:43 Attending Provider: Greyson Cristobal Admit Provider: Homero Rios Primary Care Provider: Jasmyne Diane Other Providers: Jose Enrique Shelton ; Maulik Kenney ; Jillian Medel ; Greyson Cristobal Other Interventions: Discharge Summary Assessment (RN) Last Done: 06/23/21 11:59 Coding Level of Care Code D/C DAY MANAGEMENT >30 MINS Diagnoses Hematemesis K92.0 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
== END 2021-06-23 12:52 | disposition home or self-care (01) | DRG 432 ==
LOC: ED 15:06 → SUATTDRO 17:43 → OR 18:30 → 2S 18:31 → 1E 23:21

== ENCOUNTER 2022-02-06 17:40 | Inpatient (IN) ==
--- NOTE | 2022-02-06 19:59 | Emergency Department Note ---
History of Present Illness General Chief complaint: Cough Stated complaint: FEVER, COUGHING UP BLOOD, HAS LUNG/BONE CANCER Time Seen by Provider: 02/06/22 19:20 Source: patient and family ( at bedside) History of Present Illness Provider complaint: Fever cough hemoptysis Onset (ago): month(s) 1 Location: chest Radiation: non-radiation Severity: moderate Maximum Pain Intensity: 5 Current Pain Intensity: 5 Quality: + stabbing, + aching and + sharp Relieved By: + none Exacerbated By: + none Associated symptoms: + chest pain, + cough and + fever/chills; no headaches, no nausea/vomiting or no shortness of breath 46-year-old female presents emergency department for cough hemoptysis and fever over the last month. Patient has a history of hepatocellular carcinoma. states she was recently on Levaquin for pneumonia prescribed by her oncologist Dr. Ray. No hematemesis coffee-ground emesis or bilious vomiting. No melena or hematochezia. Home Medications Medication Instructions Recorded Confirmed Type prochlorperazine maleate 5 mg 5 mg PO UD PRN 03/31/21 01/27/22 History tablet entecavir 1 mg tablet 1 mg PO QAM 07/19/21 01/27/22 History lactulose 20 gram/30 mL oral 5 ml PO BID ml 07/19/21 01/27/22 History solution ondansetron 4 mg disintegrating 4 mg PO QID PRN 01/27/22 01/27/22 History tablet benzonatate 100 mg capsule 100 mg PO TID PRN 02/06/22 02/06/22 History levofloxacin 500 mg tablet 500 mg PO DAILY 02/06/22 02/06/22 History Allergies Allergy/AdvReac Type Severity Reaction Status Date / Time latex Allergy Intermediate Rash Verified 01/27/22 17:51 Past Med/Surg History Medical History Abdominal discomfort Abdominal pain Abnormal uterine bleeding (AUB) Acute blood loss anemia Allergic reaction to food [place] Anemia Chronic hepatitis B with cirrhosis Fibroid uterus Hematemesis Hepatitis B chronic 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 Per [facility] discharge summary, received 2U PRBC's 01/20. Received IR uterine artery embolization during admission. Liver cancer DX 12/2019 Palliative care encounter Upper gastrointestinal bleeding Surgical History History of arteriography History of biopsy (12/28/20) Right [place] Dr. Decker History of History of endometrial ablation History of esophagogastroduodenoscopy (EGD) (06/21/21) Family History Father No problems noted. Mother , Passed Age 49 Colorectal cancer Daughter No problems noted. Brother , Passed Age 32 Colorectal cancer Social History Smoking Status: Never smoker Second Hand Exposure: No; Hx Alcohol Use: No Hx Substance Use: No Preferred Language: Guatemalan Communication Ability: Effective Communication Tools: IPad, Language Line Construction Quality Control Manager and Physical Gestures Visual Impairment: No Limitations Hearing Ability: Normal Construction Quality Control Manager Required: Video Beliefs That Will Affect Care: None marital status: Current Living Situation: Spouse current occupational status: employed current occupation: Senior Analyst of own business How many Children do You have: 1 Feels Safe at Home: Yes Childhood Exposure to Second-Hand Smoke: No caffeine: Yes (coffee and tea daily) during the past year weight has: remained stable Dental Care, Regularly: Yes Assistive Devices: None Review of Systems A total of 10 systems reviewed and were otherwise negative Physical Exam Vital Signs Vital Signs - 24 hr 02/06/22 17:41 02/06/22 18:16 02/06/22 19:41 Temperature 37.7 C H Temperature Source Temporal Artery Scan Pulse Rate 94 H Pulse Rate [Left Finger] 74 Pulse Rate from SpO2 Sensor Respiratory Rate 18 19 18 Respiratory Effort / Characteristics Non-Labored Non-Labored Spontaneous Non-Labored Respiratory Depth Normal Normal Normal Respiratory Pattern Regular Blood Pressure 102/66 Blood Pressure [Left Arm] 113/75 Blood Pressure Mean 78 Blood Pressure Mean [Left Arm] 87 Blood Pressure Position Sitting Blood Pressure Position [Left Arm] Sitting Pulse Oximetry 97 97 97 Oxygen Delivery Method Room Air Room Air Room Air Sepsis Recent Fever Within 48 Hours Yes Sepsis New/Unexplained Change in Mental Status N/A Sepsis Action Taken by Nursing No Action Required 02/06/22 20:38 02/06/22 21:00 02/06/22 21:21 Temperature Temperature Source Pulse Rate 82 82 79 Pulse Rate [Left Finger] Pulse Rate from SpO2 Sensor 79 Respiratory Rate 23 22 Respiratory Effort / Characteristics Respiratory Depth Respiratory Pattern Blood Pressure 113/75 108/68 Blood Pressure [Left Arm] Blood Pressure Mean 87 81 Blood Pressure Mean [Left Arm] Blood Pressure Position Blood Pressure Position [Left Arm] Pulse Oximetry 97 Oxygen Delivery Method Sepsis Recent Fever Within 48 Hours Sepsis New/Unexplained Change in Mental Status Sepsis Action Taken by Nursing 02/06/22 23:11 Temperature Temperature Source Pulse Rate Pulse Rate [Left Finger] 83 Pulse Rate from SpO2 Sensor Respiratory Rate 16 Respiratory Effort / Characteristics Respiratory Depth Respiratory Pattern Blood Pressure Blood Pressure [Left Arm] 118/78 Blood Pressure Mean Blood Pressure Mean [Left Arm] 91 Blood Pressure Position Blood Pressure Position [Left Arm] Sitting Pulse Oximetry 96 Oxygen Delivery Method Room Air Sepsis Recent Fever Within 48 Hours Sepsis New/Unexplained Change in Mental Status Sepsis Action Taken by Nursing Physical Exam GENERAL: She is oriented to person, place, and time. She appears well-developed and well-nourished. She does not appear distressed. HENT: Exam performed. -Head: Normocephalic and atraumatic. -Right Ear: External ear normal. No mastoid tenderness. -Left Ear: External ear normal. No mastoid tenderness. -Mouth/Throat: The oropharynx is clear and moist. No trismus in the jaw. No dental abscesses or uvula swelling. No oropharyngeal exudate or tonsillar absc esses. EYES: Conjunctivae and EOM are normal. Pupils are equal, round, and reactive to light. Right eye exhibits no discharge. Left eye exhibits no discharge. No scleral icterus. NECK: Normal range of motion. Neck supple. No JVD present. No spinous process tenderness present. No carotid bruit present. No rigidity. No tracheal deviation and normal range of motion present. No Brudzinski's sign and no Kernig's sign noted. CV: Normal rate, regular rhythm, normal heart sounds and intact distal pulses. There is no peripheral edema. Palpable radial pulses bue. PULM/CHEST: Effort normal and breath sounds normal. No respiratory distress. No stridor. She has no wheezes. She has no rales. -Chest Wall: Tenderness over the right lateral chest. No crepitus bilaterally ABD: The abdomen is soft. Bowel sounds are normal. She has no distension. No mass is present. There is no tenderness. There is no rebound, no guarding, no Mauricio's sign and no tenderness at McBurney's point. Rovsig negative MUSC/SKEL: Normal range of motion. There is no peripheral edema, tenderness or deformity. LYMPH: No cervical adenopathy. NEURO: She is alert and oriented to person, place, and time. She has normal strength. No cranial nerve deficit or sensory deficit. Coordination and gait normal. GCS eye subscore is 4. GCS verbal subscore is 5. GCS motor subscore is 6. Cerebellar tests wnl. SKIN: Skin is warm and dry. She is not diaphoretic. PSYCH: She has a normal mood and affect. Behavior is normal. Judgment and th ought content normal. Course Course 1919: The patient was evaluated in room . A complete history and physical exam was performed Cardiac monitoring: An order was placed for continuous cardiac monitoring. The monitor shows a rate of sinus with 80 rhythm 2330: Vital signs stable. Labs within normal limits. Imaging shows worsening of her metastatic disease and me shows that the pathological fracture of her rib. No additional pathological fractures. Patient symptoms have been going on for almost a month of the recurrent fevers and hemoptysis. It is thought that the patient would benefit from a bronchoscopy. Discussed with the patient and her over the phone and the 3 of us all agree that it would probably be in the patient's best interest to be admitted for evaluation by pulmonology for possible bronchoscopy as this is been unable to be secured in the outpatient setting. Discussed the case with Dr. Hernandez who graciously agreed to accept the patient to her service for admission. Administered Medications Sodium Chloride (Nss 1000ml) 1,000 mls @ 125 mls/hr IV .Q8H MARKOS Stop: 03/08/22 19:44 Last Admin: 02/06/22 20:23 Dose: 125 mls/hr Documented by: [id number] Discontinued Medications Ioversol (Optiray 320 125ml) 120 ml IV ONCE ONE Stop: 02/06/22 21:34 Last Admin: 02/06/22 21:33 Dose: 120 ml Documented by: [id number] Medical Decision Making Laboratory Data Result diagrams: 02/06/22 20:00 02/06/22 20:00 Lab Results 02/06/22 02/06/2222 Range/Units 20:00 20:00 20:00 WBC 4.10 L (4.8-10.8) K/uL RBC 3.84 L (4.2-5.4) M/uL Hgb 11.7 L (12.0-16.0) g/dL Hct 35.7 L (37-47) % MCV 93.0 (80-100) fL MCH 30.5 (25-34) pg MCHC 32.8 (32-36) g/dL RDW Std Deviation 58.5 H (36.4-46.3) fL RDW Coeff of Domonique 17.0 H (11.5-14.5) % Plt Count 111 L (130-400) K/uL MPV 10.2 (7.4-10.4) fL Immature Gran % (Auto) 0.0 % Neut % (Auto) 69.3 % Lymph % (Auto) 15.9 % [place] % (Auto) 12.2 % Eos % (Auto) 2.4 % Baso % (Auto) 0.2 % Neut # (Auto) 2.84 (1.4-6.5) K/uL Lymph # (Auto) 0.65 L (1.2-3.4) K/uL [place] # (Auto) 0.50 (0.11-0.59) K/uL Eos # (Auto) 0.10 (0-0.5) K/uL Baso # (Auto) 0.01 (0-0.2) K/uL Immature Gran # (Auto) 0.00 (0.00-0.02) K/uL RBC Morphology Unremarkable Sodium 133 L (136-145) mmol/L Potassium 4.3 (3.5-5.1) mmol/L Chloride 101 (98-107) mmol/L Carbon Dioxide 25 (21-32) mmol/L Anion Gap 7 (3-11) BUN 12 (6-23) mg/dl Creatinine 0.65 (0.6-1.2) mg/dl Est Cr Clr Drug Dosing 89.5 ml/min Est GFR ( Amer) 123.4 ml/min Est GFR (Non-Af Amer) 106.5 ml/min BUN/Creatinine Ratio 18.5 (10-20) Glucose 114 H (70-99(Fasting)) mg/dl Lactate (0.4-2.0) mmol/L Calcium 9.1 (8.5-10.1) mg/dl Total Bilirubin 1.0 (0.2-1.0) mg/dl AST 47 H (13-39) U/L ALT 41 (7-52) U/L Alkaline Phosphatase 251 H (34-104) U/L Ammonia 21.0 (18-72) umol/L Total Protein 8.0 (6.0-8.3) gm/dl Albumin 4.1 (3.4-5.0) gm/dl Globulin 3.9 (2.5-4.0) gm/dl Albumin/Globulin Ratio 1.1 (0.9-2) Urine Color Urine Appearance (Clear) Urine pH (4.5-7.5) Ur Specific [place] (1.000-1.030) Urine Protein (Negative) Urine Glucose (UA) (Negative) Urine Ketones (Negative) Urine Blood (Negative) Urine Nitrite (Negative) Urine Bilirubin (Negative) Urine Urobilinogen (Negative) Ur Leukocyte Esterase (Negative) Salicylates (3.0-30) mg/dl Acetaminophen (10-30) ug/ml Adenovirus (PCR) (NotDetected) B. pertussis DNA (PCR) (NotDetected) B.parapertussis DNA PCR (NotDetected) C. pneumoniae DNA (PCR) (NotDetected) Coronavirus OC43 (PCR) (NotDetected) Coronavirus HKU1 (PCR) (NotDetected) Coronavirus 229E (PCR) (NotDetected) SARS-CoV-2 (PCR) (NotDetected) Coronavirus NL63 (PCR) (NotDetected) Human Metapneumovir PCR (NotDetected) Influenza Type A (PCR) (NotDetected) Influenza Type B (PCR) (NotDetected) M. pneumoniae (PCR) (NotDetected) Parainfluenza 1 (PCR) (NotDetected) Parainfluenza 2 (PCR) (NotDetected) Parainfluenza 3 (PCR) (NotDetected) Parainfluenza 4 (PCR) (NotDetected) RSV (PCR) (NotDetected) Entero/Rhino (PCR) (NotDetected) 02/06/22 02/06/22 02/06/22 Range/Units 20:00 20:00 21:15 WBC (4.8-10.8) K/uL RBC (4.2-5.4) M/uL Hgb (12.0-16.0) g/dL Hct (37-47) % MCV (80-100) fL MCH (25-34) pg MCHC (32-36) g/dL RDW Std Deviation (36.4-46.3) fL RDW Coeff of Domonique (11.5-14.5) % Plt Count (130-400) K/uL MPV (7.4-10.4) fL Immature Gran % (Auto) % Neut % (Auto) % Lymph % (Auto) % [place] % (Auto) % Eos % (Auto) % Baso % (Auto) % Neut # (Auto) (1.4-6.5) K/uL Lymph # (Auto) (1.2-3.4) K/uL [place] # (Auto) (0.11-0.59) K/uL Eos # (Auto) (0-0.5) K/uL Baso # (Auto) (0-0.2) K/uL Immature Gran # (Auto) (0.00-0.02) K/uL RBC Morphology Sodium (136-145) mmol/L Potassium (3.5-5.1) mmol/L Chloride (98-107) mmol/L Carbon Dioxide (21-32) mmol/L Anion Gap (3-11) BUN (6-23) mg/dl Creatinine (0.6-1.2) mg/dl Est Cr Clr Drug Dosing ml/min Est GFR ( Amer) ml/min Est GFR (Non-Af Amer) ml/min BUN/Creatinine Ratio (10-20) Glucose (70-99(Fasting)) mg/dl Lactate 1.2 (0.4-2.0) mmol/L Calcium (8.5-10.1) mg/dl Total Bilirubin (0.2-1.0) mg/dl AST (13-39) U/L ALT (7-52) U/L Alkaline Phosphatase (34-104) U/L Ammonia (18-72) umol/L Total Protein (6.0-8.3) gm/dl Albumin (3.4-5.0) gm/dl Globulin (2.5-4.0) gm/dl Albumin/Globulin Ratio (0.9-2) Urine Color Yellow Urine Appearance Clear (Clear) Urine pH 6.5 (4.5-7.5) Ur Specific [place] 1.006 (1.000-1.030) Urine Protein Negative (Negative) Urine Glucose (UA) Negative (Negative) Urine Ketones Negative (Negative) Urine Blood Negative (Negative) Urine Nitrite Negative (Negative) Urine Bilirubin Negative (Negative) Urine Urobilinogen Negative (Negative) Ur Leukocyte Esterase Negative (Negative) Salicylates < 3.0 L (3.0-30) mg/dl Acetaminophen < 3 L (10-30) ug/ml Adenovirus (PCR) (NotDetected) B. pertussis DNA (PCR) (NotDetected) B.parapertussis DNA PCR (NotDetected) C. pneumoniae DNA (PCR) (NotDetected) Coronavirus OC43 (PCR) (NotDetected) Coronavirus HKU1 (PCR) (NotDetected) Coronavirus 229E (PCR) (NotDetected) SARS-CoV-2 (PCR) (NotDetected) Coronavirus NL63 (PCR) (NotDetected) Human Metapneumovir PCR (NotDetected) Influenza Type A (PCR) (NotDetected) Influenza Type B (PCR) (NotDetected) M. pneumoniae (PCR) (NotDetected) Parainfluenza 1 (PCR) (NotDetected) Parainfluenza 2 (PCR) (NotDetected) Parainfluenza 3 (PCR) (NotDetected) Parainfluenza 4 (PCR) (NotDetected) RSV (PCR) (NotDetected) Entero/Rhino (PCR) (NotDetected) 02/06/22 Range/Units 21:25 WBC (4.8-10.8) K/uL RBC (4.2-5.4) M/uL Hgb (12.0-16.0) g/dL Hct (37-47) % MCV (80-100) fL MCH (25-34) pg MCHC (32-36) g/dL RDW Std Deviation (36.4-46.3) fL RDW Coeff of Domonique (11.5-14.5) % Plt Count (130-400) K/uL MPV (7.4-10.4) fL Immature Gran % (Auto) % Neut % (Auto) % Lymph % (Auto) % [place] % (Auto) % Eos % (Auto) % Baso % (Auto) % Neut # (Auto) (1.4-6.5) K/uL Lymph # (Auto) (1.2-3.4) K/uL [place] # (Auto) (0.11-0.59) K/uL Eos # (Auto) (0-0.5) K/uL Baso # (Auto) (0-0.2) K/uL Immature Gran # (Auto) (0.00-0.02) K/uL RBC Morphology Sodium (136-145) mmol/L Potassium (3.5-5.1) mmol/L Chloride (98-107) mmol/L Carbon Dioxide (21-32) mmol/L Anion Gap (3-11) BUN (6-23) mg/dl Creatinine (0.6-1.2) mg/dl Est Cr Clr Drug Dosing ml/min Est GFR ( Amer) ml/min Est GFR (Non-Af Amer) ml/min BUN/Creatinine Ratio (10-20) Glucose (70-99(Fasting)) mg/dl Lactate (0.4-2.0) mmol/L Calcium (8.5-10.1) mg/dl Total Bilirubin (0.2-1.0) mg/dl AST (13-39) U/L ALT (7-52) U/L Alkaline Phosphatase (34-104) U/L Ammonia (18-72) umol/L Total Protein (6.0-8.3) gm/dl Albumin (3.4-5.0) gm/dl Globulin (2.5-4.0) gm/dl Albumin/Globulin Ratio (0.9-2) Urine Color Urine Appearance (Clear) Urine pH (4.5-7.5) Ur Specific [place] (1.000-1.030) Urine Protein (Negative) Urine Glucose (UA) (Negative) Urine Ketones (Negative) Urine Blood (Negative) Urine Nitrite (Negative) Urine Bilirubin (Negative) Urine Urobilinogen (Negative) Ur Leukocyte Esterase (Negative) Salicylates (3.0-30) mg/dl Acetaminophen (10-30) ug/ml Adenovirus (PCR) Not Detected (NotDetected) B. pertussis DNA (PCR) Not Detected (NotDetected) B.parapertussis DNA PCR Not Detected (NotDetected) C. pneumoniae DNA (PCR) Not Detected (NotDetected) Coronavirus OC43 (PCR) Not Detected (NotDetected) Coronavirus HKU1 (PCR) Not Detected (NotDetected) Coronavirus 229E (PCR) Not Detected (NotDetected) SARS-CoV-2 (PCR) Not Detected (NotDetected) Coronavirus NL63 (PCR) Not Detected (NotDetected) Human Metapneumovir PCR Not Detected (NotDetected) Influenza Type A (PCR) Not Detected (NotDetected) Influenza Type B (PCR) Not Detected (NotDetected) M. pneumoniae (PCR) Not Detected (NotDetected) Parainfluenza 1 (PCR) Not Detected (NotDetected) Parainfluenza 2 (PCR) Not Detected (NotDetected) Parainfluenza 3 (PCR) Not Detected (NotDetected) Parainfluenza 4 (PCR) Not Detected (NotDetected) RSV (PCR) Not Detected (NotDetected) Entero/Rhino (PCR) Not Detected (NotDetected) Imaging Data Radiologist's Impression: Chest X-Ray 02/06/22 19:59 XR chest 1V portable HISTORY: 46 years-old Female cough acute cough patient with extensive pulmonary metastatic disease COMPARISON: CTA chest 01/27/2022 TECHNIQUE: Portable AP view of the chest FINDINGS: Cardiac silhouette is upper limits of normal in size. Hilar enlargement compatible with adenopathy redemonstrated. Extensive pulmonary metastatic disease is again noted. No pneumothorax, large pleural effusion or overt pulmonary edema. Destructive bone lesion of the lateral right fifth rib with pathologic fracture again noted. IMPRESSION: 1. Extensive pulmonary metastatic disease redemonstrated. 2. Destructive bone lesion of the lateral right fifth rib with pathologic fracture again noted. 3. Hilar enlargement compatible with metastatic adenopathy. ACT 112: Negative or not required by law. The above report was generated using voice recognition software. It may contain grammatical, syntax or spelling errors. Electronically signed by: Neil Guerrero M.D. 02/06/2022 8:17 PM PreliminaryFindingsOnly See Final Report For Complete Findings CTACHEST: Comparison to 2021. The pulmonaryarterial tree iswell opacified with contrast. No pulmonaryemboli are identified. The thoracic aorta is nondilated. There is no aneurysmor dissection. Numerous pulmonarynodules throughout both lungs consistent with metastasis. These are significantlylarger than previous nowaveraging roughly2-2.5 cmin diameter each compared to roughly1 cmpreviously. There is also extensive mediastinal lymphadenopathywith lymph nodes measuring up to 2.8 cmthick in the AP window. These surround slightlyindent the pulmonary vasculature without severe stenosis. Expansile lytic bone lesions involving the right fifth rib newsince previous. No other bone lesions are identified. Limited images of the upper abdomen are unremarkable. Radiologist: Nabil Hernandez MD Study ready at 21:53 and initial results transmitted at 22:35 PreliminaryFindingsOnly See Final Report For Complete Findings CT ABDOMEN & PELVIS With Contrast: Numerous pulmonarymetastases are present, increased since previous. Please see chest CT appeared There is signs of portal hypertension including a portal vein dilated to 1.7 cmand recanalization of the paraumbilical vein. There is an approximately1.3 cmlow-densitylesion in the right liver lobe which is nonspecific in appearance. The gallbladder, pancreas, spleen, adrenal glands, and kidneys appear within normal limits. Bowel loops are nondilated. The appendix is normal. No pneumoperitoneum, free fluid, or acute inflammatorychanges are seen involving the bowel. There is heterogenous enhancements of a mildlyenlarged uterus suggesting possible 5.5 cmfibroid or adenomyosis. No free fluid is seen in the pelvis. Mild degenerative changes in the lumbar spine. No acute fracture. There is a 1.4 cmsclerotic density in the posterior right iliac bone. Radiologist: Nabil Hernandez MD Study ready at 21:48 and initial results transmitted at 22:39 ECG Data Indication: + other (arrythmia) Rate (beats per minute): 78 Rhythm: + normal sinus ECG Intervals/blocks: + Normal QRS, + Normal MS and + Normal QT-c ECG ST segments: + Normal ST segments MDM Narrative Vital signs stable. Labs within normal limits. Imaging shows worsening of her metastatic disease and me shows that the pathological fracture of her rib. No additional pathological fractures. Patient symptoms have been going on for almost a month of the recurrent fevers and hemoptysis. It is thought that the p atient would benefit from a bronchoscopy. Discussed with the patient and her over the phone and the 3 of us all agree that it would probably be in the patient's best interest to be admitted for evaluation by pulmonology for possible bronchoscopy as this is been unable to be secured in the outpatient setting. Discussed the case with Dr. Hernandez who graciously agreed to accept the patient to her service for admission. 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
--- NOTE | 2022-02-06 20:20 | XRay Report ---
XR chest 1V portable HISTORY: 46 years-old Female cough acute cough patient with extensive pulmonary metastatic disease COMPARISON: CTA chest 01/27/2022 TECHNIQUE: Portable AP view of the chest FINDINGS: Cardiac silhouette is upper limits of normal in size. Hilar enlargement compatible with adenopathy re demonstrated. Extensive pulmonary metastatic disease is again noted. No pneumothorax, large pleural e ffusion or overt pulmonary edema. Destructive bone lesion of the lateral right fifth rib with patholo gic fracture again noted. IMPRESSION: 1. Extensive pulmonary metastatic disease redemonstrated. 2. Destructive bone lesion of the lateral right fifth rib with pathologic fracture again noted. 3. Hilar enlargement compatible with metastatic adenopathy. ACT 112: Negative or not required by law. The above report was generated using voice recognition software. It may contain grammatical, syntax o r spelling errors. Electronically signed by: Neil Guerrero M.D. 02/06/2022 8:17 PM
[2022-02-06] MEDS: SODIUM CHLORIDE 0.9% 1000ML 1,000 ML IV SCH (20:23)
[2022-02-06 20:26] LABS: Basophils # (auto) 0.01 K/uL (0-0.2); Basophils % (auto) 0.2 %; Eosinophils % (auto) 2.4 %; Hematocrit (blood only) 35.7 % (37-47); Hemoglobin 11.7 g/dL (12.0-16.0); Lymphocytes # (auto) 0.65 K/uL (1.2-3.4); Lymphocytes % (auto) 15.9 %; Mean Corpuscular Hemoglobin 30.5 pg (25-34); Mean Corpuscular Hgb Conc 32.8 g/dL (32-36); Mean Platelet Volume 10.2 fL (7.4-10.4); Monocytes % (auto) 12.2 %; Neutrophils # (auto) 2.84 K/uL (1.4-6.5); Neutrophils % (auto) 69.3 %; Platelet Count 111 K/uL (130-400); RDW Standard Deviation 58.5 fL (36.4-46.3); Red Blood Count 3.84 M/uL (4.2-5.4)
[2022-02-06 20:37] LABS: Acetaminophen < 3 ug/ml (10-30); Albumin Globulin Ratio 1.1 (0.9-2); Albumin Level 4.1 gm/dl (3.4-5.0); BUN Creatinine Ratio 18.5 (10-20); Calcium 9.1 mg/dl (8.5-10.1); Creatinine Clr Calc Pharmacy 89.5 ml/min; Est GFR (African American) 123.4 ml/min; Est GFR (Non-African American) 106.5 ml/min; Globulin 3.9 gm/dl (2.5-4.0); Potassium 4.3 mmol/L (3.5-5.1); Salicylate < 3.0 mg/dl (3.0-30)
[2022-02-06 20:50] LABS: RBC Morphology Unremarkable
[2022-02-06 21:27] LABS: Appearance Urine Clear (Clear); Bilirubin Urine Negative (Negative); Blood Urine Negative (Negative); Color Urine Yellow; Glucose Urine UA Negative (Negative); Ketones Urine Negative (Negative); Leukocyte Esterase Urine Negative (Negative); Nitrite Urine Negative (Negative); Protein Urine Negative (Negative); Specific Gravity Urine 1.006 (1.000-1.030); Urobilinogen Urine Negative (Negative); pH Urine 6.5 (4.5-7.5)
[2022-02-06] MEDS ORDERED: OPTIRAY 320 125ml IV ONE (21:33)
[2022-02-06 22:17] LABS: Adenovirus PCR Not Detected (NotDetected); Bordetella parapertussis PCR Not Detected (NotDetected); Bordetella pertussis PCR Not Detected (NotDetected); Chlamydia pneumoniae PCR Not Detected (NotDetected); Coronavirus 229E PCR Not Detected (NotDetected); Coronavirus CoV-2 (COVID19)PCR Not Detected (NotDetected); Coronavirus HKU1 PCR Not Detected (NotDetected); Coronavirus NL63 PCR Not Detected (NotDetected); Coronavirus OC43PCR Not Detected (NotDetected); Human Metapneumovirus PCR Not Detected (NotDetected); Influenza A PCR Not Detected (NotDetected); Influenza B PCR Not Detected (NotDetected); Mycoplasma pneumoniae PCR Not Detected (NotDetected); Parainfluenza Virus 1 PCR Not Detected (NotDetected); Parainfluenza Virus 2 PCR Not Detected (NotDetected); Parainfluenza Virus 3 PCR Not Detected (NotDetected); Parainfluenza Virus 4 PCR Not Detected (NotDetected); Respiratory Syncytial VirusPCR Not Detected (NotDetected); Rhinovirus/Enterovirus PCR Not Detected (NotDetected)
--- NOTE | 2022-02-07 00:20 | History & Physical Report ---
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 - ~2 weeks of intermittent fever noted. may be from advanced cancer, but also considered pulmonary infection - cta redemonstrates extensive lung mets as well as bone mets. no obvious pneumonia noted " Numerous pulmonary nodules throughout both lungs consistent with metastasis. There are significantly larger than previous now averaging roughly 2-2.5 cm in diameter each compared to roughly 1 cm previously. There is also extensive mediastinal lymphadenopathy with lymph nodes measuring up to 2.8 cm thick in the AP window." - check procal in AM - empiric Rocephin and IV azithro, awaiting sputum and blood cultures - may benefit from possible bronchoscopy, consulted pulm - continue IV fluids for now. Recommend use of chef passenger vessel. (2) Pleuritic chest pain: Plan: - likely 2/2 lung mets - CTA neg for PE - continue home PO tramadol for this, but at reduced dose 25mg PO q6h prn (3) Hyponatremia: Plan: - mild. 133, appears new - continue NSS 125/hr for now - follow bmp (4) Lung metastases: Plan: - follows Dr. Fili eaton[facility]. On Keytruda (5) HCC (hepatocellular carcinoma): Plan: - diagnosed 12/2019. + family hx in grandmother. never smoker - chronic hep B - continue home entecavir qhs (6) Bone metastases: Plan: - redemonstrated on imaging. hx of pathological fracture (7) Anemia: Plan: - normocytic. 11.7 Hb, stable. follow cbc (8) Enlarged uterus: Plan: - 5.5 cm fibroid vs adenomyosis noted on CT abd. incidental finding. outpatient f/u if symptomatic (9) Elevated alkaline phosphatase level: Plan: - most likely 2/2 bone mets Plan: FEN/GI: regular diet. NSS 125/hr. ppx: SCDs only, hemoptysis code: full dispo: med tele. 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 Recent fevers have been 99s, low 100s deg F. Productive cough of mostly clear sputum. Severity same. Did not notice improvement w/ 7 days of oral levo (01/31/22-02/07/22) prescribed by her oncologist. Last chemo injection 01/31/22. Mild chest discomfort 2/2 cough. none currently. She has some R rib pain when coughing. Since today, she has had some thoracic back pain, pleuritic. No urinary symptoms, dizziness, wright, blurry vision. She denies symptoms of anemia. Family hx of liver cancer in [facility]. Patient was seen in the ED on 01/27/22 for similar symptoms. She has seen her oncologist and her PCP for these symptoms, but symptoms are persisting. Hx obtained from patient and sister. Patient speaks Burmese and Chadian. No hx mi or vte or stroke. No sick contact. She is a never smoker and does not consume etoh. She has had the [facility] [employer] booster. ED course: NSS 125mL/hr. CTA neg for PT, but redemonstrates lung and bone mets. Allergies Allergy/AdvReac Type Severity Reaction Status Date / Time latex Allergy Intermediate Rash Verified 02/06/22 23:41 Home Medications Medication Instructions Recorded Confirmed Type entecavir 1 mg tablet 1 mg PO QPM 07/19/21 02/07/22 History benzonatate 100 mg capsule 100 mg PO TID PRN 02/06/22 02/06/22 History tramadol 50 mg tablet 50 mg PO Q6 PRN 02/06/22 02/06/22 History Past Med/Surg History Medical History Abdominal discomfort Abdominal pain Abnormal uterine bleeding (AUB) Acute blood loss anemia Allergic reaction to food Okra Anemia Chronic hepatitis B with cirrhosis Fibroid uterus Hematemesis Hepatitis B chronic Hepatocellular carcinoma metastatic to bone History of abnormal uterine hemorrhage 12/2019 - [place] ER --> [facility], bleeding was managed with Aygestin (recurrence when Aygestin discontinued). Per [facility] discharge summary, received 2U PRBC's 01/20. Received IR uterine artery embolization during admission. Liver cancer DX 12/2019 Palliative care encounter Upper gastrointestinal bleeding Surgical History History of arteriography History of biopsy (12/28/20) Right [place] Dr. Decker History of History of endometrial ablation History of esophagogastroduodenoscopy (EGD) (06/21/21) Family History (Updated 02/07/22 @ 00:20 by Raffy Pendleton MD) Father No problems noted. Mother , Passed Age 49 Colorectal cancer Daughter No problems noted. Brother , Passed Age 32 Colorectal cancer Grandmother (Maternal) Liver cancer Social History Smoking Status: Never smoker Second Hand Exposure: No; Hx Alcohol Use: No Hx Substance Use: No Preferred Language: Moore Chadian Communication Ability: Effective Communication Tools: IPad, Language Line Assisted Living Nursing Director and Physical Gestures Visual Impairment: No Limitations Hearing Ability: Normal Assisted Living Nursing Director Required: No Beliefs That Will Affect Care: None marital status: Current Living Situation: Spouse Current Living Situation Comment: and daughter current occupational status: employed current occupation: Mandarin Chinese Teacher of own business How many Children do You have: 1 Feels Safe at Home: Yes Childhood Exposure to Second-Hand Smoke: No caffeine: Yes (coffee and tea daily) during the past year weight has: remained stable Dental Care, Regularly: Yes Assistive Devices: None Immunizations: no etoh. Review of Systems Review of Systems: All systems reviewed & are unremarkable except as noted in HPI & below Physical Exam Physical Exam: General: Grossly A&O. NAD. Cooperative. Conversational. HEENT: Atraumatic, normocephalic. EOMI. Oropharynx Pulm: CTAB. -wheezes, -rales, -rhonchi. No respiratory distress. Cardiac: RRR, -mrg. Radial pulses intact and symmetrical. No LE edema. Abdominal: Nontender, nondistended, soft. Msk: Moving all extremities. Neuro: Strength and sensation of upper and lower extremities intact. Results & Data Results & Data ([facility]) Vital Signs (Past 12 Hours) Vital Signs Temp Pulse Pulse Resp BP BP Pulse Ox 02/06/22 23:11 83 16 118/78 96 02/06/22 21:21 79 22 108/68 97 02/06/22 21:00 82 23 113/75 02/06/22 20:38 82 23 02/06/22 19:41 74 18 97 02/06/22 18:16 37.7 C H 94 H 19 102/66 97 02/06/22 17:41 18 113/75 97 Laboratory Results wbc 41, stable. Hb 11.7 stable. Na 133. AST 47. alk phos 251, stable. utox salicylates and acetaminophen neg. resp biofire neg. 02/06/22 20:00 02/06/22 20:00 Cardiac Enzymes 02/06/22 Range/Units 20:00 AST 47 H (13-39) U/L CBC 02/06/22 Range/Units 20:00 WBC 4.10 L (4.8-10.8) K/uL RBC 3.84 L (4.2-5.4) M/uL Hgb 11.7 L (12.0-16.0) g/dL Hct 35.7 L (37-47) % Plt Count 111 L (130-400) K/uL Neut # (Auto) 2.84 (1.4-6.5) K/uL Lymph # (Auto) 0.65 L (1.2-3.4) K/uL Blaine # (Auto) 0.50 (0.11-0.59) K/uL Eos # (Auto) 0.10 (0-0.5) K/uL Baso # (Auto) 0.01 (0-0.2) K/uL Comprehensive Metabolic Panel 02/06/22 Range/Units 20:00 Sodium 133 L (136-145) mmol/L Potassium 4.3 (3.5-5.1) mmol/L Chloride 101 (98-107) mmol/L Carbon Dioxide 25 (21-32) mmol/L BUN 12 (6-23) mg/dl Creatinine 0.65 (0.6-1.2) mg/dl Glucose 114 H (70-99(Fasting)) mg/dl Calcium 9.1 (8.5-10.1) mg/dl AST 47 H (13-39) U/L ALT 41 (7-52) U/L Alkaline Phosphatase 251 H (34-104) U/L Total Protein 8.0 (6.0-8.3) gm/dl Albumin 4.1 (3.4-5.0) gm/dl Intake and Output 04/02/06/22 02/07/22 14:59 22:59 06:59 Intake Total 868.75 / 868.75 Balance 868.75 / 868.75 Intake: IV 868.75 / 868.75 Sodium Chloride 0.9% 1000ML 1, 818.75 / 818.75 000 ml @ 125 mls/hr IV .Q8H MARKOS Rx#:[id number] cefTRIAXone SODIUM 2,000 mg In 50 / 50 Dextrose 5% 50 ml @ 100 mls/hr IV Q24H MARKOS Rx#:[id number] Other: Weight 54.2 kg 58.6 kg Weight Measurement Method Chair Scale Built in [facility] Patient Weight 02/07/22 06:59 Weight 58.6 kg Diagnostic Findings Chest X-Ray 02/06/22 19:59 XR chest 1V portable HISTORY: 46 years-old Female cough acute cough patient with extensive pulmonary metastatic disease COMPARISON: CTA chest 01/27/2022 TECHNIQUE: Portable AP view of the chest FINDINGS: Cardiac silhouette is upper limits of normal in size. Hilar enlargement compatible with adenopathy redemonstrated. Extensive pulmonary metastatic disease is again noted. No pneumothorax, large pleural effusion or overt pulmonary edema. Destructive bone lesion of the lateral right fifth rib with pathologic fracture again noted. IMPRESSION: 1. Extensive pulmonary metastatic disease redemonstrated. 2. Destructive bone lesion of the lateral right fifth rib with pathologic fracture again noted. 3. Hilar enlargement compatible with metastatic adenopathy. ACT 112: Negative or not required by law. The above report was generated using voice recognition software. It may contain grammatical, syntax or spelling errors. Electronically signed by: Neil Guerrero M.D. 02/06/2022 8:17 PM statrad Preliminary Findigs Only - See Final Report For Complete Findings CTA CHEST: Comparison to November 23, 2021. The pulmonary arterial tree is well opacified with contrast. No pulmonary emboli are identified. The thoracic aorta is nondilated. There is no aneurysm or dissection. Numerous pulmonary nodules throughout both lungs consistent with metastasis. There are significantly larger than previous now averaging roughly 2-2.5 cm in diameter each compared to roughly 1 cm previously. There is also extensive mediastinal lymphadenopathy with lymph nodes measuring up to 2.8 cm thick in the AP window. These surround slightly indent the pulmonary vasculature without severe stenosis. Expansile lytic bone lesions involving the right fifth rib new since previous. No other bone lesions are identified. Limited images of the abdomen are unremarkable. Radiologist Nabil Hernandez MD Study ready at 21:53 and initial results transmitted at 22:35 CT ABDOMEN & PELVIS With Contrast: Numberous pulmonary metastases are present, increased since previous. Please see chest CT appeared. There is signs of portal hypertension including a portal vein dilated to 1.7 cm and recanalization of the paraumbilical vein. There is an approximately 1.3 cm low-density lesion in the right liver lobe which is nonspecific in appearance. The gallbladder, pancreas, spleen, adrenal glands, and kidneys appear within normal limits. Bowel loops are nondilated. The appendix is normal. No pneumoperitoneum, free fluid, or acute inflammatory changes are seen involving the bowel. There is heterogenous enhancements of a mildly enlarged uterus suggesting possible 5.5 cm fibroid or adenomyosis. No free fluid in seen in the pelvis. Mild degenerative changes in the lumbar spine. No acute fracture. There is a 1. cm sclerotic density in the posterior right iliac bone. Radiologist Nabil Hernandez MD Study ready at 21:48 and initial results transmitted at 22:39 ECG Additional Comments: ecg per my read: NSR 78. Normal axis and intervals. No ST-T changes. Code Status & VTE Plan Code Status full VTE Prophylaxis Plan VTE Prophylaxis will be ordered: Yes Reason for no VTE drug order: Contraindicated (hemoptysis) Supervising Physician Co-Signing Physician Notes Patient seen and examined, chart reviewed, case discussed with Dr. Pendleton and I agree with the plan as documented above. In brief, patient is a 46-year-old Chadian female with history of chronic hepatitis B with cirrhosis hepatocellular carcinoma with metastasis to bone, lung and uterus Patient follows locally with Dr. Ray as well as with Hepatology at [facility]. Patient reports cough with hemoptysis which started 01/22/2022. Also with persistent fever. She was prescribed a course of Levaquin x7 days which she completed. Continues to have low-grade fever as well as blood-tinged sputum. Patient was referred to pulmonary and is to see them this week. Presents to the ER with ongoing symptoms On exam she is afebrile, hemodynamically stable, no acute distress. Breathing comfortably and saturating well on room air HEENTnormocephalic/atraumatic, pupils equal round and reactive to light, moist mucous membranes, neck supple Heart+ S1, S2, regular, no murmurs/rubs/gallops Lungsscant crackles in right lower lobe otherwise clear to auscultation bilaterally Abdomenpositive bowel sounds, soft, nontender/nondistended Extremitieswarm, well-perfused, no clubbing/cyanosis/edema Labs and images reviewed. Significant for leukopenia with WBC = 4.1, normochromic/normocytic anemia with Hgb = 11.7, HCT = 35.7 (stable from prior) Platelets of 111 (improved from prior) Sodium = 133 AST = 47 Alk phos = 251 (stable from prior) X-ray revealed extensive pulmonary metastatic disease, destructive bone lesion of the lateral right fifth rib and hilar enlargement compatible with metastatic adenopathy CTA of the chest with no pulmonary emboli. Numerous pulmonary nodules throughout both lungs consistent with metastasis which are significantly larger than previous imaging. No obvious pneumonia or obstruction CT of the abdomen with signs of portal hypertension liver lesion measuring 1.3 cm in the right lobe Assessment/plan: 46-year-old Chadian female with history of chronic hepatitis B with cirrhosis, metastatic hepatocellular carcinoma presenting with 2 weeks of intermittent fevers as well as cough with blood-tinged sputum. Status post course of Levaquin. Question ongoing infection/pneumonia versus fever secondary to malignancy Follow cultures Empiric antibiotic therapy Pulmonary consultation regarding possible bronchoscopy Remainder of plan as above
[2022-02-07] MEDS ORDERED: cefTRIAXone SODIUM 2,000 MG in DEXTROSE 5% 50 ML IV SCH (01:00)
[2022-02-07] MEDS ORDERED: AZITHROMYCIN 500 MG in DEXTROSE 5% 250 ML IV ONE (02:00)
--- NOTE | 2022-02-07 02:09 | Billing Data ---
Date of Service February 06, 2022 Coding Level of Care Code INT OBSERVATION CARE 50M LVL 2
[2022-02-07] MEDS: SODIUM CHLORIDE 0.9% 1000ML 1,000 ML IV SCH ×3 (02:56→20:39)
[2022-02-07] MEDS ORDERED: traMADol HCL 50 MG TABLET PO PRN ×2 (03:09→10:45)
[2022-02-07] MEDS ORDERED: ONDANSETRON INJ 2 MG/ML 2 ML VIAL IV PRN (03:09)
--- NOTE | 2022-02-07 07:07 | CT Scan Report ---
CT angio chest PE protocol CLINICAL HISTORY: hemoptysis abd pain fever liver ca TECHNIQUE: Multidetector row helical CT of the chest was performed with angiographic protocol. Goodson l and sagittal reformations were obtained. Coronal and sagittal MIPS were obtained from the axial wili a set and were submitted for review. Automated dose lowering techniques and/or adjustment according to patient size were utilized for this exam. CT DOSE: 504.60 mGy.cm Comparison: Comparison is made to CTA chest for a 20 FINDINGS: Lungs and pleura: Innumerable nodules are seen, stable to slightly increased in size from prior exam. For example, a 23 mm nodule in the right lower lobe previously measured 21 mm. (Series 4 image 120). Heart and pericardium: Heart size is normal. No pericardial effusion. Vessels: No evidence of pulmonary embolism. Mediastinum and leidy: Bulky mediastinal and hilar lymphadenopathy, unchanged from prior exam. Chest wall and lower neck: Unremarkable. Abdomen: For findings below the diaphragm, please refer to CT of the abdomen dated the same. Bones: Expansile soft tissue lesion is seen about the right fifth rib, unchanged from prior exam. IMPRESSION: 1. No evidence of pulmonary embolism. 2. No pulmonary nodules, stable to minimally increased from prior exam. 3. Redemonstration of bulky mediastinal and hilar lymphadenopathy and osseous metastasis in the righ t fifth rib. ACT 112: Negative or not required by law. Electronically signed by: Jairon Leroy M.D. 02/07/2022 7:06 AM
--- NOTE | 2022-02-07 08:16 | CT Scan Report ---
CT abd pelvis IV con only CLINICAL HISTORY: abd pain fever liver ca TECHNIQUE: Helical axial images of the abdomen and pelvis were obtained and displayed. Automated dose lowering techniques and/or adjustment according to patient size were utilized for this exam. This e xam was performed with intravenous contrast. COMPARISON: None available at the time of this dictation. FINDINGS: Lower chest: For findings above the diaphragm, please see CT chest performed same day. Liver: A 15 mm hypodensity is seen in the right lobe liver, similar in appearance to prior exam. Gallbladder and biliary tree: No calcified gallstones. Normal caliber wall. No intra- or extrahepatic biliary ductal dilation. Pancreas: Unremarkable, no focal lesions. Spleen: Splenomegaly is noted, the spleen measures 15 cm. Adrenals: Unremarkable. Kidneys and ureters: Unremarkable. Bladder: Unremarkable. Reproductive organs: Prominence of the uterus is again seen. Bowel: Unremarkable appearance of the bowel. The appendix is normal. A small hiatal hernia is seen. Lymph nodes Retroperitoneal: Subcentimeter lymph nodes are noted. Mesenteric: Unremarkable. Pelvic: Unremarkable. Peritoneum: Normal. Vessels: Unremarkable. Abdominal wall: A fat-containing umbilical hernia is seen. Bones: Sclerotic focus in the right iliac bone is noted adjacent to the sacroiliac joint. IMPRESSION: 1. Redemonstration of multiple hepatic hypodensities. These remain concerning for metastatic disease . 2. Prominence of the uterus is again seen, unchanged from 202. If not previously characterized, tra nsvaginal ultrasound can be performed. 3. Cirrhosis. 4. Sclerotic focus in the right iliac bone is unchanged from 202 and may represent a bone island, a lthough bony metastasis cannot be entirely excluded. 5. Additional findings as above. ACT 112: Negative or not required by law. Electronically signed by: Jairon Leroy M.D. 02/07/2022 8:14 AM
[2022-02-07 08:34] LABS: Hematocrit (blood only) 30.4 % (37-47); Mean Corpuscular Hemoglobin 30.4 pg (25-34); Mean Corpuscular Hgb Conc 32.9 g/dL (32-36); Mean Corpuscular Volume 92.4 fL (80-100); RDW Coefficient of Variation 16.9 % (11.5-14.5); RDW Standard Deviation 57.4 fL (36.4-46.3); Red Blood Count 3.29 M/uL (4.2-5.4); White Blood Count 2.64 K/uL (4.8-10.8)
[2022-02-07 08:55] LABS: Albumin Globulin Ratio 1.1 (0.9-2); Albumin Level 3.3 gm/dl (3.4-5.0); BUN Creatinine Ratio 15.4 (10-20); Bilirubin,Total 0.8 mg/dl (0.2-1.0); Creatinine Clr Calc Pharmacy 111.8 ml/min; Est GFR (African American) 132.8 ml/min; Est GFR (Non-African American) 114.6 ml/min; Globulin 3.1 gm/dl (2.5-4.0); Magnesium 1.9 mg/dl (1.7-2.4); Potassium 3.9 mmol/L (3.5-5.1); Total Protein 6.4 gm/dl (6.0-8.3)
[2022-02-07 09:09] LABS: Mean Platelet Volume 10.8 fL (7.4-10.4); Platelet Count 89 K/uL (130-400)
[2022-02-07 09:10] LABS: Basophils # (auto) 0.01 K/uL (0-0.2); Basophils % (auto) 0.4 %; Eosinophils # (auto) 0.08 K/uL (0-0.5); Lymphocytes # (auto) 0.41 K/uL (1.2-3.4); Lymphocytes % (auto) 15.5 %; Monocytes # (auto) 0.41 K/uL (0.11-0.59); Monocytes % (auto) 15.5 %; Neutrophils # (auto) 1.73 K/uL (1.4-6.5); Neutrophils % (auto) 65.6 %; Platelet Estimate Decreased (Normal)
--- NOTE | 2022-02-07 09:30 | Pulmonary Consultation ---
Date of Consultation February 07, 2022 Assessment & Plan (1) Hemoptysis: I highly suspect that this is coming from the malignancy itself. I do not see discrete endobronchial lesion, but the bleeding could be coming from the impingement of one of the nodules/masses on a pulmonary artery or bronchial artery. If the hemoptysis becomes brisk or more significant, I would recommend a CTA to evaluate for any area of possible embolization and transfer to tertiary care center. At this time, she appears stable. I recommend follow-up with an interventional food supervisor in [facility] to consider bronchoscopy and evaluation for endobronchial lesion which could be intervened upon with argon plasma coagulation and cryoablation. I informed her oncologist, Dr. Ray who will reach out to [facility]. (2) Lung metastases: Currently receiving Keytruda therapy. I do not see any signs of focal pneumonitis or pneumonia at this time. Please call with any further questions. Should her hemoptysis worsen, she can be transferred to the ICU and monitored until a bed becomes available at a tertiary care facility. History of Present Illness Reason for Consultation: Hemoptysis Attending Physician: Wilner Fishman DO History of Present Illness 46-year-old female with a past medical history of metastatic hepatocellular carcinoma presenting to the hospital due to ongoing hemoptysis. Patient is accompanied by her . She has had a history of fever and cough for the past 3 weeks. She notes streaky hemoptysis occasionally admixed with sputum. She also has chronic chest pain. She does have a history of a lytic rib lesion status post radiation. She is currently on Keytruda therapy. She feels that her cough has improved some with antibiotic therapy over the past day. She underwent a chest CTA 02/06/2022 which revealed bulky mediastinal and hilar lymphadenopathy with innumerable nodules which have increased in size compared to prior. The left hilar region particular appears to be impinging the left pulmonary artery to a mild degree. There are also numerous nodules impinging segmental and subsegmental pulmonary arteries. I do not see any discrete endobronchial lesions on the CT of her chest. Allergies Allergy/AdvReac Type Severity Reaction Status Date / Time latex Allergy Intermediate Rash Verified 02/06/22 23:41 Home Medications Medication Instructions Recorded Confirmed Type entecavir 1 mg tablet 1 mg PO QPM 07/19/21 02/07/22 History benzonatate 100 mg capsule 100 mg PO TID PRN 02/06/22 02/06/22 History tramadol 50 mg tablet 50 mg PO Q6 PRN 02/06/22 02/06/22 History Patient History Medical History Abdominal discomfort Abdominal pain Abnormal uterine bleeding (AUB) Acute blood loss anemia Allergic reaction to food Okra Anemia Chronic hepatitis B with cirrhosis Fibroid uterus Hematemesis Hepatitis B chronic Hepatocellular carcinoma metastatic to bone History of abnormal uterine hemorrhage 12/2019 - [place] ER --> [facility], bleeding was managed with Aygestin (recurrence when Aygestin discontinued). Per [facility] discharge summary, received 2U PRBC's 01/20. Received IR uterine artery embolization during admission. Liver cancer DX 12/2019 Palliative care encounter Upper gastrointestinal bleeding Surgical History History of arteriography History of biopsy (12/28/20) Right [place] Dr. Decker History of History of endometrial ablation History of esophagogastroduodenoscopy (EGD) (06/21/21) Family History (Updated 02/07/22 @ 00:20 by Raffy Pendleton MD) Father No problems noted. Mother , Passed Age 49 Colorectal cancer Daughter No problems noted. Brother , Passed Age 32 Colorectal cancer Grandmother (Maternal) Liver cancer Social History Smoking Status: Never smoker Second Hand Exposure: No; Hx Alcohol Use: No Hx Substance Use: No Preferred Language: Moore Syriac Communication Ability: Effective Communication Tools: IPad, Language Line Metal Washing Machine Operator and Physical Gestures Visual Impairment: No Limitations Hearing Ability: Normal Metal Washing Machine Operator Required: No Beliefs That Will Affect Care: None marital status: Current Living Situation: Spouse Current Living Situation Comment: and daughter current occupational status: employed current occupation: Optometrist of own business How many Children do You have: 1 Feels Safe at Home: Yes Childhood Exposure to Second-Hand Smoke: No caffeine: Yes (coffee and tea daily) during the past year weight has: remained stable Dental Care, Regularly: Yes Assistive Devices: None Review of Systems Review of Systems: All systems reviewed & are unremarkable except as noted in HPI & below Physical Exam Physical Exam: Constitutional: Patient appears to be of their stated age. Patient is in no apparent distress. Patient is well-developed. Eyes: Pupils are equal round and reactive to light. Conjunctivae are normal. Anicteric sclera. Ears nose, mouth and throat: No significant abnormalities. Neck: Trachea is midline. Visual inspection is normal. Respiratory: Clear to auscultation bilaterally. No use of accessory muscles. No significant clubbing noted. Cardiovascular: Regular rate and rhythm. No murmurs. No edema. Gastrointestinal: Normal bowel sounds, soft, nontender and nondistended. No hepatosplenomegaly noted. Musculoskeletal: No cyanosis. Patient is able to move all extremities. Strength is 5 out of 5 in the upper and lower extremities. Skin: No rashes, warm dry and intact. Neurologic: No obvious focal neurological deficits seen. Psychiatric: Alert and oriented x3 with a euthymic affect. Results & Data Results & Data ([facility]) Vital Signs (Past 12 Hours) Vital Signs Temp Pulse Pulse Resp BP BP Pulse Ox 02/07/22 08:00 36.9 C 78 18 95/58 L 94 02/07/22 07:07 75 02/07/22 03:19 60 02/07/22 02:31 36.8 C 78 18 100/64 96 02/07/22 02:10 60 16 110/68 98 02/07/22 00:59 78 16 112/69 96 02/06/22 23:11 83 16 118/78 96 PG Care Time/CCT Total # of Minutes Spent Total Time Spent with Patient: Total time spent is greater than 50% in coordination of care (as documented) at patient's floor/unit and/or counseling patient: Coding Level of Care Code 37862 Inpt Consult Level 5 Diagnoses Hemoptysis R04.2 Lung metastases C78.00
--- NOTE | 2022-02-07 09:36 | Medical Student Progress Note ---
Date of Service February 07, 2022 Assessment & Plan (1) Hemoptysis: Plan: Hemoptysis 46 year old female with chronic hepatitis B and hepatocellular carcinoma with lung and bone mets who presents with hemoptysis, fever, and cough for 2-3 weeks. - 2.5 weeks of intermittent fever noted. may be from advanced cancer, but also considered pulmonary infection - 02/06: cta shows extensive lung mets, increased to approximately 2-2.5 cm in diameter from 1cm previously as well as bone mets and mediastinal lymphadenopathy. no pneumonia noted - 02/07: procal 0.07 - IGRA ordered to workup for TB, pending - 02/07: not currently bleeding, can discontinue cardiac monitoring - no plan for bronchoscopy because argon laser treatment not available, can consider if bleeding persists to identify the source or transfer to a tertiary care center for management - continue IV fluids for now. Fever - no evidence of pneumonia on CXR - awaiting sputum and blood cultures - 01/27: positive RSV - 02/06 biofire negative - 02/07: empiric Vancomycin and Zoysn Pleuritic chest pain - 02/07: CXR shows pathologic 5th right lateral rib fracture - etiology of pain possibly from lung mets vs. rib fracture - CTA neg for PE - continue home PO tramadol for this, dose 50mg PO q6h prn - Lidocaine patch PRN Hyponatremia - 02/06: mild. 133, appears new - 02/07 134 - continue NSS 125/hr for now - follow bmp Lung metastases - follows Dr. Fili eaton/ [facility]. On Keytruda, last dose 02/03 Hepatocellular carcinoma - diagnosed 12/2019. + family hx in grandmother. never smoker - chronic hep B - continue home entecavir 1 mg PO qpm - AFP at 91K, up from 49K on 01/13 Bone metastases - shown on imaging. hx of pathological fracture - Right 5th lateral rib pathologic fracture Anemia -02/06: normocytic. 11.7 Hb, stable. follow cbc -02/07: Hgb rechecked at 10.0 - recommend outpatient following of Hgb Enlarged uterus - 5.5 cm fibroid vs adenomyosis noted on CT abd. incidental finding. outpatient f/u if symptomatic Elevated alkaline phosphatase level - most likely 2/2 bone mets Plan: FEN/GI: regular diet. NSS 125/hr. ppx: SCDs only, hemoptysis code: full dispo: med. low risk pleuritic chest pain Admission and Anticipated Discharge Date Admission Date: February 06, 2022 Supervising Attestation Patient seen and examined with medical student Brynn Okeefe and PGY-2 Dr. Jack. Agree with history, exam findings, assessment and plan of care as outlined. In brief, Ms Leroy is a 46 year old female with metastatic HCC (bone and lung) admitted with scant hemoptysis. Had streaks of bright red blood in the sputum with fevers prior to admission. This morning, she is reporting chest pain in the anterior right chest when she coughs. Has not had any more blood in the sputum since admission. VS and nursing notes reviewed. Ill appearing, but non-toxic. Chest is tender to palpation over the area of the known rib fracture. Heart with regular rate and rhythm. Lungs are clear to auscultation, no increased work of breathing. Labs and imaging reviewed. 1. Hemoptysis. Has not recurred since admission. Suspect this is secondary to the lung lesions from her cancer. Appreciate pulmonology recommendationssin ce she is stable at this time, diagnostic bronch is of minimal utility. However, if recurrence of bleeding, can re-consider, but would ultimately need transfer to a tertiary care center for intervention by an interventional regional account director. Her oncologist is aware and coordinating for care with [facility]. Low suspicion that this is re-activation of latent TB, but checking quanitferon 2. Fevers. Unclear infectious source, but likely this is may be inflammatory reaction from her cancer. Covering with empiric vanc and zosyn until we are sure cultures are negative. Blood culture x 2 are pending. 3. Pancytopenia, secondary to recent chemotherapy. Monitor. 4. Rib fracture, pathologic. Bracing with extra pillow when she coughs. Pain medication: tramadol, lidocaine patch. 5. Hyponatremia. New. Possibly secondary to lung process vs dehydration. I mproving. Continue with IVFs for now. 6. Metastatic HCC. AFP recently increased from 49K to 91K. Last dose of Keytruda on 02/03. 7. Chronic hepatitis B. Continue home entecavir 1mg daily. Monitor liver function, including INR. 8. Elevated AlkP. Secondary to bony mets. Dispo: Pending clinical improvement Subjective Rad Leroy is a 46 year old female with chronic hepatitis B and hepatocellular carcinoma with metastasis to the lungs and bone. She has had 2.5 weeks of cough, fever, and hemoptyses. She has right sided chest pain with coughing and deep breaths and her cough was productive with streaks of blood. She has had less coughing today and is not bringing anything up with it. She was in the ED on 01/27 for productive cough with hemoptysis for 5 days and at that time her daughter also had a cough. She tested RSV positive in the ED. Prior to this hospitalization she completed 7 days of levofloxacin prescribed by Dr. Ray. Dr. Ray is managing her cancer treatment with the [facility] and her last dose of the Keytruda was on 02/03. Physical Exam Physical Exam: General: Alert and oriented x 3. No acute distress Pulm: clear to auscultation, no wheezes/rales/rhonchi, no clubbing Cardiac: regular rate/rhythm, no murmurs/rubs/gallops, pulses strong and equal, no LE edema Abdominal: Nontender, nondistended, soft. MSK: no tenderness to palpation of the chest wall Results & Data ([facility]) Vital Signs (Past 12 Hours) Vital Signs Temp Pulse Pulse Resp BP BP Pulse Ox 02/07/22 08:00 36.9 C 78 18 95/58 L 94 02/07/22 07:07 75 02/07/22 03:19 60 02/07/22 02:31 36.8 C 78 18 100/64 96 02/07/22 02:10 60 16 110/68 98 02/07/22 00:59 78 16 112/69 96 02/06/22 23:11 83 16 118/78 96
[2022-02-07] MEDS ORDERED: PIPERACILL/TAZOBAC CONSULT ACTIVE PRN (10:55)
[2022-02-07] MEDS ORDERED: VANCOMYCIN CONSULT ACTIVE PRN (10:55)
[2022-02-07] MEDS ORDERED: VANCOMYCIN HCL 1,000 MG in SODIUM CHLORIDE 0.9% 250 ML IV SCH (11:00)
[2022-02-07] MEDS ORDERED: PIPERACILLIN/TAZOBACTAM 3.375 GM in DEXTROSE 5% 100 ML IV ONE (11:15)
[2022-02-07] MEDS ORDERED: VANCOMYCIN HCL 1,250 MG in SODIUM CHLORIDE 0.9% 250 ML IV ONE (11:15)
[2022-02-07] MEDS: LIDOCAINE 5% 1 PATCH TD SCH (11:53)
--- NOTE | 2022-02-07 12:55 | Pharmacy Report ---
Pharmacy Vanc AUC Short Note - Date of Service February 07, 2022 - Assessment & Plan Assessment 46 year old F with heptaocellular carcinoma admitted with hemoptysis, fever and cough for 2-3 weeks. CXR revealed extensive pulmonary metastatic disease and no pneumothorax, large pleural effusion, or overt edema Patient initially started on ceftriaxone + azithromycin, escalated to vancomycin + pip-tazo today Ordered MRSA nasal swab to guide appropriate use of vancomycin Plan Vancomycin * Start 1250 mg (21 mg/kg) IV every 12 hours * This dose is predicted to achieve target AUC/MARY of 400-600 mg/L.hr and may be associated with a 10 % risk of nephrotoxicity * Trough level will be ordered if vanco is continued > 48 hours * Recommend prompt discontinuation of vanco if MRSA nasal swab is negative Pharmacy will continue to follow and will adjust dose/frequency as necessary. Thank you. *Pharmacy recently transitioned from trough to AUC/MARY monitoring. AUC/MARY is the preferred PK/PD target for vancomycin. AUC guided dosing is effective and associated with decreased risk of nephrotoxicity compared to traditional trough targets
--- NOTE | 2022-02-07 14:16 | Electrocardiogram Report ---
Test Reason : Blood Pressure : / mmHG Vent. Rate : 078 BPM Atrial Rate : 078 BPM P-R Int : 174 ms QRS Dur : 090 ms QT Int : 402 ms P-R-T Axes : 065 065 032 degrees QTc Int : 458 ms Normal sinus rhythm Possible Left atrial enlargement Borderline ECG When compared with ECG of 27-JAN-2022 15:39, No significant change was found Confirmed by Augie Lacey ([id number]) on 02/07/2022 2:16:31 PM Referred By: Kailyn Ray Confirmed By:Gonzalo Lacey
[2022-02-07] MEDS: PIPERACILLIN/TAZOBACTAM 3.375 GM in DEXTROSE 5% 100 ML IV SCH (17:59)
[2022-02-07] MEDS: VANCOMYCIN HCL 1,250 MG in SODIUM CHLORIDE 0.9% 250 ML IV SCH (20:38)
[2022-02-07] MEDS: ENTECAVIR 1 MG PO SCH (20:39)
[2022-02-07] MEDS ORDERED: ENTECAVIR 1 MG PO SCH (21:00)
[2022-02-08] MEDS ORDERED: cefTRIAXone SODIUM 2,000 MG in DEXTROSE 5% 50 ML IV SCH (02:00)
[2022-02-08] MEDS: PIPERACILLIN/TAZOBACTAM 3.375 GM in DEXTROSE 5% 100 ML IV SCH ×3 (02:13→17:37)
[2022-02-08] MEDS ORDERED: AZITHROMYCIN 250 MG in DEXTROSE 5% 250 ML IV SCH (03:00)
[2022-02-08 06:57] LABS: Hematocrit (blood only) 29.6 % (37-47); Hemoglobin 9.7 g/dL (12.0-16.0); Mean Corpuscular Hemoglobin 30.6 pg (25-34); Mean Corpuscular Hgb Conc 32.8 g/dL (32-36); Mean Corpuscular Volume 93.4 fL (80-100); RDW Coefficient of Variation 16.8 % (11.5-14.5); Red Blood Count 3.17 M/uL (4.2-5.4); White Blood Count 2.48 K/uL (4.8-10.8)
[2022-02-08 07:14] LABS: INR 1.1 (0.9-1.1); Prothrombin Time 11.4 Seconds (9.0-12.0)
[2022-02-08 07:20] LABS: Albumin Globulin Ratio 1.1 (0.9-2); Albumin Level 3.3 gm/dl (3.4-5.0); BUN Creatinine Ratio 9.8 (10-20); Bilirubin,Total 0.9 mg/dl (0.2-1.0); Est GFR (African American) 133.7 ml/min; Est GFR (Non-African American) 115.3 ml/min; Globulin 2.9 gm/dl (2.5-4.0); Potassium 3.7 mmol/L (3.5-5.1); Total Protein 6.2 gm/dl (6.0-8.3)
[2022-02-08 07:32] LABS: Basophils # (auto) 0.01 K/uL (0-0.2); Basophils % (auto) 0.4 %; Lymphocytes # (auto) 0.45 K/uL (1.2-3.4); Lymphocytes % (auto) 18.1 %; Mean Platelet Volume 11.1 fL (7.4-10.4); Monocytes # (auto) 0.29 K/uL (0.11-0.59); Monocytes % (auto) 11.7 %; Neutrophils # (auto) 1.63 K/uL (1.4-6.5); Neutrophils % (auto) 65.8 %; Platelet Count 90 K/uL (130-400); Platelet Estimate Decreased (Normal); RBC Morphology Unremarkable
[2022-02-08] MEDS: VANCOMYCIN HCL 1,250 MG in SODIUM CHLORIDE 0.9% 250 ML IV SCH (08:16)
[2022-02-08] MEDS: LIDOCAINE 5% 1 PATCH TD SCH (08:18)
[2022-02-08] MEDS: SODIUM CHLORIDE 0.9% 1000ML 1,000 ML IV SCH ×3 (09:42→17:36)
[2022-02-08] MEDS ORDERED: traMADol HCL 50 MG TABLET PO PRN (13:56)
--- NOTE | 2022-02-08 17:22 | Medical Student Progress Note ---
Date of Service February 08, 2022 Assessment & Plan (1) Hemoptysis: Plan: 46 year old female with chronic hepatitis B and hepatocellular carcinoma with lung and bone mets who presents with hemoptysis, fever, and cough for 2-3 weeks. She has had little hemoptysis since admission and is improving. Hemoptysis - etiology: likely due to lung metastasis, hemoglobin is stable so active bleeding is unlikely - 2.5 weeks of intermittent fever noted. may be from advanced cancer, but also considered pulmonary infection - 02/06: cta shows extensive lung mets, increased to approximately 2-2.5 cm in diameter from 1cm previously as well as bone mets and mediastinal lymphadenopathy. no pneumonia noted - 02/07: procal 0.07 - IGRA ordered to workup for TB, pending - 02/07: not currently bleeding, can discontinue cardiac monitoring - no plan for bronchoscopy because argon laser treatment not available, can consider if bleeding persists to identify the source or transfer to a tertiary care center for management - continue IV fluids for now Fever - no evidence of pneumonia on CXR - awaiting sputum and blood cultures - 01/27: positive RSV - 02/06 biofire negative - 02/07: empiric Vancomycin and Zoysn - 02/08: negative MRSA swab so stopped the vancomycin; 48 hour blood cultures showed no growth Pleuritic chest pain - 02/07: CXR shows pathologic 5th right lateral rib fracture - etiology of pain possibly from lung mets vs. pathologic rib fracture - CTA neg for PE - continue home PO tramadol for this, dose 50mg PO q6h prn - Lidocaine patch PRN Hyponatremia - etiology: dehydration vs mild SIADH from lung metastasis - 02/06: mild. 133, appears new - 02/07 134 - 02/08: 135 - continue NSS 125/hr for now - follow bmp Lung metastases - follows Dr. Fili eaton/ [facility]. On Keytruda, last dose 02/03 - Hem/onc referral with [facility] Hepatocellular carcinoma - diagnosed 12/2019. + family hx in grandmother. never smoker - chronic hep B - AFP at 91K, up from 49K on 01/13 Hepatitis B - continue home entecavir 1 mg PO qpm Bone metastases - shown on imaging. hx of pathological fracture - Right 5th lateral rib pathologic fracture Anemia -02/06: normocytic. 11.7 Hb, stable. follow cbc -02/07: Hgb rechecked at 10.0 -02/08: 9.7 - recommend outpatient following of Hgb Pancytopenia - secondary to recent chemotherapy - expect that this will recover as her bone marrow recovers post-chemotherapy Enlarged uterus - 5.5 cm fibroid vs adenomyosis noted on CT abd. incidental finding. outpatient f/u if symptomatic Elevated alkaline phosphatase level - most likely 2/2 bone mets Plan: FEN/GI: regular diet. NSS 125/hr. ppx: SCDs only, hemoptysis code: full dispo: med Admission and Anticipated Discharge Date Admission Date: February 06, 2022 Supervising Attestation Patient seen and examined with medical student Brynn Okeefe. Agree with history, exam findings, assessment and plan of care as outlined. In brief, Ms Leroy is a 46 year old female with metastatic HCC (bone and lung) admitted with scant hemoptysis. Had streaks of bright red blood in the sputum with fevers prior to admission. at the bedside this afternoon. Continues to have chest pain with cough. Does not feel that the lidocaine patch has done much for pain relief. Did have some small streaks of bright red blood in the sputum. No clots. VS and nursing notes reviewed. Non-toxic appearing. Heart with regular rate and rhythm. Lungs are clear to auscultation, no increased work of breathing. Labs and imaging reviewed. 1. Hemoptysis. Minimal streaks for blood in the sputum. Suspect this is secondary to the lung lesions from her cancer. Appreciate pulmonology recommendationssince she is stable at this time, diagnostic bronch is of minimal utility. However, if recurrence of bleeding, can re-consider, but would ultimately need transfer to a tertiary care center for intervention by an interventional extrusion die repair manager. Her oncologist is aware and coordinating for care with [facility]. Low suspicion that this is re-activation of latent TB, but checking quanitferon 2. Fevers. Unclear infectious source, but likely this is may be inflammatory reaction from her cancer. MRSA swab negativevanc discontinued. Continue zosyn for now. Blood culture x 2 without growth x 24 hours. 3. Cough. Possibly secondary to recent RSV infection (ie post-viral cough) vs lung metastasis. Will try Tessalon for some cough suppression. 4. Pancytopenia, secondary to recent chemotherapy. Monitor. 5. Rib fracture, pathologic. Bracing with extra pillow when she coughs. Pain medication: tramadol, lidocaine patch. 6. Hyponatremia. New.. Improving. Possibly secondary to lung process vs dehydration. Improving. Continue with IVFs for now. 7. Metastatic HCC. AFP recently increased from 49K to 91K. Last dose of Keytruda on 02/03. 8. Chronic hepatitis B. Continue home entecavir 1mg daily. Monitor liver function, including INR. 9. Elevated AlkP. Secondary to bony mets. Dispo: Possible discharge tomorrow if cultures are negative x 48 hours and no further major bleeding. Kat Leroy is a 46 year old female on hospital day 2 with chronic hepatitis B and hepatocellular carcinoma with metastasis to the lungs and bone. Today she has had some cough with minimal blood, no clots or large streaks. She continues to have chest pain and has no relief from the lidocaine patch. She has not asked for the tramadol but says it does help. She feels her shortness of breath has improved. She has not had any fevers since admission. Review of Systems Review of Systems: All systems reviewed & are unremarkable except as noted in HPI & below Physical Exam Physical Exam: General: Alert and oriented x 3. No acute distress Pulm: clear to auscultation, no wheezes/rales/rhonchi, no clubbing Cardiac: regular rate/rhythm, no murmurs/rubs/gallops, pulses strong and equal, no LE edema Abdominal: Nontender, nondistended, soft. MSK: tenderness to palpation of the anterior chest wall Results & Data ([facility]) Vital Signs (Past 12 Hours) Vital Signs Temp Pulse Resp BP Pulse Ox 02/08/22 15:34 37.4 C 68 16 95/62 L 96 02/08/22 07:03 37.1 C 70 16 104/66 95
[2022-02-08] MEDS: ENTECAVIR 1 MG PO SCH (20:29)
[2022-02-08] MEDS: guaiFENesin 600 MG TABCR PO SCH (20:36)
[2022-02-08] MEDS: BENZONATATE 100 MG CAPSULE PO SCH (20:36)
[2022-02-09] MEDS: PIPERACILLIN/TAZOBACTAM 3.375 GM in DEXTROSE 5% 100 ML IV SCH ×2 (01:29→09:24)
[2022-02-09] MEDS: SODIUM CHLORIDE 0.9% 1000ML 1,000 ML IV SCH ×2 (01:29→09:24)
[2022-02-09 06:54] LABS: Hematocrit (blood only) 30.8 % (37-47); Mean Corpuscular Hemoglobin 30.2 pg (25-34); Mean Corpuscular Hgb Conc 32.5 g/dL (32-36); Mean Corpuscular Volume 93.1 fL (80-100); RDW Coefficient of Variation 16.6 % (11.5-14.5); RDW Standard Deviation 57.2 fL (36.4-46.3); Red Blood Count 3.31 M/uL (4.2-5.4); White Blood Count 2.61 K/uL (4.8-10.8)
[2022-02-09 07:09] LABS: Mean Platelet Volume 10.1 fL (7.4-10.4); Platelet Count 93 K/uL (130-400)
[2022-02-09 07:24] LABS: Albumin Level 3.3 gm/dl (3.4-5.0); BUN Creatinine Ratio 9.5 (10-20); Bilirubin,Total 0.8 mg/dl (0.2-1.0); Calcium 8.2 mg/dl (8.5-10.1); Creatinine Clr Calc Pharmacy 92.3 ml/min; Est GFR (African American) 124.7 ml/min; Est GFR (Non-African American) 107.6 ml/min; Globulin 3.4 gm/dl (2.5-4.0); Potassium 3.7 mmol/L (3.5-5.1); Total Protein 6.7 gm/dl (6.0-8.3)
[2022-02-09 07:26] LABS: Basophils # (auto) 0.01 K/uL (0-0.2); Basophils % (auto) 0.4 %; Eosinophils % (auto) 3.8 %; Lymphocytes % (auto) 19.2 %; Monocytes # (auto) 0.33 K/uL (0.11-0.59); Monocytes % (auto) 12.6 %; Neutrophils # (auto) 1.67 K/uL (1.4-6.5)
[2022-02-09 07:56] LABS: INR 1.1 (0.9-1.1); Prothrombin Time 11.2 Seconds (9.0-12.0)
[2022-02-09] MEDS: BENZONATATE 100 MG CAPSULE PO SCH (09:27)
[2022-02-09] MEDS: guaiFENesin 600 MG TABCR PO SCH (09:27)
--- NOTE | 2022-02-09 12:10 | Med Student Discharge Summary ---
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 Recent fevers have been 99s, low 100s deg F. Productive cough of mostly clear sputum. Severity same. Did not notice improvement w/ 7 days of oral levo (01/31/22-02/07/22) prescribed by her oncologist. Last chemo injection 01/31/22. Mild chest discomfort 2/2 cough. none currently. She has some R rib pain when coughing. Since today, she has had some thoracic back pain, pleuritic. No urinary symptoms, dizziness, wright, blurry vision. She denies symptoms of anemia. Family hx of liver cancer in [facility] [place]. Patient was seen in the ED on 01/27/22 for similar symptoms. She has seen her oncologist and her PCP for these symptoms, but symptoms are persisting. Hx obtained from patient and sister. Patient speaks German and English. No hx mi or vte or stroke. No sick contact. She is a never smoker and does not consume etoh. She has had the covid booster. ED course: NSS 125mL/hr. CTA neg for PT, but redemonstrates lung and bone mets. Admission Exam (Per Admitting) Constitutional General: Grossly A&O. NAD. Cooperative. Conversational. HEENT: Atraumatic, normocephalic. EOMI. Oropharynx Pulm: CTAB. -wheezes, -rales, -rhonchi. No respiratory distress. Cardiac: RRR, -mrg. Radial pulses intact and symmetrical. No LE edema. Abdominal: Nontender, nondistended, soft. Msk: Moving all extremities. Neuro: Strength and sensation of upper and lower extremities intact. Discharge Exam General: Alert and oriented x 3. No acute distress Pulm: clear to auscultation, no wheezes/rales/rhonchi, no clubbing Cardiac: regular rate/rhythm, no murmurs/rubs/gallops, pulses strong and equal, no LE edema Abdominal: Nontender, nondistended, soft. MSK: tenderness to palpation of the anterior chest wall Discharge Data Consultations 02/06/22 23:12 ED Decision to Admit Stat 02/07/22 03:09 Consult Pulmonology Routine Hospital Course (1) Hemoptysis: Hemoptysis, hepatocellular carcinoma with mets to lung and bone - etiology: likely due to lung metastasis, with cough from recent +RSV possibly exacerbating symptoms - hemoglobin is stable, so active bleeding is unlikely - 02/06: cta shows extensive lung mets, increased to approximately 2-2.5 cm in diameter from 1cm previously as well as bone mets and mediastinal lymphadenopathy. no pneumonia noted - 02/07: procal 0.07 - IGRA ordered to workup for TB, negative - pulmonology consulted; considered performing bronchoscopy, but this was deferred as patient might require argon beam therapy for intervention - Dr. Ray will assist in referring patient to interventional pulmonology in [place] - follows Dr. Fili eaton/ [facility]. On Keytruda, last dose 02/03 - Follow-up with Dr. Ray in 1 week Fever - 2.5 weeks of intermittent fever reported on admission; suspect secondary to malignancy itself, low suspicion for infection after the following workup: - no evidence of pneumonia on CXR - 01/27: positive RSV prior to admission, felt to be noncontributory - 02/06 biofire negative, procal negative - 02/07: patient started on empiric Vancomycin and Zoysn for possible pneumonia given immunocompromised state, but this was discontinued prior to discharge - 02/09: no growth on 48 hour blood cultures, stop empiric antibiotic treatment Pleuritic chest pain - 02/07: CXR shows pathologic 5th right lateral rib fracture - etiology of pain possibly from lung mets vs. pathologic rib fracture - CTA neg for PE - continue home PO tramadol for this, dose 50mg PO q6h prn - Lidocaine patch PRN Hyponatremia - patient with mild hyponatremia to 133 upon admission - suspected secondary to dehydration; paraneoplastic SIADH considered less likely as patient's hyponatremia corrected quickly with IVF - resolved prior to discharge Hepatitis B - continue home entecavir 1 mg PO qpm Anemia - Patient noted with chronic normocytic anemia on admission - Hgb remained relatively stable throughout this admission - outpatient follow-up recommended Pancytopenia - likely due to recent Keytruda vs malignancy - 02/09: WBC 2.61, platlets 93K, Hgb 10 - following throughout hospital course, has been stable Enlarged uterus - 5.5 cm fibroid vs adenomyosis noted on CT abd. incidental finding - outpatient f/u recommended Discharge Plan Discharge Items Patient Disposition: Home - Self-Care Reason For Visit: HEMOPTYSIS Discharge Diagnosis: Hemoptysis, metastatic hepatocellular carcinoma Activity: Resume your previous activity Non-emergency contact: Primary Care Provider and Oncologist Call non-emergency contact if: you have any medication questions, your symptoms worsen and you have a fever Follow-up/Referrals: Jasmyne Diane [Primary Care Provider] - 02/15/22 4:10 pm Kailyn Ray MD [Physician] - (We have requested a follow-up appointment with Dr. Ray (hematology/oncology) within the next 1-2 weeks. If you do not hear from their schedulers by Sunday, call their clinic at [phone].) Diet: Regular Addtl Attending Provider Instructions: You were admitted to the hospital for hemoptysis (coughing up blood). You were treated with antibiotics and IV fluids. Your blood levels have remained stable, which suggests your bleeding was minor and not life-threatening. We feel it is safe for you to return home. A discharge summary will be sent to your primary care physician to ensure continuity of care. Please bring this discharge summary with you to your next office appointment so that your provider can review it at that time. Follow-up appointments: Make a follow-up appointment with your PCP within the next week. It is very important that you follow up with them shortly after discharge from the hospital. We have requested a follow-up appointment with Dr. Ray (hematology/oncology) within the next 1-2 weeks. If you do not hear from their schedulers by Sunday, call their clinic at [phone]. Dr. Ray has placed a request for you to be seen by an interventional solar energy system installer in [place]. The interventional solar energy system installer's office should call you within the next few days to schedule an appointment. If you do not hear from them by Sunday, give Dr. Ray a call, as she will assist further with care coordination. Keep all your follow-up appointments as already scheduled. If you cannot make an appointment, notify your provider. Medications: Your medication list has been reviewed and reconciled upon discharge to ensure accuracy and continuity of care. An updated list of all your medications is included with your hospital discharge paperwork. Please review this list closely, and make note of any changes. Take your medications as instructed; do not skip a dose of your medicines. Make sure all of your doctors know every medicine you are taking (including tcci-ysa-pbtogmr medicines, vitamins, and supplements). Call your primary care provider before taking any new medicines (including hwce-zgd-vbkeiow medicines, vitamins, and supplements), because some of these may interact with your current medications, or may make your symptoms worse. Tell your primary care provider if you cannot afford your medications. CONTACT YOUR PRIMARY CARE PROVIDER if you experience any of the following: Coughing up blood Fever Difficulty following your treatment plan, or difficulty taking medications CALL 911 OR GO TO THE EMERGENCY DEPARTMENT if you experience any of the following: Sudden, severe abdominal pain or nausea/vomiting Severe chest pain, or chest pain that radiates (moves) to your jaw or arm Sudden, severe shortness of breath or difficulty breathing Thank you for allowing us to participate in your care. Pending Studies at Discharge: No (Quantiferon TB test) Stand-Alone Forms: My [facility] Medications and DC Order Prescriptions: Continued entecavir 1 mg tablet 1 mg PO QPM RF: 0 benzonatate 100 mg capsule 100 mg PO TID PRN (Reason: Cough) RF: 0 tramadol 50 mg tablet 50 mg PO Q6 PRN (Reason: Pain) RF: 0 Discharge Orders: Discharge Order (Routine); Ordered 02/09/22 Ordered By: Santiago Jack Admission Data Admit Date/Time: 02/06/22 23:58 Attending Provider: Wilner Fishman Admit Provider: Raffy Pendleton Primary Care Provider: Jasmyne Diane Other Providers: Katty Hernandez Vyacheslav Other Interventions: Discharge Summary Assessment (RN) Last Done: 02/09/22 14:48 Supervising Attestation Patient seen and examined with PGY-2 Dr. Jack and independently of medical student Brynn Okeefe. Agree with history, exam findings, assessment and plan of care as outlined. In brief, Ms Leroy is a 46 year old female with metastatic HCC (bone and lung) admitted with scant hemoptysis. Had streaks of bright red blood in the sputum with fevers prior to admission. Still having some coughing and scant amount of bright red blood in the mucus with coughing. No shortness of breath. No fevers or chills. VS and nursing notes reviewed. Non-toxic appearing. Heart with regular rate and rhythm. Lungs are clear to auscultation, no increased work of breathing. Labs and imaging reviewed. 1.Hemoptysis. Minimal streaks for blood in the sputum. Suspect this is se condary to the lung lesions from her cancer. Appreciate pulmonology recommendationssince she is stable at this time, diagnostic bronch is of minimal utility. However, if recurrence of bleeding, can re-consider, but would ultimately need transfer to a tertiary care center for intervention by an interventional solar energy system installer. Her oncologist is aware and coordinating for care with [facility]. Quantiferon gold is negative. 2.Fevers. Unclear infectious source, but likely this is may be inflammatory reaction from her cancer. MRSA swab negativevanc discontinued. B lood cultures negative x 48 hours and antibiotics discontinued at discharge. 3.Cough. Possibly secondary to recent RSV infection (ie post-viral cough) vs lung metastasis. Will try Tessalon for some cough suppression. 4.Pancytopenia, secondary to recent chemotherapy. Monitor. 5.Rib fracture, pathologic. Bracing with extra pillow when she coughs. Pain medication: tramadol, lidocaine patch. 6.Hyponatremia. Resolved at discharge. 7.Metastatic HCC. AFP recently increased from 49K to 91K. Last dose of Keytruda on 02/03. 8.Chronic hepatitis B. Continue home entecavir 1mg daily. Monitor liver function, including INR. 9.Elevated AlkP. Secondary to bony mets. Dispo: Discharge home today; close follow up with PCP and oncology. I personally spent 35 minutes discharge planning for this patient. Resident Activity Tracking Resident Involvement: Resident Care Provided Care Provided: [facility]
[2022-02-09 12:46] LABS: Quantiferon Mitogen-NIL >10.00 IU/mL; Quantiferon NIL 0.36 IU/mL; Quantiferon TB Gold Plus NEGATIVE (NEGATIVE); Quantiferon TB1-NIL 0.25 IU/mL; Quantiferon TB2-NIL 0.11 IU/mL
== END 2022-02-09 15:08 | disposition home or self-care (01) | DRG 180 ==
LOC: ED 17:40 → 2W 23:58 → SUATTDRO 23:58 → 2W 02-07 02:10 → 3E 02-07 15:21

== ENCOUNTER 2022-04-29 22:45 | Inpatient (IN) ==
[2022-04-29] MEDS ORDERED: ACETAMINOPHEN 1000 MG/100 ML IV IV ONE (23:05)
[2022-04-29] MEDS ORDERED: ALBUT/IPRATROP 3MG/0.5MG NEB 3 ML VIAL ONE (23:05)
[2022-04-29] MEDS ORDERED: DEXAMETHASONE SOD INJ 4 MG/ML VIAL ONE (23:15)
[2022-04-29] MEDS ORDERED: RAPID SEQUENCE INDUCTION BAG ONE (23:26)
[2022-04-29] MEDS ORDERED: PROPOFOL IV EMULSION 10 MG/ML 100 ML VIAL IV ONE (23:38)
[2022-04-29] MEDS ORDERED: PIPERACILLIN/TAZOBACTAM 4.5 GM in DEXTROSE 5% 100 ML IV STA (23:46)
[2022-04-29] MEDS ORDERED: levoFLOXacin/D5W 750 MG/150 ML BAG IV STA (23:46)
[2022-04-29] MEDS ORDERED: SODIUM CHLORIDE 0.9% 1000ML 1,000 ML IV ONE (23:47)
[2022-04-29] MEDS ORDERED: PIPERACILLIN/TAZOBACTAM 4.5 GM/120 ML BAG IV STA (23:50)
[2022-04-29 23:55] LABS: Hemoglobin 9.6 g/dl (12.0-16.0); Mean Corpuscular Hemoglobin 29.3 pg (25.0-34.0); Mean Corpuscular Volume 91.5 fL (80.0-100.0); Mean Platelet Volume 10.5 fL (9.4-12.3); Nucleated RBC # (auto) 0.02 K/uL (0-0); Nucleated RBC % (auto) 0.2 %; Platelet Count 120 K/uL (130-400); RDW Coefficient of Variation 19.9 % (11.5-14.5); RDW Standard Deviation 65.5 fL (36.4-46.3); Red Blood Count 3.28 M/uL (3.93-5.22); White Blood Count 11.38 K/ul (4.8-10.8)
[2022-04-30 00:08] LABS: Albumin Level 3.4 gm/dl (3.4-5.0); BUN Creatinine Ratio 24.6 (10-20); Calcium 8.3 mg/dl (8.5-10.1); Creatinine Clr Calc Pharmacy 93.4 ml/min; Est GFR (African American) 128.9 ml/min; Est GFR (Non-African American) 111.2 ml/min; Globulin 3.3 gm/dl (2.5-4.0); Magnesium 1.9 mg/dl (1.7-2.4); Potassium 4.1 mmol/L (3.5-5.1); Total Protein 6.7 gm/dl (6.0-8.3)
[2022-04-30 00:12] LABS: INR 1.1 (0.9-1.1); Partial Thromboplastin Time 27.7 Seconds (21.0-31.0); Prothrombin Time 11.3 Seconds (9.0-12.0)
[2022-04-30 00:17] LABS: Troponin I High Sensitivity 358.9 pg/ml (0-14)
[2022-04-30] MEDS ORDERED: VECURONIUM BROMIDE 10 MG VIAL IV ONE (00:34)
[2022-04-30 00:42] LABS: Influenza A virus by PCR Negative (Neg); Influenza B virus by PCR Negative (Neg); RSV by PCR Negative (Neg); SARS CoV2 RNA(COVID-19) InHosp NEGATIVE (Negative)
[2022-04-30 00:44] LABS: Appearance Urine Clear (Clear); Bacteria Urine Automated Negative (Negative); Bilirubin Urine Negative (Negative); Blood Urine Trace (Negative); Color Urine Yellow; Glucose Urine UA Negative (Negative); Ketones Urine Trace (Negative); Leukocyte Esterase Urine Negative (Negative); Nitrite Urine Negative (Negative); Protein Urine Negative (Negative); RBC Urine Automated 0-4 /hpf (0-4); Urobilinogen Urine Negative (Negative); pH Urine 6.5 (4.5-7.5)
[2022-04-30 00:46] LABS: Basophils # (auto) 0.02 K/uL (0-0.2); Basophils % (auto) 0.2 %; Immature Granulocytes % (auto) 0.9 %; Lymphocytes % (auto) 5.3 %; Monocytes # (auto) 0.33 K/uL (0.24-0.82); Monocytes % (auto) 2.9 %; Neutrophils # (auto) 10.33 K/uL (1.4-6.5); Neutrophils % (auto) 90.7 %; Polychromasia 1+; Tear Drop Cells 2+
[2022-04-30] MEDS ORDERED: SODIUM CHLORIDE 0.9% 500 ML IV ONE (00:58)
[2022-04-30] MEDS ORDERED: OPTIRAY 320 125ml IV ONE (01:12)
[2022-04-30] MEDS ORDERED: Nursing to Pharmacy Communication SCH (01:45)
--- NOTE | 2022-04-30 01:46 | History & Physical Report ---
Date of Service April 30, 2022 Assessment & Plan (1) Acute respiratory failure with hypoxia and hypercapnia: Plan: 46 year old female w/ chronic hep B, hepatocellular carcinoma w/ lung and bone mets whopresented to [facility] ED via EMS on 04/30 for progressive shortness of breath and hypoxia to 70s - intubated in ED for acute hypoxic hypercapnic respiratory failure. Acute Hypoxic Hypercapnic Respiratory Failure Likely due to persistent and significant pulmonary metastatic disease. However given the acuity of presentation over the last ~24 hours, infection may be playing a role as well. - s/p intubation in the ED; continue with Propofol/Fentanyl for sedation - admit to ICU - ABG with pH 7.18, pCO2 47, pHCO3 18 - mixed acidosis - added Bicarb 150mEq gtt with D5 @150cc/hr - start Protonix 40mg IV daily - further management per ICU Sepsis, possible pulmonary source SIRS 2/4, qSOFA 2/3. Possibly pulmonary source. CXR difficult to assess for acute changes due to prominent chronic pulmonary mets but there may be RLL opacity. CTA chest read is pending. - Lactate 2.1 --> 2.3 - s/p 1.5L NSS boluses - defer further IV fluids to ICU - received Zosyn x1 and Levofloxacin x1 in the ED - check MRSA nares and procalcitonin - defer further antibiotic management to ICU Hyponatremia Na 131 - suspect SIADH /2 to pulmonary disease +/- pneumonia vs hypovolemia/dehydration. - ordered serum/urine osmolality and urine sodium for further evaluation - trend in AM Elevated Troponin hsTroponin 358.9 at 22:50. No reported chest pain prior to arrival, and EKG without ST/T changes. Suspect demand ischemia due to tachycardia. - trend hsTroponin in AM Generalized Petechial Rash New rash per family members, started yesterday. Platelets are 120 (slightly up from baseline) and PT/PTT/INR are within normal limits. - ordered peripheral smear - trend for changes Metastatic Liver Cancer Primary HCC. Has received several rounds of chemotherapy and RTx - most recently received salvage RTx last month and was recently started on Ramucirumab last month, and plan had been to continue this treatment. - also on Prednisone 40mg PO daily for last ~1 month - received Decadron 12mg IV x1 in ED - defer to ICU for further stress dosing Goals of Care Patient is established with Dr. Medel (Palliative care) and is already receiving [facility] home hospice services. She has previously been adamant about continuing with treatment of metastatic cancer and maintained a full code status. She has not completed an advanced directive and she has previously named her and daughter as surrogate decision makers. 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 In the ED the patient was tachycardic to 140s, had adequate SpO2 on BiPAP but remained tachypneic in 30s with severe respiratory distress despite the BiPAP - was thus intubated by ED physician and currently remains on FiO2 100%. Labs significant for WBC 11.38 (baseline neutropenia; currently with neutrophilic predominance and L shift), plts 120 (~baseline), coags WNL, Na 131, HCO3 19, Lactate 2.1, TBili 2.0, Cr WNL. Also had hsTroponin 358.9 (EKG without ST/T change, no chest pain). COVID/influenza AB/RSV negative. CXR with possible RLL opacity and with chronic numerous pulmonary mets. CTA chest done - prelim read pending. Patient received Etomidate/Succinylcholine for intubation and then received Propofol/Fentanyl for additional sedation. Also received Dexamethasone 12mg x1, NSS 1.5L boluses, Zosyn x1, and Levofloxacin x1. Blood cultures collected before antibiotics were given. Allergies Allergy/AdvReac Type Severity Reaction Status Date / Time latex Allergy Intermediate Rash Verified 04/30/22 02:48 Home Medications Medication Instructions Recorded Confirmed Type entecavir 1 mg tablet 1 mg PO QPM 07/19/21 04/30/22 History tramadol 50 mg tablet 50 mg PO Q6 PRN 02/06/22 04/30/22 History cholecalciferol (vitamin D3) 1,250 1,250 mcg PO DAILY cap 04/03/22 04/30/22 History mcg (50,000 unit) capsule codeine 10 mg-guaifenesin 100 mg/5 10 ml PO Q6H PRN ml 04/03/22 04/30/22 History mL oral liquid benzonatate 100 mg capsule 100 mg PO TID PRN 04/30/22 04/30/22 History lorazepam 1 mg tablet 1 mg PO HS PRN 04/30/22 04/30/22 History oxycodone 5 mg tablet 5 mg PO .Q4-6HRS PRN 04/30/22 04/30/22 History prednisone 20 mg tablet 20 mg PO DAILY 04/30/22 04/30/22 History Past Med/Surg History Medical History Abdominal discomfort Abdominal pain Abnormal uterine bleeding (AUB) Acute blood loss anemia Allergic reaction to food [place] Anemia Chronic hepatitis B with cirrhosis Fibroid uterus Hematemesis Hepatitis B chronic Hepatocellular carcinoma metastatic to bone History of abnormal uterine [place] [facility] [place] with [place] (recurrence when Aygestin discontinued). [place] [facility] [place] received 2U PRBC's 01/20. Received IR uterine artery embolization during admission. Liver cancer DX 12/2019 Palliative care encounter Upper gastrointestinal bleeding Surgical History History of arteriography History of biopsy (12/28/20) Right [place] Dr. Decker History of History of endometrial ablation History of esophagogastroduodenoscopy (EGD) (06/21/21) Family History Father No problems noted. Mother , Passed Age 49 Colorectal cancer Daughter No problems noted. Brother , Passed Age 32 Colorectal cancer Grandmother (Maternal) Liver cancer Social History Smoking Status: Never smoker Second Hand Exposure: No; Do You Dip or Chew Tobacco: No; Hx Alcohol Use: No Hx Substance Use: No Preferred Language: Mandarin Urdu Communication Ability: Effective Communication Tools: IPad, Language Line Donor Support Technician and Physical Gestures Visual Impairment: No Limitations Hearing Ability: Normal Donor Support Technician Required: Yes Beliefs That Will Affect Care: None marital status: Current Living Situation: Family Current Living Situation Comment: and daughter current occupational status: employed 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 ETT in place. Pulm: Coarse lung sounds bilaterally. Breathing in sync with vent. Cardiac: tachycardic rate, regular rhythm, -mrg. Radial pulses intact and symmetrical. No LE edema. Abdominal: soft, non-tender, non-distended, BS x 4 Skin: warm and dry, with presence of non-blanching petechial rash on arms/torso and mildly on legs as well Results & Data Results & Data ([facility]) Vital Signs (Past 12 Hours) Vital Signs Temp Pulse Pulse Resp BP Pulse Ox Pulse Ox 04/30/22 01:40 137 H 20 97 04/30/22 01:35 140 H 20 97 04/30/22 01:30 141 H 20 130/99 97 04/30/22 01:25 147 H 20 96 04/30/22 01:20 149 H 20 96 04/30/22 01:17 153 H 20 95 04/30/22 01:15 151 H 20 132/101 H 95 04/30/22 01:10 156 H 20 04/30/22 01:09 156 H 20 139/110 H 95 04/30/22 00:35 150 H 29 H 93 04/30/22 00:30 149 H 25 H 130/105 H 94 04/30/22 00:25 148 H 30 H 95 04/30/22 00:22 95 04/30/22 00:20 143 H 21 95 04/30/22 00:15 143 H 21 121/93 97 04/30/22 00:10 132 H 8 L 96 04/30/22 00:08 20 97 04/30/22 00:05 145 H 14 97 04/30/22 00:02 146 H 21 114/87 96 04/30/22 00:00 146 H 29 H 86/72 L 98 04/29/22 23:58 98 04/29/22 23:55 149 H 37 H 97 04/29/22 23:54 151 H 31 H 146/111 H 98 04/29/22 23:50 156 H 18 96 04/29/22 23:48 149 H 20 98 04/29/22 23:45 148 H 20 184/143 H 96 04/29/22 23:40 135 H 20 99 04/29/22 23:37 134 H 0 L 126/89 99 04/29/22 23:36 100 04/29/22 23:35 128 H 10 L 90 04/29/22 23:30 150 H 27 H 95 04/29/22 23:27 154 H 5 L 92 04/29/22 23:20 92 04/29/22 23:15 152 H 34 H 93 04/29/22 23:10 150 H 33 H 94 04/29/22 23:05 148 H 31 H 97 04/29/22 23:03 150 H 32 H 97 04/29/22 23:00 37.5 C 148 H 44 H 119/75 97 Critical Care Time 40 minutes Supervising Physician Co-Signing Physician Notes Attending addendum: I have physically seen this patient, have supervised the medical residents activities, and agree with the H&P unless as otherwise noted. Assessment and Plan: Acute respiratory failure with hypoxia and hypercapnia/intubation in the ED- Admit to ICU Continue propofol/fentanyl for sedation Add bicarbonate drip due to pH 7.18, PCO2 42 and bicarb 18 Follow serial CBC with differential, chemistry profile and magnesium level Long discussion with family regarding underlying process and potential for improvement Consult financial analyst team Empiric antibiotic therapy with Zosyn IV and vancomycin IV Elevated troponin- Troponin 358.9 upon admission Follow serial troponins, cardiac rhythm monitoring and order echocardiogram Remaining orders and notations as noted Overall poor prognosis Resident Activity Tracking Resident Involvement: Resident Care Provided Care Provided: Adult Hospital Medicine
[2022-04-30 01:52] LABS: Base Excess ABG -10.1 mEq/L (-9-1.8); HCO3 ABG 18 mmol/L (19-24); Oxygen Saturation ABG > 100.0 % (90-95); PCO2 ABG 47 mmHg (35-46); PO2 ABG 161 mmHg (80-95)
[2022-04-30 01:53] LABS: Allen Test Pos (Pos)
[2022-04-30] MEDS ORDERED: STAT IV Infusion **Titration per Protocol STA ×3 (01:53→05:00)
[2022-04-30 02:00] LABS: pH ABG 7.19 (7.35-7.45)
[2022-04-30] MEDS ORDERED: STAT IV STA (02:04)
[2022-04-30] MEDS: fentaNYL citrate 2,500 MCG/250 ML BAG IV SCH (02:13)
[2022-04-30] MEDS ORDERED: HYDROCORTISONE SOD SUCCINATE 100 MG/2 ML VIAL IV STA (02:18)
[2022-04-30] MEDS: SODIUM BICARBONATE 8.4% 150 MEQ in DEXTROSE 5% 1,000 ML IV SCH ×3 (02:19→17:16)
[2022-04-30] MEDS ORDERED: HYDROCORTISONE SOD SUCCINATE 100 MG/2 ML VIAL ONE (02:22)
[2022-04-30] MEDS: propofoL 1,000 MG/100 ML VIAL IV SCH ×3 (03:15→17:14)
[2022-04-30] MEDS ORDERED: ICU PROTOCOL FOR HYPERGLYCEMIA PRN (03:25)
--- NOTE | 2022-04-30 03:45 | Emergency Department Note ---
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 The patient was noted to be febrile with an elevated lactic acid. I was concerned for the possibility of sepsis. She was treated with IV Levaquin and Zosyn just after intubation. CT scan was pe rformed to rule out PE. This was negative for clot but did show extensive metastatic disease and consolidation. The patient will be admitted to the ICU. Triage Nursing notes reviewed and agree with them. Additional history obtained from the patient's daughter who is at the bedside and then the patient's and sister who joined us. Prior medical records reviewed Vital Signs: reviewed and remarkable for hypoxia, tachypnea and fever Differential diagnosis: Sepsis, pneumothorax, pneumonia, pulmonary embolism, COVID-19 ER treatment provided: RSI/endotracheal intubation IV Levaquin IV Zosyn IV Versed IV fentanyl IV vecuronium IV propofol drip Diagnostics interpreted by me: ECG: Sinus tachycardia at a rate of [address] segment elevation or signs of ischemia. There is no ectopy. Cardiac Monitoring: Sinus tachycardia at 146 Laboratory studies: See below Imaging studies: As per my interpretation Portable chest x-ray: Severe metastatic disease to the lungs; no obvious pneumothorax Post intubation portable chest x-ray: Endotracheal tube is 4 cm above the elisha CT scan of the chest: As per stat rad Extensive metastatic disease throughout the lungs with hilar and mediastinal masses. No evidence of pulmonary emboli. There is pulmonary edema in the left upper and bilateral lower lobes. There are consolidations in the bilateral lower lobes. There is an endotracheal tube in place. Lymphadenopathy in the left neck. There is a right hepatic mass. Comparisons are made to prior CT scan of the chest from March 10, 2022. HPI: 46/F arrives for evaluation of shortness of breath. The patient has a history of hepatocellular carcinoma with mets to the lung. She is undergone radiation in the past and is currently receiving chemotherapy for the past 6 weeks. According to the patient's daughter, she has had increasing shortness of breath over the past couple days became much worse overnight tonight. The daughter explains that they have been monitoring her O2 saturation at home which has been around 93% until tonight when it dipped into the 70s and she developed a fever. The patient is vaccinated against COVID-19. EMS arrived on scene and found the patient's oxygen saturation to be 70%. They administered oral Tylenol, IV fluids and a DuoNeb treatment with only slight improvement in her respiratory status. ROS: See above HPI for pertinent positives & negatives. A total of 10 systems reviewed and were otherwise negative. PAST MEDICAL HISTORY:See Below PAST SURGICAL HISTORY:See Below FAMILY HISTORY:See Below SOCIAL HISTORY:See Below HOME MEDICATIONS:See list ALLERGIES:Latex VITALS:See Below PHYSICAL EXAMINATION: HEENT: Head - normocephalic and atraumatic. Pupils are equal, round, and reactive to light. Extraocular eye muscles are intact, and sclera are anicteric. Nose - moist nasal mucosa without discharge. Mouth - moist buccal mucosa. Oropharynx is nonerythematous and there is no tonsillar exudate or edema noted. Neck: Supple; no thyromegaly or cervical lymphadenopathy Heart: Tachycardic rate and regular rhythm. There is a normal S1 and S2 with no murmurs, clicks, or gallops appreciated. Lungs: Rhonchorous breath sounds in all lung valdivia with expiratory wheezing Abdomen: Soft, completely nontender, nondistended, with good bowel sounds. There are no palpable pulsatile masses or hepatosplenomegaly. There is no guard ing, rigidity, or rebound noted. Extremities: No evidence of cyanosis, clubbing, or edema. There are easily palpable peripheral pulses. Skin: warm and dry with good turgor and no rashes. ED COURSE: Times/Reassessments: 2300 the patient was evaluated initially in room A4. A complete history and physical was performed with the help of the patient's daughter who is acting as an senior cost estimator. An order was placed for continuous cardiac monitoring. The patient was in a sinus tachycardia at a rate of 148. A twelve-lead EKG was obtained. A septic protocol was performed. The patient was bolused with 1 L normal saline solution wide open initially. A portable chest x-ray was performed which showed severe metastatic disease but no obvious pne umothorax. I discussed the case with the patient's and the patient's sister and made them aware of how critical patient was and asked what her wishes might be. The explained that they are fully aware of the patient's metastatic disease to the lung and that they had discussed hospice in the past but the patient did not wish to pursue that and wanted to continue fighting for her life. The patient was moved to room B1 for RSI and endotracheal intubation. Endotracheal Intubation Indication respiratory failure. The patient was on 100% oxygen via oxime mask prior to the procedure. Suction, airway equipment, RSI drugs, respiratory equipment, and appropriate personnel were prepared prior to the initiation of the procedure. A time out was taken. Induction was performed with etomidate and succinylcholine. After observing the clinical benefit of the medications, the airway was easily visualized utilizing a glide scope. A 7.0 size ETT tube was placed atraumatically to 21 cm using standard technique. The cuff inflated without signs of malfunction. There were bilateral breath sounds, positive colormetric change, no gastric sounds, and post procedure pulse oximetry was 100%. Post intubation sedation was administered using propofol. There were no complications. The patient was to be septic as she was febrile and had an elevated lactic acid. She was started on IV Levaquin and IV Zosyn. I was concerned about the patient's sudden worsening of her respiratory status over the past couple days and her significant hypoxia. The patient will go for CT scan of her chest to rule out PE. The patient was not adequately sedated on the propofol drip so she was given IV Versed and IV fentanyl. This still did not provide adequate sedation with the endotracheal tube in place, she continued to reach for the tube and gag. The patient was given a dose of IV vecuronium prior to going for CT scan. Upon returning from radiology, I reviewed test results with the patient's husb and and I contacted the critical care medicine service as well as the [facility] service. I have personally spent greater than 80 minutes of critical care time in the direct management of this patient. This includes bedside care, interpretation of diagnostic studies, and testing, discussion with consultants, patient, and family members, and other required patient management activities. This 80 minutes is in excess of all separately billable procedures. 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 Mother Colorectal cancer Daughter No problems noted. Brother Colorectal cancer Grandmother (Maternal) Liver cancer Social History Smoking Status: Never smoker Second Hand Exposure: No; Do You Dip or Chew Tobacco: No; Hx Alcohol Use: No Hx Substance Use: No Preferred Language: Mandarin Swiss Communication Ability: Effective Communication Tools: IPad, Language Line City Assessor and Physical Gestures Visual Impairment: No Limitations Hearing Ability: Normal City Assessor Required: Yes Beliefs That Will Affect Care: None marital status: Current Living Situation: Family Current Living Situation Comment: and daughter current occupational status: employed 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 How many Children do You have: 1 Feels Safe at Home: Yes Childhood Exposure to Second-Hand Smoke: No caffeine: Yes (coffee and tea daily) during the past year weight has: remained stable Dental Care, Regularly: Yes Assistive Devices: None Allergies Allergies Allergy/AdvReac Type Severity Reaction Status Date / Time latex Allergy Intermediate Rash Verified 04/30/22 02:48 Home Meds Home Medications Medication Instructions Recorded Confirmed entecavir 1 mg tablet 1 mg PO QPM 07/19/21 04/30/22 tramadol 50 mg tablet 50 mg PO Q6 PRN 02/06/22 04/30/22 cholecalciferol (vitamin D3) 1,250 1,250 mcg PO DAILY cap 04/03/22 04/30/22 mcg (50,000 unit) capsule codeine 10 mg-guaifenesin 100 mg/5 10 ml PO Q6H PRN ml 04/03/22 04/30/22 mL oral liquid benzonatate 100 mg capsule 100 mg PO TID PRN 04/30/22 04/30/22 lorazepam 1 mg tablet 1 mg PO HS PRN 04/30/22 04/30/22 oxycodone 5 mg tablet 5 mg PO .Q4-6HRS PRN 04/30/22 04/30/22 prednisone 20 mg tablet 20 mg PO DAILY 04/30/22 04/30/22 Results & Data (ED) Vital Signs Vital Signs - 24 hr 04/29/22 23:00 04/29/22 23:03 04/29/22 23:05 Temperature 37.5 C Temperature Source Oral Pulse Rate 148 H 148 H Pulse Rate [Finger] 150 H Pulse Rate from SpO2 Sensor 148 H Respiratory Rate 44 H 32 H 31 H Respiratory Effort / Characteristics Labored Respiratory Depth Normal Respiratory Pattern Regular Blood Pressure 119/75 Blood Pressure Mean 89 Pulse Oximetry 97 97 Pulse Oximetry [Left Index Finger] 97 Oxygen Delivery Method Non-rebreather Oxygen Delivery Method [Left Index Finger] Oxymask Oxygen Flow Rate [Left Index Finger] 7 Fraction of Inspired Oxygen SaO2/FiO2 Ratio Sepsis Recent Fever Within 48 Hours Yes Sepsis New/Unexplained Change in Mental Status N/A Sepsis Action Taken by Nursing Physician Notified End-Tidal CO2 04/29/22 23:10 04/29/22 23:15 04/29/22 23:20 Temperature Temperature Source Pulse Rate 150 H 152 H Pulse Rate [Finger] Pulse Rate from SpO2 Sensor 150 H 152 H 149 H Respiratory Rate 33 H 34 H Respiratory Effort / Characteristics Respiratory Depth Respiratory Pattern Blood Pressure Blood Pressure Mean Pulse Oximetry 94 93 92 Pulse Oximetry [Left Index Finger] Oxygen Delivery Method Oxygen Delivery Method [Left Index Finger] Oxygen Flow Rate [Left Index Finger] Fraction of Inspired Oxygen SaO2/FiO2 Ratio Sepsis Recent Fever Within 48 Hours Sepsis New/Unexplained Change in Mental Status Sepsis Action Taken by Nursing End-Tidal CO2 04/29/22 23:27 04/29/22 23:30 04/29/22 23:35 Temperature Temperature Source Pulse Rate 154 H 150 H 128 H Pulse Rate [Finger] Pulse Rate from SpO2 Sensor 154 H 150 H 129 H Respiratory Rate 5 L 27 H 10 L Respiratory Effort / Characteristics Respiratory Depth Respiratory Pattern Blood Pressure Blood Pressure Mean Pulse Oximetry 92 95 90 Pulse Oximetry [Left Index Finger] Oxygen Delivery Method Oxygen Delivery Method [Left Index Finger] Oxygen Flow Rate [Left Index Finger] Fraction of Inspired Oxygen SaO2/FiO2 Ratio Sepsis Recent Fever Within 48 Hours Sepsis New/Unexplained Change in Mental Status Sepsis Action Taken by Nursing End-Tidal CO2 04/29/22 23:36 04/29/22 23:37 04/29/22 23:40 Temperature Temperature Source Pulse Rate 134 H 135 H Pulse Rate [Finger] Pulse Rate from SpO2 Sensor 135 H 135 H Respiratory Rate 0 L 20 Respiratory Effort / Characteristics Respiratory Depth Respiratory Pattern Blood Pressure 126/89 Blood Pressure Mean 101 Pulse Oximetry 100 99 99 Pulse Oximetry [Left Index Finger] Oxygen Delivery Method Oxygen Delivery Method [Left Index Finger] Oxygen Flow Rate [Left Index Finger] Fraction of Inspired Oxygen SaO2/FiO2 Ratio Sepsis Recent Fever Within 48 Hours Sepsis New/Unexplained Change in Mental Status Sepsis Action Taken by Nursing End-Tidal CO2 30 04/29/22 23:45 04/29/22 23:48 04/29/22 23:50 Temperature Temperature Source Pulse Rate 148 H 149 H 156 H Pulse Rate [Finger] Pulse Rate from SpO2 Sensor 148 H 156 H Respiratory Rate 20 20 18 Respiratory Effort / Characteristics Respiratory Depth Respiratory Pattern Blood Pressure 184/143 H Blood Pressure Mean 156 Pulse Oximetry 96 98 96 Pulse Oximetry [Left Index Finger] Oxygen Delivery Method Oxygen Delivery Method [Left Index Finger] Oxygen Flow Rate [Left Index Finger] Fraction of Inspired Oxygen 80 SaO2/FiO2 Ratio Sepsis Recent Fever Within 48 Hours Sepsis New/Unexplained Change in Mental Status Sepsis Action Taken by Nursing End-Tidal CO2 38 40 04/29/22 23:54 04/29/22 23:55 04/29/22 23:58 Temperature Temperature Source Pulse Rate 151 H 149 H Pulse Rate [Finger] Pulse Rate from SpO2 Sensor 152 H 149 H Respiratory Rate 31 H 37 H Respiratory Effort / Characteristics Respiratory Depth Respiratory Pattern Blood Pressure 146/111 H Blood Pressure Mean 122 Pulse Oximetry 98 97 98 Pulse Oximetry [Left Index Finger] Oxygen Delivery Method Mechanical Vent Oxygen Delivery Method [Left Index Finger] Oxygen Flow Rate [Left Index Finger] Fraction of Inspired Oxygen 80 SaO2/FiO2 Ratio 122 Sepsis Recent Fever Within 48 Hours Sepsis New/Unexplained Change in Mental Status Sepsis Action Taken by Nursing End-Tidal CO2 04/30/22 00:00 04/30/22 00:02 04/30/22 00:05 Temperature Temperature Source Pulse Rate 146 H 146 H 145 H Pulse Rate [Finger] Pulse Rate from SpO2 Sensor 149 H 146 H 145 H Respiratory Rate 29 H 21 14 Respiratory Effort / Characteristics Respiratory Depth Respiratory Pattern Blood Pressure 86/72 L 114/87 Blood Pressure Mean 76 96 Pulse Oximetry 98 96 97 Pulse Oximetry [Left Index Finger] Oxygen Delivery Method Oxygen Delivery Method [Left Index Finger] Oxygen Flow Rate [Left Index Finger] Fraction of Inspired Oxygen SaO2/FiO2 Ratio Sepsis Recent Fever Within 48 Hours Sepsis New/Unexplained Change in Mental Status Sepsis Action Taken by Nursing End-Tidal CO2 43 04/30/22 00:08 04/30/22 00:10 04/30/22 00:15 Temperature Temperature Source Pulse Rate 132 H 143 H Pulse Rate [Finger] Pulse Rate from SpO2 Sensor 131 H 143 H Respiratory Rate 20 8 L 21 Respiratory Effort / Characteristics Mechanically Ventilated Respiratory Depth Respiratory Pattern Blood Pressure 121/93 Blood Pressure Mean 102 Pulse Oximetry 97 96 97 Pulse Oximetry [Left Index Finger] Oxygen Delivery Method Mechanical Vent Oxygen Delivery Method [Left Index Finger] Oxygen Flow Rate [Left Index Finger] Fraction of Inspired Oxygen 80 SaO2/FiO2 Ratio Sepsis Recent Fever Within 48 Hours Sepsis New/Unexplained Change in Mental Status Sepsis Action Taken by Nursing End-Tidal CO2 51 39 04/30/22 00:20 04/30/22 00:22 04/30/22 00:25 Temperature Temperature Source Pulse Rate 143 H 148 H Pulse Rate [Finger] Pulse Rate from SpO2 Sensor 143 H 148 H Respiratory Rate 21 30 H Respiratory Effort / Characteristics Respiratory Depth Respiratory Pattern Blood Pressure Blood Pressure Mean Pulse Oximetry 95 95 95 Pulse Oximetry [Left Index Finger] Oxygen Delivery Method Mechanical Vent Oxygen Delivery Method [Left Index Finger] Oxygen Flow Rate [Left Index Finger] Fraction of Inspired Oxygen 80 SaO2/FiO2 Ratio Sepsis Recent Fever Within 48 Hours Sepsis New/Unexplained Change in Mental Status Sepsis Action Taken by Nursing End-Tidal CO2 33 38 04/30/22 00:30 04/30/22 00:35 04/30/22 01:09 Temperature Temperature Source Pulse Rate 149 H 150 H 156 H Pulse Rate [Finger] Pulse Rate from SpO2 Sensor 149 H 151 H 155 H Respiratory Rate 25 H 29 H 20 Respiratory Effort / Characteristics Respiratory Depth Respiratory Pattern Blood Pressure 130/105 H 139/110 H Blood Pressure Mean 113 119 Pulse Oximetry 94 93 95 Pulse Oximetry [Left Index Finger] Oxygen Delivery Method Oxygen Delivery Method [Left Index Finger] Oxygen Flow Rate [Left Index Finger] Fraction of Inspired Oxygen SaO2/FiO2 Ratio Sepsis Recent Fever Within 48 Hours Sepsis New/Unexplained Change in Mental Status Sepsis Action Taken by Nursing End-Tidal CO2 32 31 37 04/30/22 01:10 04/30/22 01:15 04/30/22 01:17 Temperature Temperature Source Pulse Rate 156 H 151 H 153 H Pulse Rate [Finger] Pulse Rate from SpO2 Sensor 151 H Respiratory Rate 20 20 20 Respiratory Effort / Characteristics Respiratory Depth Respiratory Pattern Blood Pressure 132/101 H Blood Pressure Mean 111 Pulse Oximetry 95 95 Pulse Oximetry [Left Index Finger] Oxygen Delivery Method Oxygen Delivery Method [Left Index Finger] Oxygen Flow Rate [Left Index Finger] Fraction of Inspired Oxygen 100 SaO2/FiO2 Ratio Sepsis Recent Fever Within 48 Hours Sepsis New/Unexplained Change in Mental Status Sepsis Action Taken by Nursing End-Tidal CO2 37 36 36 04/30/22 01:20 04/30/22 01:25 04/30/22 01:30 Temperature Temperature Source Pulse Rate 149 H 147 H 141 H Pulse Rate [Finger] Pulse Rate from SpO2 Sensor 149 H 147 H 142 H Respiratory Rate 20 20 20 Respiratory Effort / Characteristics Respiratory Depth Respiratory Pattern Blood Pressure 130/99 Blood Pressure Mean 109 Pulse Oximetry 96 96 97 Pulse Oximetry [Left Index Finger] Oxygen Delivery Method Oxygen Delivery Method [Left Index Finger] Oxygen Flow Rate [Left Index Finger] Fraction of Inspired Oxygen SaO2/FiO2 Ratio Sepsis Recent Fever Within 48 Hours Sepsis New/Unexplained Change in Mental Status Sepsis Action Taken by Nursing End-Tidal CO2 35 36 36 04/30/22 01:35 04/30/22 01:40 04/30/22 01:45 Temperature Temperature Source Pulse Rate 140 H 137 H 134 H Pulse Rate [Finger] Pulse Rate from SpO2 Sensor 139 H 137 H 134 H Respiratory Rate 20 20 20 Respiratory Effort / Characteristics Respiratory Depth Respiratory Pattern Blood Pressure 125/98 Blood Pressure Mean 107 Pulse Oximetry 97 97 97 Pulse Oximetry [Left Index Finger] Oxygen Delivery Method Oxygen Delivery Method [Left Index Finger] Oxygen Flow Rate [Left Index Finger] Fraction of Inspired Oxygen SaO2/FiO2 Ratio Sepsis Recent Fever Within 48 Hours Sepsis New/Unexplained Change in Mental Status Sepsis Action Taken by Nursing End-Tidal CO2 35 34 35 04/30/22 01:50 04/30/22 01:55 04/30/22 02:00 Temperature Temperature Source Pulse Rate 134 H 133 H 137 H Pulse Rate [Finger] Pulse Rate from SpO2 Sensor 134 H 134 H 137 H Respiratory Rate 20 20 20 Respiratory Effort / Characteristics Respiratory Depth Respiratory Pattern Blood Pressure 123/95 Blood Pressure Mean 104 Pulse Oximetry 97 97 97 Pulse Oximetry [Left Index Finger] Oxygen Delivery Method Oxygen Delivery Method [Left Index Finger] Oxygen Flow Rate [Left Index Finger] Fraction of Inspired Oxygen SaO2/FiO2 Ratio Sepsis Recent Fever Within 48 Hours Sepsis New/Unexplained Change in Mental Status Sepsis Action Taken by Nursing End-Tidal CO2 36 37 36 04/30/22 02:05 04/30/22 02:10 04/30/22 02:11 Temperature Temperature Source Pulse Rate 140 H 140 H 140 H Pulse Rate [Finger] Pulse Rate from SpO2 Sensor 140 H 140 H 140 H Respiratory Rate 20 20 20 Respiratory Effort / Characteristics Respiratory Depth Respiratory Pattern Blood Pressure 124/95 Blood Pressure Mean 104 Pulse Oximetry 97 95 95 Pulse Oximetry [Left Index Finger] Oxygen Delivery Method Oxygen Delivery Method [Left Index Finger] Oxygen Flow Rate [Left Index Finger] Fraction of Inspired Oxygen SaO2/FiO2 Ratio Sepsis Recent Fever Within 48 Hours Sepsis New/Unexplained Change in Mental Status Sepsis Action Taken by Nursing End-Tidal CO2 39 39 38 04/30/22 02:15 04/30/22 02:20 04/30/22 02:25 Temperature Temperature Source Pulse Rate 140 H 139 H 136 H Pulse Rate [Finger] Pulse Rate from SpO2 Sensor 140 H 139 H 135 H Respiratory Rate 20 20 20 Respiratory Effort / Characteristics Respiratory Depth Respiratory Pattern Blood Pressure 129/99 Blood Pressure Mean 109 Pulse Oximetry 94 92 91 Pulse Oximetry [Left Index Finger] Oxygen Delivery Method Oxygen Delivery Method [Left Index Finger] Oxygen Flow Rate [Left Index Finger] Fraction of Inspired Oxygen SaO2/FiO2 Ratio Sepsis Recent Fever Within 48 Hours Sepsis New/Unexplained Change in Mental Status Sepsis Action Taken by Nursing End-Tidal CO2 40 40 38 Laboratory Data Result diagrams: 04/29/22 22:50 04/29/22 22:50 Lab Results 04/29/22 04/29/22 04/29/22 Range/Units 22:08 22:50 22:50 WBC 11.38 H (4.8-10.8) K/ul RBC 3.28 L (3.93-5.22) M/uL Hgb 9.6 L (12.0-16.0) g/dl Hct 30.0 L (34.1-44.9) % MCV 91.5 (80.0-100.0) fL MCH 29.3 (25.0-34.0) pg MCHC 32.0 (32.0-36.0) g/dL RDW Std Deviation 65.5 H (36.4-46.3) fL RDW Coeff of Domonique 19.9 H (11.5-14.5) % Plt Count 120 L (130-400) K/uL MPV 10.5 (9.4-12.3) fL Immature Gran % (Auto) 0.9 % Neut % (Auto) 90.7 % Lymph % (Auto) 5.3 % [place] % (Auto) 2.9 % Eos % (Auto) 0.0 % Baso % (Auto) 0.2 % Neut # (Auto) 10.33 H (1.4-6.5) K/uL Lymph # (Auto) 0.60 L (1.2-3.4) K/uL [place] # (Auto) 0.33 (0.24-0.82) K/uL Eos # (Auto) 0.00 (0-0.50) K/uL Baso # (Auto) 0.02 (0-0.2) K/uL Immature Gran # (Auto) 0.10 H (0.00-0.02) K/uL Absolute Nucleated RBC 0.02 H (0-0) K/uL Nucleated RBC % (auto) 0.2 % Polychromasia 1+ Tear Drop Cells 2+ PT 11.3 (9.0-12.0) Seconds INR 1.1 (0.9-1.1) APTT 27.7 (21.0-31.0) Seconds PTT Ratio 1.0 ABG pH (7.35-7.45) ABG pCO2 (35-46) mmHg ABG pO2 (80-95) mmHg ABG HCO3 (19-24) mmol/L ABG O2 Saturation (90-95) % ABG Base Excess (-9-1.8) mEq/L Berny Test (Pos) Oxygen Given Sodium (136-145) mmol/L Potassium (3.5-5.1) mmol/L Chloride (98-107) mmol/L Carbon Dioxide (21-32) mmol/L Anion Gap (3-11) BUN (6-23) mg/dl Creatinine (0.6-1.2) mg/dl Est Cr Clr Drug Dosing ml/min Est GFR ( Amer) ml/min Est GFR (Non-Af Amer) ml/min BUN/Creatinine Ratio (10-20) Glucose (70-99(Fasting)) mg/dl Osmolality (280-300) mOsm/kg Lactate (0.4-2.0) mmol/L Calcium (8.5-10.1) mg/dl Magnesium (1.7-2.4) mg/dl Total Bilirubin (0.2-1.0) mg/dl AST (13-39) U/L ALT (7-52) U/L Alkaline Phosphatase (34-104) U/L Troponin I High Sens (0-14) pg/ml Total Protein (6.0-8.3) gm/dl Albumin (3.4-5.0) gm/dl Globulin (2.5-4.0) gm/dl Albumin/Globulin Ratio (0.9-2) Procalcitonin (0-0.5) ng/ml Urine Color Urine Appearance (Clear) Urine pH (4.5-7.5) Ur Specific [place] (1.000-1.030) Urine Protein (Negative) Urine Glucose (UA) (Negative) Urine Ketones (Negative) Urine Blood (Negative) Urine Nitrite (Negative) Urine Bilirubin (Negative) Urine Urobilinogen (Negative) Ur Leukocyte Esterase (Negative) Urine WBC (Auto) (0-5) /hpf Urine RBC (Auto) (0-4) /hpf U Hyaline Cast (Auto) (0-5) /lpf U Epithel Cells (Auto) (0-5) /lpf Urine Bacteria (Auto) (Negative) Urine Osmolality (500-800) mOsm/kg Ur Random Sodium mmol/L SARS-CoV-2 (PCR) NEGATIVE (Negative) Influenza Type A (PCR) Negative (Neg) Influenza Type B (PCR) Negative (Neg) RSV (RT-PCR) Negative (Neg) 04/29/22 04/29/22 04/29/22 Range/Units 22:50 22:50 22:50 WBC (4.8-10.8) K/ul RBC (3.93-5.22) M/uL Hgb (12.0-16.0) g/dl Hct (34.1-44.9) % MCV (80.0-100.0) fL MCH (25.0-34.0) pg MCHC (32.0-36.0) g/dL RDW Std Deviation (36.4-46.3) fL RDW Coeff of Domonique (11.5-14.5) % Plt Count (130-400) K/uL MPV (9.4-12.3) fL Immature Gran % (Auto) % Neut % (Auto) % Lymph % (Auto) % [place] % (Auto) % Eos % (Auto) % Baso % (Auto) % Neut # (Auto) (1.4-6.5) K/uL Lymph # (Auto) (1.2-3.4) K/uL [place] # (Auto) (0.24-0.82) K/uL Eos # (Auto) (0-0.50) K/uL Baso # (Auto) (0-0.2) K/uL Immature Gran # (Auto) (0.00-0.02) K/uL Absolute Nucleated RBC (0-0) K/uL Nucleated RBC % (auto) % Polychromasia Tear Drop Cells PT (9.0-12.0) Seconds INR (0.9-1.1) APTT (21.0-31.0) Seconds PTT Ratio ABG pH (7.35-7.45) ABG pCO2 (35-46) mmHg ABG pO2 (80-95) mmHg ABG HCO3 (19-24) mmol/L ABG O2 Saturation (90-95) % ABG Base Excess (-9-1.8) mEq/L Berny Test (Pos) Oxygen Given Sodium 131 L (136-145) mmol/L Potassium 4.1 (3.5-5.1) mmol/L Chloride 100 (98-107) mmol/L Carbon Dioxide 19 L (21-32) mmol/L Anion Gap 12 H (3-11) BUN 14 (6-23) mg/dl Creatinine 0.57 L (0.6-1.2) mg/dl Est Cr Clr Drug Dosing 93.4 ml/min Est GFR ( Amer) 128.9 ml/min Est GFR (Non-Af Amer) 111.2 ml/min BUN/Creatinine Ratio 24.6 H (10-20) Glucose 129 H (70-99(Fasting)) mg/dl Osmolality 280 (280-300) mOsm/kg Lactate (0.4-2.0) mmol/L Calcium 8.3 L (8.5-10.1) mg/dl Magnesium 1.9 (1.7-2.4) mg/dl Total Bilirubin 2.0 H (0.2-1.0) mg/dl AST 27 (13-39) U/L ALT 22 (7-52) U/L Alkaline Phosphatase 83 (34-104) U/L Troponin I High Sens 358.9 H* (0-14) pg/ml Total Protein 6.7 (6.0-8.3) gm/dl Albumin 3.4 (3.4-5.0) gm/dl Globulin 3.3 (2.5-4.0) gm/dl Albumin/Globulin Ratio 1.0 (0.9-2) Procalcitonin 0.63 H (0-0.5) ng/ml Urine Color Urine Appearance (Clear) Urine pH (4.5-7.5) Ur Specific [place] (1.000-1.030) Urine Protein (Negative) Urine Glucose (UA) (Negative) Urine Ketones (Negative) Urine Blood (Negative) Urine Nitrite (Negative) Urine Bilirubin (Negative) Urine Urobilinogen (Negative) Ur Leukocyte Esterase (Negative) Urine WBC (Auto) (0-5) /hpf Urine RBC (Auto) (0-4) /hpf U Hyaline Cast (Auto) (0-5) /lpf U Epithel Cells (Auto) (0-5) /lpf Urine Bacteria (Auto) (Negative) Urine Osmolality (500-800) mOsm/kg Ur Random Sodium mmol/L SARS-CoV-2 (PCR) (Negative) Influenza Type A (PCR) (Neg) Influenza Type B (PCR) (Neg) RSV (RT-PCR) (Neg) 04/29/22 04/29/22 04/29/22 Range/Units 23:20 23:45 23:45 WBC (4.8-10.8) K/ul RBC (3.93-5.22) M/uL Hgb (12.0-16.0) g/dl Hct (34.1-44.9) % MCV (80.0-100.0) fL MCH (25.0-34.0) pg MCHC (32.0-36.0) g/dL RDW Std Deviation (36.4-46.3) fL RDW Coeff of Domonique (11.5-14.5) % Plt Count (130-400) K/uL MPV (9.4-12.3) fL Immature Gran % (Auto) % Neut % (Auto) % Lymph % (Auto) % [place] % (Auto) % Eos % (Auto) % Baso % (Auto) % Neut # (Auto) (1.4-6.5) K/uL Lymph # (Auto) (1.2-3.4) K/uL [place] # (Auto) (0.24-0.82) K/uL Eos # (Auto) (0-0.50) K/uL Baso # (Auto) (0-0.2) K/uL Immature Gran # (Auto) (0.00-0.02) K/uL Absolute Nucleated RBC (0-0) K/uL Nucleated RBC % (auto) % Polychromasia Tear Drop Cells PT (9.0-12.0) Seconds INR (0.9-1.1) APTT (21.0-31.0) Seconds PTT Ratio ABG pH (7.35-7.45) ABG pCO2 (35-46) mmHg ABG pO2 (80-95) mmHg ABG HCO3 (19-24) mmol/L ABG O2 Saturation (90-95) % ABG Base Excess (-9-1.8) mEq/L Berny Test (Pos) Oxygen Given Sodium (136-145) mmol/L Potassium (3.5-5.1) mmol/L Chloride (98-107) mmol/L Carbon Dioxide (21-32) mmol/L Anion Gap (3-11) BUN (6-23) mg/dl Creatinine (0.6-1.2) mg/dl Est Cr Clr Drug Dosing ml/min Est GFR ( Amer) ml/min Est GFR (Non-Af Amer) ml/min BUN/Creatinine Ratio (10-20) Glucose (70-99(Fasting)) mg/dl Osmolality (280-300) mOsm/kg Lactate 2.1 H* (0.4-2.0) mmol/L Calcium (8.5-10.1) mg/dl Magnesium (1.7-2.4) mg/dl Total Bilirubin (0.2-1.0) mg/dl AST (13-39) U/L ALT (7-52) U/L Alkaline Phosphatase (34-104) U/L Troponin I High Sens (0-14) pg/ml Total Protein (6.0-8.3) gm/dl Albumin (3.4-5.0) gm/dl Globulin (2.5-4.0) gm/dl Albumin/Globulin Ratio (0.9-2) Procalcitonin (0-0.5) ng/ml Urine Color Yellow Urine Appearance Clear (Clear) Urine pH 6.5 (4.5-7.5) Ur Specific [place] 1.020 (1.000-1.030) Urine Protein Negative (Negative) Urine Glucose (UA) Negative (Negative) Urine Ketones Trace H (Negative) Urine Blood Trace H (Negative) Urine Nitrite Negative (Negative) Urine Bilirubin Negative (Negative) Urine Urobilinogen Negative (Negative) Ur Leukocyte Esterase Negative (Negative) Urine WBC (Auto) 1-5 (0-5) /hpf Urine RBC (Auto) 0-4 (0-4) /hpf U Hyaline Cast (Auto) 1-5 (0-5) /lpf U Epithel Cells (Auto) 10-20 H (0-5) /lpf Urine Bacteria (Auto) Negative (Negative) Urine Osmolality 631 (500-800) mOsm/kg Ur Random Sodium mmol/L SARS-CoV-2 (PCR) (Negative) Influenza Type A (PCR) (Neg) Influenza Type B (PCR) (Neg) RSV (RT-PCR) (Neg) 04/29/22 04/30/22 04/30/22 Range/Units 23:45 01:44 01:44 WBC (4.8-10.8) K/ul RBC (3.93-5.22) M/uL Hgb (12.0-16.0) g/dl Hct (34.1-44.9) % MCV (80.0-100.0) fL MCH (25.0-34.0) pg MCHC (32.0-36.0) g/dL RDW Std Deviation (36.4-46.3) fL RDW Coeff of Domonique (11.5-14.5) % Plt Count (130-400) K/uL MPV (9.4-12.3) fL Immature Gran % (Auto) % Neut % (Auto) % Lymph % (Auto) % [place] % (Auto) % Eos % (Auto) % Baso % (Auto) % Neut # (Auto) (1.4-6.5) K/uL Lymph # (Auto) (1.2-3.4) K/uL [place] # (Auto) (0.24-0.82) K/uL Eos # (Auto) (0-0.50) K/uL Baso # (Auto) (0-0.2) K/uL Immature Gran # (Auto) (0.00-0.02) K/uL Absolute Nucleated RBC (0-0) K/uL Nucleated RBC % (auto) % Polychromasia Tear Drop Cells PT (9.0-12.0) Seconds INR (0.9-1.1) APTT (21.0-31.0) Seconds PTT Ratio ABG pH 7.19 L* (7.35-7.45) ABG pCO2 47 H (35-46) mmHg ABG pO2 161 H (80-95) mmHg ABG HCO3 18 L (19-24) mmol/L ABG O2 Saturation > 100.0 H (90-95) % ABG Base Excess -10.1 L (-9-1.8) mEq/L Berny Test Pos (Pos) Oxygen Given ROOM AIR Sodium (136-145) mmol/L Potassium (3.5-5.1) mmol/L Chloride (98-107) mmol/L Carbon Dioxide (21-32) mmol/L Anion Gap (3-11) BUN (6-23) mg/dl Creatinine (0.6-1.2) mg/dl Est Cr Clr Drug Dosing ml/min Est GFR ( Amer) ml/min Est GFR (Non-Af Amer) ml/min BUN/Creatinine Ratio (10-20) Glucose (70-99(Fasting)) mg/dl Osmolality (280-300) mOsm/kg Lactate 2.3 H* (0.4-2.0) mmol/L Calcium (8.5-10.1) mg/dl Magnesium (1.7-2.4) mg/dl Total Bilirubin (0.2-1.0) mg/dl AST (13-39) U/L ALT (7-52) U/L Alkaline Phosphatase (34-104) U/L Troponin I High Sens (0-14) pg/ml Total Protein (6.0-8.3) gm/dl Albumin (3.4-5.0) gm/dl Globulin (2.5-4.0) gm/dl Albumin/Globulin Ratio (0.9-2) Procalcitonin (0-0.5) ng/ml Urine Color Urine Appearance (Clear) Urine pH (4.5-7.5) Ur Specific [place] (1.000-1.030) Urine Protein (Negative) Urine Glucose (UA) (Negative) Urine Ketones (Negative) Urine Blood (Negative) Urine Nitrite (Negative) Urine Bilirubin (Negative) Urine Urobilinogen (Negative) Ur Leukocyte Esterase (Negative) Urine WBC (Auto) (0-5) /hpf Urine RBC (Auto) (0-4) /hpf U Hyaline Cast (Auto) (0-5) /lpf U Epithel Cells (Auto) (0-5) /lpf Urine Bacteria (Auto) (Negative) Urine Osmolality (500-800) mOsm/kg Ur Random Sodium 123 mmol/L SARS-CoV-2 (PCR) (Negative) Influenza Type A (PCR) (Neg) Influenza Type B (PCR) (Neg) RSV (RT-PCR) (Neg) Administered Medications Fentanyl Citrate (Fentanyl Citrate) 2,500 mcg in 250 mls @ 7.5 mls/hr IV .[id number] [facility]; Protocol Stop: 05/14/22 01:59 Last Titration: 04/30/22 03:45 Dose: 75 mcg/hr, 7.5 mls/hr Documented by: [id number] Cosigned by: [id number] Titration: 04/30/22 03:15 Dose: 50 mcg/hr, 5 mls/hr Documented by: [id number] Cosigned by: [id number] Admin: 04/30/22 02:13 Dose: 25 mcg/hr, 2.5 mls/hr Documented by: [id number] Cosigned by: [id number] Sodium Bicarbonate 150 meq/ (Dextrose) 1,150 mls @ 150 mls/hr IV .[id number] [facility] Stop: 05/30/22 02:14 Last Admin: 04/30/22 02:19 Dose: 150 mls/hr Documented by: [id number] Propofol (Diprivan) 1,000 mg in 100 mls @ 6.036 mls/hr IV .[id number] [facility]; Protocol Stop: 05/03/22 04:29 Last Admin: 04/30/22 03:15 Dose: 20 mcg/kg/min, 6 mls/hr Documented by: [id number] Cosigned by: [id number] Norepinephrine Bitartrate (Levophed/D5w) 4 mg in 250 mls @ 9.431 mls/hr IV .Q24H [facility]; Protocol Stop: 05/30/22 04:59 Last Admin: 04/30/22 05:10 Dose: 0.05 mcg/kg/min, 9.4 mls/hr Documented by: [id number] Cosigned by: [id number] Discontinued Medications Acetaminophen (Acetaminophen 1000 Mg/100 Ml Iv) Confirm Administered Dose 1,000 mg IV .STK-MED ONE Stop: 04/29/22 23:06 Last Admin: 04/29/22 23:10 Dose: Not Given Documented by: [id number] Albuterol (Albut/Ipratrop 3mg/0.5mg Neb 3 Ml Vial) Confirm Administered Dose 3 ml .ROUTE .STK-MED ONE Stop: 04/29/22 23:06 Last Admin: 04/29/22 23:10 Dose: Not Given Documented by: [id number] Dexamethasone (Dexamethasone Sod Inj 4 Mg/Ml Vial) Confirm Administered Dose 12 mg .ROUTE .STK-MED ONE Stop: 04/29/22 23:16 Last Admin: 04/29/22 23:28 Dose: 10 mg Documented by: [id number] Hydrocortisone Sodium Succinate (Hydrocortisone Sod Succinate 100 Mg/2 Ml Vial) 100 mg IV NOW STA Stop: 04/30/22 02:19 Last Admin: 04/30/22 02:24 Dose: Not Given Documented by: [id number] Hydrocortisone Sodium Succinate (Hydrocortisone Sod Succinate 100 Mg/2 Ml Vial) Confirm Administered Dose 100 mg .ROUTE .STK-MED ONE Stop: 04/30/22 02:23 Last Admin: 04/30/22 02:23 Dose: Not Given Documented by: [id number] Levofloxacin/Dextrose (Levaquin/D5w) 750 mg in 150 mls @ 100 mls/hr IV Q24H [facility]; Protocol Stop: 04/30/22 01:15 Last Infusion: 04/30/22 02:14 Dose: 0 mls/hr Documented by: [id number] Admin: 04/30/22 00:17 Dose: 100 mls/hr Documented by: [id number] Sodium Chloride (Nss 1000ml) 1,000 mls @ 999 mls/hr IV .Q1H1M ONE Stop: 04/30/22 00:47 Last Infusion: 04/30/22 01:16 Dose: 0 mls/hr Documented by: [id number] Admin: 04/29/22 23:57 Dose: 999 mls/hr Documented by: [id number] Piperacillin Sod/Tazobactam Sod (Zosyn) 4.5 gm in 120 mls @ 240 mls/hr IV Q8H [facility]; Protocol Stop: 04/30/22 00:19 Last Infusion: 04/30/22 00:23 Dose: 0 mls/hr Documented by: [id number] Admin: 04/29/22 23:57 Dose: 240 mls/hr Documented by: [id number] Sodium Chloride (Nss) 500 mls @ 999 mls/hr IV .Q31M ONE Stop: 04/30/22 01:28 Last Infusion: 04/30/22 01:44 Dose: 0 mls/hr Documented by: [id number] Admin: 04/30/22 01:17 Dose: 999 mls/hr Documented by: [id number] Ioversol (Optiray 320 125ml) 120 ml IV ONCE ONE Stop: 04/30/22 01:13 Last Admin: 04/30/22 01:12 Dose: 120 ml Documented by: [id number] Miscellaneous (Rapid Sequence Induction Bag) Confirm Administered Dose 1 ea .ROUTE .STK-MED ONE Stop: 04/29/22 23:27 Last Admin: 04/30/22 00:05 Dose: 1 ea Documented by: [id number] Propofol (Propofol Iv Emulsion 10 Mg/Ml 100 Ml Vial) Confirm Administered Dose 1,000 mg IV .STK-MED ONE Stop: 04/29/22 23:39 Last Admin: 04/29/22 23:43 Dose: 1,000 mg Documented by: [id number] Cosigned by: [id number] Vecuronium [place] (Vecuronium [place] 10 Mg Vial) Confirm Administered Dose 10 mg IV .STK-MED ONE Stop: 04/30/22 00:35 Last Admin: 04/30/22 00:40 Dose: 5 mg Documented by: [id number] Cosigned by: [id number] Discharge Plan Visit Data Chief Complaint: Shortness of Breath/Dyspnea Stated Complaint: difficulty breathing ED Provider: Garima Ovalle Discharge Problem: Sepsis, Metastatic cancer to lung, Respiratory failure Patient Disposition: Admitted As Inpatient Discharge Instructions Interventions: ED Discharge Assessment Last Done: 04/30/22 03:03 Discharge Problem: Sepsis Qualifiers: Sepsis type: sepsis due to unspecified organism Sepsis acute organ dysfunction status: with acute organ dysfunction Severe sepsis acute organ dysfunction type: acute respiratory failure Acute respiratory failure type: with hypoxia Severe sepsis shock status: without septic shock Qualified Code(s): A41.9 - Sepsis, unspecified organism Metastatic cancer to lung Qualifiers: Laterality: bilateral Qualified Code(s): C78.01 - Secondary malignant neoplasm of right lung Respiratory failure Qualifiers: Chronicity: acute Respiratory failure complication: hypoxia Qualified Code(s): J96.01 - Acute respiratory failure with hypoxia
[2022-04-30 03:52] LABS: iSTAT Allen Test Pass; iSTAT Art Bld Gas pCO2 Correct 60 mmHg (35-46); iSTAT Arterial Blood Gas HCO3 21 meg/L (19-24); iSTAT Arterial Blood Gas pCO2 58 mmHg (35-46); iSTAT Arterial Blood Gas pH 7.17 (7.35-7.45); iSTAT Arterial Blood Gas pO2 76 mmHg (80-95); iSTAT Arterial Blood Gas pO2 C 78; iSTAT Carbon Dioxide 23 mmol/L (24-31); iSTAT FiO2 100 %; iSTAT Hematocrit 26 % (37-47); iSTAT Hemoglobin 8.8 g/dl (12.0-16.0); iSTAT Potassium 4.4 mmol/L (3.3-5.0); iSTAT Site L Radial; iSTAT Sodium 133 mmol/L (135-144)
[2022-04-30] MEDS ORDERED: PROPOFOL BOLUS FROM BAG IV PRN (04:29)
[2022-04-30] MEDS: NOREPINEPHRINE/D5W 4 MG/250 ML PLCT IV SCH ×3 (05:10→20:53)
[2022-04-30 05:23] LABS: iSTAT Allen Test Pass; iSTAT Art Bld Gas pCO2 Correct 47 mmHg (35-46); iSTAT Art Bld Gas pH Corrected 7.276 (7.35-7.45); iSTAT Arterial Blood Gas HCO3 22 meg/L (19-24); iSTAT Arterial Blood Gas pCO2 46 mmHg (35-46); iSTAT Arterial Blood Gas pH 7.28 (7.35-7.45); iSTAT Arterial Blood Gas pO2 78 mmHg (80-95); iSTAT Arterial Blood Gas pO2 C 80; iSTAT Carbon Dioxide 23 mmol/L (24-31); iSTAT FiO2 100 %; iSTAT Hematocrit 20 % (37-47); iSTAT Hemoglobin 6.8 g/dl (12.0-16.0); iSTAT Potassium 3.9 mmol/L (3.3-5.0); iSTAT Site R Radial; iSTAT Sodium 132 mmol/L (135-144)
[2022-04-30] MEDS ORDERED: SODIUM CHLORIDE 0.9% 250 ML IV PRN (05:38)
[2022-04-30] MEDS: ENOXAPARIN INJ 40 MG/0.4 ML SYR SQ SCH (05:44)
--- NOTE | 2022-04-30 06:10 | Critical Care Consultation ---
Date of Consultation April 30, 2022 Assessment & Plan (1) Admitted to intensive care unit: Reason Critically Ill: Unfortunate 46-year-old female with aggressive metastatic hepatocellular carcinoma with significant tumor burden of the lungs presenting in respiratory failure requiring emergent endotracheal intubation and ongoing management. NEURO - * CAM ICU: Unable to assess * Pain: Fentanyl gtt * Sedation: Propofol CARDIAC/VASCULAR - * NSTEMI: * Likely secondary to ongoing profound tachycardia. Patient had reportedly been tachycardic in the outpatient for the last several days. She actually received IV fluids on Sunday at the [facility] secondary to her tachycardia. * EKG without ST elevations. Sinus tachycardia noted. * Continue to trend troponins. * Tachycardia: * Demand driven in the setting of profound hypoxemia and reduced lung volumes secondary to tumor burden. * Possible underlying infectious component. * Monitor on telemetry. RESPIRATORY - * Respiratory failure: * Unfortunate in the patient with significant tumor burden of the lungs. * Initially required endotracheal intubation in the emergency department. * Blood gases likely reflective of poor compliance secondary to tumor burden as well as poor oxygenation as well. * Will attempt to provide lung protective ventilator techniques as much as possible. * ABGs to guide ongoing ventilator management. * Covered with antibiotics for possible underlying infectious component. GI/NUTRITION - * NPO for now * Prophylaxis: Protonix RENAL/LYTES - * No significant electrolyte derangements. - * Norman in place - Strict I&Os. ENDO - * No history of diabetes or thyroid disease. * BSGs per unit protocol. ISS --> gtt per unit policy. HEME - * Anemia -likely of chronic disease. ID - * Sepsis syndrome: * Possible underlying pulmonary infectious process. * Broadly covered with vancomycin and Levaquin in the emergency room. * Continue antibiotic coverage for now. * Elevated procalcitonin and lactate. LINES/IV ACCESS - * PIVs x2 * Norman * ET tube DVT PROPHYLAXIS - * Lovenox * SCDs CODE STATUS - * I had an extensive conversation with the patient including the patient's and her young daughter at bedside. Unfortunately, given her presentation today as well as profound underlying tumor burden of the lungs, I am not optimistic that the patient will able to ever be liberated from the ventilator. It sounds as though the patient's progressive disease has been worsening over the last few weeks and significantly over the last few days. Unfortunately, we are having difficulty ventilating the patient and oxygenating her as well. I do not feel that this will be significantly improved even if the patient were to have an underlying pneumonia as I am concerned that this is an end-of-life spiral. is more interested and focuses on comfort at this point. He is comfortable with continuing with i ntubation and attempts to maximize respiratory status. He is comfortable with continuing antibiotics. They are comfortable with vasopressors if needed. Throughout our conversations, family has elected to make the patient DO NOT RESUSCITATE in the event of cardiovascular collapse. Otherwise, they would like a trial of intubation temporarily to assess for any possible improvements. I did explain that over the next several hours, today's, the patient will continue to declare herself and tougher decisions will likely need to be made at that point. They acknowledge understanding and are comfo rtable with continuing current treatment plan at this time. I did discuss further advanced procedures including central line access as well as arterial line. initially declines as he is aware that increasing pressor requirement, medications, etc. is likely a poor predictor of the patient's outcome. We will return back to this conversation if necessary. I have personally spent 85 minutes of critical care time in the direct management of this patient. This is a life/limb threatening event. This includes time spent evaluating patient, direct bedside care, chart review, placing orders, interpretation of diagnostic studies, discussion with consultants, patient, and family members, as well as other required patient management activities. This time is exclusive of all separately billable procedures, and teaching time and separate from and in addition to any other critical care service time. Thank you for allowing us to participate in the care of this patient. Please refer to my attending physician's documentation for any further recommendations. (2) Acute respiratory failure with hypoxia and hypercapnia: (3) Respiratory failure: (4) Metastatic cancer to lung: (5) Sepsis: History of Present Illness Attending Physician: Geovani Guerra MD History of Present Illness Patient is an unfortunate 46-year-old female with a significant past medical history of metastatic hepatocellular carcinoma with primary focus of metastases to her lungs. Patient has been through chemotherapy treatments with most recent treatment on the of last month. She has also undergone palliative radiation therapy secondary to large tumor pressing on vessels and resulting in hemoptysis. Patient has had a notable decline over the last at least 3 days with increasing shortness of breath at rest. She had been evaluated by palliative care and has received in-home health 1 time per week. Otherwise, the patient had declined aggressive palliative care to this point. Patient had worsening shortness of breath and her daughter checked her oxygen saturations which are in the 70s. This prompted EMS call. Upon arrival, the patient was extremely tachypneic and hypoxic. In evaluation in the emergency department, the patient was unable to speak in complete sentences secondary to significant tachypnea. She was promptly intubated. Unfortunately, she is unable to contribute to HPI at this point. Upon evaluation in the emergency department, the patient is intubated and sedated. Family is at bedside and provided above-mentioned story. Allergies Allergy/AdvReac Type Severity Reaction Status Date / Time latex Allergy Intermediate Rash Verified 04/30/22 02:48 Home Medications Medication Instructions Recorded Confirmed Type entecavir 1 mg tablet 1 mg PO QPM 07/19/21 04/30/22 History tramadol 50 mg tablet 50 mg PO Q6 PRN 02/06/22 04/30/22 History cholecalciferol (vitamin D3) 1,250 1,250 mcg PO DAILY cap 04/03/22 04/30/22 History mcg (50,000 unit) capsule codeine 10 mg-guaifenesin 100 mg/5 10 ml PO Q6H PRN ml 04/03/22 04/30/22 History mL oral liquid benzonatate 100 mg capsule 100 mg PO TID PRN 04/30/22 04/30/22 History lorazepam 1 mg tablet 1 mg PO HS PRN 04/30/22 04/30/22 History oxycodone 5 mg tablet 5 mg PO .Q4-6HRS PRN 04/30/22 04/30/22 History prednisone 20 mg tablet 20 mg PO DAILY 04/30/22 04/30/22 History Patient History Medical History Abdominal discomfort Abdominal pain Abnormal uterine bleeding (AUB) Acute blood loss anemia Allergic reaction to food [place] Anemia Chronic hepatitis B with cirrhosis Fibroid uterus Hematemesis Hepatitis B chronic 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 Per [facility] discharge summary, received 2U PRBC's 01/20. Received IR uterine artery embolization during admission. Liver cancer DX 12/2019 Palliative care encounter Upper gastrointestinal bleeding Surgical History History of arteriography History of biopsy (12/28/20) Right [place] Dr. Decker History of History of endometrial ablation History of esophagogastroduodenoscopy (EGD) (06/21/21) Family History Father No problems noted. Mother , Passed Age 49 Colorectal cancer Daughter No problems noted. Brother , Passed Age 32 Colorectal cancer Grandmother (Maternal) Liver cancer Social History Smoking Status: Never smoker Second Hand Exposure: No; Do You Dip or Chew Tobacco: No; Hx Alcohol Use: No Hx Substance Use: No Preferred Language: Mandarin Albanian Communication Ability: Effective Communication Tools: IPad, Language Line Director Data Management and Physical Gestures Visual Impairment: No Limitations Hearing Ability: Normal Director Data Management Required: Yes Beliefs That Will Affect Care: None marital status: Current Living Situation: Family Current Living Situation Comment: and daughter current occupational status: employed 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 GENERAL - 46-year-old female appearing her stated age who is intubated and sedated. SKIN - Petechial rash to the bilateral upper extremities. HEAD - NC/AT. EYES - PERRL. Palpebral conjunctiva pink and moist with no injection noted. EARS - No deformities of external structures noted on gross examination bilaterally. NOSE - Midline and without cyanosis. No epistaxis or purulent drainage noted. MOUTH/OROPHARYNX - ETT in place. NECK - Neck with FROM. Supple to palpation. No nuchal rigidity. LUNGS -diffuse areas of rales with inspiratory wheezes noted on exam. Diminished breath sounds in other areas of lung field. CARDIAC - RRR with S1/S2. No murmur, rubs, or gallops appreciated. ABDOMEN - Abdominal contour flat without pulsations or visible masses. BS normoactive all four quadrants. No tenderness, palpable masses, hepatosplenomegaly, or ascites noted. EXTREMITIES - No clubbing or peripheral cyanosis. No pretibial edema present. +3/5 radial and dorsalis pedis pulses palpated throughout. NEUROLOGIC - Unable to fully assess secondary to sedation. Results & Data Results & Data ([facility]) Vital Signs (Past 12 Hours) Vital Signs Temp Pulse Pulse Resp BP Pulse Ox Pulse Ox 04/30/22 05:30 37.4 C 112 H 31 H 78/58 L 100 04/30/22 05:29 37.4 C 112 H 31 H 82/58 L 100 04/30/22 05:19 37.4 C 107 H 30 H 73/51 L 99 04/30/22 05:00 37.4 C 113 H 31 H 75/56 L 99 04/30/22 04:30 37.3 C 122 H 31 H 81/57 L 96 04/30/22 04:00 37.4 C 134 H 33 H 95/70 L 94 04/30/22 03:40 30 H 04/30/22 03:39 37.4 C 140 H 22 86/63 L 95 04/30/22 03:30 138 H 20 93 04/30/22 03:21 37.4 C 148 H 22 123/96 92 04/30/22 03:20 138 H 25 H 93 04/30/22 03:03 142 H 20 119/87 91 04/30/22 02:39 37.5 C 04/30/22 02:35 139 H 20 90 04/30/22 02:30 135 H 20 111/85 90 04/30/22 02:25 136 H 20 91 04/30/22 02:20 139 H 20 92 04/30/22 02:15 140 H 20 129/99 94 04/30/22 02:11 140 H 20 124/95 95 04/30/22 02:10 140 H 20 95 04/30/22 02:05 140 H 20 97 04/30/22 02:00 137 H 20 123/95 97 04/30/22 01:55 133 H 20 97 04/30/22 01:50 134 H 20 97 04/30/22 01:45 134 H 20 125/98 97 04/30/22 01:40 137 H 20 97 04/30/22 01:35 140 H 20 97 04/30/22 01:30 141 H 20 130/99 97 04/30/22 01:25 147 H 20 96 04/30/22 01:20 149 H 20 96 04/30/22 01:17 153 H 20 95 04/30/22 01:15 151 H 20 132/101 H 95 04/30/22 01:10 156 H 20 04/30/22 01:09 156 H 20 139/110 H 95 04/30/22 00:35 150 H 29 H 93 04/30/22 00:30 149 H 25 H 130/105 H 94 04/30/22 00:25 148 H 30 H 95 04/30/22 00:22 95 04/30/22 00:20 143 H 21 95 04/30/22 00:15 143 H 21 121/93 97 04/30/22 00:10 132 H 8 L 96 04/30/22 00:08 20 97 04/30/22 00:05 145 H 14 97 04/30/22 00:02 146 H 21 114/87 96 04/30/22 00:00 146 H 29 H 86/72 L 98 04/29/22 23:58 98 04/29/22 23:55 149 H 37 H 97 04/29/22 23:54 151 H 31 H 146/111 H 98 04/29/22 23:50 156 H 18 96 04/29/22 23:48 149 H 20 98 04/29/22 23:45 148 H 20 184/143 H 96 04/29/22 23:40 135 H 20 99 04/29/22 23:37 134 H 0 L 126/89 99 04/29/22 23:36 100 04/29/22 23:35 128 H 10 L 90 04/29/22 23:30 150 H 27 H 95 04/29/22 23:27 154 H 5 L 92 04/29/22 23:20 92 04/29/22 23:15 152 H 34 H 93 04/29/22 23:10 150 H 33 H 94 04/29/22 23:05 148 H 31 H 97 04/29/22 23:03 150 H 32 H 97 04/29/22 23:00 37.5 C 148 H 44 H 119/75 97 Coding Level of Care Code Critical Care 1st 30-74 mins Diagnoses Admitted to intensive care unit Z78.9 Acute respiratory failure with hypoxia and hypercapnia J96.01; J96.02 Respiratory failure J96.01 Chronicity: acute Respiratory failure complication: hypoxia Metastatic cancer to lung C78.01; C78.02 Laterality: bilateral Sepsis A41.9; R65.20; J96.01 Acute respiratory failure type: with hypoxia Sepsis acute organ dysfunction status: with acute organ dysfunction Sepsis type: sepsis due to unspecified organism Severe sepsis acute organ dysfunction type: acute respiratory failure Severe sepsis shock status: without septic shock Time Spent (min) 85 (1) Respiratory failure Chronicity: acute Respiratory failure complication: hypoxia Qualified Code(s): J96.01 - Acute respiratory failure with hypoxia (2) Metastatic cancer to lung Laterality: bilateral Qualified Code(s): C78.01 - Secondary malignant neoplasm of right lung; C78.02 - Secondary malignant neoplasm of left lung (3) Sepsis Acute respiratory failure type: with hypoxia Sepsis acute organ dysfunction status: with acute organ dysfunction Sepsis type: sepsis due to unspecified organism Severe sepsis acute organ dysfunction type: acute respiratory failure Severe sepsis shock status: without septic shock Qualified Code(s): A41.9 - Sepsis, unspecified organism; R65.20 - Severe sepsis without septic shock; J96.01 - Acute respiratory failure with hypoxia
[2022-04-30] MEDS: PIPERACILLIN/TAZOBACTAM 3.375 GM in DEXTROSE 5% 100 ML IV SCH ×3 (06:13→22:02)
[2022-04-30 07:26] LABS: Hematocrit (blood only) 27.4 % (34.1-44.9); Hemoglobin 8.5 g/dl (12.0-16.0)
--- NOTE | 2022-04-30 08:08 | XRay Report ---
XR chest 1V portable CLINICAL HISTORY: SOB TECHNIQUE: Single frontal radiograph of the chest was obtained. Comparison: Comparison is made to chest radiograph for 1821 FINDINGS: No lines and tubes are seen. The cardiomediastinal silhouette is normal. Extensive nodular densities are seen compatible with pulmonary metastatic disease, worsened from prior exam. No definite superimp osed airspace opacity is seen. No evidence of pleural effusion or pneumothorax. Soft tissue mass and bony erosion about the right fifth rib again noted. IMPRESSION: Extensive pulmonary metastatic disease without evidence of acute abnormality. ACT 112: Negative or not required by law. Electronically signed by: Jairon Leroy M.D. 04/30/2022 8:07 AM
--- NOTE | 2022-04-30 08:45 | XRay Report ---
XR chest 1V portable CLINICAL HISTORY: intubation TECHNIQUE: Single frontal radiograph of the chest was obtained. Comparison: Comparison is made to chest radiograph 04/29/2022 FINDINGS: Interval placement of an endotracheal tube. The tip is approximately 43 mm from the elisha. Redemonst ration of changes of metastatic disease to the lungs and right rib. IMPRESSION: Endotracheal tube position is satisfactory. The tip is 43 mm from the elisha. ACT 112: Negative or not required by law. Electronically signed by: Jairon Leroy M.D. 04/30/2022 8:43 AM
--- NOTE | 2022-04-30 09:10 | CT Scan Report ---
CT angio chest PE protocol CLINICAL HISTORY: PE TECHNIQUE: Multidetector row helical CT of the chest was performed with angiographic protocol. Goodson l and sagittal reformations were obtained. Coronal and sagittal MIPS were obtained from the axial wili a set and were submitted for review. Automated dose lowering techniques and/or adjustment according to patient size were utilized for this exam. CT DOSE: 256.09 mGy.cm Comparison: Comparison is made to radiation therapy CT chest 03/27/[address] chest 03/10/20 FINDINGS: Lungs and pleura: Innumerable masses and nodules in the bilateral lungs compatible with metastatic di sease. Groundglass opacities are seen in the bilateral lower lungs, not clearly seen on prior exam. Heart and pericardium: Heart size is normal. No pericardial effusion. Vessels: No evidence of pulmonary embolism. Incidentally noted is a filling defect in a right lower p ulmonary vein (series 4 image 97). Mediastinum and leidy: Extensive mediastinal and hilar masses are seen compatible with lymphadenopathy . It is slightly enlarged from prior diagnostic CT chest. Chest wall and lower neck: Partial visualization of a left lower cervical node measuring 30 mm in ezekiel meter. It previously measured up to 19 mm. Abdomen: Unremarkable. Bones: Bony destruction of the right fifth rib with a large soft tissue mass again noted. IMPRESSION: 1. No evidence of pulmonary embolism. 2. Note is made of pulmonary venous thrombus in the right lower lobe. Recommend clinical considerati on for anticoagulation or other measures to prevent thrombosis to the left-sided circulation. 3. Interval development of groundglass opacities in the bilateral lower lungs. This may represent po stobstructive changes, superimposed infectious/plantar process cannot be excluded. 4. Redemonstration of pulmonary metastatic disease as well as multifocal malik and bony metastases. ACT 112: Negative or not required by law. Electronically signed by: Jairon Leroy M.D. 04/30/2022 9:08 AM
--- NOTE | 2022-04-30 09:52 | Communication Note ---
Date of Service: April 30, 2022 Patient seen and examined. EMR reviewed. Images independently reviewed. Discussed with critical care MOSES and agree with assessment plan as noted. The patient has widely metastatic hepatocellular carcinoma. She is failed multiple chemotherapeutic regimens. Her chemotherapy was recently changed over a month ago. Toxicities related with this particular therapy include pulmonary hemorrhage and the patient has been coughing up some blood. Her CT scan does demonstrate some areas of groundglass opacity in addition to innumerable pulmonary metastases. Pulmonary hemorrhage is on the differential. Chemotherapeutic agents will be withheld and the patient will be initiated on high-dose Solu-Medrol. She is hypotensive and necessitating pressors. I do long discussion with the patient's daughter and sister at bedside. We reviewed the current physical state. They were advised that she is on life support and nothing that were doing at this point time is going to reverse her underlying malignancy. If this is pulmonary hemorrhage (grade 3 or 4), unclear if she will respond to steroids or not. They understand the severity of her illness. We had a discussion regarding what palliative care would look like and I reassured them that the patient could have symptoms palliated where she would not suffer for shortness of breath or anxiety or pain however this would likely result in increasing sedation. They have taken it under advisement. They are awaiting arrival of additional family members in the next few hours and will make a final decision regarding the course they want to proceed going forward. I do not see any utility in additional escalation of care given her widely metastatic malignancy which is failed multiple chemotherapeutic agents at this point time. Will not attempt CPR or additional escalation of care at this time per family request. Emotional support offered to family members. They are appropriately grieving but have the medical information necessary to make medical decisions moving forward. Patient is critically ill with multiple life-threatening illnesses. A total of 40 minutes critical care time additionally was spent in evaluation management stabilization of this patient Coding Level of Care Code Critical Care chip addt'l 30 min
--- NOTE | 2022-04-30 12:15 | Electrocardiogram Report ---
Test Reason : Blood Pressure : / mmHG Vent. Rate : 154 BPM Atrial Rate : 156 BPM P-R Int : 112 ms QRS Dur : 078 ms QT Int : 306 ms P-R-T Axes : 000 074 056 degrees QTc Int : 490 ms Poor data quality, interpretation may be adversely affected Sinus tachycardia Otherwise normal ECG When compared with ECG of 06-FEB-2022 20:05, Vent. rate has increased BY 76 BPM Confirmed by Augie Lacey ([id number]) on 04/30/2022 12:14:29 PM Referred By: REFERRED SELF Confirmed By:Gonzalo Lacey
[2022-04-30] MEDS: PANTOprazole 40 MG in SYRINGE 0 ML IV SCH (12:35)
[2022-04-30] MEDS: methylPREDNISolone 125 MG in SYRINGE 0 ML IV SCH ×2 (14:36→22:13)
--- NOTE | 2022-04-30 14:40 | Hospitalist Progress Note ---
Date of Service April 30, 2022 Assessment & Plan (1) Acute respiratory failure with hypoxia and hypercapnia: Plan: 46 year old female w/ chronic hep B, hepatocellular carcinoma w/ lung and bone mets whopresented to [facility] ED via EMS on 04/30 for progressive shortness of breath and hypoxia to 70s - intubated in ED for acute hypoxic hypercapnic respiratory failure. Acute Hypoxic Hypercapnic Respiratory Failure Likely due to persistent and significant pulmonary metastatic disease. Possible pulmonary hemorrhage 2/2 chemotherapy. Given the acuity of presentation over the last ~24 hours, infection may be playing a role as well. - s/p intubation in the ED, transferred to ICU - cont. Propofol/Fentanyl for sedation - ABG with pH 7.18, pCO2 47, pHCO3 18 - mixed acidosis - cont. Bicarb 150mEq gtt with D5 @150cc/hr - cont. Protonix 40mg IV daily - cont. IV methylprednisone - further management per ICU Sepsis, possible pulmonary source SIRS 2/4, qSOFA 2/3. Possibly pulmonary source. CXR difficult to assess for ac billy changes due to prominent chronic pulmonary mets but there may be RLL opacity. - CTA chest: interval development of ground glass opacities in bilateral lower lungs - Lactate 2.1 --> 2.3 --> 4 - s/p 1.5L NSS boluses - defer further IV fluids to ICU - received Zosyn x1 and Levofloxacin x1 in the ED; cont. zosyn - MRSA nares neg, procalcitonin mildly elevated - blood cx pending, UA showed no signs of infection - cont. levophed for pressure support - defer further antibiotic management to ICU Hyponatremia Na 133 - suspect SIADH 2/2 to pulmonary disease +/- pneumonia vs hypovolemia/dehydration. - serum and urine osmol wnl - trend in AM Elevated Troponin hsTroponin 358.9 at 22:50. No reported chest pain prior to arrival, and EKG without ST/T changes. Suspect demand ischemia due to tachycardia. - hsTop peaked at 1200 Generalized Petechial Rash New rash per family members, started yesterday. Platelets are 120 (slightly up from baseline) and PT/PTT/INR are within normal limits. - peripheral smear pending - cont. to monitor Metastatic Liver Cancer Primary HCC. Has received several rounds of chemotherapy and RTx - most recently received salvage RTx last month and was recently started on Ramucirumab last month, and plan had been to continue this treatment. - also on Prednisone 40mg PO daily for last ~1 month - received Decadron 12mg IV x1 in ED - defer to ICU for further stress dosing Goals of Care per ICU communication note: "The patient has widely metastatic hepatocellular carcinoma. She is failed multiple chemotherapeutic regimens. Her chemotherapy was recently changed over a month ago. Toxicities related with this particular therapy include pulmonary hemorrhage and the patient has been coughing up some blood. Her CT scan does demonstrate some areas of groundglass opacity in addition to innumerable pulmonary metastases. Pulmonary hemorrhage is on the differential. Chemotherapeutic agents will be withheld and the patient will be initiated on high-dose Solu-Medrol. She is hypotensive and necessitating pressors. I do long discussion with the patient's daughter and sister at bedside. We reviewed the current physical state. They were advised that she is on life support and nothing that were doing at this point time is going to reverse her underlying malignancy. If this is pulmonary hemorrhage (grade 3 or 4), unclear if she will respond to steroids or not. They understand the severity of her illness. We had a discussion regarding what palliative care would look like and I reassured them that the patient could have symptoms palliated where she would not suffer for shortness of breath or anxiety or pain however this would likely result in increasing sedation. They have taken it under advisement. They are awaiting arrival of additional family members in the next few hours and will make a final decision regarding the course they want to proceed going forward. I do not see any utility in additional escalation of care given her widely metastatic malignancy which is failed multiple chemotherapeutic agents at this point time. Will not attempt CPR or additional escalation of care at this time per family request." FEN/GI:NPO GI ppx: Protonix 40mg IV daily DVT Prophylaxis: Lovenox Code Status: DNR Disposition: ICU Admission and Anticipated Discharge Date Admission Date: April 30, 2022 Supervising Physician Co-Signing Physician Notes I supervised Jimmie Millard DO on the care of this patient. I examined the patient independently of him. The plan is as written in the note except for any following changes/exceptions: 46yo F w/ hx of widely metastatic HCC comes in to the hospital with acute hypoxic respiratory failure. Ddx includes further pulmonary metastases, infection, or pulmonary infarct. She was intubated in the ER. ICU managing vent settings, steroids, and empiric abx. ICU attending also managing code status discussions as patient's prognosis is very poor. Subjective Patient seen at bedside this morning. Intubated in ICU. Appears comfortable. Review of Systems Review of Systems: Unobtainable due to endotracheal tube and Unobtainable due to reduced consciousness Physical Exam Physical Exam: GENERAL - Intubated and sedated. Vital signs as above. HEENT - NC/AT. PERRL. Conjunctiva pink and moist with no injection noted. No deformities of external structures bilaterally. ETT in place. Supple to palpation. LUNGS - Diffuse areas of rales with inspiratory wheezes. Diminished coarse breat h sounds in other areas of lung field. CARDIAC - RRR. No murmur, rubs, or gallops. ABDOMEN - BS normoactive all four quadrants. No tenderness, soft, nondistended. No palpable masses, hepatosplenomegaly, or ascites. EXTREMITIES - No clubbing or peripheral cyanosis. No pretibial edema present. +3/5 radial and dorsalis pedis pulses palpated throughout. SKIN - Petechial rash to the bilateral upper extremities. NEUROLOGIC - Unable to fully assess secondary to sedation. Results & Data Results & Data ([facility]) Vital Signs (Past 12 Hours) Vital Signs Temp Pulse Resp BP Pulse Ox 04/30/22 11:47 124 H 30 H 96 04/30/22 11:00 37.7 C H 124 H 30 H 98/75 L 97 04/30/22 10:30 37.7 C H 125 H 30 H 98/73 L 98 04/30/22 10:00 37.7 C H 126 H 28 H 106/81 99 04/30/22 09:30 37.6 C H 126 H 30 H 94/68 L 99 04/30/22 09:00 37.6 C H 126 H 30 H 91/64 L 99 04/30/22 08:30 37.6 C H 126 H 28 H 97/69 L 98 04/30/22 08:00 37.6 C H 126 H 31 H 98/67 L 97 04/30/22 07:38 124 H 33 H 99 04/30/22 07:30 37.7 C H 125 H 26 H 80/60 L 99 04/30/22 07:00 37.7 C H 125 H 30 H 83/57 L 99 04/30/22 06:30 37.6 C H 124 H 32 H 91/67 L 100 04/30/22 06:11 37.5 C 123 H 31 H 103/54 L 100 04/30/22 06:00 37.4 C 120 H 31 H 100 04/30/22 05:30 37.4 C 112 H 31 H 78/58 L 100 04/30/22 05:29 37.4 C 112 H 31 H 82/58 L 100 04/30/22 05:19 37.4 C 107 H 30 H 73/51 L 99 04/30/22 05:00 37.4 C 113 H 31 H 75/56 L 99 04/30/22 04:30 37.3 C 122 H 31 H 81/57 L 96 04/30/22 04:00 37.4 C 134 H 33 H 95/70 L 94 04/30/22 03:40 30 H 04/30/22 03:39 37.4 C 140 H 22 86/63 L 95 04/30/22 03:30 138 H 20 93 04/30/22 03:21 37.4 C 148 H 22 123/96 92 04/30/22 03:20 138 H 25 H 93 04/30/22 03:03 142 H 20 119/87 91 04/30/22 02:39 37.5 C Laboratory Results 04/30/22 04/30/22 04/30/22 Range/Units 06:40 06:06 06:06 WBC (4.8-10.8) K/ul RBC (3.93-5.22) M/uL Hgb (12.0-16.0) g/dl POC Hgb (12.0-16.0) g/dl Hct (34.1-44.9) % POC Hct (37-47) % MCV (80.0-100.0) fL MCH (25.0-34.0) pg MCHC (32.0-36.0) g/dL RDW Std Deviation (36.4-46.3) fL RDW Coeff of Domonique (11.5-14.5) % Plt Count (130-400) K/uL MPV (9.4-12.3) fL Immature Gran % (Auto) % Neut % (Auto) % Lymph % (Auto) % Winn % (Auto) % Eos % (Auto) % Baso % (Auto) % Neut # (Auto) (1.4-6.5) K/uL Lymph # (Auto) (1.2-3.4) K/uL Winn # (Auto) (0.24-0.82) K/uL Eos # (Auto) (0-0.50) K/uL Baso # (Auto) (0-0.2) K/uL Immature Gran # (Auto) (0.00-0.02) K/uL Absolute Nucleated RBC (0-0) K/uL Nucleated RBC % (auto) % Polychromasia Tear Drop Cells Peripher Smr Path Cons PT (9.0-12.0) Seconds INR (0.9-1.1) APTT (21.0-31.0) Seconds PTT Ratio Sample Site POC pH (7.35-7.45) POC pCO2 (35-46) mmHg POC pO2 (80-95) mmHg POC HCO3 (19-24) pricilla/L POC Total CO2 (24-31) mmol/L POC Base Excess (-9-1.8) pricilla/L ABG pH (7.35-7.45) ABG pH (Temp Correct) (7.35-7.45) ABG pCO2 (35-46) mmHg ABG pCO2 (Temp Corrct (35-46) mmHg ABG pO2 (80-95) mmHg POC ABG pO2 at Pt Temp ABG HCO3 (19-24) mmol/L POC ABG O2 Sat (90-95) % ABG O2 Saturation (90-95) % ABG Base Excess (-9-1.8) mEq/L Berny Test (Pos) Oxygen Given O2 Delivery Device POC O2 Rate Minute Ventilation POC FiO2 % Tidal Volume PEEP POC Sodium (135-144) mmol/L Sodium (136-145) mmol/L POC Potassium (3.3-5.0) mmol/L Potassium (3.5-5.1) mmol/L Chloride (98-107) mmol/L Carbon Dioxide (21-32) mmol/L Anion Gap (3-11) BUN (6-23) mg/dl Creatinine (0.6-1.2) mg/dl Est Cr Clr Drug Dosing ml/min Est GFR ( Amer) ml/min Est GFR (Non-Af Amer) ml/min BUN/Creatinine Ratio (10-20) Glucose (70-99(Fasting)) mg/dl POC Glucose 235 H (70-99) mg/dl Osmolality (280-300) mOsm/kg Lactate (0.4-2.0) mmol/L Calcium (8.5-10.1) mg/dl Magnesium (1.7-2.4) mg/dl Total Bilirubin (0.2-1.0) mg/dl AST (13-39) U/L ALT (7-52) U/L Alkaline Phosphatase (34-104) U/L Troponin I High Sens 1171.3 H* (0-14) pg/ml Total Protein (6.0-8.3) gm/dl Albumin (3.4-5.0) gm/dl Globulin (2.5-4.0) gm/dl Albumin/Globulin Ratio (0.9-2) Procalcitonin (0-0.5) ng/ml Urine Color Urine Appearance (Clear) Urine pH (4.5-7.5) Ur Specific Billingsley (1.000-1.030) Urine Protein (Negative) Urine Glucose (UA) (Negative) Urine Ketones (Negative) Urine Blood (Negative) Urine Nitrite (Negative) Urine Bilirubin (Negative) Urine Urobilinogen (Negative) Ur Leukocyte Esterase (Negative) Urine WBC (Auto) (0-5) /hpf Urine RBC (Auto) (0-4) /hpf U Hyaline Cast (Auto) (0-5) /lpf U Epithel Cells (Auto) (0-5) /lpf Urine Bacteria (Auto) (Negative) Urine Osmolality (500-800) mOsm/kg Ur Random Sodium mmol/L Nasal Screen MRSA (PCR) (Negative) SARS-CoV-2 (PCR) (Negative) Influenza Type A (PCR) (Neg) Influenza Type B (PCR) (Neg) RSV (RT-PCR) (Neg) Blood Type O Positive Antibody Screen NEGATIVE Crossmatch See Detail 04/30/22 04/30/22 04/30/22 Range/Units 06:06 06:06 05:23 WBC (4.8-10.8) K/ul RBC (3.93-5.22) M/uL Hgb 8.5 L (12.0-16.0) g/dl POC Hgb (12.0-16.0) g/dl Hct 27.4 L (34.1-44.9) % POC Hct (37-47) % MCV (80.0-100.0) fL MCH (25.0-34.0) pg MCHC (32.0-36.0) g/dL RDW Std Deviation (36.4-46.3) fL RDW Coeff of Domonique (11.5-14.5) % Plt Count (130-400) K/uL MPV (9.4-12.3) fL Immature Gran % (Auto) % Neut % (Auto) % Lymph % (Auto) % Winn % (Auto) % Eos % (Auto) % Baso % (Auto) % Neut # (Auto) (1.4-6.5) K/uL Lymph # (Auto) (1.2-3.4) K/uL Winn # (Auto) (0.24-0.82) K/uL Eos # (Auto) (0-0.50) K/uL Baso # (Auto) (0-0.2) K/uL Immature Gran # (Auto) (0.00-0.02) K/uL Absolute Nucleated RBC (0-0) K/uL Nucleated RBC % (auto) % Polychromasia Tear Drop Cells Peripher Smr Path Cons PT (9.0-12.0) Seconds INR (0.9-1.1) APTT (21.0-31.0) Seconds PTT Ratio Sample Site POC pH (7.35-7.45) POC pCO2 (35-46) mmHg POC pO2 (80-95) mmHg POC HCO3 (19-24) pricilla/L POC Total CO2 (24-31) mmol/L POC Base Excess (-9-1.8) pricilla/L ABG pH (7.35-7.45) ABG pH (Temp Correct) (7.35-7.45) ABG pCO2 (35-46) mmHg ABG pCO2 (Temp Corrct (35-46) mmHg ABG pO2 (80-95) mmHg POC ABG pO2 at Pt Temp ABG HCO3 (19-24) mmol/L POC ABG O2 Sat (90-95) % ABG O2 Saturation (90-95) % ABG Base Excess (-9-1.8) mEq/L Berny Test (Pos) Oxygen Given O2 Delivery Device POC O2 Rate Minute Ventilation POC FiO2 % Tidal Volume PEEP POC Sodium (135-144) mmol/L Sodium (136-145) mmol/L POC Potassium (3.3-5.0) mmol/L Potassium (3.5-5.1) mmol/L Chloride (98-107) mmol/L Carbon Dioxide (21-32) mmol/L Anion Gap (3-11) BUN (6-23) mg/dl Creatinine (0.6-1.2) mg/dl Est Cr Clr Drug Dosing ml/min Est GFR ( Amer) ml/min Est GFR (Non-Af Amer) ml/min BUN/Creatinine Ratio (10-20) Glucose (70-99(Fasting)) mg/dl POC Glucose (70-99) mg/dl Osmolality (280-300) mOsm/kg Lactate 4.0 H* (0.4-2.0) mmol/L Calcium (8.5-10.1) mg/dl Magnesium (1.7-2.4) mg/dl Total Bilirubin (0.2-1.0) mg/dl AST (13-39) U/L ALT (7-52) U/L Alkaline Phosphatase (34-104) U/L Troponin I High Sens 1216.7 H* D (0-14) pg/ml Total Protein (6.0-8.3) gm/dl Albumin (3.4-5.0) gm/dl Globulin (2.5-4.0) gm/dl Albumin/Globulin Ratio (0.9-2) Procalcitonin (0-0.5) ng/ml Urine Color Urine Appearance (Clear) Urine pH (4.5-7.5) Ur Specific Billingsley (1.000-1.030) Urine Protein (Negative) Urine Glucose (UA) (Negative) Urine Ketones (Negative) Urine Blood (Negative) Urine Nitrite (Negative) Urine Bilirubin (Negative) Urine Urobilinogen (Negative) Ur Leukocyte Esterase (Negative) Urine WBC (Auto) (0-5) /hpf Urine RBC (Auto) (0-4) /hpf U Hyaline Cast (Auto) (0-5) /lpf U Epithel Cells (Auto) (0-5) /lpf Urine Bacteria (Auto) (Negative) Urine Osmolality (500-800) mOsm/kg Ur Random Sodium mmol/L Nasal Screen MRSA (PCR) (Negative) SARS-CoV-2 (PCR) (Negative) Influenza Type A (PCR) (Neg) Influenza Type B (PCR) (Neg) RSV (RT-PCR) (Neg) Blood Type Antibody Screen Crossmatch 04/30/22 04/30/22 04/30/22 Range/Units 05:09 03:37 03:36 WBC (4.8-10.8) K/ul RBC (3.93-5.22) M/uL Hgb (12.0-16.0) g/dl POC Hgb 6.8 L* 8.8 L (12.0-16.0) g/dl Hct (34.1-44.9) % POC Hct 20 L* 26 L (37-47) % MCV (80.0-100.0) fL MCH (25.0-34.0) pg MCHC (32.0-36.0) g/dL RDW Std Deviation (36.4-46.3) fL RDW Coeff of Domonique (11.5-14.5) % Plt Count (130-400) K/uL MPV (9.4-12.3) fL Immature Gran % (Auto) % Neut % (Auto) % Lymph % (Auto) % Winn % (Auto) % Eos % (Auto) % Baso % (Auto) % Neut # (Auto) (1.4-6.5) K/uL Lymph # (Auto) (1.2-3.4) K/uL Winn # (Auto) (0.24-0.82) K/uL Eos # (Auto) (0-0.50) K/uL Baso # (Auto) (0-0.2) K/uL Immature Gran # (Auto) (0.00-0.02) K/uL Absolute Nucleated RBC (0-0) K/uL Nucleated RBC % (auto) % Polychromasia Tear Drop Cells Peripher Smr Path Cons PT (9.0-12.0) Seconds INR (0.9-1.1) APTT (21.0-31.0) Seconds PTT Ratio Sample Site R Radial L Radial POC pH 7.28 L 7.17 L* (7.35-7.45) POC pCO2 46 58 H (35-46) mmHg POC pO2 78 L 76 L (80-95) mmHg POC HCO3 22 21 (19-24) pricilla/L POC Total CO2 23 L 23 L (24-31) mmol/L POC Base Excess -5.0 -7.0 (-9-1.8) pricilla/L ABG pH (7.35-7.45) ABG pH (Temp Correct) 7.276 L 7.160 L* (7.35-7.45) ABG pCO2 (35-46) mmHg ABG pCO2 (Temp Corrct 47 H 60 H (35-46) mmHg ABG pO2 (80-95) mmHg POC ABG pO2 at Pt Temp 80 78 ABG HCO3 (19-24) mmol/L POC ABG O2 Sat 94.0 90.0 (90-95) % ABG O2 Saturation (90-95) % ABG Base Excess (-9-1.8) mEq/L Berny Test Pass Pass (Pos) Oxygen Given O2 Delivery Device Ventilator Ventilator POC O2 Rate 30 20 Minute Ventilation 6.7 POC FiO2 100 100 % Tidal Volume 350 320 PEEP 5 5 POC Sodium 132 L 133 L (135-144) mmol/L Sodium (136-145) mmol/L POC Potassium 3.9 4.4 (3.3-5.0) mmol/L Potassium (3.5-5.1) mmol/L Chloride (98-107) mmol/L Carbon Dioxide (21-32) mmol/L Anion Gap (3-11) BUN (6-23) mg/dl Creatinine (0.6-1.2) mg/dl Est Cr Clr Drug Dosing ml/min Est GFR ( Amer) ml/min Est GFR (Non-Af Amer) ml/min BUN/Creatinine Ratio (10-20) Glucose (70-99(Fasting)) mg/dl POC Glucose (70-99) mg/dl Osmolality (280-300) mOsm/kg Lactate (0.4-2.0) mmol/L Calcium (8.5-10.1) mg/dl Magnesium (1.7-2.4) mg/dl Total Bilirubin (0.2-1.0) mg/dl AST (13-39) U/L ALT (7-52) U/L Alkaline Phosphatase (34-104) U/L Troponin I High Sens (0-14) pg/ml Total Protein (6.0-8.3) gm/dl Albumin (3.4-5.0) gm/dl Globulin (2.5-4.0) gm/dl Albumin/Globulin Ratio (0.9-2) Procalcitonin (0-0.5) ng/ml Urine Color Urine Appearance (Clear) Urine pH (4.5-7.5) Ur Specific Billingsley (1.000-1.030) Urine Protein (Negative) Urine Glucose (UA) (Negative) Urine Ketones (Negative) Urine Blood (Negative) Urine Nitrite (Negative) Urine Bilirubin (Negative) Urine Urobilinogen (Negative) Ur Leukocyte Esterase (Negative) Urine WBC (Auto) (0-5) /hpf Urine RBC (Auto) (0-4) /hpf U Hyaline Cast (Auto) (0-5) /lpf U Epithel Cells (Auto) (0-5) /lpf Urine Bacteria (Auto) (Negative) Urine Osmolality (500-800) mOsm/kg Ur Random Sodium mmol/L Nasal Screen MRSA (PCR) Negative (Negative) SARS-CoV-2 (PCR) (Negative) Influenza Type A (PCR) (Neg) Influenza Type B (PCR) (Neg) RSV (RT-PCR) (Neg) Blood Type Antibody Screen Crossmatch 04/30/22 04/30/22 04/29/22 Range/Units 01:44 01:44 23:45 WBC (4.8-10.8) K/ul RBC (3.93-5.22) M/uL Hgb (12.0-16.0) g/dl POC Hgb (12.0-16.0) g/dl Hct (34.1-44.9) % POC Hct (37-47) % MCV (80.0-100.0) fL MCH (25.0-34.0) pg MCHC (32.0-36.0) g/dL RDW Std Deviation (36.4-46.3) fL RDW Coeff of Domonique (11.5-14.5) % Plt Count (130-400) K/uL MPV (9.4-12.3) fL Immature Gran % (Auto) % Neut % (Auto) % Lymph % (Auto) % Winn % (Auto) % Eos % (Auto) % Baso % (Auto) % Neut # (Auto) (1.4-6.5) K/uL Lymph # (Auto) (1.2-3.4) K/uL Winn # (Auto) (0.24-0.82) K/uL Eos # (Auto) (0-0.50) K/uL Baso # (Auto) (0-0.2) K/uL Immature Gran # (Auto) (0.00-0.02) K/uL Absolute Nucleated RBC (0-0) K/uL Nucleated RBC % (auto) % Polychromasia Tear Drop Cells Peripher Smr Path Cons PT (9.0-12.0) Seconds INR (0.9-1.1) APTT (21.0-31.0) Seconds PTT Ratio Sample Site POC pH (7.35-7.45) POC pCO2 (35-46) mmHg POC pO2 (80-95) mmHg POC HCO3 (19-24) pricilla/L POC Total CO2 (24-31) mmol/L POC Base Excess (-9-1.8) pricilla/L ABG pH 7.19 L* (7.35-7.45) ABG pH (Temp Correct) (7.35-7.45) ABG pCO2 47 H (35-46) mmHg ABG pCO2 (Temp Corrct (35-46) mmHg ABG pO2 161 H (80-95) mmHg POC ABG pO2 at Pt Temp ABG HCO3 18 L (19-24) mmol/L POC ABG O2 Sat (90-95) % ABG O2 Saturation > 100.0 H (90-95) % ABG Base Excess -10.1 L (-9-1.8) mEq/L Berny Test Pos (Pos) Oxygen Given ROOM AIR O2 Delivery Device POC O2 Rate Minute Ventilation POC FiO2 % Tidal Volume PEEP POC Sodium (135-144) mmol/L Sodium (136-145) mmol/L POC Potassium (3.3-5.0) mmol/L Potassium (3.5-5.1) mmol/L Chloride (98-107) mmol/L Carbon Dioxide (21-32) mmol/L Anion Gap (3-11) BUN (6-23) mg/dl Creatinine (0.6-1.2) mg/dl Est Cr Clr Drug Dosing ml/min Est GFR ( Amer) ml/min Est GFR (Non-Af Amer) ml/min BUN/Creatinine Ratio (10-20) Glucose (70-99(Fasting)) mg/dl POC Glucose (70-99) mg/dl Osmolality (280-300) mOsm/kg Lactate 2.3 H* (0.4-2.0) mmol/L Calcium (8.5-10.1) mg/dl Magnesium (1.7-2.4) mg/dl Total Bilirubin (0.2-1.0) mg/dl AST (13-39) U/L ALT (7-52) U/L Alkaline Phosphatase (34-104) U/L Troponin I High Sens (0-14) pg/ml Total Protein (6.0-8.3) gm/dl Albumin (3.4-5.0) gm/dl Globulin (2.5-4.0) gm/dl Albumin/Globulin Ratio (0.9-2) Procalcitonin (0-0.5) ng/ml Urine Color Urine Appearance (Clear) Urine pH (4.5-7.5) Ur Specific Billingsley (1.000-1.030) Urine Protein (Negative) Urine Glucose (UA) (Negative) Urine Ketones (Negative) Urine Blood (Negative) Urine Nitrite (Negative) Urine Bilirubin (Negative) Urine Urobilinogen (Negative) Ur Leukocyte Esterase (Negative) Urine WBC (Auto) (0-5) /hpf Urine RBC (Auto) (0-4) /hpf U Hyaline Cast (Auto) (0-5) /lpf U Epithel Cells (Auto) (0-5) /lpf Urine Bacteria (Auto) (Negative) Urine Osmolality (500-800) mOsm/kg Ur Random Sodium 123 mmol/L Nasal Screen MRSA (PCR) (Negative) SARS-CoV-2 (PCR) (Negative) Influenza Type A (PCR) (Neg) Influenza Type B (PCR) (Neg) RSV (RT-PCR) (Neg) Blood Type Antibody Screen Crossmatch 04/29/22 04/29/22 04/29/22 Range/Units 23:45 23:45 23:20 WBC (4.8-10.8) K/ul RBC (3.93-5.22) M/uL Hgb (12.0-16.0) g/dl POC Hgb (12.0-16.0) g/dl Hct (34.1-44.9) % POC Hct (37-47) % MCV (80.0-100.0) fL MCH (25.0-34.0) pg MCHC (32.0-36.0) g/dL RDW Std Deviation (36.4-46.3) fL RDW Coeff of Domonique (11.5-14.5) % Plt Count (130-400) K/uL MPV (9.4-12.3) fL Immature Gran % (Auto) % Neut % (Auto) % Lymph % (Auto) % Winn % (Auto) % Eos % (Auto) % Baso % (Auto) % Neut # (Auto) (1.4-6.5) K/uL Lymph # (Auto) (1.2-3.4) K/uL Winn # (Auto) (0.24-0.82) K/uL Eos # (Auto) (0-0.50) K/uL Baso # (Auto) (0-0.2) K/uL Immature Gran # (Auto) (0.00-0.02) K/uL Absolute Nucleated RBC (0-0) K/uL Nucleated RBC % (auto) % Polychromasia Tear Drop Cells Peripher Smr Path Cons PT (9.0-12.0) Seconds INR (0.9-1.1) APTT (21.0-31.0) Seconds PTT Ratio Sample Site POC pH (7.35-7.45) POC pCO2 (35-46) mmHg POC pO2 (80-95) mmHg POC HCO3 (19-24) pricilla/L POC Total CO2 (24-31) mmol/L POC Base Excess (-9-1.8) pricilla/L ABG pH (7.35-7.45) ABG pH (Temp Correct) (7.35-7.45) ABG pCO2 (35-46) mmHg ABG pCO2 (Temp Corrct (35-46) mmHg ABG pO2 (80-95) mmHg POC ABG pO2 at Pt Temp ABG HCO3 (19-24) mmol/L POC ABG O2 Sat (90-95) % ABG O2 Saturation (90-95) % ABG Base Excess (-9-1.8) mEq/L Berny Test (Pos) Oxygen Given O2 Delivery Device POC O2 Rate Minute Ventilation POC FiO2 % Tidal Volume PEEP POC Sodium (135-144) mmol/L Sodium (136-145) mmol/L POC Potassium (3.3-5.0) mmol/L Potassium (3.5-5.1) mmol/L Chloride (98-107) mmol/L Carbon Dioxide (21-32) mmol/L Anion Gap (3-11) BUN (6-23) mg/dl Creatinine (0.6-1.2) mg/dl Est Cr Clr Drug Dosing ml/min Est GFR ( Amer) ml/min Est GFR (Non-Af Amer) ml/min BUN/Creatinine Ratio (10-20) Glucose (70-99(Fasting)) mg/dl POC Glucose (70-99) mg/dl Osmolality (280-300) mOsm/kg Lactate 2.1 H* (0.4-2.0) mmol/L Calcium (8.5-10.1) mg/dl Magnesium (1.7-2.4) mg/dl Total Bilirubin (0.2-1.0) mg/dl AST (13-39) U/L ALT (7-52) U/L Alkaline Phosphatase (34-104) U/L Troponin I High Sens (0-14) pg/ml Total Protein (6.0-8.3) gm/dl Albumin (3.4-5.0) gm/dl Globulin (2.5-4.0) gm/dl Albumin/Globulin Ratio (0.9-2) Procalcitonin (0-0.5) ng/ml Urine Color Yellow Urine Appearance Clear (Clear) Urine pH 6.5 (4.5-7.5) Ur Specific Bill[place] 1.020 (1.000-1.030) Urine Protein Negative (Negative) Urine Glucose (UA) Negative (Negative) Urine Ketones Trace H (Negative) Urine Blood Trace H (Negative) Urine Nitrite Negative (Negative) Urine Bilirubin Negative (Negative) Urine Urobilinogen Negative (Negative) Ur Leukocyte Esterase Negative (Negative) Urine WBC (Auto) 1-5 (0-5) /hpf Urine RBC (Auto) 0-4 (0-4) /hpf U Hyaline Cast (Auto) 1-5 (0-5) /lpf U Epithel Cells (Auto) 10-20 H (0-5) /lpf Urine Bacteria (Auto) Negative (Negative) Urine Osmolality 631 (500-800) mOsm/kg Ur Random Sodium mmol/L Nasal Screen MRSA (PCR) (Negative) SARS-CoV-2 (PCR) (Negative) Influenza Type A (PCR) (Neg) Influenza Type B (PCR) (Neg) RSV (RT-PCR) (Neg) Blood Type Antibody Screen Crossmatch 04/29/22 04/29/22 04/29/22 Range/Units 22:50 22:50 22:50 WBC (4.8-10.8) K/ul RBC (3.93-5.22) M/uL Hgb (12.0-16.0) g/dl POC Hgb (12.0-16.0) g/dl Hct (34.1-44.9) % POC Hct (37-47) % MCV (80.0-100.0) fL MCH (25.0-34.0) pg MCHC (32.0-36.0) g/dL RDW Std Deviation (36.4-46.3) fL RDW Coeff of Domonique (11.5-14.5) % Plt Count (130-400) K/uL MPV (9.4-12.3) fL Immature Gran % (Auto) % Neut % (Auto) % Lymph % (Auto) % Winn % (Auto) % Eos % (Auto) % Baso % (Auto) % Neut # (Auto) (1.4-6.5) K/uL Lymph # (Auto) (1.2-3.4) K/uL Winn # (Auto) (0.24-0.82) K/uL Eos # (Auto) (0-0.50) K/uL Baso # (Auto) (0-0.2) K/uL Immature Gran # (Auto) (0.00-0.02) K/uL Absolute Nucleated RBC (0-0) K/uL Nucleated RBC % (auto) % Polychromasia Tear Drop Cells Peripher Smr Path Cons PT (9.0-12.0) Seconds INR (0.9-1.1) APTT (21.0-31.0) Seconds PTT Ratio Sample Site POC pH (7.35-7.45) POC pCO2 (35-46) mmHg POC pO2 (80-95) mmHg POC HCO3 (19-24) pricilla/L POC Total CO2 (24-31) mmol/L POC Base Excess (-9-1.8) pricilla/L ABG pH (7.35-7.45) ABG pH (Temp Correct) (7.35-7.45) ABG pCO2 (35-46) mmHg ABG pCO2 (Temp Corrct (35-46) mmHg ABG pO2 (80-95) mmHg POC ABG pO2 at Pt Temp ABG HCO3 (19-24) mmol/L POC ABG O2 Sat (90-95) % ABG O2 Saturation (90-95) % ABG Base Excess (-9-1.8) mEq/L Berny Test (Pos) Oxygen Given O2 Delivery Device POC O2 Rate Minute Ventilation POC FiO2 % [place] Volume PEEP POC Sodium (135-144) mmol/L Sodium 131 L (136-145) mmol/L POC Potassium (3.3-5.0) mmol/L Potassium 4.1 (3.5-5.1) mmol/L Chloride 100 (98-107) mmol/L Carbon Dioxide 19 L (21-32) mmol/L Anion Gap 12 H (3-11) BUN 14 (6-23) mg/dl Creatinine 0.57 L (0.6-1.2) mg/dl Est Cr Clr Drug Dosing 93.4 ml/min Est GFR ( Amer) 128.9 ml/min Est GFR (Non-Af Amer) 111.2 ml/min BUN/Creatinine Ratio 24.6 H (10-20) Glucose 129 H (70-99(Fasting)) mg/dl POC Glucose (70-99) mg/dl Osmolality 280 (280-300) mOsm/kg Lactate (0.4-2.0) mmol/L Calcium 8.3 L (8.5-10.1) mg/dl Magnesium 1.9 (1.7-2.4) mg/dl Total Bilirubin 2.0 H (0.2-1.0) mg/dl AST 27 (13-39) U/L ALT 22 (7-52) U/L Alkaline Phosphatase 83 (34-104) U/L Troponin I High Sens 358.9 H* (0-14) pg/ml Total Protein 6.7 (6.0-8.3) gm/dl Albumin 3.4 (3.4-5.0) gm/dl Globulin 3.3 (2.5-4.0) gm/dl Albumin/Globulin Ratio 1.0 (0.9-2) Procalcitonin 0.63 H (0-0.5) ng/ml Urine Color Urine Appearance (Clear) Urine pH (4.5-7.5) Ur Specific Billingsley (1.000-1.030) Urine Protein (Negative) Urine Glucose (UA) (Negative) Urine Ketones (Negative) Urine Blood (Negative) Urine Nitrite (Negative) Urine Bilirubin (Negative) Urine Urobilinogen (Negative) Ur Leukocyte Esterase (Negative) Urine WBC (Auto) (0-5) /hpf Urine RBC (Auto) (0-4) /hpf U Hyaline Cast (Auto) (0-5) /lpf U Epithel Cells (Auto) (0-5) /lpf Urine Bacteria (Auto) (Negative) Urine Osmolality (500-800) mOsm/kg Ur Random Sodium mmol/L Nasal Screen MRSA (PCR) (Negative) SARS-CoV-2 (PCR) (Negative) Influenza Type A (PCR) (Neg) Influenza Type B (PCR) (Neg) RSV (RT-PCR) (Neg) Blood Type Antibody Screen Crossmatch 04/29/22 04/29/22 04/29/22 Range/Units 22:50 22:50 22:08 WBC 11.38 H (4.8-10.8) K/ul RBC 3.28 L (3.93-5.22) M/uL Hgb 9.6 L (12.0-16.0) g/dl POC Hgb (12.0-16.0) g/dl Hct 30.0 L (34.1-44.9) % POC Hct (37-47) % MCV 91.5 (80.0-100.0) fL MCH 29.3 (25.0-34.0) pg MCHC 32.0 (32.0-36.0) g/dL RDW Std Deviation 65.5 H (36.4-46.3) fL RDW Coeff of Domonique 19.9 H (11.5-14.5) % Plt Count 120 L (130-400) K/uL MPV 10.5 (9.4-12.3) fL Immature Gran % (Auto) 0.9 % Neut % (Auto) 90.7 % Lymph % (Auto) 5.3 % Winn % (Auto) 2.9 % Eos % (Auto) 0.0 % Baso % (Auto) 0.2 % Neut # (Auto) 10.33 H (1.4-6.5) K/uL Lymph # (Auto) 0.60 L (1.2-3.4) K/uL Winn # (Auto) 0.33 (0.24-0.82) K/uL Eos # (Auto) 0.00 (0-0.50) K/uL Baso # (Auto) 0.02 (0-0.2) K/uL Immature Gran # (Auto) 0.10 H (0.00-0.02) K/uL Absolute Nucleated RBC 0.02 H (0-0) K/uL Nucleated RBC % (auto) 0.2 % Polychromasia 1+ Tear Drop Cells 2+ Peripher Smr Path Cons Pending PT 11.3 (9.0-12.0) Seconds INR 1.1 (0.9-1.1) APTT 27.7 (21.0-31.0) Seconds PTT Ratio 1.0 Sample Site POC pH (7.35-7.45) POC pCO2 (35-46) mmHg POC pO2 (80-95) mmHg POC HCO3 (19-24) pricilla/L POC Total CO2 (24-31) mmol/L POC Base Excess (-9-1.8) pricilla/L ABG pH (7.35-7.45) ABG pH (Temp Correct) (7.35-7.45) ABG pCO2 (35-46) mmHg ABG pCO2 (Temp Corrct (35-46) mmHg ABG pO2 (80-95) mmHg POC ABG pO2 at Pt Temp ABG HCO3 (19-24) mmol/L POC ABG O2 Sat (90-95) % ABG O2 Saturation (90-95) % ABG Base Excess (-9-1.8) mEq/L Berny Test (Pos) Oxygen Given O2 Delivery Device POC O2 Rate Minute Ventilation POC FiO2 % Tidal Volume PEEP POC Sodium (135-144) mmol/L Sodium (136-145) mmol/L POC Potassium (3.3-5.0) mmol/L Potassium (3.5-5.1) mmol/L Chloride (98-107) mmol/L Carbon Dioxide (21-32) mmol/L Anion Gap (3-11) BUN (6-23) mg/dl Creatinine (0.6-1.2) mg/dl Est Cr Clr Drug Dosing ml/min Est GFR ( Amer) ml/min Est GFR (Non-Af Amer) ml/min BUN/Creatinine Ratio (10-20) Glucose (70-99(Fasting)) mg/dl POC Glucose (70-99) mg/dl Osmolality (280-300) mOsm/kg Lactate (0.4-2.0) mmol/L Calcium (8.5-10.1) mg/dl Magnesium (1.7-2.4) mg/dl Total Bilirubin (0.2-1.0) mg/dl AST (13-39) U/L ALT (7-52) U/L Alkaline Phosphatase (34-104) U/L Troponin I High Sens (0-14) pg/ml Total Protein (6.0-8.3) gm/dl Albumin (3.4-5.0) gm/dl Globulin (2.5-4.0) gm/dl Albumin/Globulin Ratio (0.9-2) Procalcitonin (0-0.5) ng/ml Urine Color Urine Appearance (Clear) Urine pH (4.5-7.5) Ur Specific Billingsley (1.000-1.030) Urine Protein (Negative) Urine Glucose (UA) (Negative) Urine Ketones (Negative) Urine Blood (Negative) Urine Nitrite (Negative) Urine Bilirubin (Negative) Urine Urobilinogen (Negative) Ur Leukocyte Esterase (Negative) Urine WBC (Auto) (0-5) /hpf Urine RBC (Auto) (0-4) /hpf U Hyaline Cast (Auto) (0-5) /lpf U Epithel Cells (Auto) (0-5) /lpf Urine Bacteria (Auto) (Negative) Urine Osmolality (500-800) mOsm/kg Ur Random Sodium mmol/L Nasal Screen MRSA (PCR) (Negative) SARS-CoV-2 (PCR) NEGATIVE (Negative) Influenza Type A (PCR) Negative (Neg) Influenza Type B (PCR) Negative (Neg) RSV (RT-PCR) Negative (Neg) Blood Type Antibody Screen Crossmatch Resident Activity Tracking Resident Involvement: Resident Care Provided Care Provided: Adult Hospital Medicine
--- NOTE | 2022-04-30 20:12 | Billing Data ---
Date of Service April 30, 2022 Coding Level of Care Code Critical Care 1st - mins
[2022-05-01] MEDS: NORMOSOL-R 1,000 ML IV SCH ×2 (00:18→10:51)
[2022-05-01 00:19] LABS: iSTAT Allen Test Pass; iSTAT Arterial Blood Gas HCO3 38 meg/L (19-24); iSTAT Arterial Blood Gas pCO2 42 mmHg (35-46); iSTAT Arterial Blood Gas pH 7.56 (7.35-7.45); iSTAT Arterial Blood Gas pO2 55 mmHg (80-95); iSTAT Carbon Dioxide > 40 mmol/L (24-31); iSTAT FiO2 75 %; iSTAT Site L Radial
[2022-05-01] MEDS: propofoL 1,000 MG/100 ML VIAL IV SCH ×4 (01:26→15:41)
[2022-05-01] MEDS: fentaNYL citrate 2,500 MCG/250 ML BAG IV SCH (01:29)
[2022-05-01] MEDS: ENOXAPARIN INJ 40 MG/0.4 ML SYR SQ SCH ×2 (05:05→06:17)
[2022-05-01] MEDS: NOREPINEPHRINE/D5W 4 MG/250 ML PLCT IV SCH (05:05)
[2022-05-01] MEDS: PIPERACILLIN/TAZOBACTAM 3.375 GM in DEXTROSE 5% 100 ML IV SCH ×2 (05:05→15:54)
[2022-05-01 05:16] LABS: iSTAT Allen Test Pass; iSTAT Arterial Blood Gas HCO3 38 meg/L (19-24); iSTAT Arterial Blood Gas pCO2 38 mmHg (35-46); iSTAT Arterial Blood Gas pO2 57 mmHg (80-95); iSTAT Carbon Dioxide 39 mmol/L (24-31); iSTAT FiO2 75 %; iSTAT Site R Radial
[2022-05-01 05:53] LABS: Basophils # (auto) 0.01 K/uL (0-0.2); Basophils % (auto) 0.1 %; Hematocrit (blood only) 25.3 % (34.1-44.9); Hemoglobin 7.9 g/dl (12.0-16.0); Immature Granulocytes # (auto) 0.06 K/uL (0.00-0.02); Immature Granulocytes % (auto) 0.6 %; Lymphocytes # (auto) 0.54 K/uL (1.2-3.4); Lymphocytes % (auto) 5.7 %; Mean Corpuscular Hemoglobin 28.7 pg (25.0-34.0); Mean Corpuscular Hgb Conc 31.2 g/dL (32.0-36.0); Mean Platelet Volume 11.5 fL (9.4-12.3); Monocytes # (auto) 0.36 K/uL (0.24-0.82); Monocytes % (auto) 3.8 %; Neutrophils # (auto) 8.57 K/uL (1.4-6.5); Neutrophils % (auto) 89.8 %; Nucleated RBC # (auto) 0.08 K/uL (0-0); Nucleated RBC % (auto) 0.8 %; Platelet Count 115 K/uL (130-400); RDW Standard Deviation 66.6 fL (36.4-46.3); Red Blood Count 2.75 M/uL (3.93-5.22); White Blood Count 9.54 K/ul (4.8-10.8)
[2022-05-01] MEDS: methylPREDNISolone 125 MG in SYRINGE 0 ML IV SCH (06:18)
[2022-05-01 06:19] LABS: Albumin Level 2.6 gm/dl (3.4-5.0); BUN Creatinine Ratio 18.9 (10-20); Bilirubin Direct 0.3 mg/dl (0-0.2); Bilirubin,Total 1.1 mg/dl (0.2-1.0); Calcium 7.6 mg/dl (8.5-10.1); Creatinine Clr Calc Pharmacy 105.3 ml/min; Est GFR (Non-African American) 113.9 ml/min; Phosphorus 2.5 mg/dl (2.5-4.9); Potassium 3.4 mmol/L (3.5-5.1); Total Protein 5.2 gm/dl (6.0-8.3)
--- NOTE | 2022-05-01 07:29 | Critical Care Progress Note ---
Date of Service May 01, 2022 Assessment & Plan (1) Admitted to intensive care unit: Plan: Reason Critically Ill: Unfortunate 46-year-old female with aggressive metastatic hepatocellular carcinoma with significant tumor burden of the lungs presenting in respiratory failure requiring emergent endotracheal intubation and ongoing management. NEURO - * Pain: Fentanyl gtt * Sedation: Propofol CARDIAC/VASCULAR - * NSTEMI: * Likely secondary to ongoing profound tachycardia. Patient had reportedly been tachycardic in the outpatient for the last several days. She actually received IV fluids on Sunday at the [facility] secondary to her tachycardia. * EKG without ST elevations. Sinus tachycardia noted. * Tachycardia: * Demand driven in the setting of profound hypoxemia and reduced lung volumes secondary to tumor burden. * Possible underlying infectious component- blood cultures negative after 24 hours * Monitor on telemetry. RESPIRATORY - * Respiratory failure: * Unfortunate in the patient with significant tumor burden of the lungs. * Initially required endotracheal intubation in the emergency department. * Blood gases likely reflective of poor compliance secondary to tumor burden as well as poor oxygenation as well. * Will attempt to provide lung protective ventilator techniques as much as possible. * ABGs to guide ongoing ventilator management. * Covered with antibiotics for possible underlying infectious component. GI/NUTRITION - * NPO for now * Prophylaxis: Protonix RENAL/LYTES - * No significant electrolyte derangements, ICU replacement protocol - * Norman in place - Strict I&Os. ENDO - * No history of diabetes or thyroid disease. * BSGs per unit protocol. ISS --> gtt per unit policy. HEME - * Anemia -likely of chronic disease. ID - * Sepsis syndrome: * Possible underlying pulmonary infectious process although blood cultures negative after 24 hours * Broadly covered with vancomycin and Levaquin in the emergency room. * Continue antibiotic coverage for now. * Elevated procalcitonin and lactate. LINES/IV ACCESS - * PIVs x2 * Norman * ET tube DVT PROPHYLAXIS - * Lovenox * SCDs Code Status: We will have discussion with family as they arrive later today to determine goals of care and next course of action regarding treatment. It is our recommendation that at this time our efforts will most likely be futile and the patient will unlikely to be taken off of mechanical ventilation or other lif e-sustaining efforts. Will provide this information to the family for them to make the most informed decision that they can. Current status is however continuing antibiotics and maintaining intubation but family has requested to not have the patient resuscitated if she were to experience cardiovascular compromise/collapse. (2) Sepsis: (3) Metastatic cancer to lung: (4) Respiratory failure: Admission and Anticipated Discharge Date Admission Date: April 30, 2022 Supervising Physician Co-Signing Physician Notes Dr. Gutierrez was resident physician during care of patient. I separately evaluated patient for vaughn portions of the history and the exam. I was present during the critical portion of medical decision making, and I discussed the case with the resident. I generally agree with the findings and plan. Decreasing steroids slightly, continue with antibiotics at this point await another 24 hours and likely discontinue. I feel fever is secondary to hemoptysis. Severe acute hypoxic respiratory failure. Widely metastatic hepatocellular carcinoma. We will attempt to further family discussion regarding goals of care. I would be in agreement with conversion to palliative care/comfort measures. I have personally spent 55 minutes of critical care time in the direct management of this patient. This is a life/limb threatening event. This includes time spent evaluating patient, direct bedside care, chart review, placing orders, interpretation of diagnostic studies, discussion with consultants, patient, and/or family members regarding treatment decisions, as well as other required patient management activities. This time is exclusive of all separately billable procedures, and teaching time and separate from and in addition to any other critical care service time. Subjective Patient seen at bedside this morning. Patient is asleep at the time of examination, appears comfortable. Intermittently opens her eyes during physical exam but falls asleep shortly after. No meaningful HPI obtained at this time. Sister is in the room at the time of visit, however, she is not currently sure as to what her and primary family have decided in terms of comfort measures/future care. Review of Systems Review of Systems: All systems reviewed & are unremarkable except as noted in HPI & below Physical Exam Constitutional: well developed, well nourished, comfortable and + mechanically ventilated Neck: normal visual inspection Respiratory: Auscultation: + crackles Cardiovascular: Rate/Rhythm: regular rhythm and + tachycardic Heart Sounds: no murmur Gastrointestinal (Abdomen): normal bowel sounds, soft, nontender, no hepatosplenomegaly Musculoskeletal: Head/Neck/Chest: normocephalic and head atraumatic Skin: + rash (petechial UE b/l) Neurologic: Unable to assess due to cognitive status. Lymphatic: no cervical lymphadenopathy Results & Data Results & Data ([facility]) Vital Signs (Past 12 Hours) Vital Signs Temp Pulse Resp BP Pulse Ox 05/01/22 06:00 38.1 C H 126 H 26 H 113/78 90 05/01/22 05:30 38.1 C H 126 H 26 H 92 05/01/22 05:00 38.2 C H 126 H 28 H 104/64 85 L 05/01/22 04:30 38.2 C H 127 H 30 H 126/81 95 05/01/22 04:00 38.2 C H 127 H 30 H 124/86 95 05/01/22 03:30 38.1 C H 127 H 30 H 118/81 95 05/01/22 03:00 38.1 C H 126 H 30 H 125/83 94 05/01/22 02:41 126 H 30 H 95 05/01/22 02:30 38.1 C H 126 H 30 H 122/83 95 05/01/22 02:00 38.1 C H 124 H 30 H 111/74 94 05/01/22 01:30 38.1 C H 126 H 30 H 117/84 94 05/01/22 01:00 38.1 C H 126 H 30 H 125/82 93 05/01/22 00:30 38.0 C H 126 H 30 H 120/82 93 05/01/22 00:00 38.0 C H 125 H 30 H 113/78 92 04/30/22 23:30 38.1 C H 126 H 30 H 123/82 92 04/30/22 23:23 126 H 30 H 92 04/30/22 23:00 38.1 C H 126 H 30 H 124/79 92 04/30/22 22:30 38.1 C H 128 H 30 H 129/88 93 04/30/22 22:00 38.1 C H 127 H 30 H 116/79 93 04/30/22 21:30 38.2 C H 127 H 30 H 115/78 92 04/30/22 21:00 38.2 C H 126 H 20 111/78 93 04/30/22 20:30 38.2 C H 126 H 30 H 111/76 93 04/30/22 20:29 126 H 04/30/22 20:00 38.2 C H 126 H 30 H 109/75 92 04/30/22 19:57 126 H 30 H 95 04/30/22 19:30 38.2 C H 127 H 7 L 110/76 94 (1) Metastatic cancer to lung Laterality: bilateral Qualified Code(s): C78.01 - Secondary malignant neoplasm of right lung; C78.02 - Secondary malignant neoplasm of left lung (2) Respiratory failure Chronicity: acute Respiratory failure complication: hypoxia Qualified Code(s): J96.01 - Acute respiratory failure with hypoxia (3) Sepsis Acute respiratory failure type: with hypoxia Sepsis acute organ dysfunction status: with acute organ dysfunction Sepsis type: sepsis due to unspecified organism Severe sepsis acute organ dysfunction type: acute respiratory failure Severe sepsis shock status: without septic shock Qualified Code(s): A41.9 - Sepsis, unspecified organism; R65.20 - Severe sepsis without septic shock; J96.01 - Acute respiratory failure with hypoxia
--- NOTE | 2022-05-01 08:24 | XRay Report ---
XR chest 1V portable CLINICAL HISTORY: Follow-up intubation and metastatic disease. COMPARISON STUDY: 04/29/2022 TECHNIQUE: 1 view of the chest FINDINGS: Single frontal view of the chest demonstrates the heart to again be enlarged. Endotracheal tube is un changed. Compared to previous examination, marked metastatic lung disease again seen. There is no juan m dence for pleural effusion. There is no evidence for vascular congestion. There is no acute osseous p athology. IMPRESSION: 1. Status post intubation, unchanged. 2. Marked metastatic lung disease, change with no acute abnormality identified radiographically. ACT 112: Negative or not required by law. Electronically signed by: Derick Wharton M.D. 05/01/2022 8:22 AM
[2022-05-01] MEDS ORDERED: STAT IV Infusion **Titration per Protocol STA ×3 (09:30→15:04)
[2022-05-01] MEDS ORDERED: GLUCAGON FOR INJ 1 MG VIAL IM PRN (09:45)
[2022-05-01] MEDS ORDERED: CARBOHYDRATES FOR HYPOGLYCEMIA PO PRN (09:45)
[2022-05-01] MEDS ORDERED: DEXTROSE 50% 50 ML SYRINGE IV PRN (09:45)
[2022-05-01] MEDS ORDERED: PHENYLEPHRINE HCL 20 MG in DEXTROSE 5% 500 ML IV SCH (09:45)
[2022-05-01] MEDS ORDERED: GLUCOSE 40% GEL 15 GM TUBE PO PRN (09:45)
[2022-05-01] MEDS ORDERED: GLUCOSE 10 TAB/TUBE PO PRN (09:45)
[2022-05-01] MEDS ORDERED: POTASSIUM CHLORIDE PWD 20 MEQ PACK PO SCH (10:30)
[2022-05-01 11:14] LABS: iSTAT Allen Test Pass; iSTAT Arterial Blood Gas HCO3 38 meg/L (19-24); iSTAT Arterial Blood Gas pCO2 55 mmHg (35-46); iSTAT Arterial Blood Gas pH 7.44 (7.35-7.45); iSTAT Arterial Blood Gas pO2 61 mmHg (80-95); iSTAT Carbon Dioxide 39 mmol/L (24-31); iSTAT FiO2 80 %; iSTAT Site L Radial
[2022-05-01] MEDS ORDERED: INSULIN ASPART PER UNIT SC SCH (12:00)
[2022-05-01] MEDS ORDERED: methylPREDNISolone 80 MG in SYRINGE 0 ML IV SCH (14:00)
[2022-05-01 14:11] VITALS: TEMP 101.1
[2022-05-01] MEDS: PANTOprazole 40 MG in SYRINGE 0 ML IV SCH (14:50)
[2022-05-01] MEDS ORDERED: MoRPHine SULF/NSS 100 MG/100 ML BAG IV SCH (15:00)
[2022-05-01] MEDS ORDERED: LORazepam 50 MG in D5W 250ML IN *POLYOLEFIN BAG* 25 ML IV SCH (15:15)
[2022-05-01] MEDS ORDERED: LORazepam 1 MG in SYRINGE 1 ML IV STA (15:33)
[2022-05-01] MEDS ORDERED: LORazepam 2 MG in SYRINGE 1 ML IV STA (15:33)
--- NOTE | 2022-05-01 15:44 | Communication Note ---
Date of Service: May 01, 2022 After multiple discussions with family members throughout the day, family decided to pursue comfort measures only for patient. Patient will be placed on morphine drip and given Ativan pushes as needed. Patient will be taken off of propofol and extubated accordingly. Patient will be given supplemental oxygen only for comfort and not for actual treatment of hypoxia. Discussed plan with the primary team. I agree with the above. Patient was transition to comfort measures and extubated.
[2022-05-01] MEDS ORDERED: ONDANSETRON INJ 2 MG/ML 2 ML VIAL IV PRN (15:46)
[2022-05-01] MEDS ORDERED: ONDANSETRON 4 MG OD TAB SL PRN (15:46)
[2022-05-01] MEDS ORDERED: LORazepam 0.5 MG in SYRINGE 0.25 ML IV PRN (15:46)
[2022-05-01] MEDS ORDERED: LORazepam 0.5 MG TAB PO PRN (15:46)
[2022-05-01 16:54] VITALS: BP 134/97; PULSE 152; O2SAT 38
--- NOTE | 2022-05-01 17:16 | Hospitalist Progress Note ---
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 Goals of Care per ICU communication note: 04/30/22: "The patient has widely metastatic hepatocellular carcinoma. She is failed multiple chemotherapeutic regimens. Her chemotherapy was recently changed over a month ago. Toxicities related with this particular therapy include pulmonary hemorrhage and the patient has been coughing up some blood. Her CT scan does demonstrate some areas of groundglass opacity in addition to innumerable pulmonary metastases. Pulmonary hemorrhage is on the differential. Chemotherapeutic agents will be withheld and the patient will be initiated on high-dose Solu-Medrol. She is hypotensive and necessitating pressors. I do long discussion with the patient's daughter and sister at bedside. We reviewed the current physical state. They were advised that she is on life support and nothing that were doing at this point time is going to reverse her underlying malignancy. If this is pulmonary hemorrhage (grade 3 or 4), unclear if she will respond to steroids or not. They understand the severity of her illness. We had a discussion regarding what palliative care would look like and I reassured them that the patient could have symptoms palliated where she would not suffer for shortness of breath or anxiety or pain however this would likely result in increasing sedation. They have taken it under advisement. They are awaiting arrival of additional family members in the next few hours and will make a final decision regarding the course they want to proceed going forward. I do not see any utility in additional escalation of care given her widely metastatic malignancy which is failed multiple chemotherapeutic agents at this point time.Will not attempt CPR or additional escalation of care at this time per family request." 05/01/22: "After multiple discussions with family members throughout the day, family decided to pursue comfort measures only for patient.Patient will be placed on morphine drip and given Ativan pushes as needed.Patient will be taken off of propofol and extubated accordingly.Patient will be given supplemental oxygen only for comfort and not for actual treatment of hypoxia." IV morphine scheduled, IV ativan prn. Acute Hypoxic Hypercapnic Respiratory Failure Likely due to persistent and significant pulmonary metastatic disease. Possible pulmonary hemorrhage 2/2 chemotherapy. Given the acuity of presentation over the last ~24 hours, infection may be playing a role as well. - s/p intubation in the ED, transferred to ICU - d/c'd fentanyl; cont. Propofol, weening as able - ABG with pH 7.18, pCO2 47, pHCO3 18 - mixed acidosis - d/c'd Bicarb 150mEq gtt with D5 @150cc/hr - cont. Protonix 40mg IV daily - cont. IV methylprednisone - further management per ICU Sepsis, possible pulmonary source SIRS 2/4, qSOFA 2/3. Possibly pulmonary source. CXR difficult to assess for acute changes due to prominent chronic pulmonary mets but there may be RLL opacity. - CTA chest: interval development of ground glass opacities in bilateral lower lungs - Lactate 4 -->3.2 - s/p 1.5L NSS boluses - defer further IV fluids to ICU - received Zosyn x1 and Levofloxacin x1 in the ED; cont. zosyn - MRSA nares neg, procalcitonin mildly elevated - blood cx pending, UA showed no signs of infection - d/c'd levophed; started phenylephrine for pressure support - defer further antibiotic management to ICU Hyponatremia, resolved Na 133 on admission - suspect SIADH 2/2 to pulmonary disease +/- pneumonia vs hypovolemia/dehydration. - serum and urine osmol wnl - trend in AM Elevated Troponin, peaked hsTroponin 358.9 at 22:50. No reported chest pain prior to arrival, and EKG without ST/T changes. Suspect demand ischemia due to tachycardia. - hsTop peaked at 1200 Generalized Petechial Rash New rash per family members one day prior to admission. Platelets are 120 (slightly up from baseline) and PT/PTT/INR are within normal limits. - peripheral smear unremarkable - cont. to monitor Metastatic Liver Cancer Primary HCC. Has received several rounds of chemotherapy and RTx - most recently received salvage RTx last month and was recently started on Ramucirumab last month, and plan had been to continue this treatment. - also on Prednisone 40mg PO daily for last ~1 month - received Decadron 12mg IV x1 in ED - defer to ICU for further stress dosing FEN/GI:NPO GI ppx: Protonix 40mg IV daily DVT Prophylaxis: Lovenox Code Status: DNR/DNI Disposition: ICU (2) Sepsis: (3) Metastatic cancer to lung: (4) Respiratory failure: Admission and Anticipated Discharge Date Admission Date: April 30, 2022 Subjective Patient seen at bedside this morning. Intubated in ICU. Appears comfortable. Intermittently opens her eyes during physical exam but falls asleep shortly after. No meaningful HPI obtained at this time. Review of Systems Review of Systems: see hpi Physical Exam Physical Exam: GENERAL - Intubated and sedated. Vital signs as above. HEENT - NCAT. PERRL. Conjunctiva pink and moist with no injection noted. No deformities of external structures bilaterally. ETT in place. Supple to palpation. LUNGS - Diffuse areas of rales with inspiratory wheezes. Diminished coarse breath sounds in other areas of lung field. CARDIAC - RRR. No murmur, rubs, or gallops. ABDOMEN - BS normoactive all four quadrants. No tenderness, soft, nondistended. No palpable masses, hepatosplenomegaly, or ascites. EXTREMITIES - No clubbing or peripheral cyanosis. No pretibial edema present. +3/5 radial and dorsalis pedis pulses palpated throughout. SKIN - Petechial rash to the bilateral upper extremities. NEUROLOGIC - Unable to fully assess secondary to sedation. Results & Data Results & Data ([facility]) Vital Signs (Past 12 Hours) Vital Signs Temp Pulse Resp BP Pulse Ox 05/01/22 16:30 38.4 C H 152 H 0 L 134/97 38 L 05/01/22 16:00 38.4 C H 160 H 19 169/123 H 88 L 05/01/22 15:30 38.4 C H 148 H 18 136/109 H 94 05/01/22 15:00 38.4 C H 150 H 0 L 145/101 H 95 05/01/22 14:30 38.4 C H 151 H 14 151/107 H 92 05/01/22 14:00 38.4 C H 145 H 14 137/98 94 05/01/22 13:30 38.4 C H 147 H 21 145/113 H 90 05/01/22 13:00 38.3 C H 137 H 14 128/99 94 05/01/22 12:30 38.1 C H 128 H 14 132/102 H 91 05/01/22 12:00 38.1 C H 121 H 13 104/68 94 05/01/22 11:30 38.1 C H 120 H 13 113/68 94 05/01/22 11:13 125 H 15 92 05/01/22 11:00 38.1 C H 124 H 15 116/78 92 05/01/22 10:30 38.1 C H 121 H 15 99/65 L 94 05/01/22 10:00 38.1 C H 123 H 13 111/75 91 05/01/22 09:30 38.1 C H 124 H 30 H 119/81 95 05/01/22 09:00 38.1 C H 125 H 24 130/92 94 05/01/22 08:30 38.2 C H 126 H 30 H 122/87 94 05/01/22 08:00 38.2 C H 126 H 30 H 121/81 94 05/01/22 07:43 126 H 30 H 92 05/01/22 07:30 38.2 C H 126 H 30 H 114/77 91 05/01/22 07:00 38.1 C H 128 H 30 H 109/75 90 05/01/22 06:30 38.1 C H 123 H 30 H 102/66 90 05/01/22 06:00 38.1 C H 126 H 26 H 113/78 90 05/01/22 05:30 38.1 C H 126 H 26 H 92 Laboratory Results 05/01/22 05/01/22 05/01/22 Range/Units 11:00 09:46 05:35 WBC (4.8-10.8) K/ul RBC (3.93-5.22) M/uL Hgb (12.0-16.0) g/dl Hct (34.1-44.9) % MCV (80.0-100.0) fL MCH (25.0-34.0) pg MCHC (32.0-36.0) g/dL RDW Std Deviation (36.4-46.3) fL RDW Coeff of Domonique (11.5-14.5) % Plt Count (130-400) K/uL MPV (9.4-12.3) fL Immature Gran % (Auto) % Neut % (Auto) % Lymph % (Auto) % [place] % (Auto) % Eos % (Auto) % Baso % (Auto) % Neut # (Auto) (1.4-6.5) K/uL Lymph # (Auto) (1.2-3.4) K/uL [place] # (Auto) (0.24-0.82) K/uL Eos # (Auto) (0-0.50) K/uL Baso # (Auto) (0-0.2) K/uL Immature Gran # (Auto) (0.00-0.02) K/uL Absolute Nucleated RBC (0-0) K/uL Nucleated RBC % (auto) % Peripher Smr Path Cons Sample Site L Radial POC pH 7.44 (7.35-7.45) POC pCO2 55 H (35-46) mmHg POC pO2 61 L (80-95) mmHg POC HCO3 38 H (19-24) pricilla/L POC Total CO2 39 H (24-31) mmol/L POC Base Excess 13.0 H (-9-1.8) pricilla/L POC ABG O2 Sat 91.0 (90-95) % Berny Test Pass O2 Delivery Device Ventilator POC O2 Rate 15 Minute Ventilation POC FiO2 80 % Tidal Volume 350 PEEP 5 Sodium (136-145) mmol/L Potassium (3.5-5.1) mmol/L Chloride (98-107) mmol/L Carbon Dioxide (21-32) mmol/L Anion Gap (3-11) BUN (6-23) mg/dl Creatinine (0.6-1.2) mg/dl Est Cr Clr Drug Dosing ml/min Est GFR ( Amer) ml/min Est GFR (Non-Af Amer) ml/min BUN/Creatinine Ratio (10-20) Glucose (70-99(Fasting)) mg/dl POC Glucose (70-99) mg/dl Lactate 3.2 H* (0.4-2.0) mmol/L Calcium (8.5-10.1) mg/dl Phosphorus (2.5-4.9) mg/dl Magnesium (1.7-2.4) mg/dl Total Bilirubin (0.2-1.0) mg/dl Direct Bilirubin (0-0.2) mg/dl AST (13-39) U/L ALT (7-52) U/L Alkaline Phosphatase (34-104) U/L Total Protein (6.0-8.3) gm/dl Albumin (3.4-5.0) gm/dl Procalcitonin 2.47 H (0-0.5) ng/ml 05/01/22 05/01/22 05/01/22 Range/Units 05:28 05:28 05:28 WBC 9.54 (4.8-10.8) K/ul RBC 2.75 L (3.93-5.22) M/uL Hgb 7.9 L (12.0-16.0) g/dl Hct 25.3 L (34.1-44.9) % MCV 92.0 (80.0-100.0) fL MCH 28.7 (25.0-34.0) pg MCHC 31.2 L (32.0-36.0) g/dL RDW Std Deviation 66.6 H (36.4-46.3) fL RDW Coeff of Domonique 20.0 H (11.5-14.5) % Plt Count 115 L (130-400) K/uL MPV 11.5 (9.4-12.3) fL Immature Gran % (Auto) 0.6 % Neut % (Auto) 89.8 % Lymph % (Auto) 5.7 % [place] % (Auto) 3.8 % Eos % (Auto) 0.0 % Baso % (Auto) 0.1 % Neut # (Auto) 8.57 H (1.4-6.5) K/uL Lymph # (Auto) 0.54 L (1.2-3.4) K/uL [place] # (Auto) 0.36 (0.24-0.82) K/uL Eos # (Auto) 0.00 (0-0.50) K/uL Baso # (Auto) 0.01 (0-0.2) K/uL Immature Gran # (Auto) 0.06 H (0.00-0.02) K/uL Absolute Nucleated RBC 0.08 H (0-0) K/uL Nucleated RBC % (auto) 0.8 % Peripher Smr Path Cons Sample Site POC pH (7.35-7.45) POC pCO2 (35-46) mmHg POC pO2 (80-95) mmHg POC HCO3 (19-24) pricilla/L POC Total CO2 (24-31) mmol/L POC Base Excess (-9-1.8) pricilla/L POC ABG O2 Sat (90-95) % Berny Test O2 Delivery Device POC O2 Rate Minute Ventilation POC FiO2 % Tidal Volume PEEP Sodium 141 D (136-145) mmol/L Potassium 3.4 L (3.5-5.1) mmol/L Chloride 98 (98-107) mmol/L Carbon Dioxide 36 H (21-32) mmol/L Anion Gap 7 (3-11) BUN 10 (6-23) mg/dl Creatinine 0.53 L (0.6-1.2) mg/dl Est Cr Clr Drug Dosing 105.3 ml/min Est GFR ( Amer) 132.0 ml/min Est GFR (Non-Af Amer) 113.9 ml/min BUN/Creatinine Ratio 18.9 (10-20) Glucose 177 H (70-99(Fasting)) mg/dl POC Glucose (70-99) mg/dl Lactate 4.0 H* (0.4-2.0) mmol/L Calcium 7.6 L (8.5-10.1) mg/dl Phosphorus 2.5 (2.5-4.9) mg/dl Magnesium 2.0 (1.7-2.4) mg/dl Total Bilirubin 1.1 H (0.2-1.0) mg/dl Direct Bilirubin 0.3 H (0-0.2) mg/dl AST 51 H (13-39) U/L ALT 52 (7-52) U/L Alkaline Phosphatase 70 (34-104) U/L Total Protein 5.2 L D (6.0-8.3) gm/dl Albumin 2.6 L (3.4-5.0) gm/dl Procalcitonin (0-0.5) ng/ml 05/01/22 05/01/22 05/01/22 Range/Units 05:02 04:59 00:14 WBC (4.8-10.8) K/ul RBC (3.93-5.22) M/uL Hgb (12.0-16.0) g/dl Hct (34.1-44.9) % MCV (80.0-100.0) fL MCH (25.0-34.0) pg MCHC (32.0-36.0) g/dL RDW Std Deviation (36.4-46.3) fL RDW Coeff of Domonique (11.5-14.5) % Plt Count (130-400) K/uL MPV (9.4-12.3) fL Immature Gran % (Auto) % Neut % (Auto) % Lymph % (Auto) % [place] % (Auto) % Eos % (Auto) % Baso % (Auto) % Neut # (Auto) (1.4-6.5) K/uL Lymph # (Auto) (1.2-3.4) K/uL [place] # (Auto) (0.24-0.82) K/uL Eos # (Auto) (0-0.50) K/uL Baso # (Auto) (0-0.2) K/uL Immature Gran # (Auto) (0.00-0.02) K/uL Absolute Nucleated RBC (0-0) K/uL Nucleated RBC % (auto) % Peripher Smr Path Cons Sample Site R Radial POC pH 7.60 H* (7.35-7.45) POC pCO2 38 (35-46) mmHg POC pO2 57 L (80-95) mmHg POC HCO3 38 H (19-24) pricilla/L POC Total CO2 39 H (24-31) mmol/L POC Base Excess 16.0 H (-9-1.8) pricilla/L POC ABG O2 Sat 94.0 (90-95) % Berny Test Pass O2 Delivery Device Ventilator POC O2 Rate 30 Minute Ventilation 10.5 POC FiO2 75 % Tidal Volume 350 PEEP 5 Sodium (136-145) mmol/L Potassium (3.5-5.1) mmol/L Chloride (98-107) mmol/L Carbon Dioxide (21-32) mmol/L Anion Gap (3-11) BUN (6-23) mg/dl Creatinine (0.6-1.2) mg/dl Est Cr Clr Drug Dosing ml/min Est GFR ( Amer) ml/min Est GFR (Non-Af Amer) ml/min BUN/Creatinine Ratio (10-20) Glucose (70-99(Fasting)) mg/dl POC Glucose 178 H 234 H (70-99) mg/dl Lactate (0.4-2.0) mmol/L Calcium (8.5-10.1) mg/dl Phosphorus (2.5-4.9) mg/dl Magnesium (1.7-2.4) mg/dl Total Bilirubin (0.2-1.0) mg/dl Direct Bilirubin (0-0.2) mg/dl AST (13-39) U/L ALT (7-52) U/L Alkaline Phosphatase (34-104) U/L Total Protein (6.0-8.3) gm/dl Albumin (3.4-5.0) gm/dl Procalcitonin (0-0.5) ng/ml 05/01/22 04/30/22 04/29/22 Range/Units 00:02 18:29 22:50 WBC (4.8-10.8) K/ul RBC (3.93-5.22) M/uL Hgb (12.0-16.0) g/dl Hct (34.1-44.9) % MCV (80.0-100.0) fL MCH (25.0-34.0) pg MCHC (32.0-36.0) g/dL RDW Std Deviation (36.4-46.3) fL RDW Coeff of Domonique (11.5-14.5) % Plt Count (130-400) K/uL MPV (9.4-12.3) fL Immature Gran % (Auto) % Neut % (Auto) % Lymph % (Auto) % [place] % (Auto) % Eos % (Auto) % Baso % (Auto) % Neut # (Auto) (1.4-6.5) K/uL Lymph # (Auto) (1.2-3.4) K/uL [place] # (Auto) (0.24-0.82) K/uL Eos # (Auto) (0-0.50) K/uL Baso # (Auto) (0-0.2) K/uL Immature Gran # (Auto) (0.00-0.02) K/uL Absolute Nucleated RBC (0-0) K/uL Nucleated RBC % (auto) % Peripher Smr Path Cons Sample Site L Radial POC pH 7.56 H* (7.35-7.45) POC pCO2 42 (35-46) mmHg POC pO2 55 L (80-95) mmHg POC HCO3 38 H (19-24) pricilla/L POC Total CO2 > 40 H* (24-31) mmol/L POC Base Excess 16.0 H (-9-1.8) pricilla/L POC ABG O2 Sat 92.0 (90-95) % Berny Test Pass O2 Delivery Device Ventilator POC O2 Rate 30 Minute Ventilation 10.5 POC FiO2 75 % Tidal Volume 350 PEEP 5 Sodium (136-145) mmol/L Potassium (3.5-5.1) mmol/L Chloride (98-107) mmol/L Carbon Dioxide (21-32) mmol/L Anion Gap (3-11) BUN (6-23) mg/dl Creatinine (0.6-1.2) mg/dl Est Cr Clr Drug Dosing ml/min Est GFR ( Amer) ml/min Est GFR (Non-Af Amer) ml/min BUN/Creatinine Ratio (10-20) Glucose (70-99(Fasting)) mg/dl POC Glucose 233 H (70-99) mg/dl Lactate (0.4-2.0) mmol/L Calcium (8.5-10.1) mg/dl Phosphorus (2.5-4.9) mg/dl Magnesium (1.7-2.4) mg/dl Total Bilirubin (0.2-1.0) mg/dl Direct Bilirubin (0-0.2) mg/dl AST (13-39) U/L ALT (7-52) U/L Alkaline Phosphatase (34-104) U/L Total Protein (6.0-8.3) gm/dl Albumin (3.4-5.0) gm/dl Procalcitonin (0-0.5) ng/ml Resident Activity Tracking Resident Involvement: Resident Care Provided Care Provided: Adult [facility] Medicine (1) Metastatic cancer to lung Laterality: bilateral Qualified Code(s): C78.01 - Secondary malignant neoplasm of right lung; C78.02 - Secondary malignant neoplasm of left lung (2) Respiratory failure Chronicity: acute Respiratory failure complication: hypoxia Qualified Code(s): J96.01 - Acute respiratory failure with hypoxia (3) Sepsis Acute respiratory failure type: with hypoxia Sepsis acute organ dysfunction status: with acute organ dysfunction Sepsis type: sepsis due to unspecified organism Severe sepsis acute organ dysfunction type: acute respiratory failure Severe sepsis shock status: without septic shock Qualified Code(s): A41.9 - Sepsis, unspecified organism; R65.20 - Severe sepsis without septic shock; J96.01 - Acute respiratory failure with hypoxia
--- NOTE | 2022-05-01 18:32 | Death Pronouncement Note ---
Date of Service May 01, 2022 Pronouncement Note Admission Date Admission Date: April 30, 2022 Date and Time of Date of : 05/01/22 Time of : 17:44 Contributing Factors (1) Acute respiratory failure with hypoxia and hypercapnia: (2) Sepsis: (3) Metastatic cancer to lung: (4) Respiratory failure: Additional Data Confirmation of : no pulse, no respirations, no heart sounds and pupils fixed and dilated Family: at bedside Additional persons at bedside: other (RN) Attending physician: Jenna Corley MD Was code activated?: No Resident Activity Tracking Resident Involvement: Resident Care Provided Care Provided: Adult Hospital Medicine
--- NOTE | 2022-05-01 18:38 | Discharge Summary ---
Date of Service May 01, 2022 Admission HPI Per Admitting Provider 46 year old female w/ chronic hep B, hepatocellular carcinoma w/ lung and bone mets whopresented to [facility] ED via EMS on 04/30 for progressive shortness of breath and hypoxia to 70s. In the ED the patient was tachycardic to 140s, had adequate SpO2 on BiPAP but remained tachypneic in 30s with severe respiratory distress despite the BiPAP - was thus intubated by ED physician and currently remains on FiO2 100%. Labs significant for WBC 11.38 (baseline neutropenia; currently with neutrophilic predominance and L shift), plts 120 (~baseline), coags WNL, Na 131, HCO3 19, Lactate 2.1, TBili 2.0, Cr WNL. Also had hsTroponin 358.9 (EKG without ST/T change, no chest pain). COVID/influenza AB/RSV negative. CXR with possible RLL opacity and with chronic numerous pulmonary mets. CTA chest done - prelim read pending. Patient received Etomidate/Succinylcholine for intubation and then received Propofol/Fentanyl for additional sedation. Also received Dexamethasone 12mg x1, NSS 1.5L boluses, Zosyn x1, and Levofloxacin x1. Blood cultures collected before antibiotics were given. Principal Diagnosis Metastatic Hepatocellular Carcinoma Discharge Exam No pulse, no respirations, no heart sounds, no pupillary reflex with fixed and dilated pupils Discharge Data Allergies Allergy/AdvReac Type Severity Reaction Status Date / Time latex Allergy Intermediate Rash Verified 04/30/22 02:48 Consultations 04/30/22 01:31 ED Decision to Admit Stat 04/30/22 02:10 Consult Polisher Numeral Stat Ordered Studies Laboratory Results WBC 9.54 K/ul (4.8-10.8) 05/01/22 05:28 RBC 2.75 M/uL (3.93-5.22) L 05/01/22 05:28 Hgb 7.9 g/dl (12.0-16.0) L 05/01/22 05:28 POC Hgb 6.8 g/dl (12.0-16.0) L* 04/30/22 05:09 Hct 25.3 % (34.1-44.9) L 05/01/22 05:28 POC Hct 20 % (37-47) L* 04/30/22 05:09 MCV 92.0 fL (80.0-100.0) 05/01/22 05:28 MCH 28.7 pg (25.0-34.0) 05/01/22 05:28 MCHC 31.2 g/dL (32.0-36.0) L 05/01/22 05:28 RDW Std Deviation 66.6 fL (36.4-46.3) H 05/01/22 05:28 RDW Coeff of Domonique 20.0 % (11.5-14.5) H 05/01/22 05:28 Plt Count 115 K/uL (130-400) L 05/01/22 05:28 MPV 11.5 fL (9.4-12.3) 05/01/22 05:28 Immature Gran % (Auto) 0.6 % 05/01/22 05:28 Neut % (Auto) 89.8 % 05/01/22 05:28 Lymph % (Auto) 5.7 % 05/01/22 05:28 [place] % (Auto) 3.8 % 05/01/22 05:28 Eos % (Auto) 0.0 % 05/01/22 05:28 Baso % (Auto) 0.1 % 05/01/22 05:28 Neut # (Auto) 8.57 K/uL (1.4-6.5) H 05/01/22 05:28 Lymph # (Auto) 0.54 K/uL (1.2-3.4) L 05/01/22 05:28 [place] # (Auto) 0.36 K/uL (0.24-0.82) 05/01/22 05:28 Eos # (Auto) 0.00 K/uL (0-0.50) 05/01/22 05:28 Baso # (Auto) 0.01 K/uL (0-0.2) 05/01/22 05:28 Immature Gran # (Auto) 0.06 K/uL (0.00-0.02) H 05/01/22 05:28 Absolute Nucleated RBC 0.08 K/uL (0-0) H 05/01/22 05:28 Nucleated RBC % (auto) 0.8 % 05/01/22 05:28 Polychromasia 1+ 04/29/22 22:50 Tear Drop Cells 2+ 04/29/22 22:50 Peripher Smr Path Cons 04/29/22 22:50 PT 11.3 Seconds (9.0-12.0) 04/29/22 22:50 INR 1.1 (0.9-1.1) 04/29/22 22:50 APTT 27.7 Seconds (21.0-31.0) 04/29/22 22:50 PTT Ratio 1.0 04/29/22 22:50 Sample Site L Radial 05/01/22 11:00 POC pH 7.44 (7.35-7.45) 05/01/22 11:00 POC pCO2 55 mmHg (35-46) H 05/01/22 11:00 POC pO2 61 mmHg (80-95) L 05/01/22 11:00 POC HCO3 38 pricilla/L (19-24) H 05/01/22 11:00 POC Total CO2 39 mmol/L (24-31) H 05/01/22 11:00 POC Base Excess 13.0 pricilla/L (-9-1.8) H 05/01/22 11:00 ABG pH 7.19 (7.35-7.45) L* 04/30/22 01:44 ABG pH (Temp Correct) 7.276 (7.35-7.45) L 04/30/22 05:09 ABG pCO2 47 mmHg (35-46) H 04/30/22 01:44 ABG pCO2 (Temp Corrct 47 mmHg (35-46) H 04/30/22 05:09 ABG pO2 161 mmHg (80-95) H 04/30/22 01:44 POC ABG pO2 at Pt Temp 80 04/30/22 05:09 ABG HCO3 18 mmol/L (19-24) L 04/30/22 01:44 POC ABG O2 Sat 91.0 % (90-95) 05/01/22 11:00 ABG O2 Saturation > 100.0 % (90-95) H 04/30/22 01:44 ABG Base Excess -10.1 mEq/L (-9-1.8) L 04/30/22 01:44 Berny Test Pass 05/01/22 11:00 Oxygen Given ROOM AIR 04/30/22 01:44 O2 Delivery Device Ventilator 05/01/22 11:00 POC O2 Rate 15 05/01/22 11:00 Minute Ventilation 10.5 05/01/22 04:59 POC FiO2 80 % 05/01/22 11:00 Tidal Volume 350 05/01/22 11:00 PEEP 5 05/01/22 11:00 POC Sodium 132 mmol/L (135-144) L 04/30/22 05:09 Sodium 141 mmol/L (136-145) D 05/01/22 05:28 POC Potassium 3.9 mmol/L (3.3-5.0) 04/30/22 05:09 Potassium 3.4 mmol/L (3.5-5.1) L 05/01/22 05:28 Chloride 98 mmol/L (98-107) 05/01/22 05:28 Carbon Dioxide 36 mmol/L (21-32) H 05/01/22 05:28 Anion Gap 7 (3-11) 05/01/22 05:28 BUN 10 mg/dl (6-23) 05/01/22 05:28 Creatinine 0.53 mg/dl (0.6-1.2) L 05/01/22 05:28 Est Cr Clr Drug Dosing 105.3 ml/min 05/01/22 05:28 Est GFR ( Amer) 132.0 ml/min 05/01/22 05:28 Est GFR (Non-Af Amer) 113.9 ml/min 05/01/22 05:28 BUN/Creatinine Ratio 18.9 (10-20) 05/01/22 05:28 Glucose 177 mg/dl (70-99(Fasting)) H 05/01/22 05:28 POC Glucose 178 mg/dl (70-99) H 05/01/22 05:02 Osmolality 280 mOsm/kg (280-300) 04/29/22 22:50 Lactate 3.2 mmol/L (0.4-2.0) H* 05/01/22 09:46 Calcium 7.6 mg/dl (8.5-10.1) L 05/01/22 05:28 Phosphorus 2.5 mg/dl (2.5-4.9) 05/01/22 05:28 Magnesium 2.0 mg/dl (1.7-2.4) 05/01/22 05:28 Total Bilirubin 1.1 mg/dl (0.2-1.0) H 05/01/22 05:28 Direct Bilirubin 0.3 mg/dl (0-0.2) H 05/01/22 05:28 AST 51 U/L (13-39) H 05/01/22 05:28 ALT 52 U/L (7-52) 05/01/22 05:28 Alkaline Phosphatase 70 U/L (34-104) 05/01/22 05:28 Troponin I High Sens 1171.3 pg/ml (0-14) H* 04/30/22 06:06 Total Protein 5.2 gm/dl (6.0-8.3) L D 05/01/22 05:28 Albumin 2.6 gm/dl (3.4-5.0) L 05/01/22 05:28 Globulin 3.3 gm/dl (2.5-4.0) 04/29/22 22:50 Albumin/Globulin Ratio 1.0 (0.9-2) 04/29/22 22:50 Procalcitonin 2.47 ng/ml (0-0.5) H 05/01/22 05:35 Urine Color Yellow 04/29/22 23:45 Urine Appearance Clear (Clear) 04/29/22 23:45 Urine pH 6.5 (4.5-7.5) 04/29/22 23:45 Ur Specific Renner 1.020 (1.000-1.030) 04/29/22 23:45 Urine Protein Negative (Negative) 04/29/22 23:45 Urine Glucose (UA) Negative (Negative) 04/29/22 23:45 Urine Ketones Trace (Negative) H 04/29/22 23:45 Urine Blood Trace (Negative) H 04/29/22 23:45 Urine Nitrite Negative (Negative) 04/29/22 23:45 Urine Bilirubin Negative (Negative) 04/29/22 23:45 Urine Urobilinogen Negative (Negative) 04/29/22 23:45 Ur Leukocyte Esterase Negative (Negative) 04/29/22 23:45 Urine WBC (Auto) 1-5 /hpf (0-5) 04/29/22 23:45 Urine RBC (Auto) 0-4 /hpf (0-4) 04/29/22 23:45 U Hyaline Cast (Auto) 1-5 /lpf (0-5) 04/29/22 23:45 U Epithel Cells (Auto) 10-20 /lpf (0-5) H 04/29/22 23:45 Urine Bacteria (Auto) Negative (Negative) 04/29/22 23:45 Urine Osmolality 631 mOsm/kg (500-800) 04/29/22 23:45 Ur Random Sodium 123 mmol/L 04/29/22 23:45 Nasal Screen MRSA (PCR) Negative (Negative) 04/30/22 03:36 SARS-CoV-2 (PCR) NEGATIVE (Negative) 04/29/22 22:08 Influenza Type A (PCR) Negative (Neg) 04/29/22 22:08 Influenza Type B (PCR) Negative (Neg) 04/29/22 22:08 RSV (RT-PCR) Negative (Neg) 04/29/22 22:08 Blood Type O Positive 04/30/22 06:06 Antibody Screen NEGATIVE 04/30/22 06:06 Crossmatch See Detail 04/30/22 06:06 Impressions Chest CTA 04/29/22 23:56 CT angio chest PE protocol CLINICAL HISTORY: PE TECHNIQUE: Multidetector row helical CT of the chest was performed with angiographic protocol. Coronal and sagittal reformations were obtained. Coronal and sagittal MIPS were obtained from the axial data set and were submitted for review. Automated dose lowering techniques and/or adjustment according to patient size were utilized for this exam. CT DOSE: 256.09 mGy.cm Comparison: Comparison is made to radiation therapy CT chest 03/27/[address] chest 03/10/2022 FINDINGS: Lungs and pleura: Innumerable masses and nodules in the bilateral lungs compatible with metastatic disease. Groundglass opacities are seen in the bilateral lower lungs, not clearly seen on prior exam. Heart and pericardium: Heart size is normal. No pericardial effusion. Vessels: No evidence of pulmonary embolism. Incidentally noted is a filling defect in a right lower pulmonary vein (series 4 image 97). Mediastinum and leidy: Extensive mediastinal and hilar masses are seen compatible with lymphadenopathy. It is slightly enlarged from prior diagnostic CT chest. Chest wall and lower neck: Partial visualization of a left lower cervical node measuring 30 mm in diameter. It previously measured up to 19 mm. Abdomen: Unremarkable. Bones: Bony destruction of the right fifth rib with a large soft tissue mass again noted. IMPRESSION: 1. No evidence of pulmonary embolism. 2. Note is made of pulmonary venous thrombus in the right lower lobe. Recommend clinical consideration for anticoagulation or other measures to prevent thrombosis to the left-sided circulation. 3. Interval development of groundglass opacities in the bilateral lower lungs. This may represent postobstructive changes, superimposed infectious/plantar process cannot be excluded. 4. Redemonstration of pulmonary metastatic disease as well as multifocal malik and bony metastases. ACT 112: Negative or not required by law. Electronically signed by: Jairon Leroy M.D. 04/30/2022 9:08 AM Chest X-Ray 05/01/22 07:00 XR chest 1V portable CLINICAL HISTORY: Follow-up intubation and metastatic disease. COMPARISON STUDY: 04/29/2022 TECHNIQUE: 1 view of the chest FINDINGS: Single frontal view of the chest demonstrates the heart to again be enlarged. Endotracheal tube is unchanged. Compared to previous examination, marked metastatic lung disease again seen. There is no evidence for pleural effusion. There is no evidence for vascular congestion. There is no acute osseous pathology. IMPRESSION: 1. Status post intubation, unchanged. 2. Marked metastatic lung disease, change with no acute abnormality identified radiographically. ACT 112: Negative or not required by law. Electronically signed by: Derick Wharton M.D. 05/01/2022 8:22 AM Hospital Course (1) Acute respiratory failure with hypoxia and hypercapnia: 46 year old female w/ chronic hep B, hepatocellular carcinoma w/ lung and bone mets whopresented to [facility] ED via EMS on 04/30 for progressive shortness of breath and hypoxia to 70s - intubated in ED for acute hypoxic hypercapnic respiratory failure. Goals of Care per ICU communication note: 04/30/22: "The patient has widely metastatic hepatocellular carcinoma. She is failed multiple chemotherapeutic regimens. Her chemotherapy was recently changed over a month ago. Toxicities related with this particular therapy include pulmonary hemorrhage and the patient has been coughing up some blood. Her CT scan does demonstrate some areas of ground glass opacity in addition to innumerable pulmonary metastases. Pulmonary hemorrhage is on the differential. Chemotherapeutic agents will be withheld and the patient will be initiated on high-dose Solu-Medrol. She is hypotensive and necessitating pressors. I do long discussion with the patient's daughter and sister at bedside. We reviewed the current physical state. They were advised that she is on life support and nothing that were doing at this point time is going to reverse her underlying malignancy. If this is pulmonary hemorrhage (grade 3 or 4), unclear if she will respond to steroids or not. They understand the severity of her illness. We had a discussion regarding what palliative care would look like and I reassured them that the patient could have symptoms palliated where she would not suffer for shortness of breath or anxiety or pain however this would likely result in increasing sedation. They have taken it under advisement. They are awaiting arrival of additional family members in the next few hours and will make a final decision regarding the course they want to proceed going forward. I do not see any utility in additional escalation of care given her widely metastatic malignancy which is failed multiple chemotherapeutic agents at this point time.Will not attempt CPR or additional escalation of care at this time per family request." 05/01/22: "After multiple discussions with family members throughout the day, family decided to pursue comfort measures only for patient.Patient will be placed on morphine drip and given Ativan pushes as needed.Patient will be taken off of propofol and extubated accordingly.Patient will be given supplemental oxygen only for comfort and not for actual treatment of hypoxia." IV morphine scheduled, IV ativan prn. *Patient at 1744 on May 01, 2022 following extubation* Acute Hypoxic Hypercapnic Respiratory Failure Likely due to persistent and significant pulmonary metastatic disease. Possible pulmonary hemorrhage 2/2 chemotherapy. Given the acuity of presentation over the last ~24 hours, infection may be playing a role as well. - s/p intubation in the ED, transferred to ICU and kept on fenatyl and propofol for sedation. Later extubated for withdrawal of care due to extremely poor prognosis. Sepsis with septic shock, possible pulmonary source SIRS 2/4, qSOFA 2/3. Possibly pulmonary source. CXR difficult to assess for acute changes due to prominent chronic pulmonary mets but there may be RLL opacity. - CTA chest: interval development of ground glass opacities in bilateral lower lungs - Lactate 4 -->3.2 Received 1.5L NSS boluses, IV antibiotics and pressors. Metastatic Liver Cancer Primary HCC. Has received several rounds of chemotherapy and RTx - most recently received salvage RTx last month and was recently started on Ramucirumab last month, also on Prednisone 40mg PO daily for last ~1 month - received Decadron 12mg IV x1 in ED (2) Sepsis: (3) Metastatic cancer to lung: (4) Respiratory failure: Total Time Total Time Spent Total Time Spent (In Minutes): 15 Discharge Plan Discharge Items Patient Disposition: Discharge Diagnosis: Metastatic hepatocellular carcinoma Other Date/Time: 05/01/22 17:44 Supervising Physician Co-Signing Physician Notes Resident Physician Supervision Note: I independently interviewed and examined the patient and verified the vaughn history and physical, reviewed labs and image studies and agree with resident Dr. Millard findings and care plan. Resident Activity Tracking Resident Involvement: Resident Care Provided Care Provided: Adult Hospital Medicine
--- NOTE | 2022-05-02 09:28 | Billing Data ---
Date of Service May 01, 2022 Coding Level of Care Code Critical Care 1st - mins
== END 2022-05-01 19:48 | disposition expired | DRG 871 ==
LOC: ED 22:45 → 1E 04-30 02:30 → SUATTDRO 04-30 02:30 → 1E 04-30 03:03